=== PATIENT | male | born 1955 | race Caucasian/White ===

== ENCOUNTER → 2017-12-03 17:08 | Outpatient (CLI) | payer BC, SELFPAY | PROVIDERS: Family Provider Family Medicine; PCP Family Medicine; Visit Provider Otolaryngology Otolaryngology/Facial Plastic Surgery | DX: J32.9 Chronic sinusitis, unspecified (principal) | CPT/HCPCS: 87070; 87077; 87186; 87205 ==

== ENCOUNTER → 2018-01-10 11:58 | Outpatient (CLI) | payer BC, SELFPAY ==
[2018-01-10 12:36] LABS: Hematocrit 46.5 % (40-54); Hemoglobin 15.3 g/dl (13.0-16.5); Mean Corp Hgb Conc 32.9 g/gl (32-36); Mean Corpuscular Volume 97.3 fL (80-94); Mean Platelet Vol. 9.6 fl (6.2-12.0); Platelet Count 182 K/mm3 (150-450); RBC Distribution Width SD 46.1 fl (35.1-43.9); Red Blood Count 4.78 M/mm3 (4.6-6.2); White Blood Count 4.4 K/mm3 (4.4-11.0)
[2018-01-10 12:53] LABS: Scan Indicated on CBC? Y/N NO
[2018-01-10 12:55] LABS: Hemoglobin A1c 5.4 % (4.2-6.3)
[2018-01-10 13:37] LABS: AST(SGOT) 84 U/L (15-37); Alanine Aminotransfer ALT/SGPT 110 U/L (16-61); Alkaline Phosphatase 58 U/L (45-117); Anion Gap 8 (5-15); BUN 13 mg/dL (7-18); BUN/Creat Ratio 11.5 RATIO (10-20); Calcium,Total 8.6 mg/dL (8.5-10.1); Chloride 103 mmol/L (98-107); Cholesterol 208 mg/dL (200); Creatinine, Serum 1.13 mg/dL (0.70-1.30); EST Glomerular Filtration Rate 70 mL/min (>60); Est Glom Filt Rate - Afr Amer 85 mL/min (>60); Estradiol 60.2 pg/mL; Globulin 4.2 g/dL (2.2-4.2); Glucose 91 mg/dL (74-106); High Density Lipoprotein 58 mg/dL; PSA,Total - Annual Screen 2.02 ng/mL (0.00-4.00); Potassium 3.9 mmol/L (3.5-5.1); Protein, Total 8.2 g/dL (6.4-8.2); Sodium Level 139 mmol/L (136-145); Triglycerides 72 mg/dL; Very Low Density Lipoprotein 14 mg/dL (5-40)
[2018-01-11 11:56] LABS: Vitamin B12 1183 pg/mL (211-911); Vitamin D,25 Hydroxy 41.8 ng/mL (29.95-100.01)
[2018-01-15 16:09] LABS: Testosterone, % Free 3.27 % (1.50-4.20); Testosterone, Free 45.68 ng/dL (5.00-21.00)
[2018-01-16 11:20] LABS: DHEA Sulfate 398.2 ug/dL (48.9-344.2); Testosterone, Total 1397 ng/dL (264-916)
== END ==
PROVIDERS: Family Provider Family Medicine; PCP Family Medicine
DX: R63.5 Abnormal weight gain (principal); R53.83 Other fatigue
CPT/HCPCS: 36415; 80053; 80061; 82306; 82607; 82627; 82670; 82746; 83036; 84153; 84402; 84403; 85027; 82626; G0103

== ENCOUNTER → 2018-05-03 10:51 | Outpatient (CLI) | payer BC, SELFPAY ==
[2018-05-03 12:17] LABS: Hematocrit 30.5 % (40-54); Hemoglobin 9.2 g/dl (13.0-16.5); Mean Corp Hgb Conc 30.2 g/gl (32-36); Mean Corpuscular Hgb 26.7 pg (27.0-32.0); Mean Corpuscular Volume 88.7 fL (80-94); Mean Platelet Vol. 9.6 fl (6.2-12.0); Platelet Count 229 K/mm3 (150-450); RBC Distribution Width CV 16.8 % (11.6-14.6); RBC Distribution Width SD 52.8 fl (35.1-43.9); Red Blood Count 3.44 M/mm3 (4.6-6.2); White Blood Count 3.7 K/mm3 (4.4-11.0)
[2018-05-03 12:18] LABS: Scan Indicated on CBC? Y/N NO
[2018-05-03 12:48] LABS: Vitamin B12 385 pg/mL (211-911); Vitamin D,25 Hydroxy 56.8 ng/mL (29.95-100.01)
[2018-05-03 13:47] LABS: ALB/GLOB Ratio 0.9 RATIO (0.9-2.4); AST(SGOT) 39 U/L (15-37); Alanine Aminotransfer ALT/SGPT 45 U/L (16-61); Albumin, Serum 3.5 g/dL (3.2-5.0); Alkaline Phosphatase 69 U/L (45-117); Anion Gap 8 (5-15); BUN 14 mg/dL (7-18); BUN/Creat Ratio 15.7 RATIO (10-20); Calcium,Total 8.5 mg/dL (8.5-10.1); Chloride 104 mmol/L (98-107); Cholesterol 152 mg/dL (200); Creatinine, Serum 0.89 mg/dL (0.70-1.30); EST Glomerular Filtration Rate 92 mL/min (>60); Est Glom Filt Rate - Afr Amer 111 mL/min (>60); Estradiol 33.5 pg/mL; Globulin 3.7 g/dL (2.2-4.2); Glucose 100 mg/dL (74-106); High Density Lipoprotein 57 mg/dL; Potassium 4.1 mmol/L (3.5-5.1); Protein, Total 7.2 g/dL (6.4-8.2); Sodium Level 140 mmol/L (136-145); Triglycerides 56 mg/dL; Very Low Density Lipoprotein 11 mg/dL (5-40)
[2018-05-03 14:19] LABS: Hemoglobin A1c 4.4 % (4.2-6.3)
[2018-05-06 16:09] LABS: Testosterone, % Free 2.41 % (1.50-4.20); Testosterone, Free 20.29 ng/dL (5.00-21.00)
[2018-05-07 08:52] LABS: DHEA Sulfate 372.4 ug/dL (48.9-344.2); Testosterone, Total 842 ng/dL (264-916)
== END ==
PROVIDERS: Family Provider Family Medicine; PCP Family Medicine
DX: R53.83 Other fatigue (principal); R63.5 Abnormal weight gain
CPT/HCPCS: 36415; 80053; 80061; 82306; 82607; 82627; 82670; 82746; 83036; 84402; 84403; 85027; 82626

== ENCOUNTER → 2018-05-29 11:52 | Outpatient (CLI) | payer BC, SELFPAY ==
[2018-05-29 14:19] LABS: Absolute Lymphocyte Count 1.32 X10^3/ul (0.83-4.51); Absolute Neutrophil Count 2.4 X10^3/uL (2.0-7.7); Basophil# 0.04 X10^3/uL; Basophil% 0.9 % (0-1); Eosinophil# 0.13 X10^3/uL; Eosinophils% 3.1 % (0-5); Hematocrit 33.5 % (40-54); Hemoglobin 9.7 g/dl (13.0-16.5); Lymphocyte # 1.32 X10^3/ul (4.0); Lymphocyte % 31.1 % (19-41); Mean Corpuscular Hgb 23.5 pg (27.0-32.0); Mean Corpuscular Volume 81.3 fL (80-94); Mean Platelet Vol. 9.6 fl (6.2-12.0); Monocyte# 0.37 X10^3/uL; Monocyte% 8.7 % (0-10); Neutrophil # 2.37 X10^3/uL (2.7-7.7); POSITIVE COUNT NO; POSITIVE DIFFERENTIAL NO; POSITIVE MORPHOLOGY NO; Platelet Count 256 K/mm3 (150-450); RBC Distribution Width CV 18.1 % (11.6-14.6); RBC Distribution Width SD 53.8 fl (35.1-43.9); Red Blood Count 4.12 M/mm3 (4.6-6.2); White Blood Count 4.2 K/mm3 (4.4-11.0)
[2018-05-29 14:41] LABS: ALB/GLOB Ratio 0.9 RATIO (0.9-2.4); AST(SGOT) 41 U/L (15-37); Alanine Aminotransfer ALT/SGPT 49 U/L (16-61); Albumin, Serum 3.7 g/dL (3.2-5.0); Alkaline Phosphatase 56 U/L (45-117); Anion Gap 13 (5-15); BUN 12 mg/dL (7-18); BUN/Creat Ratio 12.2 RATIO (10-20); Calcium,Total 9.2 mg/dL (8.5-10.1); Chloride 101 mmol/L (98-107); Creatinine, Serum 0.98 mg/dL (0.70-1.30); EST Glomerular Filtration Rate 82 mL/min (>60); Est Glom Filt Rate - Afr Amer 100 mL/min (>60); Glucose 94 mg/dL (74-106); Potassium 4.5 mmol/L (3.5-5.1); Protein, Total 7.7 g/dL (6.4-8.2); Sodium Level 138 mmol/L (136-145); T3 Total - Triiodothyronine 0.87 ng/mL (0.6-1.81); T4 Free Direct 0.95 ng/dL (0.76-1.46); Thyroid Stim Hormone (TSH) 2.41 uIU/mL (0.358-3.74)
== END ==
PROVIDERS: Family Provider Family Medicine; PCP Family Medicine; Visit Provider Physician Assistant
DX: B02.9 Zoster without complications (principal); L03.012 Cellulitis of left finger
CPT/HCPCS: 36415; 80053; 84439; 84443; 84480; 85025

== ENCOUNTER → 2018-06-19 09:44 | Outpatient (CLI) | payer BC, SELFPAY ==
[2018-06-19 12:04] LABS: Absolute Lymphocyte Count 1.07 X10^3/ul (0.83-4.51); Absolute Neutrophil Count 2.9 X10^3/uL (2.0-7.7); Basophil# 0.05 X10^3/uL; Basophil% 1.1 % (0-1); Eosinophil# 0.08 X10^3/uL; Eosinophils% 1.7 % (0-5); Hematocrit 35.8 % (40-54); Hemoglobin 10.4 g/dl (13.0-16.5); Immature Platelet Fraction 1.6 % (1.0-7.9); Lymphocyte # 1.07 X10^3/ul (4.0); Lymphocyte % 22.7 % (19-41); Mean Corp Hgb Conc 29.1 g/gl (32-36); Mean Corpuscular Hgb 22.3 pg (27.0-32.0); Mean Corpuscular Volume 76.7 fL (80-94); Monocyte# 0.58 X10^3/uL; Monocyte% 12.3 % (0-10); Neutrophil # 2.91 X10^3/uL (2.7-7.7); Neutrophil % 61.8 % (47-70); Platelet Count 300 K/mm3 (150-450); RBC Distribution Width CV 18.4 % (11.6-14.6); RBC Distribution Width SD 51.9 fl (35.1-43.9); RET-HE 20.1 pg (30-35); Red Blood Count 4.67 M/mm3 (4.6-6.2); White Blood Count 4.7 K/mm3 (4.4-11.0)
[2018-06-19 12:05] LABS: POSITIVE COUNT NO; POSITIVE DIFFERENTIAL NO; POSITIVE MORPHOLOGY NO
[2018-06-19 12:20] LABS: Vitamin B12 383 pg/mL (211-911)
[2018-06-19 12:59] LABS: Ferritin 10 ng/mL (26-388); Iron 21 ug/dL (65-175); LDH 190 U/L (87-241)
[2018-06-21 10:11] LABS: Pathologist Review Reviewed
== END ==
PROVIDERS: Family Provider Family Medicine; PCP Family Medicine; Visit Provider Family Medicine
DX: D64.9 Anemia, unspecified (principal); R74.8 Abnormal levels of other serum enzymes; L03.019 Cellulitis of unspecified finger
CPT/HCPCS: 36415; 82247; 82248; 82607; 82728; 82746; 83540; 83615; 85025; 85045

== ENCOUNTER → 2018-08-23 10:24 | Outpatient (CLI) | payer BC, SELFPAY ==
[2018-08-23 12:44] LABS: Ferritin 24 ng/mL (26-388); Iron 35 ug/dL (65-175)
[2018-08-23 13:52] LABS: Absolute Lymphocyte Count 1.35 X10^3/ul (0.83-4.51); Absolute Neutrophil Count 1.8 X10^3/uL (2.0-7.7); Basophil# 0.03 X10^3/uL; Basophil% 0.8 % (0-1); Eosinophils% 2.6 % (0-5); Hematocrit 45.4 % (40-54); Hemoglobin 13.4 g/dl (13.0-16.5); Lymphocyte # 1.35 X10^3/ul (4.0); Lymphocyte % 35.3 % (19-41); Mean Corp Hgb Conc 29.5 g/gl (32-36); Mean Corpuscular Hgb 23.8 pg (27.0-32.0); Mean Corpuscular Volume 80.5 fL (80-94); Mean Platelet Vol. 9.7 fl (6.2-12.0); Monocyte# 0.51 X10^3/uL; Monocyte% 13.4 % (0-10); Neutrophil # 1.82 X10^3/uL (2.7-7.7); Neutrophil % 47.6 % (47-70); Platelet Count 230 K/mm3 (150-450); RBC Distribution Width CV 20.8 % (11.6-14.6); RBC Distribution Width SD 61.1 fl (35.1-43.9); Red Blood Count 5.64 M/mm3 (4.6-6.2); White Blood Count 3.8 K/mm3 (4.4-11.0)
[2018-08-23 13:53] LABS: Differential Indicated SCAN CRITERIA MET; POSITIVE COUNT NO; POSITIVE DIFFERENTIAL NO; POSITIVE MORPHOLOGY YES
[2018-08-23 13:54] LABS: Anisocytosis RARE
== END ==
PROVIDERS: Family Provider Family Medicine; PCP Family Medicine; Visit Provider Family Medicine
DX: D64.9 Anemia, unspecified (principal)
CPT/HCPCS: 36415; 82728; 83540; 85025

== ENCOUNTER → 2019-01-22 09:30 | Outpatient (CLI) | payer BC, SELFPAY ==
--- NOTE | 2019-01-22 09:34 | RAD_ITS ---
STUDY: X-RAY - LUMBAR SPINE REASON FOR EXAM: Male, 63 years old. strain to back while doing firewood TECHNIQUE: 4 view(s) of the lumbar spine were obtained. COMPARISON: None FINDINGS: Normal lumbar lordosis. There is multilevel endplate spondylosis of the lumbar vertebrae. There is multi-level degenerative disc disease with multi-level disc space narrowing. There is atherosclerotic calcification of the abdominal aorta. RAD/L/S Spine Min 4 Views IMPRESSION: Degenerative changes of the spine. Electronically Signed: Jose Luis Price MD at 8:35 EDT Tel , Service support ,
== END ==
PROVIDERS: Family Provider Family Medicine; PCP Family Medicine; Referring Provider Family Medicine; Visit Provider Family Medicine
DX: M54.16 Radiculopathy, lumbar region (principal)
CPT/HCPCS: 72110

== ENCOUNTER 2019-02-18 08:00 | Outpatient (RCR) | payer BC, SELFPAY ==
--- NOTE | 2019-02-07 07:23 | HP.PTEVAL_ITS ---
Patient's Visit Information KARIN MCLEOD is a 63 year old M referred to Physical Therapy by Sundar Pierce DO with a diagnosis of Low back pain. Date of Evaluation: 01/30/19 Physical Therapist: Jeff Abdi DPT - Visit Plan Frequency: 2-3x /Week Duration: 4-6 Weeks Plan: Start with neutral spine core strengthening. Have patient reassessed by PT seth Vallejo to rule out more complex discogenic compenent. Progress as indicated from him. - Subjective Findings: Pt. is here today for his initial evaluation with diagnosis of low back pain. Pt. reports ~6 weeks ago lifting fire wood. Pt. has had many episodes of low back pain previously. Pt. denies N/T in either LE, but has pain in L buttock. Pt. had trialled REIL at home and has a trialed caretaker grounds as well. Pt. reprots increased pain in AMs and is back to doing activities, but limited. Pt. has not had a recent MRI. Pt. is sleeping okay without issues. Pt. reprots increased Am pain improving through AM, but getting worse in PM. Pt. is able to do light household work without issues. Pt. is hopeful to reduce symptoms in order to get back to all recreational activities without limitations. - Pain Lumbar spine Pain Intensity (Out of 10): 3 Pain Intensity Range: 2, 6 - Objective POSTURE: Pt. as slight flexed posture. Pt. has decreased L side wt. shift, but is able to correct. PALPATION: PT. has increased tenderness wtih palpation of L lumbar paraspinals. Hypomobility with spring testing at L2-S1 with increased pain at L3/L34/L5. NEURO: Normal throughout bilateral LEs. Pt. has normal DTR of BLEs. PT. is able to rise on heels and toes without issues. ROM: LUMBAR SPINE: flexion- min loss mild increase NW, ext min/mod loss increase NW, SB min loss bilat NE, rotation min/nil loss bilat NE. Pt. has tight HS with icnreased pain on L side. Pt. has tight hip flexors and quads bilaterally as well. (tested in prone). MMT: RLE- ankle 5/5 throughout; knee- ext 5/5, flexion 5/5; hip- flexion 5-/5, abd 4+/5, ext 4+/5. LLE- ankle 5/5 throughot; knee- ext 5/5, flexion 5/5; hip- flexion 5-/5, abd 4+/5, ext 4+/5. Core strength- fair-. GAIT: Pt. has slgith flexed posture with increased lateral postural sway, slight contralateral hip drop. Pt. is lisa to increase erect posture, briefly (faitgue). STAIRS: Pt. is able to negotiate with 1 HR withotu LOB, but does have incerased pain with ascending during L stance phase. - Special Tests L/S Slump test left side: Positive L/S Slump test right side: Negative L/S Left Straight Leg Raise: Negative L/S Right Straight Leg Raise: Negative L/S Left Femoral Nerve Tension: Negative L/S Right Femoral Nerve Tension: Negative L/S Instability PA Test: Negative Lumbar Standing: Flexion - Mechanical Response: No effect Lumbar Standing: Flexion - Symptoms During Testing: No effect Lumbar Standing: Flexion - Symptoms After Testing: No effect Lumbar Standing: Extension - Mechanical Response: No effect Lumbar Standing: Extension - Symptoms During Testing: Increases Lumbar Standing: Extension - Symptoms After Testing: No worse Lumbar Standing: Right Side Glides - Mechanical Response: No effect Lumbar Standing: Right Side [place] - Symptoms During Testing: No effect Lumbar Standing: Right Side [place] - Symptoms After Testing: No effect Lumbar Standing: Left Side [place] - Mechanical Response: No effect Lumbar Standing: Left Side [place] - Symptoms During Testing: No effect Lumbar Standing: Left Side [place] - Symptoms After Testing: No effect Lumbar Lying: Flexion - Mechanical Response: No effect Lumbar Lying: Flexion - Symptoms During Testing: Decreases Lumbar Lying: Flexion - Symptoms After Testing: Better Lumbar Lying: Extension - Mechanical Response: No effect Lumbar Lying: Extension - Symptoms During Testing: Increases Lumbar Lying: Extension - Symptoms After Testing: No worse - Goals Goal 1:: Pt. to be I with HEP. Goal Time Frame: 4-6 Weeks Goal 2:: Pt. to have increased B hip and core stength increased by 1/2 grade of all effected musculature. Goal Time Frame: 4-6 Weeks Goal 3:: Pt. to sleep without increase in symptoms. Goal Time Frame: 4-6 Weeks Goal 4:: Pt. to complete all daily work activities and chores without increase in symptoms. Goal Time Frame: 4-6 Weeks Goal 5:: Pt. to have reduced radiating symptoms by 50% in LLE. Goal Time Frame: 4-6 Weeks - Rehabilitation Potential Physical Therapy Diagnosis: Pt. has signs and symptoms consistent with LBP with slight radiating symptoms to knee and posterior aspect of thigh. Pt. did not appear to have a distint directional preference, but did have some reduced symptoms with flexion. Pt. has been doing extension exercises and inverison table at home. Pt. would benefit from PT for neutral spine core stability exercises. Rehabilitation Potential: Good - Anticipated Interventions Patient/Client Instruction: Educate patient on: Condition, Plan of Care, Risk Factors, Benefits of Fitness Program For the Purpose of:: To foster healthy habits, To improve decision making, To facilitate caregiver knowledge, To improve self management, To prevent re- injury, To improve ability to perform tasks related to life management, To improve tolerance to ADL's Therapeutic Exercise to Include: Strength training, Power training, Endurance training, Body mechanics, Postural training, Flexibilty training, Gait and locomotor training, Passive ROM, Active ROM, Dynamic Lumbar Stabilization, Erum Exercises For the Purpose of:: To decrease pain, To decrease swelling/inflammation, To increase ROM, To improve nutrient delivery to tissue, To increase oxygenation perfusion, To improve muscle performance and motor function, To improve ability to perform ADL's, To increase tolerance to activity/condition/position, To improve performance and independence with ADL's, To improve gait and locomotor functions, To improve health of tissue, To increase flexibility/ROM Manual Therapy Techniques to Include: Mobilization, Passive ROM, Functional dry needling, Soft tissue mobilization For the Purpose of:: To decrease pain, To decrease swelling/inflammation, To increase ROM, To improve nutrient delivery to tissue, To increase oxygenation perfusion, To improve muscle performance and motor function, To improve health of tissue, To increase flexibility/ROM TENS: Yes IF ES: Yes Cryotherapy (ice pack, ice massage): Yes For the Purpose of:: To decrease pain, To decrease swelling/inflammation, To increase ROM, To improve nutrient delivery to tissue, To increase oxygenation perfusion, To improve muscle performance and motor function, To improve ability to perform ADL's, To improve gait and locomotor functions, To improve health of tissue, To decrease soft tissue restriction Thank you for the opportunity to evaluate your patient. For Medicare and Medicare HMO plans, please review the plan of care and approve it. It will need to be FAXED BACK to us at [phone] for Medicare purposes. For Medicare only, by signing this I certify the plan of care. Please let me know if there are questions or concerns regarding this plan of care. Physician Signatur e: Date:
--- NOTE | 2019-02-18 09:40 | HP.PTREVAL_ITS ---
Sundar Pierce, DO, It has been my pleasure to treat KARIN MCLEOD over the last 5 visits for Low back pain. Please see the progress note below for an update on the physical therapy plan of care! Subjective: Pt. reports overall I don't think much has changed. PT. reports continued decreased pain with walking, increased pain with sitting. Objective/Function: Pt. contiues to have increased pain with all flexion motions and end range extension. He does not a directional preference. Pt. dose have signs suggesting discogenic involvement. Pt. has made minimal gains with PT for strengtening and has trialed massage therapy and chiro care without reduction. Plan Plan: Pt. to follow up with physician to determine if further imaging is indicated. Goals Goal 1:: Pt. to be I with HEP. Goal Time Frame: 4-6 Weeks Goal Progress: Goal Met Goal 2:: Pt. to have increased B hip and core stength increased by 1/2 grade of all effected musculature. Goal Time Frame: 4-6 Weeks Goal Progress: Progressing Goal 3:: Pt. to sleep without increase in symptoms. Goal Time Frame: 4-6 Weeks Goal Progress: Progressing Goal 4:: Pt. to complete all daily work activities and chores without increase in symptoms. Goal Time Frame: 4-6 Weeks Goal Progress: Not Progressing Goal 5:: Pt. to have reduced radiating symptoms by 50% in LLE. Goal Time Frame: 4-6 Weeks Goal Progress: Not Progressing Anticipated Interventions Patient/Client Instruction: Educate patient on: Condition, Plan of Care, Risk Factors, Benefits of Fitness Program For the Purpose of:: To foster healthy habits, To improve decision making, To facilitate caregiver knowledge, To improve self management, To prevent re- injury, To improve ability to perform tasks related to life management, To improve tolerance to ADL's Therapeutic Exercise to Include: Strength training, Power training, Endurance training, Body mechanics, Postural training, Flexibilty training, Gait and locomotor training, Passive ROM, Active ROM, Dynamic Lumbar Stabilization, Erum Exercises For the Purpose of:: To decrease pain, To decrease swelling/inflammation, To increase ROM, To improve nutrient delivery to tissue, To increase oxygenation perfusion, To improve muscle performance and motor function, To improve ability to perform ADL's, To increase tolerance to activity/condition/position, To improve performance and independence with ADL's, To improve gait and locomotor functions, To improve health of tissue, To increase flexibility/ROM Manual Therapy Techniques to Include: Mobilization, Passive ROM, Functional dry needling, Soft tissue mobilization For the Purpose of:: To decrease pain, To decrease swelling/inflammation, To increase ROM, To improve nutrient delivery to tissue, To increase oxygenation perfusion, To improve muscle performance and motor function, To improve health of tissue, To increase flexibility/ROM TENS: Yes IF ES: Yes Cryotherapy (ice pack, ice massage): Yes For the Purpose of:: To decrease pain, To decrease swelling/inflammation, To increase ROM, To improve nutrient delivery to tissue, To increase oxygenation perfusion, To improve muscle performance and motor function, To improve ability to perform ADL's, To improve gait and locomotor functions, To improve health of tissue, To decrease soft tissue restriction Please do not hesitate to contact me at [phone] by phone or if you have questions or concerns regarding this new plan of care! Sincerely, Jeff Abdi DPT
--- NOTE | 2019-06-16 13:50 | HP.PTDCNRP_ITS ---
HP - Discharge Summary (1) - Patient Information KARIN MCLEOD was seen in my office for initial evaluation on 01/30/19. The following Plan of Care was established for this patient: Initial Frequency: 2-3x /Week Initial Duration: 4-6 Weeks - Anticipated Interventions Patient/Client Instruction: Educate patient on: Condition, Plan of Care, Risk Factors, Benefits of Fitness Program For the Purpose of:: To foster healthy habits, To improve decision making, To facilitate caregiver knowledge, To improve self management, To prevent re- injury, To improve ability to perform tasks related to life management, To improve tolerance to ADL's Therapeutic Exercise to Include: Strength training, Power training, Endurance training, Body mechanics, Postural training, Flexibilty training, Gait and lo comotor training, Passive ROM, Active ROM, Dynamic Lumbar Stabilization, Erum Exercises For the Purpose of:: To decrease pain, To decrease swelling/inflammation, To increase ROM, To improve nutrient delivery to tissue, To increase oxygenation perfusion, To improve muscle performance and motor function, To improve ability to perform ADL's, To increase tolerance to activity/condition/position, To improve performance and independence with ADL's, To improve gait and locomotor functions, To improve health of tissue, To increase flexibility/ROM Manual Therapy Techniques to Include: Mobilization, Passive ROM, Functional dry needling, Soft tissue mobilization For the Purpose of:: To decrease pain, To decrease swelling/inflammation, To increase ROM, To improve nutrient delivery to tissue, To increase oxygenation perfusion, To improve muscle performance and motor function, To improve health of tissue, To increase flexibility/ROM TENS: Yes IF ES: Yes Cryotherapy (ice pack, ice massage): Yes For the Purpose of:: To decrease pain, To decrease swelling/inflammation, To increase ROM, To improve nutrient delivery to tissue, To increase oxygenation perfusion, To improve muscle performance and motor function, To improve ability to perform ADL's, To improve gait and locomotor functions, To improve health of tissue, To decrease soft tissue restriction This patient was last seen in our office 02/18/19. Pertinent comments regarding their Physical therapy will appear below: Pt. was seen in PT for his low back pain. Pt. was referred back to physician due to limited progress. Pt. has not been seen in several months and will be DC at this point in time. At this point I will be discontinuing this patient from physical therapy. I would be happy to see this patient again in the future if found appropriate by the physician. Thank you! ROSSANA FernandesT
== END 2019-02-18 19:00 | disposition home or self-care (01) ==
LOC: PT 08:00
PROVIDERS: Family Provider Family Medicine; PCP Family Medicine; Referring Provider Family Medicine; Visit Provider Family Medicine
DX: M54.16 Radiculopathy, lumbar region (principal)
CPT/HCPCS: 97014; 97110; 97161; 97530; G0283

== ENCOUNTER → 2019-02-26 16:18 | Outpatient (CLI) | payer BC, SELFPAY ==
--- NOTE | 2019-02-26 16:45 | MRI_ITS ---
STUDY: MRI LUMBAR SPINE WITHOUT CONTRAST REASON FOR EXAM: Male, 63 years old. Back pain and left lower radiculopathy TECHNIQUE: Standardized fat and water weighted pulse sequences were obtained in the sagittal and axial planes. COMPARISON: Radiographs 01/22/2019 FINDINGS: T12-L1: Normal endplates. Normal disc height, hydration and morphology. Normal bilateral facet joints. Normal central canal and bilateral lateral recesses. Normal bilateral intervertebral neural foramina. Normal lumbar lordosis. There is no substantial scoliosis. Normal conus medullaris. L1-2: Normal endplates. Normal disc height, hydration and morphology. Mild facet spondylosis Normal central canal and bilateral lateral recesses. Normal bilateral intervertebral neural foramina. L2-3: There is mild posterior bulging annulus with increased T2 signal within the posterior disc margin. There is Mild central canal stenosis. There is no right foraminal stenosis. There is moderate left lateral foraminal stenosis. There is mild ligamentous hypertrophy with mild to moderate facet degenerative changes. L3-4: There is mild posterior bulging annulus. There is mild central canal stenosis There is increased T2 signal within the posterior disc margin. There are moderate facet degenerative changes and ligamentous hypertrophy. There is moderate bilateral foraminal stenosis L4-5: There is left paracentral disc protrusion mild central canal stenosis. No right foraminal stenosis. There is no left foraminal stenosis L5-S1: There is no disc protrusion. There are moderate facet degenerative changes. No central canal or foraminal stenosis. Mild right anterior lateral foraminal stenosis Normal visualized sacral ala. Normal visualized paraspinous soft tissue structures. MRI/Spine Lumbar (Routine) IMPRESSION: Posterior bulging annuli at L2-L3 and L3-L4 with small annular tears Multilevel spondylosis, disc osteophyte complexes, multilevel central canal and foraminal stenoses Left paracentral disc protrusion at L4-L5 with mild central canal stenosis Electronically Signed: Eren Adams, at 22:04 EDT Tel , Service support ,
== END ==
PROVIDERS: Family Provider Family Medicine; PCP Family Medicine; Referring Provider Family Medicine; Visit Provider Family Medicine
DX: M54.16 Radiculopathy, lumbar region (principal)
CPT/HCPCS: 72148

== ENCOUNTER → 2019-06-11 07:58 | Outpatient (CLI) | payer BC, SELFPAY ==
--- NOTE | 2019-06-11 08:04 | US_ITS ---
PROCEDURES: ULTRASOUND AORTA REASON FOR EXAM: Male, 63 years old. Abdominal aorta aneurysm screening. TECHNIQUE: Ultrasound evaluation of the aorta was performed with real-time and static carrington-scale imaging. COMPARISON: None. FINDINGS: There is no elongation or tortuosity of the abdominal aorta. Aorta measures: Proximal 2.0 cm. Middle 1.7 cm. Distal 1.6 cm. Aorta measure transversely: Proximal 2.4 cm. Middle 2.4 cm. Distal 1.6 cm. Right iliac artery measures: 1.0 cm. Right iliac artery measure transversely: 1.4 cm. Left iliac artery measures: 0.9 cm. Left iliac artery measure transversely: 1.9 cm. There is no demonstrated aneurysm.. There is calcified plaque within the mid and distal aorta and within the common iliac arteries. US/Aorta IMPRESSION: No abdominal aortic aneurysm identified. Atherosclerosis. Electronically Signed: Britany Elkins MD at 16:51 EDT Tel , Service support ,
--- NOTE | 2019-06-11 08:54 | RAD_ITS ---
STUDY: X-RAY CHEST REASON FOR EXAM: Male, 63 years old. Chest pain. TECHNIQUE: PA and lateral views of the chest. COMPARISON: None. FINDINGS: There is no focal consolidation. Normal size heart. Normal mediastinum and steffanie. Normal visualized pulmonary arteries. Normal visualized aortic arch and descending thoracic aorta. Normal visualized thoracic spine. Normal visualized ribs, clavicles, and shoulders. There is no demonstrated abnormality of the visualized soft tissue structures of the upper abdomen. RAD/Chest PA and Lateral IMPRESSION: No acute cardiopulmonary process. Electronically Signed: Britany Elkins MD at 23:43 EDT Tel , Service support ,
== END ==
PROVIDERS: Family Provider Family Medicine; PCP Family Medicine; Referring Provider Family Medicine; Visit Provider Family Medicine
DX: R07.9 Chest pain, unspecified (principal); M54.6 Pain in thoracic spine; I10 Essential (primary) hypertension; Z82.49 Family history of ischemic heart disease and other diseases of the circulatory system
CPT/HCPCS: 71046; 76775

== ENCOUNTER → 2019-07-12 07:57 | Outpatient (CLI) | payer BC, SELFPAY ==
[2019-07-12 08:40] LABS: Hematocrit 44.9 % (40-54); Hemoglobin 14.1 g/dL (13.0-16.5); Mean Corp Hgb Conc 31.4 g/dL (32-36); Mean Corpuscular Hgb 26.8 pg (27.0-32.0); Mean Corpuscular Volume 85.4 fL (80-94); Mean Platelet Vol. 9.3 fl (6.2-12.0); Platelet Count 254 K/mm3 (150-450); RBC Distribution Width CV 18.2 % (11.6-14.6); RBC Distribution Width SD 55.4 fl (35.1-43.9); Red Blood Count 5.26 M/mm3 (4.6-6.2); White Blood Count 6.6 K/mm3 (4.4-11.0)
[2019-07-12 09:26] LABS: Hemoglobin A1c 5.3 % (4.2-6.3)
[2019-07-12 10:55] LABS: AST(SGOT) 72 U/L (15-37); Alanine Aminotransfer ALT/SGPT 92 U/L (16-61); Albumin, Serum 3.9 g/dL (3.2-5.0); Alkaline Phosphatase 67 U/L (45-117); Anion Gap 10 (5-15); BUN 14 mg/dL (7-18); BUN/Creat Ratio 12.8 RATIO (10-20); Calcium,Total 8.7 mg/dL (8.5-10.1); Chloride 103 mmol/L (98-107); Cholesterol 177 mg/dL (200); Creatinine, Serum 1.09 mg/dL (0.70-1.30); EST Glomerular Filtration Rate 73 mL/min (>60); Est Glom Filt Rate - Afr Amer 88 mL/min (>60); Estradiol 51.3 pg/mL; Globulin 3.9 g/dL (2.2-4.2); Glucose 83 mg/dL (74-106); High Density Lipoprotein 78 mg/dL; Luteinizing Hormone < 0.2 mIU/mL; PSA,Total - Annual Screen 1.98 ng/mL (0.00-4.00); Potassium 4.2 mmol/L (3.5-5.1); Prolactin 9.4 ng/mL; Protein, Total 7.8 g/dL (6.4-8.2); Sodium Level 140 mmol/L (136-145); Triglycerides 69 mg/dL; Very Low Density Lipoprotein 14 mg/dL (5-40)
[2019-07-14 09:22] LABS: Vitamin B12 350 pg/mL (211-911); Vitamin D,25 Hydroxy 79.8 ng/mL (29.95-100.01)
[2019-07-16 12:07] LABS: DHEA Sulfate 190.5 ug/dL (48.9-344.2); Testosterone, % Free 4.16 % (1.50-4.20); Testosterone, Free 33.57 ng/dL (5.00-21.00)
[2019-07-17 14:44] LABS: Insulin Like Growth Factor 127 ng/mL (49-188); Testosterone, Total 807 ng/dL (264-916)
== END ==
PROVIDERS: Family Provider Family Medicine; PCP Family Medicine
DX: R53.83 Other fatigue (principal); R63.5 Abnormal weight gain; R68.83 Chills (without fever)
CPT/HCPCS: 36415; 80053; 80061; 82306; 82607; 82627; 82670; 82746; 83002; 83036; 84146; 84153; 84305; 84402; 84403; 85027; 82626; G0103

== ENCOUNTER → 2019-08-15 15:38 | Outpatient (CLI) | payer BC, SELFPAY ==
[2019-08-15 17:26] LABS: Ferritin 85 ng/mL (26-388); Iron 117 ug/dL (65-175)
== END ==
PROVIDERS: Family Provider Family Medicine; PCP Family Medicine; Referring Provider Family Medicine; Visit Provider Family Medicine
DX: R07.9 Chest pain, unspecified (principal); M54.6 Pain in thoracic spine; I10 Essential (primary) hypertension; Z82.49 Family history of ischemic heart disease and other diseases of the circulatory system; E61.1 Iron deficiency
CPT/HCPCS: 36415; 82728; 83540

== ENCOUNTER 2019-08-27 14:22 | Observation (INO) | payer BC, SELFPAY ==
[2019-08-27] VITALS (9 sets, daily range): BP systolic 139–161; BP diastolic 86–102; PULSE 71–99; RESP 15–18; TEMP 36.5–36.8; O2SAT 95–97; BMI 28.1; BMI 27.6
--- NOTE | 2019-08-27 15:08 | EKG12_ITS ---
Test Reason : SOB Blood Pressure : / mmHG Vent. Rate : 067 BPM Atrial Rate : 067 BPM P-R Int : 144 ms QRS Dur : 086 ms QT Int : 384 ms P-R-T Axes : 082 062 046 degrees QTc Int : 405 ms Normal sinus rhythm Normal ECG When compared with ECG of 13-JUN-2002 09:38, No significant change was found Confirmed by SOWMYA MARES, MANI ([id number]), editor farm journal KOBY DOWNING ([id number]) on 09/01/2019 10:02:40 AM Referred By: Pearl Sanchez Confirmed By:MANI DENG MD
--- NOTE | 2019-08-27 15:08 | RAD_ITS ---
STUDY: X-RAY CHEST REASON FOR EXAM: Male, 63 years old. Left facial droop. TECHNIQUE: Single AP portable view of the chest. COMPARISON: Comparison is made with prior examination dated June 11, 2019. FINDINGS: EKG electrodes are seen. The lungs are clear and expanded. There is no demonstrated pleural abnormality. Normal size heart. Normal mediastinum and steffanie. Normal visualized pulmonary arteries. There is atherosclerotic calcification of the aortic arch with tortuosity. Normal visualized thoracic spine. Normal visualized ribs, clavicles, and shoulders. There is no demonstrated abnormality of the visualized soft tissue structures of the upper abdomen. RAD/Chest 1 View (Portable) IMPRESSION: No acute abnormality is seen. Electronically Signed: Freddy Galicia, at 15:34 EST , Service support ,
--- NOTE | 2019-08-27 15:12 | NURSING ---
NO OLD EKGS
[2019-08-27] MEDS: 0.9% Normal Saline 1,000 ML 150 ML IV (15:19)
--- NOTE | 2019-08-27 15:23 | ED.DCSUM_ITS ---
- ER Visit Summary Date of Service: 08/27/19 Chief Complaint: [Weakness] History of Present Illness: The patient is a 63 M [presents to the emergency department with complaint of generalized weakness that started about 2 weeks ago and progressively worsening. Patient also complains of exertional dyspnea. Patient states that he went out today to split somewhat and just was too weak and short of breath even attempted. Patient denies any chest pain. He denies any blood in the stool although he is taking iron his stools are dark. Patient denies any fever or cough. Patient denies urinary symptoms. He does have prior history of anemia requiring iron. Patient states that he had a stress test about 3 years ago and was normal. Patient had a colonoscopy in May of this year and was unremarkable other than a small polyp. Patient states that he at times also feels like a drunk sensation. Patient does drink alcohol frequently. He denies illicit drug use. He does not smoke cigarettes.] Physical Examination: [HEENT-PERRLA, EOMI. Cranial nerves II through XII grossly intact. TMs clear. Mucous membranes moist. No adenopathy. Cardiovascular-regular rate and rhythm without murmur or ectopy Lungs-clear to auscultation, chest wall stable without crepitus or subcu em physema Abdomen-normoactive bowel sounds, soft, nontender, no rebound or rigidity, no peritoneal signs. Extremities-intact ?4, normal range of motion, normal pulses, atraumatic] Test Results: [EKG obtained shows sinus rhythm with a ventricular rate of 73 bpm with old septal infarct noted. There are no old EKGs available for comparison. CBC with differential shows a white count of 4.2, hemoglobin 15.9, hematocrit 49, plates 165. Chemistries unremarkable. LFTs showed a slightly elevated ALT of 165 and an AST of 150. D-dimer was 0.61 which when corrected for age is no rmal. Troponin was less than 0.015. Chest x-ray was unremarkable.] Emergency Department Course and Treatment: [Patient received aspirin while in the emergency department. 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 Orthostatic vital signs obtained were negative.] Treatment Plan: [Admit for further work-up and evaluation of his exertional d yspnea is I am concerned about possible acute coronary syndrome.] Disposition: [Admit] Impression: [Exertional dyspnea-rule out acute coronary syndrome] This note was generated with [employer] dictation software. It may contain incorrect words, spelling, and punctuation that were not noted in review of the chart prior to signing ED Disposition - Plan for ED Patient: Referrals: Sundar Pierce DO [Primary Care Provider] -
[2019-08-27 15:24] LABS: Absolute Lymphocyte Count 1.46 X10^3/uL (0.83-4.51); Absolute Neutrophil Count 2.2 X10^3/uL (2.0-7.7); Basophil# 0.03 X10^3/uL; Basophil% 0.7 % (0-1); Eosinophil# 0.06 X10^3/uL; Eosinophils% 1.4 % (0-5); Hematocrit 48.8 % (40-54); Hemoglobin 15.9 g/dL (13.0-16.5); Lymphocyte # 1.46 X10^3/ul (4.0); Lymphocyte % 34.9 % (19-41); Mean Corp Hgb Conc 32.6 g/dL (32-36); Mean Corpuscular Hgb 29.3 pg (27.0-32.0); Mean Platelet Vol. 8.6 fl (6.2-12.0); Monocyte# 0.39 X10^3/uL; Monocyte% 9.3 % (0-10); NRBC Flagged by Analyzer 0 % (0-5); Neutrophil # 2.22 X10^3/uL (2.7-7.7); Neutrophil % 53.2 % (47-70); Platelet Count 165 K/mm3 (150-450); RBC Distribution Width CV 19.3 % (11.6-14.6); RBC Distribution Width SD 61.8 fl (35.1-43.9); Red Blood Count 5.42 M/mm3 (4.6-6.2); White Blood Count 4.2 K/mm3 (4.4-11.0)
[2019-08-27 15:42] LABS: ALB/GLOB Ratio 0.9 RATIO (0.9-2.4); AST(SGOT) 150 U/L (15-37); Alanine Aminotransfer ALT/SGPT 165 U/L (16-61); Albumin, Serum 3.8 g/dL (3.2-5.0); Alkaline Phosphatase 71 U/L (45-117); Anion Gap 10 (5-15); BUN 8 mg/dL (7-18); BUN/Creat Ratio 8.4 RATIO (10-20); Calcium,Total 8.8 mg/dL (8.5-10.1); Chloride 103 mmol/L (98-107); Creatinine, Serum 0.95 mg/dL (0.70-1.30); EST Glomerular Filtration Rate 85 mL/min (>60); Est Glom Filt Rate - Afr Amer 102 mL/min (>60); Estimated Creatinine Clearance 79.59 ml/min; Globulin 4.1 g/dL (2.2-4.2); Glucose 81 mg/dL (74-106); Protein, Total 7.9 g/dL (6.4-8.2); Sodium Level 139 mmol/L (136-145)
[2019-08-27 15:58] LABS: D-Dimer Quantitative (DVT/PE) 0.61 FEU/ug/m (0.27-0.49)
--- NOTE | 2019-08-27 16:23 | NURSING ---
DR COCHRAN LET DR BROWNE KNOW SHE NEEDS TO SEE PATIENT
[2019-08-27] MEDS: Aspirin 81 MG TAB.CHEW 324 MG PO (16:33)
--- NOTE | 2019-08-27 16:34 | NURSING ---
127 OBS HOLLIE EXERTIONAL DYSPNEA R/O ACS
--- NOTE | 2019-08-27 17:26 | ECHOD_ITS ---
Reason For Study: Dyspnea/SOB Procedure This was a 2D Doppler, Color Flow transthoracic echocardiogram. Exam performed portable in patient room. Left Ventricle Normal size and thickness. The estimated ejection fraction is 55 %. No evidence for diastolic dysfunction. No regional wall motion abnormalities noted. Right Ventricle Normal RV size. Normal systolic function. Atria Normal left atrium. Normal right atrium. No doppler evidence for ASD. Mitral Valve There is no mitral valve stenosis. No mitral valve insufficiency. Tricuspid Valve There is no tricuspid stenosis. Unable to estimate RV systolic pressure due to insufficient tricuspid regurgitant envelope. Trivial tricuspid valve insufficiency. Aortic Valve Trisinus/trileaflet aortic valve. There is no aortic stenosis. No aortic valve insufficiency. Pulmonic Valve There is no pulmonic valvular stenosis. No pulmonic valve insufficiency. Great Vessels Normal aortic root. Pericardium/Pleural No pericardial effusion. MMode/2D Measurements & Calculations LVIDd: 3.6 cm IVSd: 1.5 cm Ao root diam: 3.6 cm LVIDs: 2.6 cm LVPWd: 1.2 cm LA dimension: 3.4 cm RVDd: 3.7 cm FS: 28.2 % LAV(MOD-bp): 39.2 ml LA A4 area: 13.4 cm2 RA A4 area: 12.8 cm2 LAV(MOD-bp) Indexed: 19.6 ml/m2 LAV(MOD-sp2): 47.4 ml LAV(MOD-sp4): 32.7 ml Time Measurements MV dec time: 0.25 sec Doppler Measurements & Calculations MV E max huang: 71.8 cm/sec Lat Peak E' Huang: 11.7 cm/sec Med Peak E' Huang: 9.8 cm/sec MV A max huang: 68.1 cm/sec E/E' lat: 6.1 E/E' med: 7.3 MV E/A: 1.1 MV V2 max: 83.0 cm/sec MV P1/2t max huang: 83.8 cm/sec Ao V2 max: 93.6 cm/sec MV max P.8 mmHg MV P1/2t: 75.3 msec Ao max P.5 mmHg MV V2 mean: 47.5 cm/sec MV dec slope: 326.1 cm/sec2 MV mean P.0 mmHg MVA(P1/2t): 2.9 cm2 MV V2 VTI: 24.1 cm LV V1 max: 84.3 cm/sec PA V2 max: 85.0 cm/sec LV V1 max P.8 mmHg Interpretation Summary The estimated ejection fraction is 55 %. No evidence for diastolic dysfunction. Ordering Physician: Pearl Sanchez Referring Physician: Pearl Sanchez Performed By: Freddy Soler RCS
--- NOTE | 2019-08-27 17:26 | EKG12_ITS ---
Test Reason : WEAKNESS Blood Pressure : / mmHG Vent. Rate : 073 BPM Atrial Rate : 073 BPM P-R Int : 152 ms QRS Dur : 082 ms QT Int : 372 ms P-R-T Axes : 080 048 034 degrees QTc Int : 409 ms Normal sinus rhythm Septal infarct , age undetermined Abnormal ECG Confirmed by AKIL MARES, JULIETTE ([id number]), photographic editor KOBY DOWNING ([id number]) on 08/29/2019 12:33:24 PM Referred By: Pearl Sanchez Confirmed By:HECTOR BARNARD MD
[2019-08-27] MEDS: Anastrozole 1 MG Tablet PO (20:31)
[2019-08-27] MEDS: LORazepam 1 MG Tablet PO (20:43)
--- NOTE | 2019-08-27 21:36 | PCM.HP.STD ---
Problem List (1) SOB (shortness of breath) Status: Acute (2) Malaise and fatigue Status: Acute History of Present Illness Date of Admission: 08/27/19 The patient is a 63 year old M who presented to the ED today 2/2 ongoing generalized weakness, SOB and fatigue that have progressively gotten worse over the last week or so. 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 He states that his sx worsen with exertion and that he has noticed that he has gotten SOB with exertion. He denies CP, fever, chills, cough. He had a stress test ordered by Dr. Shaffer about 3 yrs ago for an abn EKG that was normal. He has a remote h/o smoking (no more than 5 cigs/day ever). He has a family h/o cardiac issues both maternal and paternal. He admits to drinking heavily-5-6 gin and tonic a day for pain control and states that he has never withdrawn but never stopped drinking. He admits that he has been trying to cut back now that his back pain is becoming more manageable with injections per pain mgt. He states that he almost feels drunk at times when he gets the above sx. Troponin was WNL. Vital signs were stable. Orthostatics were neg. His EKG did showed no s/o acute ischemia. Hgb was 15.9. D-dimer when corrected for age is WNL. His liver enzymes are a bit elevated. Past Medical History Medical History: Medical History (Last Updated 08/27/19 @ 21:47 by Pearl Sanchez DO) Hyperlipidemia E78.5 Low 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 R79.89 HTN (hypertension) I10 Allergies Penicillins Allergy (Verified 08/27/19 14:22) Unknown Home Medications: Ambulatory Orders Medication Instructions Recorded Amlodipine Besylate 5 mg PO BID 08/27/19 Anastrozole [Arimidex] 1 mg PO MOWE 08/27/19 Biotin 5,000 mcg PO DAILY 08/27/19 Cholecalciferol (Vitamin D3) 125 mcg PO DAILY 08/27/19 [Vitamin D3] Hcg 0.5 ml IM TUFR 08/27/19 Lactobacillus Combo No.10 1 cap PO DAILY 08/27/19 [Probiotic] Multivitamin with Minerals 1 tab PO DAILY 08/27/19 [Multiple Vitamin] [place]-3S/Dha/Epa/Fish Oil [[place]-3 1,200 mg PO DAILY 08/27/19 Fish Oil 1,200 mg Sfgl] Testosterone Cypionate 0.6 ml IM DAILY 08/27/19 Surgical History: no surgical history Lives: Spouse/ Significant Other Smoking Status: Former smoker Tobacco Use: Cigarettes, Chew Alcohol: Heavy Drugs: None Review of Systems Constitutional: Reports: Malaise, Weakness, Fatigue. Denies: Anorexia, Chills, Fever, Night Sweats, Weight Change Eyes: Reports: Blurred vision - occasionally when he is feeling bad. Denies: Cataracts, Conjunctivae Inflammation, Double vision, Drainage, Eyelid Inflammation, Pain, Redness, Vision Change HEENT: Denies: Difficulty Hearing, Difficulty Swallowing, Dysphasia, Ear Pain, Eye Pain, Hard of Hearing, Head Aches, Hearing Changes, Nasal bleeding, Nasal Congestion, Post Nasal Drip, Sinus Congestion, Sinus Drainage, Sore Throat, Visual Changes Cardiovascular: Denies: Chest Pain, Claudication, Chest Pressure, Chest Tightness, Edema, Heaviness, Light Headedness, Orthopnea, Palpitations, Paroxysmal Noc. Dyspnea, Syncope Respiratory: Reports: Shortness of Breath, Shortness of breath upon exertion. Denies: Cough, Hemoptysis, Pleuritic Pain, Shortness of breath at rest, Sputum production, Wheezing Gastrointestinal: Denies: Abdominal Pain, Constipation, Diarrhea, Dyspepsia, Hematemesis, Hematochezia, Nausea, Melena, Vomiting Genitourinary: Denies: Dysuria, Frequency, Hematuria, Hesitancy, Incontinence, Nocturia, Retention, Urgency Musculoskeletal: Reports: Back Pain, Leg Pain. Denies: Arm Pain, Foot Pain, Hand Pain, Joint Pain, Joint stiffness, Joint swelling, Joint Tenderness, Muscle pain, Neck Pain, Shoulder Pain Skin: Denies: Dryness, Jaundice, Lesions, Pruritis, Rash, Skin Changes, Wounds Neurological: Reports: Blurred vision. Denies: Balance problems, Double vision, Change in Speech, Slurred speech, Confusion, Difficulty swallowing, Focal weakness, Headaches, Incoordination, Numbness, Tingling, Tremor, Seizures Psychiatric: Denies: Anxiety, Depression, Suicidal Ideations Endocrine: Denies: Change in Body Habitus, Heat/ Cold Intolerance, Polydipsia, Polyuria, Hx of Irradiation, Hx of Thyroiditis Hematologic/ Lymphatic: Denies: Adenopathy, Anemia, Easy Bruising, Easy Bleeding, Petechiae, Purpura, Hx of blood clot VTE Information - Inpt Only VTE Present on Admission: No VTE Mechan Device Prophylaxis: SCD's VTE Pharm Prophylaxis ordered?: Yes Patient Problems: Active and Suspected Problems SOB (shortness of breath) (Acute) Malaise and fatigue (Acute) - Physical Exam Vitals/I&O's: Vital Signs Temp Pulse Resp BP Pulse Ox 97.7 F L 86 18 161/86 H 97 08/27/19 17:10 08/27/19 19:03 08/27/19 17:10 08/27/19 17:10 08/27/19 17:10 Oxygen Delivery Method Room Air Weight: 84.8 kg Body Mass Index (BMI) 27.6 Intake and Output for Last 24 Hours 08/25/19 08/26/19 08/27/19 23:59 23:59 23:59 Intake Total 332.5 / 332.5 Balance 332.5 / 332.5 General: Alert, Oriented x3, Cooperative, No apparent distress, Well developed, Well nourished, - - face is flushed, at bedside, very pleasant, A&Ox3, non toxic appearing HEENT: Atraumatic, PERRLA, EOMI, Normocephalic, EAC Clear Oral: Moist Mucosa, No Gingival or Mucosal Lesions/ Ulcerations, - - fair dentition Neck: Supple, No JVD, Negative Carotid Bruits, Negative Hepatojugular Reflux, No Nodes, No Nuchal Rigidity, Trachea Midline, Thyroid Normal Size and Texture Lungs: Clear to auscultation, Normal air movement, No rhonchi, No wheeze, No rales Cardiovascular: Regular rate, Regular Rhythm, Normal S1, Normal S2, No murmurs, No Ectopic Activity, No rub noted, No Gallop Abdomen: Bowel Sounds Present, Soft, Non Tender, Non-Distended, No Hepato-splenomegaly, No hernias noted Extremities: No clubbing, No cyanosis, No edema, Capillary Refill Less than 3 Seconds, No Calf Tenderness, Peripheral Pulses Normal Skin: No rashes, No breakdown Musculoskeletal: No Tenderness to Palpation of Joints or Extremities, No Muscle Wasting Lymphatic: No Cervical, Supraclavicular, or Inguinal Adenopathy Neurological: Cranial nerves II-XII grossly intact, Deep Tendon Reflexes 2+/4 and Symmetrical, Neuro grossly intact, Motor Exam 5/5 strength throughout Psych/Mental Status: Normal Affect, Appropriate, Alert and oriented to time, place, person, mood and affect Laboratory Results 08/27/19 15:15: WBC 4.2 L, RBC 5.42, Hgb 15.9, Hct 48.8, MCV 90.0, MCH 29.3, MCHC 32.6, RDW Std Deviation 61.8 H, RDW Coeff of [place] 19.3 H, Plt Count 165, MPV 8.6, Immature Gran % (Auto) 0.500, Neut % (Auto) 53.2, Lymph % (Auto) 34.9, Cloud % (Auto) 9.3, Eos % (Auto) 1.4, Baso % (Auto) 0.7, Absolute Neuts (auto) 2.2, Absolute Lymphs (auto) 1.46, Nucleated RBC % 0 08/27/19 15:15: D-Dimer Quant (PE/DVT) 0.61 H* 08/27/19 15:15: Sodium 139, Potassium 4.0, Chloride 103, Carbon Dioxide 26.0, Anion Gap 10, BUN 8, Creatinine 0.95, Estim Creat Clear Calc 79.59, Est GFR (MDRD) Af Amer 102, Est GFR (MDRD) Non-Af 85, BUN/Creatinine Ratio 8.4 L, Glucose 81, Calcium 8.8, Total Bilirubin 0.60, AST 150 H, ALT 165 H, Alkaline Phosphatase 71, Troponin I < 0.015, Total Protein 7.9, Albumin 3.8, Globulin 4.1, Albumin/Globulin Ratio 0.9 08/27/19 18:15: Troponin I < 0.015 Current Medications Albuterol/Ipratropium (Duoneb) 3 ml INHALATION Q4H.RT [facility] Amlodipine Besylate (Norvasc) 5 mg PO BID [facility] Anastrozole (Arimidex) 1 mg PO MOWE [facility] Last Admin: 08/27/19 20:31 Dose: 1 mg Documented by: Aspirin (Ecotrin) 81 mg PO DAILY@0800 [facility] Atorvastatin Calcium (Lipitor) 40 mg PO QHS [facility] Carvedilol (Coreg) 3.125 mg PO BID [facility] Cholecalciferol (Vitamin D) 5,000 unit PO DAILY [facility] Enoxaparin Sodium (Lovenox) 40 mg SC DAILY@0600 [facility]) [facility] Stop: 08/30/19 08:01 Guaifenesin (Mucinex) 600 mg PO BID [facility] Lorazepam (Ativan) 1 mg PO Q4H PRN PRN Reason: Alcohol Withdrawal Last Admin: 08/27/19 20:43 Dose: 1 mg Documented by: Multivitamins ([facility]ivitamin) [facility] Nitroglycerin (Nitrostat) 0.4 mg SUBLINGUAL Q5M PRN PRN Reason: CHEST PAIN Phenobarbital (Phenobarbital) 60 mg PO TID [facility] Sodium Chloride () 10 - 40 ml IV UD PRN PRN Reason: SALINE FLUSH Thiamine HCl (Vitamin B1) 200 mg PO DAILYCM [facility] Stop: 08/30/19 08:01 Assessment/Plan All Active Problems SOB (shortness of breath) (Acute) Malaise and fatigue (Acute) Fatigue/Exertional SOB -concern that this may be an anginal equivalent -cycle troponins -check lipids -add statin for now but watch LFT -check TSH -CXR WNL and lung exam is unremarkable -repeat am lab -add coreg -nitro prn -check ECHO -consult cardiology -repeat stress test vs cath HTN/HPL -cont norvasc -add BB -check lipids Transaminitis -not c/w EtOH -repeat in am -consider hep studies and RUQ US if still elevated in am -check coags EtOH Abuse -CIWA -Phenobarb 60 mg po TID -Ativan 1 mg q 4 hrs for withdrawal--> may need to increase dose vs frequency -watch liver enzymes -thiamine/folate/MVI Low Testosterone -continue home meds H/O Tobacco Abuse -resolved DVT prophylaxis -Lovenox and SCD Code Visit Inpatient E&M: 97719 Init Hosp L3
[2019-08-27] MEDS: Phenobarbital 20 MG/5 ML UDC 60 MG PO (21:54)
[2019-08-27] MEDS: Atorvastatin Calcium 40 MG Tablet PO (21:55)
[2019-08-27] MEDS: Carvedilol 3.125 MG TABLET PO (21:56)
[2019-08-27] MEDS: amLODIPine 5 MG Tablet PO (21:56)
[2019-08-27] MEDS: guaiFENesin 600 MG Tablet PO (22:02)
[2019-08-27] MEDS: Ipratropium/Albuterol Sulfate 3 ML AMPUL.NEB INHALATION (22:56)
[2019-08-28] VITALS (9 sets, daily range): BP systolic 145–153; BP diastolic 90–96; PULSE 67–98; RESP 16–18; TEMP 36.4–36.8; O2SAT 93–95
[2019-08-28] MEDS: Phenobarbital 20 MG/5 ML UDC 60 MG PO ×3 (05:03→21:01)
--- NOTE | 2019-08-28 05:55 | EKG12_ITS ---
Test Reason : AM Blood Pressure : / mmHG Vent. Rate : 067 BPM Atrial Rate : 067 BPM P-R Int : 162 ms QRS Dur : 086 ms QT Int : 386 ms P-R-T Axes : 059 064 051 degrees QTc Int : 407 ms Normal sinus rhythm Normal ECG When compared with ECG of 27-AUG-2019 17:53, MANUAL COMPARISON REQUIRED, DATA IS UNCONFIRMED Confirmed by SOWMYA MARES, MANI ([id number]), film editor supervisor KOBY DOWNING ([id number]) on 09/01/2019 10:00:55 AM Referred By: Pearl Sanchez Confirmed By:MANI DENG MD
[2019-08-28 06:02] LABS: Hematocrit 46.5 % (40-54); Hemoglobin 15.1 g/dL (13.0-16.5); Mean Corp Hgb Conc 32.5 g/dL (32-36); Mean Corpuscular Volume 89.3 fL (80-94); Mean Platelet Vol. 9.1 fl (6.2-12.0); Platelet Count 142 K/mm3 (150-450); RBC Distribution Width CV 18.6 % (11.6-14.6); RBC Distribution Width SD 60.6 fl (35.1-43.9); Red Blood Count 5.21 M/mm3 (4.6-6.2); White Blood Count 4.3 K/mm3 (4.4-11.0)
[2019-08-28 06:17] LABS: Partial Thromboplast Time 26.4 Seconds (24.1-36.2)
[2019-08-28 06:30] LABS: ALB/GLOB Ratio 0.8 RATIO (0.9-2.4); AST(SGOT) 109 U/L (15-37); Alanine Aminotransfer ALT/SGPT 138 U/L (16-61); Albumin, Serum 3.3 g/dL (3.2-5.0); Alkaline Phosphatase 61 U/L (45-117); Anion Gap 13 (5-15); BUN 10 mg/dL (7-18); BUN/Creat Ratio 11.7 RATIO (10-20); Calcium,Total 8.1 mg/dL (8.5-10.1); Chloride 100 mmol/L (98-107); Cholesterol 173 mg/dL (200); Creatinine, Serum 0.86 mg/dL (0.70-1.30); EST Glomerular Filtration Rate 96 mL/min (>60); Est Glom Filt Rate - Afr Amer 116 mL/min (>60); Estimated Creatinine Clearance 87.92 ml/min; Globulin 3.9 g/dL (2.2-4.2); Glucose 101 mg/dL (74-106); High Density Lipoprotein 82 mg/dL; Potassium 3.7 mmol/L (3.5-5.1); Protein, Total 7.2 g/dL (6.4-8.2); Sodium Level 138 mmol/L (136-145); Thyroid Stim Hormone (TSH) 3.51 uIU/mL (0.358-3.74); Triglycerides 99 mg/dL; Very Low Density Lipoprotein 20 mg/dL (5-40)
[2019-08-28] MEDS: amLODIPine 5 MG Tablet PO ×2 (09:48→21:01)
[2019-08-28] MEDS: Aspirin E.C. 81 MG Tablet PO (09:49)
[2019-08-28] MEDS: guaiFENesin 600 MG Tablet PO ×2 (09:49→21:02)
[2019-08-28] MEDS: Thiamine Hydrochloride 100 MG Tablet 200 MG PO (11:34)
[2019-08-28] MEDS: Enoxaparin 40 MG/0.4 ML Syringe SC (11:34)
[2019-08-28] MEDS: Folic Acid 1 MG Tablet PO (11:35)
[2019-08-28] MEDS: Carvedilol 3.125 MG TABLET PO ×2 (11:35→21:02)
[2019-08-28] MEDS: Multivitamins,Therapeutic Tablet 1 TABLET PO (11:35)
--- NOTE | 2019-08-28 12:31 | CON.PCM_ITS ---
<Chris Jose - Last Filed: 08/28/19 12:31> Problem List (1) SOB (shortness of breath) Status: Acute (2) Malaise and fatigue Status: Acute Reason for Consult Date of Consultation: 08/28/19 Reason for Consultation: SOB, Fatigue History of Present Illness: The patient is a 63 year old M who presented to [facility] Emergency Department on 08/27/2019 for progressive shortness of breath and weakness. He has a past medical history of hypertension and hyperlipidemia. Patient states that over the last several weeks he has noted progressive shortn ess of breath and fatigue. However, over the last 3 to 4 days he has noted that this has worsened. He typically ambulates 2 miles in the morning. However, on day of presentation he did not feel that he had the strength or ability to do such activity. Thus, he presented to the Emergency Department His work-up showed a d-dimer at 0.61 that was age corrected and thought to be negative. His cardiac enzyme was negative. His chest x-ray was negative. His TSH and hemoglobin within expected range. His EKG showed sinus rhythm. He was admitted for further evaluation. Cardiology was consulted for further input. Past Medical History Allergies/Adverse Reactions: Allergies Penicillins Allergy (Verified 08/27/19 14:22) Unknown Home Medications: Ambulatory Orders Medication Instructions Recorded Amlodipine Besylate 5 mg PO BID 08/27/19 Anastrozole [Arimidex] 1 mg PO MOWE 08/27/19 Biotin 5,000 mcg PO DAILY 08/27/19 Cholecalciferol (Vitamin D3) 125 mcg PO DAILY 08/27/19 [Vitamin D3] Hcg 0.5 ml IM TUFR 08/27/19 Lactobacillus Combo No.10 1 cap PO DAILY 08/27/19 [Probiotic] Multivitamin with Minerals 1 tab PO DAILY 08/27/19 [Multiple Vitamin] [place]-3S/Dha/Epa/Fish Oil [[place]-3 1,200 mg PO DAILY 08/27/19 Fish Oil 1,200 mg Sfgl] Testosterone Cypionate 0.6 ml IM DAILY 08/27/19 Surgical History: no surgical history Lives: Spouse/ Significant Other Smoking Status: Former smoker Tobacco Use: Cigarettes, Chew Alcohol: Heavy Drugs: None Review of Systems - Review of Systems General: Reports: Fatigue. Denies: Fever Cardiovascular: Reports: Shortness of Breath, Shortness of Breath with Exertion, Lightheadedness, Dizziness. Denies: Chest Discomfort, Chest Discomfort at Rest, Chest Discomfort with Exertion, Chest Pressure, Chest Tightness, Chest Heaviness, Shortness of Breath at Rest, Orthopnea, PND, Peripheral Edema, Palpitations, Near Syncope, Syncope, Orthostatic Symptoms, Claudication Respiratory: Denies: Cough Subjectve: Patient seen and evaluated. He continues to have fatigue and shortness of breath with activity. He denies any chest pain prior to admission or currently. He does acknowledge previous symptoms that were related to low iron. He states that this has been evaluated recently with primary care physician. Objective: Vital Signs Temp Pulse Resp BP Pulse Ox 97.6 F L 73 18 152/96 H 93 08/28/19 09:46 08/28/19 09:46 08/28/19 09:46 08/28/19 09:46 08/28/19 09:46 Oxygen Delivery Method Room Air Weight: 186 lb 15.232 oz Body Mass Index (BMI) 27.6 Intake and Output for Last 24 Hours 08/26/19 08/27/19 08/28/19 23:59 23:59 23:59 Intake Total 582.5 / 582.5 0 / 0 Balance 582.5 / 582.5 0 / 0 General: Healthy Appearing, Awake, Alert, Oriented x 3, Cooperative, No Acute Distress, Lethargic Neck: No JVD Lungs: Clear to auscultation Cardiovascular: Regular Rhythm, Normal S1, Normal S2, No Murmurs, No Rubs, No G allops Vascular: No Carotid Bruits Abdomen: Bowel Sounds Present, Soft, Non Tender Extremities: No Cyanosis, No Clubbing, No edema, Normal Capillary Refill, Cyanosis, Clubbing Neurological: No Focal Motor or Sensory Deficit Psych/Mental Status: Appropriate, Normal Affect 08/27/19 15:15: WBC 4.2 L, RBC 5.42, Hgb 15.9, Hct 48.8, MCV 90.0, MCH 29.3, MCHC 32.6, Plt Count 165, MPV 8.6, Immature Gran % (Auto) 0.500, Neut % (Auto) 53.2, Lymph % (Auto) 34.9, [place] % (Auto) 9.3, Eos % (Auto) 1.4, Baso % (Auto) 0.7, Absolute Neuts (auto) 2.2, Nucleated RBC % 0 08/27/19 15:15: D-Dimer Quant (PE/DVT) 0.61 H* 08/27/19 15:15: Sodium 139, Potassium 4.0, Chloride 103, Carbon Dioxide 26.0, Anion Gap 10, BUN 8, Creatinine 0.95, Est GFR (MDRD) Af Amer 102, Est GFR (MDRD) Non-Af 85, BUN/Creatinine Ratio 8.4 L, Glucose 81, Calcium 8.8, Total Bilirubin 0.60, Troponin I < 0.015 08/27/19 18:15: Troponin I < 0.015 08/27/19 21:40: Troponin I < 0.015 08/28/19 05:30: WBC 4.3 L, RBC 5.21, Hgb 15.1, Hct 46.5, MCV 89.3, MCH 29.0, MCHC 32.5, Plt Count 142 L, MPV 9.1 08/28/19 05:30: Sodium 138, Potassium 3.7, Chloride 100, Carbon Dioxide 25.0, Anion Gap 13, BUN 10, Creatinine 0.86, Est GFR (MDRD) Af Amer 116, Est GFR (MDRD) Non-Af 96, BUN/Creatinine Ratio 11.7, Glucose 101, Calcium 8.1 L, Total Bilirubin 0.90, Triglycerides 99, Cholesterol 173, LDL Cholesterol 71, VLDL Cholesterol 20, HDL Cholesterol 82 08/28/19 05:30: PT 13.0, INR 1.0, APTT 26.4 Rhythm: EKG: ECHO: 08/27/2019 Interpretation Summary The estimated ejection fraction is 55 %. No evidence for diastolic dysfunction. Stress Test: 03/15/2016 CONCLUSION: 1. Normal exercise myocardial perfusion stress test at a high workload. 2. Excellent functional work capacity. 3. Preserved ejection fraction. Cardiac Cath: PCI: CT Surgery: Holter monitor: EPS: PPM: CXR: Chest CT Scan: Assessment/Plan 1. Shortness of breath The exact etiology remains unclear. He underwent an echocardiogram on 08/27/2019 that showed ejection fraction of 55% and no evidence of diastolic dysfunction. No regional wall motion abnormalities were noted. His right ventricle was normal in size and function. He underwent a stress test in March 2016 that was negative for ischemia. He will undergo a nuclear stress test in the morning to further evaluate. Based on results, further recommendation will be made, which may include heart catheterization. It is also recommended that he undergo iron studies to ensure no abnormalities that may be contributing to his symptoms as he states as occurred previously. His hemoglobin was noted to be normal at 15.1 g/dL. If no etiology can be discerned, it is recommended to consider chest CT scan. His echocardiogram did not show any concerning symptoms for significant pulmonary embolism. 2. Hypertension His blood pressure has been elevated since admission. He acknowledges that at home it is typically well controlled with systolics 130s and diastolic 80s. Depending on his heart catheterization and overall progression, we can consider additional medical therapy such as SABRINA inhibitor or ARB. 3. Hyperlipidemia He states that this has been evaluated recently with primary care physician and that his values were good. He will continue the current statin medication. Patient's case was discussed with Dr. Sidhu, who also personally evaluated patient. Please see his note for further details and recommendations. Thank you for allowing us to participate in the patients plan of care, if you have any questions please do not hesitate to call. This note was generated using a voice recognition system and there may be incorrect words, spelling or punctuation that were not noted when reviewing the office note prior to saving. <Beena Sidhu - Last Filed: 08/28/19 15:49> Reason for Consult History of Present Illness: The patient is a 63 year old M [] Objective: Vital Signs Temp Pulse Resp BP Pulse Ox 97.6 F L 98 18 152/96 H 93 08/28/19 09:46 08/28/19 15:02 08/28/19 09:46 08/28/19 09:46 08/28/19 09:46 Oxygen Delivery Method Room Air Weight: 186 lb 15.232 oz Body Mass Index (BMI) 27.6 Intake and Output for Last 24 Hours 08/26/19 08/27/19 08/28/19 23:59 23:59 23:59 Intake Total 582.5 / 582.5 240 / 240 Balance 582.5 / 582.5 240 / 240 08/27/19 15:15: D-Dimer Quant (PE/DVT) 0.61 H* 08/27/19 18:15: Troponin I < 0.015 08/27/19 21:40: Troponin I < 0.015 08/28/19 05:30: WBC 4.3 L, RBC 5.21, Hgb 15.1, Hct 46.5, MCV 89.3, MCH 29.0, MCHC 32.5, Plt Count 142 L, MPV 9.1 08/28/19 05:30: Sodium 138, Potassium 3.7, Chloride 100, Carbon Dioxide 25.0, Anion Gap 13, BUN 10, Creatinine 0.86, Est GFR (MDRD) Af Amer 116, Est GFR (MDRD) Non-Af 96, BUN/Creatinine Ratio 11.7, Glucose 101, Calcium 8.1 L, Total Bilirubin 0.90, Triglycerides 99, Cholesterol 173, LDL Cholesterol 71, VLDL Cholesterol 20, HDL Cholesterol 82 08/28/19 05:30: PT 13.0, INR 1.0, APTT 26.4 08/28/19 05:30: Iron 203 H, TIBC 306, Iron Saturation 66.3 H Rhythm: EKG: ECHO: Stress Test: Cardiac Cath: PCI: CT Surgery: Holter monitor: EPS: PPM: CXR: Chest CT Scan: Assessment/Plan Seen, evaluated and discussed with Chris Jose APN. I agree with Chris's note. Please see that note for full details. Patient has significant dyspnea on exertion. I discussed coronary angiography versus stress testing. At this time we will proceed with stress testing. Patient has history of iron deficiency in the past. I would recommend checking iron studies as well. If the stress test is negative for significant ischemia and the iron studies are okay then consider CT chest to further evaluate the significant shortness of breath. If that is negative then as an outpatient we could consider coronary angiography.
[2019-08-28 13:01] LABS: Iron 203 ug/dL (65-175); Iron Binding Capacity,Total 306 ug/dL (250-450); PERCENT IRON SATURATION 66.3 % (15.0-55.0)
--- NOTE | 2019-08-28 14:19 | PCM.PROGNOTE ---
<Cesia Bowman - Last Filed: 08/28/19 14:38> Patient Problems: Active and Suspected Problems (Last Updated 08/27/19 @ 21:47 by Pearl Sanchez DO) SOB (shortness of breath) (Acute) Malaise and fatigue (Acute) Subjective: Patient seen and examined. Reports shortness of breath improved although he has not been as ambulatory as he is used to. Denies chest discomfort. Denies recent weight gain or swelling. - Physical Exam Vitals/I&O's: Vital Signs Temp Pulse Resp BP Pulse Ox 97.6 F L 73 18 152/96 H 93 08/28/19 09:46 08/28/19 09:46 08/28/19 09:46 08/28/19 09:46 08/28/19 09:46 Oxygen Delivery Method Room Air Weight: 186 lb 15.232 oz Body Mass Index (BMI) 27.6 Intake and Output for Last 24 Hours 08/26/19 08/27/19 08/28/19 23:59 23:59 23:59 Intake Total 582.5 / 582.5 240 / 240 Balance 582.5 / 582.5 240 / 240 General: Alert, Oriented x3, Cooperative HEENT: Atraumatic, PERRLA, EOMI, Normocephalic Neck: Supple, No JVD, Negative Carotid Bruits Lungs: Clear to auscultation, Normal air movement Cardiovascular: Regular rate, Regular Rhythm, Normal S1, Normal S2, No murmurs Abdomen: Bowel Sounds Present, Soft, Non Tender, Non-Distended Extremities: No clubbing, No cyanosis, No edema, Capillary Refill Less than 3 Seconds Skin: No rashes, No breakdown Musculoskeletal: No Tenderness to Palpation of Joints or Extremities Neurological: Cranial nerves II-XII grossly intact, Neuro grossly intact Psych/Mental Status: Normal Affect, Appropriate Laboratory Results 08/27/19 15:15: WBC 4.2 L, RBC 5.42, Hgb 15.9, Hct 48.8, MCV 90.0, MCH 29.3, MCHC 32.6, RDW Std Deviation 61.8 H, RDW Coeff of Wayne 19.3 H, Plt Count 165, MPV 8.6, Immature Gran % (Auto) 0.500, Neut % (Auto) 53.2, Lymph % (Auto) 34.9, [place] % (Auto) 9.3, Eos % (Auto) 1.4, Baso % (Auto) 0.7, Absolute Neuts (auto) 2.2, Absolute Lymphs (auto) 1.46, Nucleated RBC % 0 08/27/19 15:15: D-Dimer Quant (PE/DVT) 0.61 H* 08/27/19 15:15: Sodium 139, Potassium 4.0, Chloride 103, Carbon Dioxide 26.0, Anion Gap 10, BUN 8, Creatinine 0.95, Estim Creat Clear Calc 79.59, Est GFR (MDRD) Af Amer 102, Est GFR (MDRD) Non-Af 85, BUN/Creatinine Ratio 8.4 L, Glucose 81, Calcium 8.8, Total Bilirubin 0.60, AST 150 H, ALT 165 H, Alkaline Phosphatase 71, Troponin I < 0.015, Total Protein 7.9, Albumin 3.8, Globulin 4.1, Albumin/Globulin Ratio 0.9 08/27/19 18:15: Troponin I < 0.015 08/27/19 21:40: Troponin I < 0.015 08/28/19 05:30: WBC 4.3 L, RBC 5.21, Hgb 15.1, Hct 46.5, MCV 89.3, MCH 29.0, MCHC 32.5, RDW Std Deviation 60.6 H, RDW Coeff of [place] 18.6 H, Plt Count 142 L, MPV 9.1 08/28/19 05:30: Sodium 138, Potassium 3.7, Chloride 100, Carbon Dioxide 25.0, Anion Gap 13, BUN 10, Creatinine 0.86, Estim Creat Clear Calc 87.92, Est GFR (MDRD) Af Amer 116, Est GFR (MDRD) Non-Af 96, BUN/Creatinine Ratio 11.7, Glucose 101, Calcium 8.1 L, Total Bilirubin 0.90, AST 109 H, ALT 138 H, Alkaline Phosphatase 61, Total Protein 7.2, Albumin 3.3, Globulin 3.9, Albumin/Globulin Ratio 0.8 L, Triglycerides 99, Cholesterol 173, LDL Cholesterol 71, VLDL Cholesterol 20, HDL Cholesterol 82, TSH 3.51 08/28/19 05:30: PT 13.0, INR 1.0, APTT 26.4 08/28/19 05:30: Iron 203 H, TIBC 306, Iron Saturation 66.3 H Current Medications Acetaminophen (Tylenol) 650 mg PO Q6H PRN PRN PRN Reason: Non-cardiac pain (mod-severe) Albuterol/Ipratropium (Duoneb) 3 ml INHALATION Q4H.RT [facility] Last Admin: 08/28/19 11:38 Dose: Not Given Documented by: Amlodipine Besylate (Norvasc) 5 mg PO BID [facility] Last Admin: 08/28/19 09:48 Dose: 5 mg Documented by: Anastrozole (Arimidex) 1 mg PO MOWE [facility] Last Admin: 08/27/19 20:31 Dose: 1 mg Documented by: Aspirin (Ecotrin) 81 mg PO DAILY@0800 [facility] Last Admin: 08/28/19 09:49 Dose: 81 mg Documented by: Atorvastatin Calcium (Lipitor) 40 mg PO QHS [facility] Last Admin: 08/27/19 21:55 Dose: 40 mg Documented by: Carvedilol (Coreg) 3.125 mg PO BID [facility] Last Admin: 08/28/19 11:35 Dose: 3.125 mg Documented by: Cholecalciferol (Vitamin D) 5,000 unit PO DAILY [facility] Last Admin: 08/28/19 11:35 Dose: 5,000 unit Documented by: Enoxaparin Sodium (Lovenox) 40 mg SC DAILY@0600 [facility] Last Admin: 08/28/19 11:34 Dose: 40 mg Documented by: [facility]: 08/30/19 08:01 Last Admin: 08/28/19 11:35 Dose: 1 mg Documented by: Guaifenesin (Mucinex) 600 mg PO BID [facility] Last Admin: 08/28/19 09:49 Dose: 600 mg Documented by: Hydralazine HCl (Apresoline Iv) 10 mg IV Q4H PRN PRN PRN Reason: SBP > 160 Lorazepam (Ativan) 1 mg PO Q4H PRN PRN Reason: Alcohol Withdrawal Last Admin: 08/27/19 20:43 Dose: 1 mg Documented by: Multivitamins ([facility]ivitamin) [facility] Last Admin: 08/28/19 11:35 Dose: 1 tablet Documented by: Nitroglycerin (Nitrostat) 0.4 mg SUBLINGUAL Q5M PRN PRN Reason: CHEST PAIN Phenobarbital (Phenobarbital) 60 mg PO TID [facility] Last Admin: 08/28/19 13:23 Dose: 60 mg Documented by: Sodium Chloride () 10 - 40 ml IV UD PRN PRN Reason: SALINE FLUSH Thiamine HCl (Vitamin B1) 200 mg PO DAILYCM [facility] Stop: 08/30/19 08:01 Last Admin: 08/28/19 11:34 Dose: 200 mg Documented by: Medical Necessity - Tobacco Use Smoking Status: Former smoker Tobacco Use: Cigarettes, Chew Assessment/Plan All Active Problems (Last Updated 08/27/19 @ 21:47 by Pearl Sanchez DO) SOB (shortness of breath) (Acute) Malaise and fatigue (Acute) 1. Shortness of breath, fatigue-unclear etiology. Cardiology following. Troponins negative. EKG without ST-T changes. Patient underwent echo which demonstrated an EF of 55%. Plan for stress test in a.m. D-dimer 0.61. If further cardiology evaluation unremarkable, may consider CTA of chest. Oxygen stable on room air. Continue aspirin, statin, beta-roberto pending further evaluation. 2. Transaminitis-possibly secondary to chronic alcohol use, AST/ALT trending down. Continue to monitor. 3. Hypertension-continue home amlodipine regimen. Carvedilol 3.125 mg twice daily added. As needed hydralazine for systolic blood pressure greater than 160. 4. Hyperlipidemia-placed on statin on admission. Not on home statin regimen. 5. Alcohol abuse- CIWA/Ativan protocol. On phenobarbital 60 mg p.o. 3 times daily. Continue with thiamine, folate, multivitamin supplementation. DVT prophylaxis-Lovenox subcu This patient was seen by VALENTE Rutherford under the supervision of Dr. Hughes. <Carlos Hughes - Last Filed: 08/28/19 17:31> Subjective: Seen and examined. Patient is admitted with shortness of breath and generalized weakness and fatigue. Denies chest discomfort or chest pain. No fever or chills. No tachypnea or hypoxia. Patient denies history of chronic lung disease including emphysema, lung cancer or weight loss or weight gain. Patient denies GI blood loss including hematemesis, hematochezia, melena, hematuria or hemoptysis. - Physical Exam Vitals/I&O's: Vital Signs Temp Pulse Resp BP Pulse Ox 98.1 F 77 18 146/90 H 95 08/28/19 15:45 08/28/19 15:45 08/28/19 15:45 08/28/19 15:45 08/28/19 15:45 Oxygen Delivery Method Room Air Weight: 186 lb 15.232 oz Body Mass Index (BMI) 27.6 Intake and Output for Last 24 Hours 08/26/19 08/27/19 08/28/19 23:59 23:59 23:59 Intake Total 582.5 / 582.5 240 / 240 Balance 582.5 / 582.5 240 / 240 General: Alert, Oriented x3, Cooperative HEENT: Atraumatic, PERRLA, EOMI, Normocephalic Neck: Supple, No JVD, Negative Carotid Bruits Lungs: Clear to auscultation, Normal air movement, No rhonchi, No wheeze, No rales, Diminished - Air entry is diminished in bilateral lung bases. Cardiovascular: Regular rate, Regular Rhythm, Normal S1, Normal S2, No murmurs Abdomen: Bowel Sounds Present, Soft, Non Tender, Non-Distended Extremities: No edema, Capillary Refill Less than 3 Seconds Skin: No rashes, No breakdown Musculoskeletal: No Tenderness to Palpation of Joints or Extremities, Arthritic Changes Neurological: Cranial nerves II-XII grossly intact, Deep Tendon Reflexes 2+/4 and Symmetrical, Motor Exam 5/5 strength throughout Psych/Mental Status: Normal Affect, Appropriate Laboratory Results 08/27/19 18:15: Troponin I < 0.015 08/27/19 21:40: Troponin I < 0.015 08/28/19 05:30: WBC 4.3 L, RBC 5.21, Hgb 15.1, Hct 46.5, MCV 89.3, MCH 29.0, MCHC 32.5, RDW Std Deviation 60.6 H, RDW Coeff of Wayne 18.6 H, Plt Count 142 L, MPV 9.1 08/28/19 05:30: Sodium 138, Potassium 3.7, Chloride 100, Carbon Dioxide 25.0, Anion Gap 13, BUN 10, Creatinine 0.86, Estim Creat Clear Calc 87.92, Est GFR (MDRD) Af Amer 116, Est GFR (MDRD) Non-Af 96, BUN/Creatinine Ratio 11.7, Glucose 101, Calcium 8.1 L, Total Bilirubin 0.90, AST 109 H, ALT 138 H, Alkaline Phosphatase 61, Total Protein 7.2, Albumin 3.3, Globulin 3.9, Albumin/Globulin Ratio 0.8 L, Triglycerides 99, Cholesterol 173, LDL Cholesterol 71, VLDL Cholesterol 20, HDL Cholesterol 82, TSH 3.51 08/28/19 05:30: PT 13.0, INR 1.0, APTT 26.4 08/28/19 05:30: Iron 203 H, TIBC 306, Iron Saturation 66.3 H Current Medications Acetaminophen (Tylenol) 650 mg PO Q6H PRN PRN PRN Reason: Non-cardiac pain (mod-severe) Albuterol/Ipratropium (Duoneb) 3 ml INHALATION Q4H.RT [facility] Last Admin: 08/28/19 15:28 Dose: Not Given Documented by: Amlodipine Besylate (Norvasc) 5 mg PO BID [facility] Last Admin: 08/28/19 09:48 Dose: 5 mg Documented by: Anastrozole (Arimidex) 1 mg PO MOWE [facility] Last Admin: 08/27/19 20:31 Dose: 1 mg Documented by: Aspirin (Ecotrin) 81 mg PO DAILY@0800 [facility] Last Admin: 08/28/19 09:49 Dose: 81 mg Documented by: Atorvastatin Calcium (Lipitor) 40 mg PO QHS [facility] Last Admin: 08/27/19 21:55 Dose: 40 mg Documented by: Carvedilol (Coreg) 3.125 mg PO BID [facility] Last Admin: 08/28/19 11:35 Dose: 3.125 mg Documented by: Cholecalciferol (Vitamin D) 5,000 unit PO DAILY [facility] Last Admin: 08/28/19 11:35 Dose: 5,000 unit Documented by: Enoxaparin Sodium (Lovenox) 40 mg SC DAILY@0600 [facility] Last Admin: 08/28/19 11:34 Dose: 40 mg Documented by: Folic Acid ([facility] Acid) [facility] Stop: 08/30/19 08:01 Last Admin: 08/28/19 11:35 Dose: 1 mg Documented by: Guaifenesin (Mucinex) 600 mg PO BID [facility] Last Admin: 08/28/19 09:49 Dose: 600 mg Documented by: Hydralazine HCl (Apresoline Iv) 10 mg IV Q4H PRN PRN PRN Reason: SBP > 160 Lorazepam (Ativan) 1 mg PO Q4H PRN PRN Reason: Alcohol Withdrawal Last Admin: 08/27/19 20:43 Dose: 1 mg Documented by: Multivitamins (Multivitamin) [facility] Last Admin: 08/28/19 11:35 Dose: 1 tablet Documented by: Nitroglycerin (Nitrostat) 0.4 mg SUBLINGUAL Q5M PRN PRN Reason: CHEST PAIN Phenobarbital (Phenobarbital) 60 mg PO TID [facility] Last Admin: 08/28/19 13:23 Dose: 60 mg Documented by: Sodium Chloride () 10 - 40 ml IV UD PRN PRN Reason: SALINE FLUSH Thiamine HCl (Vitamin B1) [facility] Stop: 08/30/19 08:01 Last Admin: 08/28/19 11:34 Dose: 200 mg Documented by: Assessment/Plan This patient was seen in conjunction with Cesia HEATH. I have independently interviewed and examined the patient and reviewed pertinent history, examination findings, laboratory and plan of management. I have reviewed the note and agree with the documented findings with the few additional points. In brief, patient is 63-year-old gentleman admitted with shortness of breath and fatigue of unclear etiology. Patient denies chronic lung disease or heart disease. Serial troponins are negative. EKG does not show significant ST-T changes sensitive of ischemia. 2D echo shows EF 55%. Plan for stress test tomorrow morning. H&H 15.1/46.5. WBC 4.3. LFT shows elevation in AST and ALT, alkaline phosphatase normal. Total bili normal. Iron studies show serum iron 203 high, TIBC normal and iron saturation of 66.3. Ferritin ordered. Fasting profile within normal limit, LDL 71, HDL 82. TSH normal. There has been slow increase in AST, last normal in February 02 and then gradually increasing from [id number] 41-109 today. ALT was normal until May 2019, then slowly increase from July 2019; 92-138 today High transferrin saturation level. Right upper quadrant sonogram ordered. I have discussed my assessment with Cesia HEATH and orders have been reviewed. Laboratory Results 08/27/19 18:15: Troponin I < 0.015 08/27/19 21:40: Troponin I < 0.015 08/28/19 05:30: WBC 4.3 L, RBC 5.21, Hgb 15.1, Hct 46.5, MCV 89.3, MCH 29.0, MCHC 32.5, RDW Std Deviation 60.6 H, RDW Coeff of [place] 18.6 H, Plt Count 142 L, MPV 9.1 08/28/19 05:30: Sodium 138, Potassium 3.7, Chloride 100, Carbon Dioxide 25.0, Anion Gap 13, BUN 10, Creatinine 0.86, Estim Creat Clear Calc 87.92, Est GFR (MDRD) Af Amer 116, Est GFR (MDRD) Non-Af 96, BUN/Creatinine Ratio 11.7, Glucose 101, Calcium 8.1 L, Total Bilirubin 0.90, AST 109 H, ALT 138 H, Alkaline Phosphatase 61, Total Protein 7.2, Albumin 3.3, Globulin 3.9, Albumin/Globulin Ratio 0.8 L, Triglycerides 99, Cholesterol 173, LDL Cholesterol 71, VLDL Cholesterol 20, HDL Cholesterol 82, TSH 3.51 08/28/19 05:30: PT 13.0, INR 1.0, APTT 26.4 08/28/19 05:30: Iron 203 H, TIBC 306, Iron Saturation 66.3 H Code Visit Inpatient E&M: 41752 Subs Hosp L3
--- NOTE | 2019-08-28 15:48 | CHAPLAIN ---
Type of Pastoral Visit _x__ Initial Visit ___ Follow-up Visit ___ On-call Visit ___ General Patient Visit ___ Spiritual Assessment ___ Family Conference ___ Bereavement ___ Rapid Response ___ Code Blue ___ Other (describe below) Pastoral Care Referral From _x__ Patient ___ Family ___ Nurse ___ Physician ___ Beater Boss ___ Laboratory Monitor ___ Other (describe below) Sacrament/Intervention _x__ Active listening ___ Anointing ___ Sikhism ___ Bereavement ___ Communion ___ Brenda exploration ___ ___ Life review _x__ Prayer ___ Reconciliation ___ Sacrament of Sick _x__ Supportive presence ___ Wedding ___ Other (describe below) Pastoral Comments
[2019-08-28 18:08] LABS: Ferritin 231 ng/mL (26-388)
[2019-08-28] MEDS: Atorvastatin Calcium 40 MG Tablet PO (21:01)
[2019-08-29] VITALS (8 sets, daily range): BP systolic 123–130; BP diastolic 82–96; PULSE 61–89; RESP 16–18; TEMP 36.3–36.8; O2SAT 94–97
[2019-08-29] MEDS: Aspirin E.C. 81 MG Tablet PO (05:22)
[2019-08-29] MEDS: Phenobarbital 20 MG/5 ML UDC 60 MG PO ×2 (05:22→14:42)
--- NOTE | 2019-08-29 05:55 | EKG12_ITS ---
Test Reason : AM EKG Blood Pressure : / mmHG Vent. Rate : 065 BPM Atrial Rate : 065 BPM P-R Int : 146 ms QRS Dur : 090 ms QT Int : 398 ms P-R-T Axes : 081 078 049 degrees QTc Int : 413 ms Normal sinus rhythm Normal ECG When compared with ECG of 28-AUG-2019 05:06, MANUAL COMPARISON REQUIRED, DATA IS UNCONFIRMED Confirmed by SOWMYA MARES, MANI ([id number]), rewrite editor KOBY DOWNING ([id number]) on 09/01/2019 9:55:31 AM Referred By: Pearl Sanchez Confirmed By:MANI DENG MD
[2019-08-29 06:03] LABS: ALB/GLOB Ratio 0.9 RATIO (0.9-2.4); AST(SGOT) 69 U/L (15-37); Alanine Aminotransfer ALT/SGPT 113 U/L (16-61); Albumin, Serum 3.4 g/dL (3.2-5.0); Alkaline Phosphatase 70 U/L (45-117); Anion Gap 8 (5-15); BUN 12 mg/dL (7-18); BUN/Creat Ratio 14.9 RATIO (10-20); Calcium,Total 8.7 mg/dL (8.5-10.1); Chloride 102 mmol/L (98-107); Creatinine, Serum 0.81 mg/dL (0.70-1.30); EST Glomerular Filtration Rate 102 mL/min (>60); Est Glom Filt Rate - Afr Amer 124 mL/min (>60); Estimated Creatinine Clearance 93.35 ml/min; Globulin 3.9 g/dL (2.2-4.2); Glucose 95 mg/dL (74-106); Potassium 3.8 mmol/L (3.5-5.1); Protein, Total 7.3 g/dL (6.4-8.2); Sodium Level 136 mmol/L (136-145)
--- NOTE | 2019-08-29 09:37 | NURSING ---
Pt to US via [facility]
[2019-08-29] MEDS: amLODIPine 5 MG Tablet PO (12:38)
[2019-08-29] MEDS: Thiamine Hydrochloride 100 MG Tablet 200 MG PO (12:38)
[2019-08-29] MEDS: Multivitamins,Therapeutic Tablet 1 TABLET PO (12:38)
[2019-08-29] MEDS: Folic Acid 1 MG Tablet PO (12:38)
[2019-08-29] MEDS: Carvedilol 3.125 MG TABLET PO (12:39)
--- NOTE | 2019-08-29 13:16 | STRESSREP_ITS ---
Stress Test Report Date: 08/29/2019 Procedure: Exercise tolerance test/imaging study Indications: Shortness of breath Consent: Per the patient Procedure: The patient exercised on a Jermaine protocol for 7 minutes and 1 second achieving a peak heart rate of 131 bpm (83 % predicted maximal heart rate) with a peak blood pressure 152/80 mmHg and a peak MET capacity of 8.5 METs. The baseline ECG demonstrated normal sinus rhythm, nonspecific ST-T changes. The peak exercise ECG demonstrated no significant ischemic changes. EKG during recovery revealed no significant ischemic changes [There were no cardiac dysrhythmias pretest, during exercise, or recovery]. The functional capacity was considered normal for age. However patient was able to walk for 2 minutes more about 3 years ago. There was [no complaint of chest discomfort during exercise or recovery]. Patient had some chest burning sensation. The examination was discontinued secondary to dyspnea, leg discomfort. Impression: 1. Technically adequate (percent predicted maximal heart rate greater than 85%) exercise tolerance test 2. Stress test is negative for exercise-induced EKG changes of ischemia 3. The test test is negative for exercise-induced chest pain 4. Functional capacity is normal for age 5. Nuclear images pending Myocardial perfusion imaging study: Technique: The patient was injected with [12] mCi of technetium 99m Cardiolite and subsequently rest SPECT Cardiolite nuclear imaging was obtained in the horizontal long, vertical long, and short axis views. The patient exercised on a Jermaine protocol. Please see above for details. The patient was injected with 36 mCi of technetium 99m Cardiolite and subsequently stress SPECT Cardiolite nuclear imaging was obtained in the horizontal long, vertical long, and short axis views. A gated Cardiolite study at peak stress was obtained. Interpretation: Rest and stress SPECT Cardiolite nuclear imaging status post realignment, normalization, and attenuation correction, demonstrates normal radioisotope uptake after attenuation correction. Prior to attenuation correction there is mild decrease in radioisotope uptake in the inferior wall. These findings are suggestive of diaphragmatic attenuation artifact. There is no evidence of significant ischemia or infarction. The gated Cardiolite study demonstrates no significant regional wall motion abnormalities. The reported LVEF is 58 %. Impression: 1. There is no evidence of significant ischemia or infarction. 2. The gated Cardiolite study reports an LVEF of 58 %. This note was generated with [employer] software. It may contain incorrect words, spelling, and punctuation that were not noted in checking the note before signing.
--- NOTE | 2019-08-29 13:32 | CT_ITS ---
STUDY: CTA CHEST REASON FOR EXAM: Male, 63 years old. One week history of shortness of breath. Elevated d-dimer. RADIATION DOSAGE (If Supplied By Facility): CTDIvol = ( 10.33 ) mGy, DLP = ( 484.65 ) mGycm TECHNIQUE: The examination was performed with the intravenous administration of IV 100mL [id number]-370 75. Post-processing of the angiographic images was performed, with multiplanar reformation and 3D reconstruction. Individualized dose optimization techniques were used for this CT. COMPARISON: None. FINDINGS: Normal enhancement of the main pulmonary artery and right and left pulmonary arteries. Normal enhancement of the bilateral peripheral pulmonary arteries. There is no demonstrated pulmonary embolism. Normal thoracic aorta and visualized great vessels. There is no demonstrated aortic dissection. There are calcifications of the coronary arteries. Normal mediastinum. Normal hilar regions. Normal visualized trachea and bronchi. The lungs are well expanded. Normal pulmonary parenchyma. Normal pleura. Normal chest wall structures. Normal osseous structures. Small hiatal hernia. CT/CTA Chest W/WO Contrast IMPRESSION: No acute abnormality is seen. Electronically Signed: Freddy Galicia, at 15:15 EST , Service support ,
--- NOTE | 2019-08-29 15:50 | DCINST_ITS ---
- Discharge Diagnoses Current Active Problems: Current Active and Chronic Problems (Last Updated 08/27/19 @ 21:47 by Pearl Sanchez DO) SOB (shortness of breath) (Acute) Malaise and fatigue (Acute) You will use the following diet at home:: No restrictions Discharge Activity: Return to Normal Activity Call your doctor if you observe: Shortness of breath, Dizziness, Fainting spells, Chest pain Additional Instructions: Your CT of chest showed no abnormalities. Abdominal ultrasound showed fatty liver, otherwise no abnormality. Recommend follow-up with primary care provider for routine follow-up regarding fatty liver. Allergies/Adverse Reactions: Allergies Penicillins Allergy (Verified 08/27/19 14:22) Unknown Medications to take at Discharge Amlodipine Besylate 5 mg PO BID 08/27/19 Anastrozole [Arimidex] 1 mg PO MOWE 08/27/19 Biotin 5,000 mcg PO DAILY 08/27/19 Cholecalciferol (Vitamin D3) [Vitamin D3] 125 mcg PO DAILY 08/27/19 Hcg 0.5 ml IM TUFR 08/27/19 Lactobacillus Combo No.10 [Probiotic] 1 cap PO DAILY 08/27/19 Multivitamin with Minerals [Multiple Vitamin] 1 tab PO DAILY 08/27/19 [place]-3S/Dha/Epa/Fish Oil [[place]-3 Fish Oil 1,200 mg Sfgl] 1,200 mg PO DAILY 08/27/19 Testosterone Cypionate 0.6 ml IM DAILY 08/27/19 Primary Care Physician: Sundar Pierce DO [Primary Care Provider] - Please follow up with your Primary Care Physician in: 1 Week Test Results: Test results from this visit will be discussed in further detail at your follow- up appointment, if applicable. Proposed Discharge Date: 08/29/19
--- NOTE | 2019-08-29 15:52 | DS.PCM_ITS ---
Discharge Date and Diagnosis Date of Admission: 08/27/19 Date of Discharge: 08/29/19 - Primary Discharge Diagnosis Active and Suspected Problems (Last Updated 08/27/19 @ 21:47 by Pearl Sanchez DO) 1. Dyspnea, fatigue-cardiac etiology ruled out. Most likely viral syndrome. 2. Transaminitis, fatty liver infiltration 3. Hypertension 4. Alcohol abuse Hospital Course and Treatment Imaging Results: Diagnostic Data Chest X-Ray 08/27/19 15:08 IMPRESSION: No acute abnormality is seen. Electronically Signed: Freddy Lopezjannette, at 15:34 EST , Service support , Chest CTA 08/29/19 13:32 IMPRESSION: No acute abnormality is seen. Electronically Signed: Freddy Frida, at 15:15 EST , Service support , Abdomen Ultrasound 08/29/19 17:31 IMPRESSION: Fatty infiltration of the liver. Electronically Signed: Freddy Lopezjannette, at 15:41 EST , Service support , Operations: None Procedures: 2-D Echocardiogram, Stress test Summary of Care Provided: The patient is a 63 year old M admitted 08/27/2019 due to generalized weakness, shortness of breath and fatigue. 1. Shortness of breath, fatigue-most likely secondary to viral syndrome. Cardiology consulted during admission. Troponins negative. EKG without ST-T changes. Patient underwent echo which demonstrated an EF of 55%. Stress test demonstrated no evidence of ischemia. D-dimer 0.61. Oxygen stable on room air. Presenting symptoms have since improved. CT of chest shows no acute abnormality. Patient is frequently around his young grandchildren and general illness has been going around his family. Suspect presenting symptoms due to viral etiology. Follow-up with primary care physician in 1 week. 2. Transaminitis-AST/ALT trending down. Abdominal ultrasound shows fatty infiltration of the liver. 3. Hypertension-stable, continue home amlodipine regimen. 4. Alcohol abuse- recommend reducing/eliminating etoh intake. General: Alert, Oriented x3, Cooperative HEENT: Atraumatic, PERRLA, EOMI, Normocephalic Neck: Supple, No JVD, Negative Carotid Bruits Lungs: Clear to auscultation, Normal air movement Cardiovascular: Regular rate, Regular Rhythm, Normal S1, Normal S2, No murmurs Abdomen: Bowel Sounds Present, Soft, Non Tender, Non-Distended Extremities: No clubbing, No cyanosis, No edema, Capillary Refill Less than 3 Seconds Skin: No rashes, No breakdown Musculoskeletal: No Tenderness to Palpation of Joints or Extremities Neurological: Cranial nerves II-XII grossly intact, Neuro grossly intact Psych/Mental Status: Normal Affect, Appropriate Patient seen and examined prior to discharge. Physical assessment as noted above. Patient is stable for discharge with follow up recommendations as noted above. This patient was seen by VALENTE Rutherford under the supervision of Dr. Aranda. - Physical Exam Vitals/I&O's: Vital Signs Temp Pulse Resp BP Pulse Ox 97.3 F L 87 16 129/96 H 95 08/29/19 12:49 08/29/19 15:02 08/29/19 12:49 08/29/19 12:49 08/29/19 12:49 Oxygen Delivery Method Room Air Weight: 186 lb 15.232 oz Body Mass Index (BMI) 27.6 Intake and Output for Last 24 Hours 08/27/19 08/28/19 08/29/19 23:59 23:59 23:59 Intake Total 582.5 / 582.5 700 / 700 0 / 0 Balance 582.5 / 582.5 700 / 700 0 / 0 Laboratory Results 08/28/19 05:30: Ferritin 231 08/29/19 05:08: Sodium 136, Potassium 3.8, Chloride 102, Carbon Dioxide 26.0, Anion Gap 8, BUN 12, Creatinine 0.81, Estim Creat Clear Calc 93.35, Est GFR (MDRD) Af Amer 124, Est GFR (MDRD) Non-Af 102, BUN/Creatinine Ratio 14.9, Glucose 95, Calcium 8.7, Total Bilirubin 0.70, AST 69 H, ALT 113 H, Alkaline Phosphatase 70, Total Protein 7.3, Albumin 3.4, Globulin 3.9, Albumin/Globulin Ratio 0.9 Current Medications Acetaminophen (Tylenol) 650 mg PO Q6H PRN PRN PRN Reason: Non-cardiac pain (mod-severe) Albuterol/Ipratropium (Duoneb) 3 ml INHALATION Q4H.RT [facility] Last Admin: 08/29/19 11:15 Dose: Not Given Documented by: Amlodipine Besylate (Norvasc) 5 mg PO BID [facility] Last Admin: 08/29/19 12:38 Dose: 5 mg Documented by: Anastrozole (Arimidex) 1 mg PO MOWE [facility] Last Admin: 08/27/19 20:31 Dose: 1 mg Documented by: Aspirin (Ecotrin) 81 mg PO DAILY@0800 [facility] Last Admin: 08/29/19 05:22 Dose: 81 mg Documented by: Atorvastatin Calcium (Lipitor) 40 mg PO QHS [facility] Last Admin: 08/28/19 21:01 Dose: 40 mg Documented by: Carvedilol (Coreg) 3.125 mg PO BID [facility] Last Admin: 08/29/19 12:39 Dose: 3.125 mg Documented by: Cholecalciferol (Vitamin D) 5,000 unit PO DAILY [facility] Last Admin: 08/29/19 12:38 Dose: 5,000 unit Documented by: Enoxaparin Sodium (Lovenox) 40 mg SC DAILY@0600 [facility] Last Admin: 08/29/19 06:25 Dose: Not Given Documented by: [facility] Stop: 08/30/19 08:01 Last Admin: 08/29/19 12:38 Dose: 1 mg Documented by: Guaifenesin (Mucinex) 600 mg PO BID [facility] Last Admin: 08/29/19 12:39 Dose: Not Given Documented by: Hydralazine HCl (Apresoline Iv) 10 mg IV Q4H PRN PRN PRN Reason: SBP > 160 Lorazepam (Ativan) 1 mg PO Q4H PRN PRN Reason: Alcohol Withdrawal Last Admin: 08/27/19 20:43 Dose: 1 mg Documented by: [facility]ivit[facility]itamin) [facility] Last Admin: 08/29/19 12:38 Dose: 1 tablet Documented by: Nitroglycerin (Nitrostat) 0.4 mg SUBLINGUAL Q5M PRN PRN Reason: CHEST PAIN Phenobarbital (Phenobarbital) 60 mg PO TID [facility] Last Admin: 08/29/19 14:42 Dose: 60 mg Documented by: Sodium Chloride () 10 - 40 ml IV UD PRN PRN Reason: SALINE FLUSH Thiamine HCl (Vitamin B1) 200 mg PO DAILYCM [facility] Stop: 08/30/19 08:01 Last Admin: 08/29/19 12:38 Dose: 200 mg Documented by: Discharge Diet: Low fat/ Low Cholesterol Discharge Activity: Return to Normal Activity Call your doctor if you observe: Shortness of breath, Dizziness, Fainting spells, Chest pain Home Medications: Medications to take at Discharge Amlodipine Besylate 5 mg PO BID 08/27/19 Anastrozole [Arimidex] 1 mg PO MOWE 08/27/19 Biotin 5,000 mcg PO DAILY 08/27/19 Cholecalciferol (Vitamin D3) [Vitamin D3] 125 mcg PO DAILY 08/27/19 Hcg 0.5 ml IM TUFR 08/27/19 Lactobacillus Combo No.10 [Probiotic] 1 cap PO DAILY 08/27/19 Multivitamin with Minerals [Multiple Vitamin] 1 tab PO DAILY 08/27/19 [place]-3S/Dha/Epa/Fish Oil [[place]-3 Fish Oil 1,200 mg Sfgl] 1,200 mg PO DAILY 08/27/19 Testosterone Cypionate 0.6 ml IM DAILY 08/27/19 Primary Care Physician: Sundar Pierce DO [Primary Care Provider] - Please follow up with your Primary Care Physician in: 1 Week Disposition: Home Minutes spent on discharge:: 35 Patient Condition:: Stable Medical Necessity - Tobacco Use Smoking Status: Former smoker Tobacco Use: Cigarettes, Chew Meaningful Use Info Meaningful Use Diagnoses (Choose all that apply): None applicable
--- NOTE | 2019-08-29 17:31 | US_ITS ---
STUDY: ABDOMINAL ULTRASOUND - RIGHT UPPER QUADRANT REASON FOR VISIT: Male, 63 years old elevated liver function tests. TECHNIQUE: Ultrasound evaluation of the right upper quadrant was performed with real-time and static carrington-scale imaging. TECHNICAL QUALITY: Adequate. COMPARISON: None. FINDINGS: Liver: The liver measures 12.8 cm. There is increased echogenicity consistent with fatty infiltration. The bile ducts are within normal limits. There is hepatic color flow. The direction of portal flow is hepatopetal. There is no demonstrated mass lesion. Gallbladder: Normal distended gallbladder. The gallbladder wall measures 1.9 mm. There is a negative sonographic Calhoun's sign. There is no pericholecystic fluid. There are no gallstones. Common Bile Duct (C.B.D.): The common bile duct measures 1.5 mm. Pancreas: Normal size of the head, body and tail of the pancreas. There is normal echogenicity of the pancreas. There is no demonstrated pancreatic mass or cyst. Right Kidney: Normal size of the right kidney. The right kidney measures 12.5 cm x 5.9 cm x 5.3 cm. Normal renal cortex. The right cortex measures 1.6 cm. There is no demonstrated renal mass or cyst. There is no right hydronephrosis. US/Abdomen Limited IMPRESSION: Fatty infiltration of the liver. Electronically Signed: Freddy Galicia, at 15:41 EST , Service support ,
== END 2019-08-29 15:50 | disposition home or self-care (01) ==
LOC: ED 15:52 → PCU 17:13
PROVIDERS: Internal Medicine; Nurse Practitioner Family; Admitting Provider Internal Medicine; Emergency Provider Emergency Medicine; Family Provider Family Medicine; PCP Family Medicine; Referring Provider Internal Medicine; Visit Provider Internal Medicine
DX: R06.09 Other forms of dyspnea (principal); R74.0 Nonspecific elevation of levels of transaminase and lactic acid dehydrogenase [LDH]; I10 Essential (primary) hypertension; K76.0 Fatty (change of) liver, not elsewhere classified; R53.83 Other fatigue; E78.5 Hyperlipidemia, unspecified; Z79.899 Other long term (current) drug therapy; Z87.891 Personal history of nicotine dependence
CPT/HCPCS: 36415; 71045; 71275; 76705; 78452; 80053; 80061; 82728; 83540; 83550; 84443; 84484; 85025; 85027; 85379; 85610; 85730; 93005; 93017; 93306; 94640; 96360; 96361; 96372; 99218; 99251; 99285; 99406; A9500; J7030; Q9967; A4216; G0378; G0463

== ENCOUNTER 2019-11-07 07:21 | Inpatient (IN) | payer BC, SELFPAY ==
[2019-08-27 17:24] VITALS: BMI 27.6
[2019-11-07] VITALS (16 sets, daily range): BP systolic 86–133; BP diastolic 54–86; PULSE 93–142; RESP 16–21; TEMP 36.6–37.1; O2SAT 97–100; BMI 27.3; BMI 27.4; BMI 28.6
--- NOTE | 2019-11-07 | EGD_PTH ---
PATIENT: KARIN MCLEOD LOC: [facility] U#:[id number] AGE/SX: 63/M ROOM: [facility] RE11/07/[address]: Dr. Dian Carrillo MD : [id number] BED: 1 DIS: 11/13/2019 SPEC #: [id number] RECD: 11/07/19 13:28 STATUS: AMBROSIO ALVARENGA #: [id number] RUFUS: 11/07/19 00:[address]: Lloyd Crandall DEPT: SURGICAL PATHOLOGY RECD BY: Aitlio Willingham ENTERED: 11/07/19 13:40 SP TYPE: EGD BIOPSY OT DR: DO Dr. Carlos Patel MD Tissues: Gastric mucous membrane Procedures: Surgery Specimen Level IV HEADER OPERATION: EGD ([facility] [place]) PRE-OP DIAGNOSIS: Upper GI bleed TISSUE SUBMITTED: Antrum biopsy for histo and H. pylori MICROSCOPIC DIAGNOSIS Gastric antrum, biopsy: Mild chronic gastritis. See comment. AM:amy 11/10/19 COMMENT The results of immunohistochemistry for Helicobacter pylori will be reported separately ([id number]). MICROSCOPIC DESCRIPTION Slides are reviewed. GROSS DESCRIPTION Received in fixative is one container labeled with the patient's name and designated antrum biopsy. The specimen consists of one irregular fragment of light fournier soft tissue that measures 0.3 x 0.3 x 0.1 cm. The specimen is totally submitted in one cassette. / SJ:amy 11/07/19 TC:3 CPT: 64856
[2019-11-07] MEDS: 0.9% Normal Saline 1,000 ML 1000 ML IV (07:45)
--- NOTE | 2019-11-07 07:48 | ED.VISSUMM ---
- ER Visit Summary Date of Service: 11/07/19 Chief Complaint: Nausea and vomiting History of Present Illness: The patient is a 63 M history of hypertension. Patient states eyes started not feeling well on Sunday and then developed nausea and vomiting. Also believes he may have dark stools but he did start taking iron because he felt tired. He is never had a GI bleed. He denies being on any blood thinners. He denies any hematemesis. He denies any fever. He denies any abdominal pain. Physical Examination: Older male initial blood pressure 86/54. Temperature 97.9. Heart rate 142. Pulse ox 90% on room air no signs hypoxia. H EENT exam dry meals membranes. Pupils round reactive light. No facial droop. Neck nontender. No JVD. No lymphadenopathy. Lungs clear to auscultation bilaterally. Heart tachycardic on my exam his heart rates about 123 on the monitor. No murmur. Chest were nontender. Abdomen is soft. Nontender. Nondistended. Normal bowel sounds. No peritoneal signs. Both the right upper and right lower quadrants are unremarkable. No obvious hernia or masses. No signs of obstruction. Patient is moving all 4 extremities. No edema. Nontender. Neurologically is awake and alert with no focal motor deficits. Rectal exam nontender. No mass. No external hemorrhoids. Black stool consistent with an upper GI bleed. No bright red blood. Test Results:. Hemoglobin 10.7 in mid August was 15.1 consistent with 4 to 4-1/2 units of blood loss. Electrolytes gap of 8. BUN 30 creatinine 0.9. Liver enzymes slightly elevated ALT and AST. Due to the anemia and the upper GI bleed he was typed and crossed. Currently he does not need to be transfused. He is responded to IV fluids. Emergency Department Course and Treatment: Historically and clinically appears the patient has nausea and vomiting most likely from a viral syndrome. He also describes possibly dark stool concerning for possible GI bleed. Be treated with IV fluids, Zofran for nausea and screening labs. Also given Protonix. Treatment Plan: Repeat exam doing well at 0900 a.m. Patient responded well to a liter normal saline. Currently his blood pressure is over 100 systolically. He is resting comfortably. I discussed all test results and diagnoses with the patient. He knows he is going to be admitted. Hospitalist on page as a general surgeon. Disposition: Admission. Impression: Acute nausea and vomiting Acute upper GI bleed with anemia Acute hypotension secondary to dehydration and anemia This note was generated with [employer] (formerly [employer]) dictation software. It may contain incorrect words, spelling, and punctuation that were not noted in review of the chart prior to signing ED Disposition - Plan for ED Patient: Referrals: Sundar Pierce DO [Primary Care Provider] -
[2019-11-07 07:58] LABS: Absolute Neutrophil Count 5.7 X10^3/uL (2.0-7.7); Basophil# 0.07 X10^3/uL; Basophil% 0.8 % (0-1); Eosinophil# 0.06 X10^3/uL; Eosinophils% 0.7 % (0-5); Hematocrit 31.8 % (40-54); Hemoglobin 10.7 g/dL (13.0-16.5); Lymphocyte % 20.8 % (19-41); Mean Corp Hgb Conc 33.6 g/dL (32-36); Mean Corpuscular Hgb 31.3 pg (27.0-32.0); Mean Platelet Vol. 9.8 fl (6.2-12.0); Monocyte# 0.94 X10^3/uL; Monocyte% 10.9 % (0-10); NRBC Flagged by Analyzer 0.2 % (0-5); Neutrophil # 5.68 X10^3/uL (2.7-7.7); Neutrophil % 65.6 % (47-70); Platelet Count 170 K/mm3 (150-450); RBC Distribution Width CV 12.9 % (11.6-14.6); RBC Distribution Width SD 43.8 fl (35.1-43.9); Red Blood Count 3.42 M/mm3 (4.6-6.2); White Blood Count 8.7 K/mm3 (4.4-11.0)
[2019-11-07 08:10] LABS: AST(SGOT) 96 U/L (15-37); Alanine Aminotransfer ALT/SGPT 118 U/L (16-61); Albumin, Serum 3.2 g/dL (3.2-5.0); Alkaline Phosphatase 53 U/L (45-117); Anion Gap 8 (5-15); BUN 30 mg/dL (7-18); BUN/Creat Ratio 31.3 RATIO (10-20); Bilirubin, Direct 0.23 mg/dL (0.00-0.30); Calcium,Total 9.8 mg/dL (8.5-10.1); Chloride 102 mmol/L (98-107); Creatinine, Serum 0.96 mg/dL (0.70-1.30); EST Glomerular Filtration Rate 84 mL/min (>60); Est Glom Filt Rate - Afr Amer 102 mL/min (>60); Globulin 3.6 g/dL (2.2-4.2); Glucose 108 mg/dL (74-106); Potassium 3.8 mmol/L (3.5-5.1); Protein, Total 6.8 g/dL (6.4-8.2); Sodium Level 137 mmol/L (136-145)
--- NOTE | 2019-11-07 09:26 | HP.PCM_ITS ---
Problem List (1) Hypertension Status: Chronic (2) Chronic alcohol dependence, continuous Status: Chronic (3) Upper GI bleed Status: Acute (4) Chronic back pain Status: Chronic History of Present Illness Date of Admission: 11/07/19 Chief Complaint: Black stool for 4 days The patient is a 63 year old M with history of chronic alcohol use and dependence came to ED with black stool for 4 days. He started on past Sunday with nausea, vomiting and diarrhea about 4 times daily. Patient felt extremely fatigued. Patient also complained of mild epigastric pain. Denies hematemesis. No fever or chills. Prior to that he was admitted in August 2019 for viral syndrome with extreme fatigue. In the ED, initial blood pressure 86/54, temperature 97.9 heart rate 142 pulse ox 90% on room air. Patient was resuscitated in ED with IV fluid normal saline and his blood pressure responded. Hemoglobin is 10.7 which was 15.1 in August 2019, INR 1.1. BUN 30, creatinine 0.96. ALT and AST are chronically elevated, ALT 118, AST 96. [] Patient was directly taken to endoscopy suite by my surgeon . Past Medical History Past Medical History (Chronic Problems): Chronic Problems (Last Updated 08/27/19 @ 21:47 by Pearl Sanchez DO) Hypertension (Chronic) Chronic alcohol dependence, continuous (Chronic) Chronic back pain (Chronic) Medical History: Medical History (Last Updated 08/27/19 @ 21:47 by Pearl Sanchez DO) Hyperlipidemia E78.5 Low 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 R79.89 HTN (hypertension) I10 Allergies Penicillins Allergy (Verified 11/07/19 07:22) Unknown Home Medications: Ambulatory Orders Medication Instructions Recorded Amlodipine Besylate 5 mg PO BID 08/27/19 Anastrozole [Arimidex] 1 mg PO MOWE 08/27/19 Biotin 5,000 mcg PO DAILY 08/27/19 Cholecalciferol (Vitamin D3) 125 mcg PO DAILY 08/27/19 [Vitamin D3] Hcg 0.5 ml IM TUFR 08/27/19 Lactobacillus Combo No.10 1 cap PO DAILY 08/27/19 [Probiotic] Multivitamin with Minerals 1 tab PO DAILY 08/27/19 [Multiple Vitamin] [place]-3S/Dha/Epa/Fish Oil [[place]-3 1,200 mg PO DAILY 08/27/19 Fish Oil 1,200 mg Sfgl] Testosterone Cypionate 0.6 ml IM DAILY 08/27/19 Surgical History: no surgical history Smoking Status: Former smoker Alcohol: Heavy - 6-8 drinks of gin every day Drugs: None - *Family History Maternal History Items: Heart Disease - Live in 96, No pertinent history Paternal History Items: - - in 60s from aortic aneurysm Review of Systems Constitutional: Reports: Anorexia, Malaise, Weakness, Fatigue. Denies: Chills, Fever, Night Sweats HEENT: Denies: Head Aches, Sinus Congestion, Sinus Drainage Cardiovascular: Denies: Chest Pain, Palpitations Respiratory: Denies: Cough, Shortness of breath at rest, Sputum production Gastrointestinal: Reports: Diarrhea, Nausea, Melena, Vomiting. Denies: Abdominal Pain, Hematemesis Genitourinary: Denies: Dysuria, Frequency, Hematuria, Retention, Urgency Musculoskeletal: Reports: Back Pain, Joint Pain. Denies: Joint Tenderness Skin: Denies: Rash, Wounds Neurological: Denies: Numbness, Tingling, Focal weakness Psychiatric: Denies: Anxiety, Depression, Homicidal Ideations, Suicidal Ideations Hematologic/ Lymphatic: Denies: Easy Bruising, Easy Bleeding VTE Information - Inpt Only VTE Present on Admission: No VTE Mechan Device Prophylaxis: SCD's VTE Pharm Prophylaxis ordered?: No Reason prophylaxis not ordered:: Medical Contraindication - Active GI bleed Patient Problems: Active and Suspected Problems (Last Updated 08/27/19 @ 21:47 by Pearl Sanchez DO) Upper GI bleed (Acute) - Physical Exam Vitals/I&O's: Vital Signs Temp Pulse Resp BP Pulse Ox 97.9 F 103 H 16 133/85 H 97 11/07/19 07:22 11/07/19 08:28 11/07/19 08:28 11/07/19 08:28 11/07/19 08:28 Oxygen Delivery Method Room Air Weight: 180 lb Body Mass Index (BMI) 27.3 Intake and Output for Last 24 Hours 11/05/19 11/06/19 11/07/19 23:59 23:59 23:59 Intake Total 1000 / 1000 Balance 1000 / 1000 General: Alert, Oriented x3, Cooperative, - - Patient looks pale HEENT: Atraumatic, PERRLA, EOMI, Normocephalic Oral: No Gingival or Mucosal Lesions/ Ulcerations, Dry Mucosa Neck: Supple, No JVD, Negative Carotid Bruits Lungs: Clear to auscultation, Normal air movement, No rhonchi, No wheeze, No rales Cardiovascular: Regular rate, Regular Rhythm, Normal S1, Normal S2, No murmurs Abdomen: Bowel Sounds Present, Soft, Non Tender, Non-Distended Extremities: No edema, Capillary Refill Less than 3 Seconds Skin: No rashes, No breakdown Musculoskeletal: No Tenderness to Palpation of Joints or Extremities, Arthritic Changes Neurological: Cranial nerves II-XII grossly intact, Deep Tendon Reflexes 2+/4 and Symmetrical, Neuro grossly intact Psych/Mental Status: Normal Affect, Appropriate Laboratory Results 11/07/19 07:40: WBC 8.7, RBC 3.42 L, Hgb 10.7 L, Hct 31.8 L, MCV 93.0, MCH 31.3, MCHC 33.6, RDW Std Deviation 43.8, RDW Coeff of [place] 12.9, Plt Count 170, MPV 9.8, Immature Gran % (Auto) 1.200 H, Neut % (Auto) 65.6, Lymph % (Auto) 20.8, Taliaferro % (Auto) 10.9 H, Eos % (Auto) 0.7, Baso % (Auto) 0.8, Absolute Neuts (auto) 5.7, Absolute Lymphs (auto) 1.80, Nucleated RBC % 0.2 11/07/19 07:40: Sodium 137, Potassium 3.8, Chloride 102, Carbon Dioxide 27.0, Anion Gap 8, BUN 30 H, Creatinine 0.96, Estim Creat Clear Calc 76.20, Est GFR (MDRD) Af Amer 102, Est GFR (MDRD) Non-Af 84, BUN/Creatinine Ratio 31.3 H, Glucose 108 H, Calcium 9.8, Total Bilirubin 0.60, Direct Bilirubin 0.23, AST 96 H, ALT 118 H, Alkaline Phosphatase 53, Total Protein 6.8, Albumin 3.2, Globulin 3.6 11/07/19 07:40: PT Cancelled, INR Cancelled 11/07/19 09:00: Blood Type Pending, Antibody Screen Pending, Crossmatch See Detail Assessment/Plan All Active Problems (Last Updated 08/27/19 @ 21:47 by Pearl Sanchez DO) Upper GI bleed (Acute) The patient is a 63 year old M with history of chronic alcohol use and dependence came to ED with black stool for 4 days. In the ED, initial blood pressure 86/54, temperature 97.9 heart rate 142 pulse ox 90% on room air, which responded with IV fluid 1. Acute anemia secondary to acute upper GI bleed from duodenal ulcer with adherent clot: Patient is being admitted in PCU from endoscopic suite PACU. H&H every 6 hourly and transfuse if hemoglobin drops less than 7 g%. On IV PPI every 12 hourly, Carafate, IV fluid resuscitation and started on clear liquid diet. EGD was done and shows advanced clot in duodenum. 2. Mild hypotension secondary to GI bleed, recovered. History of hypertension: Continue IV fluid support. Monitor blood pressure. Hold antihypertensive medication amlodipine. 3. Chronic alcohol use and dependence with chronic alcoholic hepatitis: Patient drinks about 8-10 Gins, hard liquor daily for long time. High potential for going into alcohol withdrawal syndrome. Monitor CIWA score and on Ativan IV and p.o. protocol. Monitor LFT and BMP, magnesium. 4. DVT prophylaxis: Bilateral SCDs. Pharmacological prophylaxis contraindicated. Total time of the visit including total time spent in counseling or coordination of care, (more than 50% of the total time, spent in obtaining medical information from nurses and other ancillary care providers), discussion with educational consultant and ER physician, review of labs and imaging is 40 minutes Laboratory Results 11/07/19 07:40: WBC 8.7, RBC 3.42 L, Hgb 10.7 L, Hct 31.8 L, MCV 93.0, MCH 31.3, MCHC 33.6, RDW Std Deviation 43.8, RDW Coeff of [place] 12.9, Plt Count 170, MPV 9.8, Immature Gran % (Auto) 1.200 H, Neut % (Auto) 65.6, Lymph % (Auto) 20.8, Taliaferro % (Auto) 10.9 H, Eos % (Auto) 0.7, Baso % (Auto) 0.8, Absolute Neuts (auto) 5.7, Absolute Lymphs (auto) 1.80, Nucleated RBC % 0.2 11/07/19 07:40: Sodium 137, Potassium 3.8, Chloride 102, Carbon Dioxide 27.0, Anion Gap 8, BUN 30 H, Creatinine 0.96, Estim Creat Clear Calc 76.20, Est GFR (MDRD) Af Amer 102, Est GFR (MDRD) Non-Af 84, BUN/Creatinine Ratio 31.3 H, Glucose 108 H, Calcium 9.8, Total Bilirubin 0.60, Direct Bilirubin 0.23, AST 96 H, ALT 118 H, Alkaline Phosphatase 53, Total Protein 6.8, Albumin 3.2, Globulin 3.6 11/07/19 07:40: PT Cancelled, INR Cancelled 11/07/19 07:40: Magnesium Pending 11/07/19 09:00: Blood Type O POSITIVE, Antibody Screen NEGATIVE, Crossmatch See Detail 11/07/19 09:30: PT 14.1, INR 1.1 Code Visit Inpatient E&M: 01573 Init Hosp L3
[2019-11-07 09:56] LABS: International Normalized Ratio 1.1; Prothrombin Time (Protime)PT. 14.1 SECONDS (11.7-14.9)
--- NOTE | 2019-11-07 10:28 | PCM.CONS.GEN ---
Problem List (1) Upper GI bleed Status: Acute Reason for Consult Date of Consultation: 11/07/19 History of Present Illness: The patient is a 63 year old M who presented with fatigue and black stools. The patient reports that he has been having nausea vomiting diarrhea and black stools since Sunday. He does complain of some epigastric pain. He says he had black stools in the past but he attributed to his iron supplementation. He has been fatigued as well. He said he is up-to-date on his colonoscopies. He has had intermittent oral steroids in the past and he does take NSAIDs as well for pain. Past Medical History Medical History: Medical History (Last Updated 08/27/19 @ 21:47 by Pearl Sanchez DO) Hyperlipidemia E78.5 Low 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 R79.89 HTN (hypertension) I10 Allergies Penicillins Allergy (Verified 11/07/19 07:22) Unknown Home Medications: Ambulatory Orders Medication Instructions Recorded Amlodipine Besylate 5 mg PO BID 08/27/19 Anastrozole [Arimidex] 1 mg PO MOWE 08/27/19 Biotin 5,000 mcg PO DAILY 08/27/19 Cholecalciferol (Vitamin D3) 125 mcg PO DAILY 08/27/19 [Vitamin D3] Hcg 0.5 ml IM TUFR 08/27/19 Lactobacillus Combo No.10 1 cap PO DAILY 08/27/19 [Probiotic] Multivitamin with Minerals 1 tab PO DAILY 08/27/19 [Multiple Vitamin] Mason-3S/Dha/Epa/Fish Oil [Mason-3 1,200 mg PO DAILY 08/27/19 Fish Oil 1,200 mg Sfgl] Testosterone Cypionate 0.6 ml IM DAILY 08/27/19 Surgical History: no surgical history Smoking Status: Former smoker - *Family History Maternal History Items: No pertinent history Review of Systems Constitutional: Denies: Anorexia, Fever Respiratory: Denies: Cough Gastrointestinal: Reports: Abdominal Pain, Diarrhea, Nausea, Melena, Vomiting Skin: Denies: Dryness, Jaundice Neurological: Denies: Balance problems Hematologic/ Lymphatic: Reports: Anemia Patient Problems: Active and Suspected Problems (Last Updated 08/27/19 @ 21:47 by Pearl Sanchez DO) Upper GI bleed (Acute) - Physical Exam Vitals/I&O's: Vital Signs Temp Pulse Resp BP Pulse Ox 97.9 F 103 H 16 133/85 H 97 11/07/19 07:22 11/07/19 08:28 11/07/19 08:28 11/07/19 08:28 11/07/19 08:28 Oxygen Delivery Method Room Air Weight: 180 lb Body Mass Index (BMI) 27.3 Intake and Output for Last 24 Hours 11/05/19 11/06/19 11/07/19 23:59 23:59 23:59 Intake Total 1000 / 1000 Balance 1000 / 1000 General: Alert, Oriented x3 Neck: No JVD Lungs: Normal air movement Cardiovascular: Regular Rhythm, Tachycardic Abdomen: Soft, Non-Distended, Tender - Mildly tender in the epigastric region Extremities: No clubbing Musculoskeletal: No Muscle Wasting Neurological: Cranial nerves II-XII grossly intact Psych/Mental Status: Normal Affect Laboratory Results 11/07/19 07:40: WBC 8.7, RBC 3.42 L, Hgb 10.7 L, Hct 31.8 L, MCV 93.0, MCH 31.3, MCHC 33.6, RDW Std Deviation 43.8, RDW Coeff of Wayne 12.9, Plt Count 170, MPV 9.8, Immature Gran % (Auto) 1.200 H, Neut % (Auto) 65.6, Lymph % (Auto) 20.8, [place] % (Auto) 10.9 H, Eos % (Auto) 0.7, Baso % (Auto) 0.8, Absolute Neuts (auto) 5.7, Absolute Lymphs (auto) 1.80, Nucleated RBC % 0.2 11/07/19 07:40: Sodium 137, Potassium 3.8, Chloride 102, Carbon Dioxide 27.0, Anion Gap 8, BUN 30 H, Creatinine 0.96, Estim Creat Clear Calc 76.20, Est GFR (MDRD) Af Amer 102, Est GFR (MDRD) Non-Af 84, BUN/Creatinine Ratio 31.3 H, Glucose 108 H, Calcium 9.8, Total Bilirubin 0.60, Direct Bilirubin 0.23, AST 96 H, ALT 118 H, Alkaline Phosphatase 53, Total Protein 6.8, Albumin 3.2, Globulin 3.6 11/07/19 07:40: PT Cancelled, INR Cancelled 11/07/19 09:00: Blood Type O POSITIVE, Antibody Screen NEGATIVE, Crossmatch See Detail 11/07/19 09:30: PT 14.1, INR 1.1 Assessment/Plan All Active Problems (Last Updated 08/27/19 @ 21:47 by Pearl Sanchez DO) Upper GI bleed (Acute) SOB (shortness of breath) (Acute) Malaise and fatigue (Acute) 63-year-old male with upper GI bleed 1. Patient is having epigastric pain as well as melena. His last hemoglobin was 15 and currently his hemoglobin is 10. He was hypotensive and tachycardic but after fluid bolus he did respond. Plan for EGD this afternoon. 2. I explained endoscopy in detail to the patient. I explained the risks including but not limited to stroke or heart attack with anesthesia, perforation of the GI tract, bleeding, infection. I explained that any of these could necessitate further emergency surgery. The patient understands and all questions were answered sufficiently. The patient wishes to proceed with procedure. Lloyd Crandall MD Pager: [facility] [address] [place] [address] [address] [place] [address] Office:
--- NOTE | 2019-11-07 10:40 | NURSING ---
SURGERY THE PCU SURINDER UPPER GI BLEED, ANEMIA
[2019-11-07] MEDS: Lactated Ringers 1,000 ML 100 ML IV (11:13)
--- NOTE | 2019-11-07 12:02 | OP.CCLET_ITS ---
11/07/2019 Sundar Pierce [address] [facility] [place] [address] Re : Upper GI endoscopy procedure for Khalif Cooperiver Dear Dr. Pierce This procedure was performed on Thursday, November 07, 2019. My impressions and recommendations are as follows: Impressions : - Normal esophagus. - Normal stomach. - One non-bleeding duodenal ulcer with adherent clot. - Biopsies were taken with a cold forceps for Helicobacter pylori testing. Recommendations : - Clear liquid diet. - Continue present medications. - Await pathology results. My findings are described in the full procedure note, which is enclosed. If I can be of further assistance, please feel free to contact me at Doctor phone number(s): , Work: . Sincerely, Lloyd Crandall MD 11/07/2019 12:02:13 PM This report has been signed electronically.
--- NOTE | 2019-11-07 12:02 | OP.EGD_ITS ---
Patient Name: Khalif Quezada Procedure Date: 11/07/2019 11:41 AM Date of : 1955 Age: 63 Procedure: Upper GI endoscopy Indications: Melena Providers: Lloyd Crandall MD Medicines: Monitored Anesthesia Care Patient Profile: This is a 63 year old male. Refer to note in patient chart for documentation of history and physical. Complications: No immediate complications. Estimated blood loss: Minimal. Procedure: Pre-Anesthesia Assessment: - Prior to the procedure, a History and Physical was performed, and patient medications and allergies were reviewed. The patient's tolerance of previous anesthesia was also reviewed. The risks and benefits of the procedure and the sedation options and risks were discussed with the patient. All questions were answered, and informed consent was obtained. Prior Anticoagulants: The patient has taken no previous anticoagulant or antiplatelet agents. After reviewing the risks and benefits, the patient was deemed in satisfactory condition to undergo the procedure. After obtaining informed consent, the endoscope was passed under direct vision. Throughout the procedure, the patient's blood pressure, pulse, and oxygen saturations were monitored continuously. The gastroscope was introduced through the mouth, and advanced to the second part of duodenum. The upper GI endoscopy was accomplished without difficulty. The patient tolerated the procedure well. Scope In: 11:53:34 AM Scope Out: 11:55:58 AM Total Procedure Duration Time 0 hours 2 minutes 24 seconds Findings: The esophagus was normal. The stomach was normal. One non-bleeding cratered duodenal ulcer with adherent clot was found in the first portion of the duodenum. Biopsies were taken with a cold forceps in the gastric antrum for Helicobacter pylori testing. Impression: - Normal esophagus. - Normal stomach. - One non-bleeding duodenal ulcer with adherent clot. - Biopsies were taken with a cold forceps for Helicobacter pylori testing. Recommendation: - Clear liquid diet. - Continue present medications. - Await pathology results. Procedure Code(s): --- Professional --- 47492, Esophagogastroduodenoscopy, flexible, transoral; with biopsy, single or multiple Diagnosis Code(s): --- Professional --- K26.4, Chronic or unspecified duodenal ulcer with hemorrhage K92.1, Melena (includes Hematochezia) CPT copyright 2017 [employer]. All rights reserved. The codes documented in this report are preliminary and upon loading checker review may be revised to meet current compliance requirements. Lloyd Crandall MD 11/07/2019 12:02:13 PM This report has been signed electronically. Number of Addenda: 0 Note Initiated On: 11/07/2019 11:41 AM
[2019-11-07 13:02] LABS: Magnesium 1.8 mg/dL (1.6-2.6)
[2019-11-07 13:30] LABS: GGTP 253 U/L (15-85)
--- NOTE | 2019-11-07 14:05 | IMM_PTH ---
PATIENT: KARIN MCLEOD LOC: [facility] U#:[id number] AGE/SX: 63/M ROOM: [facility] RE11/07/[address]: Dr. Dian Carrillo MD : 1955 BED: 1 DIS: 11/13/2019 SPEC #: [id number] RECD: 11/07/19 14:30 STATUS: AMBROSIO REQ #: [id number] RUFUS: 11/07/19 14:[address]: Lloyd Crandall DEPT: IMMUNOHISTOCHEMISTRY RECD BY: Silvina Crawley ENTERED: 11/07/19 14:31 SP TYPE: IMMUNO OTHR DR: DO Dr. Carlos Patel MD Tissues: Stomach, NOS Procedures: H Pylori (initial) PHYSICIAN [facility] INSTIT[facility] [address] [address] SPECIMEN INFORMATION: Tissue Source: Antrum biopsy Clinical Info: Upper GI bleed Specimen Number: [id number] CPT code: 47915 METHODOLOGY: Deparaffinized sections of prefer/formalin-fixed tissue or PAP/DQ stained slides are incubated with monoclonal/polyclonal antibodies/oligonucleotide probes. Localization is made via biotin free immunoperoxidase method. Appropriate controls are performed and reacted as expected. Results on target cell population are indicated in the following table: RESULTS: ANTIBODY / CLONE RESULT H Pylori (polyclonal) negative These tests were developed and their performance characteristics determined by [facility]. They may not have been cleared or approved by the U.S. Food and Drug Administration. The FDA has determined that such clearance or approval is not necessary. The above immunohistochemical/dualISH markers are ordered and reviewed by the Pathologist. INTERPRETATION: Antrum biopsy: Negative for Helicobacter pylori organisms. AM:amy 11/10/19
[2019-11-07 14:10] LABS: Hematocrit 27.1 % (40-54)
[2019-11-07] MEDS: 0.9% Normal Saline 1,000 ML 150 ML IV ×2 (14:21→21:18)
[2019-11-07] MEDS: Thiamine Hydrochloride 100 MG Tablet PO ×2 (14:21→16:56)
[2019-11-07 14:47] LABS: Alcohol, Blood (Medical)-Serum < 3.0 mg/dL
[2019-11-07 15:11] LABS: Mucous, Urine 0 SEEN /hpf (<or=2+); Red Blood Cells-Urine 0 SEEN /hpf (0-5); Squamous Epithelial Cells - UA 0 SEEN /hpf (0-5)
[2019-11-07 15:16] LABS: Color, Urine Yellow (Yellow); Glucose, Dipstick Normal (Normal); Ketone-Dipstick 50 mg/dl (Negative); Leukocyte Esterase-Dipstick 25 /ul (Negative); Nitrite-Dipstick Negative (Negative); Occult Blood-Urine Negative /ul (Negative); Protein-Dipstick 15 mg/dl (Negative); Specific Gravity, Urine 1.015 (1.002-1.030); Urine Bilirubin Dipstick Negative (Negative); Urine Clarity Sl. Cloudy (Clear); Urine Urobilinogen 1 mg/dl (Normal)
[2019-11-07 15:37] LABS: Bacteria RARE /hpf (None Seen); White Blood Cells 0-5 SEEN /hpf (0-5)
[2019-11-07] MEDS: Sucralfate 1 GM Tablet PO ×2 (16:56→21:18)
[2019-11-07] MEDS: Ensure Clear 120 ML Liquid PO (17:06)
[2019-11-07 17:35] LABS: Bedside Glucose 86 mg/dL (70-110)
[2019-11-07 19:40] LABS: Hematocrit 24.7 % (40-54); Hemoglobin 8.3 g/dL (13.0-16.5)
[2019-11-07 21:31] LABS: Bedside Glucose 101 mg/dL (70-110)
[2019-11-08] VITALS (16 sets, daily range): BP systolic 105–119; BP diastolic 69–78; PULSE 68–94; RESP 16–20; TEMP 36.6–37.1; O2SAT 90–98
[2019-11-08 01:39] LABS: Hematocrit 24.7 % (40-54); Hemoglobin 8.1 g/dL (13.0-16.5)
[2019-11-08] MEDS: Sucralfate 1 GM Tablet PO ×4 (06:32→21:45)
[2019-11-08 06:40] LABS: Bedside Glucose 103 mg/dL (70-110)
[2019-11-08 07:03] LABS: Absolute Lymphocyte Count 1.03 X10^3/uL (0.83-4.51); Absolute Neutrophil Count 2.8 X10^3/uL (2.0-7.7); Basophil# 0.05 X10^3/uL; Basophil% 1.1 % (0-1); Eosinophils% 2.3 % (0-5); Hematocrit 24.3 % (40-54); Hemoglobin 8.1 g/dL (13.0-16.5); Lymphocyte # 1.03 X10^3/ul (4.0); Lymphocyte % 23.6 % (19-41); Mean Corp Hgb Conc 33.3 g/dL (32-36); Mean Corpuscular Hgb 32.1 pg (27.0-32.0); Mean Corpuscular Volume 96.4 fL (80-94); Mean Platelet Vol. 9.8 fl (6.2-12.0); Monocyte# 0.38 X10^3/uL; Monocyte% 8.7 % (0-10); NRBC Flagged by Analyzer 0 % (0-5); Neutrophil # 2.75 X10^3/uL (2.7-7.7); Neutrophil % 63.2 % (47-70); Platelet Count 112 K/mm3 (150-450); RBC Distribution Width CV 13.2 % (11.6-14.6); Red Blood Count 2.52 M/mm3 (4.6-6.2); White Blood Count 4.4 K/mm3 (4.4-11.0)
[2019-11-08 07:35] LABS: AST(SGOT) 132 U/L (15-37); Alanine Aminotransfer ALT/SGPT 122 U/L (16-61); Albumin, Serum 2.5 g/dL (3.2-5.0); Alkaline Phosphatase 41 U/L (45-117); Anion Gap 6 (5-15); BUN 11 mg/dL (7-18); BUN/Creat Ratio 13.9 RATIO (10-20); Bilirubin, Direct 0.17 mg/dL (0.00-0.30); Calcium,Total 7.8 mg/dL (8.5-10.1); Chloride 104 mmol/L (98-107); Creatinine, Serum 0.79 mg/dL (0.70-1.30); EST Glomerular Filtration Rate 105 mL/min (>60); Est Glom Filt Rate - Afr Amer 127 mL/min (>60); Estimated Creatinine Clearance 92.59 ml/min; Globulin 2.9 g/dL (2.2-4.2); Glucose 102 mg/dL (74-106); Potassium 3.6 mmol/L (3.5-5.1); Protein, Total 5.4 g/dL (6.4-8.2); Sodium Level 136 mmol/L (136-145); Thyroid Stim Hormone (TSH) 5.36 uIU/mL (0.358-3.74)
--- NOTE | 2019-11-08 07:52 | PN.SURG_ITS ---
Patient Problems: Active and Suspected Problems (Last Updated 08/27/19 @ 21:47 by Pearl Sanchez DO) Upper GI bleed (Acute) Subjective: Patient reports still feeling too fatigued to get out of bed. He reports no bleeding per rectum overnight. He has not had bowel movement overnight. - Physical Exam Vitals/I&O's: Vital Signs Temp Pulse Resp BP Pulse Ox 98.5 F 92 16 119/77 98 11/08/19 04:59 11/08/19 04:59 11/08/19 04:59 11/08/19 04:59 11/08/19 04:59 Oxygen Delivery Method Room Air Weight: 190 lb 11.198 oz Body Mass Index (BMI) 28.6 Intake and Output for Last 24 Hours 11/06/19 11/07/19 11/08/19 23:59 23:59 23:59 Intake Total 3643.33 / 3643.33 1700 / 1700 Output Total 550 / 550 1150 / 1150 Balance 3093.33 / 3093.33 550 / 550 General: Alert, Oriented x3 Lungs: Normal air movement Cardiovascular: Regular rate, Regular Rhythm Abdomen: Soft, Non Tender, Non-Distended Laboratory Results 11/07/19 07:40: WBC 8.7, RBC 3.42 L, Hgb 10.7 L, Hct 31.8 L, MCV 93.0, MCH 31.3, MCHC 33.6, RDW Std Deviation 43.8, RDW Coeff of Wayne 12.9, Plt Count 170, MPV 9.8, Immature Gran % (Auto) 1.200 H, Neut % (Auto) 65.6, Lymph % (Auto) 20.8, [place] % (Auto) 10.9 H, Eos % (Auto) 0.7, Baso % (Auto) 0.8, Absolute Neuts (auto) 5.7, Absolute Lymphs (auto) 1.80, Nucleated RBC % 0.2 11/07/19 07:40: Sodium 137, Potassium 3.8, Chloride 102, Carbon Dioxide 27.0, Anion Gap 8, BUN 30 H, Creatinine 0.96, Estim Creat Clear Calc 76.20, Est GFR (MDRD) Af Amer 102, Est GFR (MDRD) Non-Af 84, BUN/Creatinine Ratio 31.3 H, Glucose 108 H, Calcium 9.8, Total Bilirubin 0.60, Direct Bilirubin 0.23, AST 96 H, ALT 118 H, Alkaline Phosphatase 53, Total Protein 6.8, Albumin 3.2, Globulin 3.6 11/07/19 07:40: PT Cancelled, INR Cancelled 11/07/19 07:40: Magnesium 1.8 11/07/19 07:40: GGT 253 H 11/07/19 09:00: Blood Type O POSITIVE, Antibody Screen NEGATIVE, Crossmatch See Detail 11/07/19 09:30: PT 14.1, INR 1.1 11/07/19 13:50: Ethyl Alcohol < 3.0 11/07/19 13:50: Hgb 9.0 L, Hct 27.1 L 11/07/19 15:05: Urine Color Yellow, Urine Clarity Sl. Cloudy, Urine pH 8.0, Ur Specific [place] 1.015, Urine Protein 15 H, Urine Glucose (UA) Normal, Urine Ketones 50 H, Urine Occult Blood Negative, Urine Nitrite Negative, Urine Bilirubin Negative, Urine Urobilinogen 1 H, Ur Leukocyte Esterase 25 H, Urine RBC 0 SEEN, Urine WBC 0-5 SEEN, Ur Squamous Epith Cells 0 SEEN, Urine Bacteria RARE, Urine Mucus 0 SEEN 11/07/19 17:07: POC Glucose 86 11/07/19 19:30: Hgb 8.3 L, Hct 24.7 L 11/07/19 21:25: POC Glucose 101 11/08/19 01:27: Hgb 8.1 L, Hct 24.7 L 11/08/19 06:23: WBC 4.4, RBC 2.52 L, Hgb 8.1 L, Hct 24.3 L, MCV 96.4 H, MCH 32.1 H, MCHC 33.3, RDW Std Deviation 46.0 H, RDW Coeff of Wayne 13.2, Plt Count 112 L, MPV 9.8, Immature Gran % (Auto) 1.100 H, Neut % (Auto) 63.2, Lymph % (Auto) 23.6, Gregory % (Auto) 8.7, Eos % (Auto) 2.3, Baso % (Auto) 1.1 H, Absolute Neuts (auto) 2.8, Absolute Lymphs (auto) 1.03, Nucleated RBC % 0 11/08/19 06:23: Sodium 136, Potassium 3.6, Chloride 104, Carbon Dioxide 26.0, Anion Gap 6, BUN 11, Creatinine 0.79, Estim Creat Clear Calc 92.59, Est GFR (MDRD) Af Amer 127, Est GFR (MDRD) Non-Af 105, BUN/Creatinine Ratio 13.9, Glucose 102, Calcium 7.8 L, Total Bilirubin 0.50, Direct Bilirubin 0.17, AST 132 H, ALT 122 H, Alkaline Phosphatase 41 L, Total Protein 5.4 L, Albumin 2.5 L, Globulin 2.9, TSH 5.36 H 11/08/19 06:30: POC Glucose 103 Current Medications Acetaminophen (Tylenol) 650 mg PO Q6H PRN PRN PRN Reason: Pain Score 1-3/Temp > 100.7 F Cholecalciferol (Vitamin D) 5,000 unit PO DAILY TRACI Diazepam (Valium) 5 mg PO Q6H PRN PRN Reason: Agitation Folic Acid (Folic Acid) 1 mg PO DAILY@0800 REPLACED BY [facility] Stop: 11/10/19 08:01 Glucagon () 1 mg IM .X1 PRN PRN Reason: Hypoglycemia Pantoprazole Sodium 40 mg/ (Sodium Chloride) 110 mls @ 330 mls/hr IV Q12 REPLACED BY [facility] Last Infusion: 11/07/19 18:01 Dose: Infused Documented by: Dextrose (Dextrose 10%-Water) 250 mls @ 999 mls/hr IV .Q16M PRN; Protocol PRN Reason: HYPOGLYCEMIA Sodium Chloride () 250 mls @ 15 mls/hr IV .[id number] PRN PRN Reason: Saline Flush Sodium Chloride () 250 mls @ 15 mls/hr IV .[id number] PRN PRN Reason: Additional IVPB Infusion Lactobacillus Acidophilus (Acidophilus) 1 tablet PO DAILY TRACI Lorazepam (Ativan) 2 mg PO Q2H PRN PRN; Protocol PRN Reason: CIWA score > 8 but <15 Lorazepam (Ativan) 2 mg PO UD PRN; Protocol PRN Reason: CIWA score >/=15. Lorazepam (Ativan) 2 mg IV Q2H PRN PRN; Protocol PRN Reason: CIWA score > 8 but <15 Lorazepam (Ativan) 2 mg IV UD PRN; Protocol PRN Reason: CIWA score >/=15. Morphine Sulfate () 2 mg IV Q3H PRN PRN PRN Reason: Pain Score 6-10/10 Multivitamins/Minerals (Multivitamin With Minerals) [facility] Nitroglycerin (Nitrostat) 0.4 mg SUBLINGUAL Q5M PRN PRN Reason: CARDIAC/CHEST PAIN Nutritional Formula (Lactose Free) (Ensure Clear) 120 ml PO TIDCM REPLACED BY [facility] Last Admin: 11/07/19 17:06 Dose: 120 mls Documented by: Ondansetron HCl (Zofran) 4 mg IV Q8H PRN PRN PRN Reason: NAUSEA/VOMITING Oxycodone HCl (Oxyir) 5 mg PO Q4H PRN PRN PRN Reason: Pain Score 4-5/10 Prochlorperazine Edisylate (Compazine Iv) 5 mg IV Q4H PRN PRN PRN Reason: Breakthrough Nausea/Vomiting Senna/Docusate Sodium (Senokot-S, Rachel-Colace) 2 tablet PO BID PRN PRN PRN Reason: Constipation Sodium Chloride () 10 - 40 ml IV UD PRN PRN Reason: SALINE FLUSH Sucralfate (Carafate) 1 gm PO 1HR_ACHS REPLACED BY [facility] Last Admin: 11/08/19 06:32 Dose: 1 gm Documented by: Thiamine HCl (Vitamin B1) [facility] Stop: 11/09/19 17:01 Last Admin: 11/07/19 16:56 Dose: 100 mg Documented by: Medical Necessity - Tobacco Use Smoking Status: Former smoker Assessment/Plan All Active Problems (Last Updated 08/27/19 @ 21:47 by Pearl Sanchez DO) Upper GI bleed (Acute) 63-year-old male with bleeding duodenal ulcer 1. Patient reports that he is not having any epigastric pain this morning. He has not had any bloody bowel movements overnight. His hemoglobin has stabilized at 8.1. I believe this is a dilutional change from yesterday's count of 10. He reports a lot of fatigue. He says that he was told overnight he was beginning a blood transfusion but I do not see any ordered. I would at least recheck a hemoglobin at noon to see if this is stable before starting a regular diet. If his next hemoglobin drops or if he is transfused and his hemoglobin does not respond appropriately he may need repeat EGD. Continue Carafate and PPI. Lloyd Crandall MD Pager: [facility] [address] [place] [address], [address] [place] [address] Office:
[2019-11-08] MEDS: Folic Acid 1 MG Tablet PO (07:53)
[2019-11-08] MEDS: Multivitamins,Ther W-Minerals Tablet 1 TABLET PO (07:53)
[2019-11-08] MEDS: Ensure Clear 120 ML Liquid PO ×3 (07:53→17:41)
[2019-11-08] MEDS: Thiamine Hydrochloride 100 MG Tablet PO ×2 (07:53→17:41)
[2019-11-08 10:58] LABS: AST(SGOT) 189 U/L (15-37); Alanine Aminotransfer ALT/SGPT 158 U/L (16-61); Albumin, Serum 2.6 g/dL (3.2-5.0); Alkaline Phosphatase 42 U/L (45-117); Bilirubin, Direct 0.17 mg/dL (0.00-0.30); Globulin 2.9 g/dL (2.2-4.2); Protein, Total 5.5 g/dL (6.4-8.2)
--- NOTE | 2019-11-08 11:07 | NURSING ---
This nurse is aware of Vital Signs taken [place] desk maker at [phone] this am.
--- NOTE | 2019-11-08 11:11 | NURSING ---
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 Dr. Hughes aware of this and wanted 1 unit PRBC Transfused and H&H after the 1 unit was transfused not at [address] Crandall's orders. This nurse asked Dr. Hughes if he was going to inform Dr. Crandall, Dr. Hughes said no He will know.
[2019-11-08] MEDS: LORazepam 2 MG/ML Syringe IV (14:22)
[2019-11-08] MEDS: 0.9% Saline Lock 10 ML Syringe IV ×2 (14:22→21:44)
[2019-11-08 15:01] LABS: Bedside Glucose 100 mg/dL (70-110)
--- NOTE | 2019-11-08 17:01 | PCM.PN.HOSP ---
Patient Problems: Active and Suspected Problems (Last Updated 08/27/19 @ 21:47 by Pearl Sanchez DO) Upper GI bleed (Acute) Reason for Visit: Patient had black pastelike stools probably decidual bleed. Hemoglobin stays more than 8 g last 3 H&H. Patient feels weak, dizzy and shaky on walking to bathroom. Objective: I think part of the symptomatology is from alcohol withdrawal. As mentioned in H&P, patient drinks about 8-10 drinks of hard liquor every day. CIWA score 24 as per nursing staff. Vitals/I&O's: Vital Signs Temp Pulse Resp BP Pulse Ox 98.5 F 68 20 H 105/74 96 11/08/19 15:48 11/08/19 15:48 11/08/19 15:48 11/08/19 15:48 11/08/19 15:48 Oxygen Delivery Method Room Air Weight: 190 lb 11.198 oz Body Mass Index (BMI) 28.6 Intake and Output for Last 24 Hours 11/06/19 11/07/19 11/08/19 23:59 23:59 23:59 Intake Total 3643.33 / 3643.33 2320 / 2320 Output Total 550 / 550 1500 / 1500 Balance 3093.33 / 3093.33 820 / 820 General: Alert, Oriented x3, Cooperative HEENT: Atraumatic, PERRLA, EOMI, Normocephalic Neck: Supple, No JVD, Negative Carotid Bruits Lungs: Clear to auscultation, No rhonchi, No wheeze, No rales, Diminished Cardiovascular: Regular rate, Regular Rhythm, Normal S1, Normal S2, No murmurs Abdomen: Bowel Sounds Present, Soft, Non Tender Extremities: No edema, Capillary Refill Less than 3 Seconds Skin: No rashes, No breakdown Musculoskeletal: No Tenderness to Palpation of Joints or Extremities, Arthritic Changes Neurological: Cranial nerves II-XII grossly intact, Deep Tendon Reflexes 2+/4 and Symmetrical, Neuro grossly intact Psych/Mental Status: Normal Affect, Appropriate Microbiology Past 72 Hours 11/07/19 15:05 Urine, Clean Catch Urine Culture - Preliminary Culture exhibits no growth. Laboratory Results 11/07/19 09:00: Blood Type O POSITIVE, Antibody Screen NEGATIVE, Crossmatch See Detail 11/07/19 17:07: POC Glucose 86 11/07/19 19:30: Hgb 8.3 L, Hct 24.7 L 11/07/19 21:25: POC Glucose 101 11/08/19 01:27: Hgb 8.1 L, Hct 24.7 L 11/08/19 06:23: WBC 4.4, RBC 2.52 L, Hgb 8.1 L, Hct 24.3 L, MCV 96.4 H, MCH 32.1 H, MCHC 33.3, RDW Std Deviation 46.0 H, RDW Coeff of Wayne 13.2, Plt Count 112 L, MPV 9.8, Immature Gran % (Auto) 1.100 H, Neut % (Auto) 63.2, Lymph % (Auto) 23.6, [place] % (Auto) 8.7, Eos % (Auto) 2.3, Baso % (Auto) 1.1 H, Absolute Neuts (auto) 2.8, Absolute Lymphs (auto) 1.03, Nucleated RBC % 0 11/08/19 06:23: Sodium 136, Potassium 3.6, Chloride 104, Carbon Dioxide 26.0, Anion Gap 6, BUN 11, Creatinine 0.79, Estim Creat Clear Calc 92.59, Est GFR (MDRD) Af Amer 127, Est GFR (MDRD) Non-Af 105, BUN/Creatinine Ratio 13.9, Glucose 102, Calcium 7.8 L, Total Bilirubin 0.50, Direct Bilirubin 0.17, AST 132 H, ALT 122 H, Alkaline Phosphatase 41 L, Total Protein 5.4 L, Albumin 2.5 L, Globulin 2.9, TSH 5.36 H 11/08/19 06:30: POC Glucose 103 11/08/19 10:21: Total Bilirubin 0.30, Direct Bilirubin 0.17, AST 189 H, ALT 158 H, Alkaline Phosphatase 42 L, Total Protein 5.5 L, Albumin 2.6 L, Globulin 2.9 11/08/19 14:46: POC Glucose 100 Current Medications Acetaminophen (Tylenol) 650 mg PO Q6H PRN PRN PRN Reason: Pain Score 1-3/Temp > 100.7 F Al Hydroxide/Mg Hydroxide (Mylanta Ii) 30 ml PO Q6H PRN PRN PRN Reason: dyspesia Bisacodyl (Dulcolax) 10 mg RECTAL DAILY PRN PRN Reason: Constipation Cholecalciferol (Vitamin D) 5,000 unit PO DAILY [facility] Last Admin: 11/08/19 09:52 Dose: 5,000 unit Documented by: Diazepam (Valium) 5 mg PO Q6H PRN PRN Reason: Agitation Folic Acid (Folic Acid) 1 mg PO DAILY@0800 [facility] Stop: 11/10/19 08:01 Last Admin: 11/08/19 07:53 Dose: 1 mg Documented by: Glucagon () 1 mg IM .X1 PRN PRN Reason: Hypoglycemia Pantoprazole Sodium 40 mg/ (Sodium Chloride) 110 mls @ 330 mls/hr IV Q12 [facility] Last Infusion: 11/08/19 10:22 Dose: Infused Documented by: Dextrose (Dextrose 10%-Water) 250 mls @ 999 mls/hr IV .Q16M PRN; Protocol PRN Reason: HYPOGLYCEMIA Sodium Chloride () 250 mls @ 15 mls/hr IV .[id number] PRN PRN Reason: Saline Flush Sodium Chloride () 250 mls @ 15 mls/hr IV .[id number] PRN PRN Reason: Additional IVPB Infusion Lactobacillus Acidophilus (Acidophilus) 1 tablet PO DAILY [facility] Last Admin: 11/08/19 09:52 Dose: 1 tablet Documented by: Loperamide HCl (Imodium) 2 - 4 mg PO UD PRN PRN Reason: LOOSE STOOLS Lorazepam (Ativan) 2 mg PO Q2H PRN PRN; Protocol PRN Reason: CIWA score > 8 but <15 Lorazepam (Ativan) 2 mg PO UD PRN; Protocol PRN Reason: CIWA score >/=15. Lorazepam (Ativan) 2 mg IV Q2H PRN PRN; Protocol PRN Reason: CIWA score > 8 but <15 Last Admin: 11/08/19 14:22 Dose: 2 mg Documented by: Lorazepam (Ativan) 2 mg IV UD PRN; Protocol PRN Reason: CIWA score >/=15. Morphine Sulfate () 2 mg IV Q3H PRN PRN PRN Reason: Pain Score 6-10/10 Multivitamins/Minerals (Multivitamin With Minerals) 1 tablet PO DAILYCM [facility] Last Admin: 11/08/19 07:53 Dose: 1 tablet Documented by: Nitroglycerin (Nitrostat) 0.4 mg SUBLINGUAL Q5M PRN PRN Reason: CARDIAC/CHEST PAIN Nutritional Formula (Lactose Free) (Ensure Clear) 120 ml PO TIDCM [facility] Last Admin: 11/08/19 11:53 Dose: 120 mls Documented by: Ondansetron HCl (Zofran) 4 mg IV Q8H PRN PRN PRN Reason: NAUSEA/VOMITING Ondansetron HCl (Zofran Odt) 4 mg PO Q6H PRN PRN PRN Reason: NAUSEA Oxycodone HCl (Oxyir) 5 mg PO Q4H PRN PRN PRN Reason: Pain Score 4-5/10 Prochlorperazine Edisylate (Compazine Iv) 5 mg IV Q4H PRN PRN PRN Reason: Breakthrough Nausea/Vomiting Senna (Senokot) 1 tablet PO QHS PRN PRN Reason: Constipation Senna/Docusate Sodium (Senokot-S, Rachel-Colace) 2 tablet PO BID PRN PRN PRN Reason: Constipation Sodium Chloride () 10 - 40 ml IV UD PRN PRN Reason: SALINE FLUSH Last Admin: 11/08/19 14:22 Dose: 10 ml Documented by: Sucralfate (Carafate) 1 gm PO 1HR_ACHS [facility] Last Admin: 11/08/19 16:16 Dose: 1 gm Documented by: Thiamine HCl (Vitamin B1) 100 mg PO BIDCM [facility] Stop: 11/09/19 17:01 Last Admin: 11/08/19 07:53 Dose: 100 mg Documented by: Trazodone HCl (Desyrel) 50 mg PO QHS [facility] STROKE Vital Signs/Narrative: Vital Signs Temp Pulse Resp BP Pulse Ox 11/08/19 15:48 98.5 F 68 20 H 105/74 96 11/08/19 15:30 89 11/08/19 14:48 98.5 F 86 16 107/73 97 Medical Necessity - Tobacco Use Smoking Status: Former smoker Assessment/Plan All Active Problems (Last Updated 08/27/19 @ 21:47 by Pearl Sanchez DO) Upper GI bleed (Acute) The patient is a 63 year old M with history of chronic alcohol use and dependence came to ED with black stool for 4 days. In the ED, initial blood pressure 86/54, temperature 97.9 heart rate 142 pulse ox 90% on room air, which responded with IV fluid 1. Acute anemia secondary to acute upper GI bleed from duodenal ulcer with adherent clot: Patient is being admitted in PCU from endoscopic suite PACU. H&H every 6 hourly and transfuse if hemoglobin drops less than 7 g%. On IV PPI every 12 hourly, Carafate, IV fluid resuscitation and started on clear liquid diet. EGD was done and shows advanced clot in duodenum. 2/: 1 unit of PRBC transfusion and 200 mg IV Venofer ordered. Posttransfusion H&H. Previous 3 H&H is stable suggesting hemostasis is achieved. Discussed with surgeon. Continue PPI and sucralfate. 2. Mild hypotension secondary to GI bleed, recovered. History of hypertension: Continue IV fluid support. Monitor blood pressure. Hold antihypertensive medication amlodipine. 2/: Blood pressure is stable but on lower side. 3. Acute alcohol withdrawal syndrome with chronic alcohol use and dependence and chronic alcoholic hepatitis: Patient drinks about 8-10 Gins, hard liquor daily for long time. High potential for going into alcohol withdrawal syndrome. Monitor CIWA score and on Ativan IV and p.o. protocol. Monitor LFT and BMP, magnesium. 2: Patient is alcohol withdrawal syndrome with CIWA score 24. On Ativan protocol as patient has alcoholic hepatitis with elevated transaminases and hypoalbuminemia. Valium 5 mg p.o. every 6 hourly as needed for shakiness. 4. DVT prophylaxis: Bilateral SCDs. Pharmacological prophylaxis contraindicated. Total time of the visit including total time spent in counseling or coordination of care, (more than 50% of the total time, spent in obtaining medical information from nurses and other ancillary care providers), discussion with b2b sales consultant and ER physician, patient and his near the bedside, review of labs and imaging is 35 minutes Active Medications Acetaminophen (Tylenol) 650 mg PO Q6H PRN PRN PRN Reason: Pain Score 1-3/Temp > 100.7 F Al Hydroxide/Mg Hydroxide (Mylanta Ii) 30 ml PO Q6H PRN PRN PRN Reason: dyspesia Bisacodyl (Dulcolax) 10 mg RECTAL DAILY PRN PRN Reason: Constipation Cholecalciferol (Vitamin D) 5,000 unit PO DAILY [facility] Last Admin: 11/08/19 09:52 Dose: 5,000 unit Documented by: Diazepam (Valium) 5 mg PO Q6H PRN PRN Reason: Agitation Folic Acid (Folic Acid) 1 mg PO DAILY@0800 [facility] Stop: 11/10/19 08:01 Last Admin: 11/08/19 07:53 Dose: 1 mg Documented by: Glucagon () 1 mg IM .X1 PRN PRN Reason: Hypoglycemia Pantoprazole Sodium 40 mg/ (Sodium Chloride) 110 mls @ 330 mls/hr IV Q12 [facility] Last Infusion: 11/08/19 10:22 Dose: Infused Documented by: Dextrose (Dextrose 10%-Water) 250 mls @ 999 mls/hr IV .Q16M PRN; Protocol PRN Reason: HYPOGLYCEMIA Sodium Chloride () 250 mls @ 15 mls/hr IV .[id number] PRN PRN Reason: Saline Flush Sodium Chloride () 250 mls @ 15 mls/hr IV .[id number] PRN PRN Reason: Additional IVPB Infusion Lactobacillus Acidophilus (Acidophilus) 1 tablet PO DAILY [facility] Last Admin: 11/08/19 09:52 Dose: 1 tablet Documented by: Loperamide HCl (Imodium) 2 - 4 mg PO UD PRN PRN Reason: LOOSE STOOLS Lorazepam (Ativan) 2 mg PO Q2H PRN PRN; Protocol PRN Reason: CIWA score > 8 but <15 Lorazepam (Ativan) 2 mg PO UD PRN; Protocol PRN Reason: CIWA score >/=15. Lorazepam (Ativan) 2 mg IV Q2H PRN PRN; Protocol PRN Reason: CIWA score > 8 but <15 Last Admin: 11/08/19 14:22 Dose: 2 mg Documented by: Lorazepam (Ativan) 2 mg IV UD PRN; Protocol PRN Reason: CIWA score >/=15. Morphine Sulfate () 2 mg IV Q3H PRN PRN PRN Reason: Pain Score 6-10/10 [facility]ivitamins/Minerals [facility]) [facility] Last Admin: 11/08/19 07:53 Dose: 1 tablet Documented by: Nitroglycerin (Nitrostat) 0.4 mg SUBLINGUAL Q5M PRN PRN Reason: CARDIAC/CHEST PAIN Nutritional Formula (Lactose Free) (Ensure Clear) 120 ml PO TIDCM [facility] Last Admin: 11/08/19 11:53 Dose: 120 mls Documented by: Ondansetron HCl (Zofran) 4 mg IV Q8H PRN PRN PRN Reason: NAUSEA/VOMITING Ondansetron HCl (Zofran Odt) 4 mg PO Q6H PRN PRN PRN Reason: NAUSEA Oxycodone HCl (Oxyir) 5 mg PO Q4H PRN PRN PRN Reason: Pain Score 4-5/10 Prochlorperazine Edisylate (Compazine Iv) 5 mg IV Q4H PRN PRN PRN Reason: Breakthrough Nausea/Vomiting Senna (Senokot) 1 tablet PO QHS PRN PRN Reason: Constipation Senna/Docusate Sodium (Senokot-S, Rachel-Colace) 2 tablet PO BID PRN PRN PRN Reason: Constipation Sodium Chloride () 10 - 40 ml IV UD PRN PRN Reason: SALINE FLUSH Last Admin: 11/08/19 14:22 Dose: 10 ml Documented by: Sucralfate (Carafate) 1 gm PO 1HR_ACHS [facility] Last Admin: 11/08/19 16:16 Dose: 1 gm Documented by: Thiamine [facility] ([facility]amin B1) [facility] Stop: 11/09/19 17:01 Last Admin: 11/08/19 07:53 Dose: 100 mg Documented by: Trazodone HCl (Desyrel) 50 mg PO QHS [facility] Microbiology Past 72 Hours 11/07/19 15:05 Urine, Clean Catch Urine Culture - Preliminary Culture exhibits no growth. Laboratory Results 11/07/19 09:00: Blood Type O POSITIVE, Antibody Screen NEGATIVE, Crossmatch See Detail 11/07/19 17:07: POC Glucose 86 11/07/19 19:30: Hgb 8.3 L, Hct 24.7 L 11/07/19 21:25: POC Glucose 101 11/08/19 01:27: Hgb 8.1 L, Hct 24.7 L 11/08/19 06:23: WBC 4.4, RBC 2.52 L, Hgb 8.1 L, Hct 24.3 L, MCV 96.4 H, MCH 32.1 H, MCHC 33.3, RDW Std Deviation 46.0 H, RDW Coeff of [place] 13.2, Plt Count 112 L, MPV 9.8, Immature Gran % (Auto) 1.100 H, Neut % (Auto) 63.2, Lymph % (Auto) 23.6, [place] % (Auto) 8.7, Eos % (Auto) 2.3, Baso % (Auto) 1.1 H, Absolute Neuts (auto) 2.8, Absolute Lymphs (auto) 1.03, Nucleated RBC % 0 11/08/19 06:23: Sodium 136, Potassium 3.6, Chloride 104, Carbon Dioxide 26.0, Anion Gap 6, BUN 11, Creatinine 0.79, Estim Creat Clear Calc 92.59, Est GFR (MDRD) Af Amer 127, Est GFR (MDRD) Non-Af 105, BUN/Creatinine Ratio 13.9, Glucose 102, Calcium 7.8 L, Total Bilirubin 0.50, Direct Bilirubin 0.17, AST 132 H, ALT 122 H, Alkaline Phosphatase 41 L, Total Protein 5.4 L, Albumin 2.5 L, Globulin 2.9, TSH 5.36 H 11/08/19 06:30: POC Glucose 103 11/08/19 10:21: Total Bilirubin 0.30, Direct Bilirubin 0.17, AST 189 H, ALT 158 H, Alkaline Phosphatase 42 L, Total Protein 5.5 L, Albumin 2.6 L, Globulin 2.9 11/08/19 14:46: POC Glucose 100 Code Visit Inpatient E&M: 27766 Subs Hosp L3
[2019-11-08 17:16] LABS: Bedside Glucose 93 mg/dL (70-110)
[2019-11-08 19:36] LABS: Hematocrit 28.4 % (40-54); Hemoglobin 9.3 g/dL (13.0-16.5)
[2019-11-08] MEDS: traZODone 50 MG Tablet PO (21:49)
[2019-11-08 22:00] LABS: Bedside Glucose 113 mg/dL (70-110)
[2019-11-09] VITALS (19 sets, daily range): BP systolic 106–146; BP diastolic 69–90; PULSE 66–110; RESP 16–24; TEMP 36.4–36.8; O2SAT 92–98
[2019-11-09] MEDS: LORazepam 2 MG/ML Syringe IV ×3 (02:20→16:52)
[2019-11-09] MEDS: 0.9% Saline Lock 10 ML Syringe IV ×3 (02:20→16:52)
[2019-11-09] MEDS: Sucralfate 1 GM Tablet PO ×2 (06:39→12:24)
[2019-11-09 06:51] LABS: Bedside Glucose 92 mg/dL (70-110)
[2019-11-09 07:25] LABS: Hematocrit 28.2 % (40-54); Hemoglobin 9.4 g/dL (13.0-16.5)
[2019-11-09 07:42] LABS: AST(SGOT) 175 U/L (15-37); Alanine Aminotransfer ALT/SGPT 176 U/L (16-61); Albumin, Serum 2.7 g/dL (3.2-5.0); Alkaline Phosphatase 45 U/L (45-117); Bilirubin, Direct 0.12 mg/dL (0.00-0.30); Globulin 3.1 g/dL (2.2-4.2); Protein, Total 5.8 g/dL (6.4-8.2)
[2019-11-09] MEDS: LORazepam 1 MG Tablet 2 MG PO (07:54)
[2019-11-09] MEDS: Multivitamins,Ther W-Minerals Tablet 1 TABLET PO (07:56)
[2019-11-09] MEDS: Thiamine Hydrochloride 100 MG Tablet PO (07:56)
[2019-11-09] MEDS: Folic Acid 1 MG Tablet PO (07:57)
--- NOTE | 2019-11-09 08:10 | PN.SURG_ITS ---
Patient Problems: Active and Suspected Problems (Last Updated 08/27/19 @ 21:47 by Pearl Sanchez DO) Upper GI bleed (Acute) Subjective: Patient has no complaints today - Physical Exam Vitals/I&O's: Vital Signs Temp Pulse Resp BP Pulse Ox 98.2 F 88 18 118/69 94 11/09/19 06:35 11/09/19 06:35 11/09/19 06:35 11/09/19 06:35 11/09/19 07:32 Oxygen Delivery Method Room Air Weight: 190 lb 4.143 oz Body Mass Index (BMI) 28.6 Intake and Output for Last 24 Hours 11/07/19 11/08/19 11/09/19 23:59 23:59 23:59 Intake Total 3643.33 / 3643.33 3150 / 3150 250 / 250 Output Total 550 / 550 3320 / 3320 1150 / 1150 Balance 3093.33 / 3093.33 -170 / -170 -900 / -900 General: Alert, Oriented x3, Cooperative Cardiovascular: Regular rate, Regular Rhythm Abdomen: Soft, Non Tender, Non-Distended Microbiology Past 72 Hours 11/07/19 15:05 Urine, Clean Catch Urine Culture - Preliminary Culture exhibits no growth. Laboratory Results 11/07/19 09:00: Blood Type O POSITIVE, Antibody Screen NEGATIVE, Crossmatch See Detail 11/08/19 10:21: Total Bilirubin 0.30, Direct Bilirubin 0.17, AST 189 H, ALT 158 H, Alkaline Phosphatase 42 L, Total Protein 5.5 L, Albumin 2.6 L, Globulin 2.9 11/08/19 14:46: POC Glucose 100 11/08/19 17:08: POC Glucose 93 11/08/19 19:14: Hgb 9.3 L, Hct 28.4 L 11/08/19 21:51: POC Glucose 113 H 11/09/19 06:35: POC Glucose 92 11/09/19 06:39: Total Bilirubin 0.40, Direct Bilirubin 0.12, AST 175 H, ALT 176 H, Alkaline Phosphatase 45, Total Protein 5.8 L, Albumin 2.7 L, Globulin 3.1 11/09/19 06:39: Hgb 9.4 L, Hct 28.2 L Current Medications Acetaminophen (Tylenol) 650 mg PO Q6H PRN PRN PRN Reason: Pain Score 1-3/Temp > 100.7 F Al Hydroxide/Mg Hydroxide (Mylanta Ii) 30 ml PO Q6H PRN PRN PRN Reason: dyspesia Bisacodyl (Dulcolax) 10 mg RECTAL DAILY PRN PRN Reason: Constipation Cholecalciferol (Vitamin D) 5,000 unit PO DAILY [facility] Last Admin: 11/09/19 07:56 Dose: 5,000 unit Documented by: Diazepam (Valium) 5 mg PO Q6H PRN PRN Reason: Agitation Folic Acid (Folic Acid) 1 mg PO DAILY@0800 [facility] Stop: 11/10/19 08:01 Last Admin: 11/09/19 07:57 Dose: 1 mg Documented by: Glucagon () 1 mg IM .X1 PRN PRN Reason: Hypoglycemia Dextrose (Dextrose 10%-Water) 250 mls @ 999 mls/hr IV .Q16M PRN; Protocol PRN Reason: HYPOGLYCEMIA Sodium Chloride () 250 mls @ 15 mls/hr IV .[id number] PRN PRN Reason: Saline Flush Sodium Chloride () 250 mls @ 15 mls/hr IV .[id number] PRN PRN Reason: Additional IVPB Infusion Lactobacillus Acidophilus (Acidophilus) 1 tablet PO DAILY [facility] Last Admin: 11/09/19 07:57 Dose: 1 tablet Documented by: Loperamide HCl (Imodium) 2 - 4 mg PO UD PRN PRN Reason: LOOSE STOOLS Lorazepam (Ativan) 2 mg PO Q2H PRN PRN; Protocol PRN Reason: CIWA score > 8 but <15 Last Admin: 11/09/19 07:54 Dose: 2 mg Documented by: Lorazepam (Ativan) 2 mg PO UD PRN; Protocol PRN Reason: CIWA score >/=15. Lorazepam (Ativan) 2 mg IV Q2H PRN PRN; Protocol PRN Reason: CIWA score > 8 but <15 Last Admin: 11/09/19 02:20 Dose: 2 mg Documented by: Lorazepam (Ativan) 2 mg IV UD PRN; Protocol PRN Reason: CIWA score >/=15. Morphine Sulfate () 2 mg IV Q3H PRN PRN PRN Reason: Pain Score 6-10/10 Multivitamins/Minerals ([facility]ivitamin With Minerals) [facility] Last Admin: 11/09/19 07:56 Dose: 1 tablet Documented by: Nitroglycerin (Nitrostat) 0.4 mg SUBLINGUAL Q5M PRN PRN Reason: CARDIAC/CHEST PAIN Nutritional Formula (Lactose Free) (Ensure Clear) 120 ml PO TIDCM [facility] Last Admin: 11/08/19 17:41 Dose: 120 mls Documented by: Ondansetron HCl (Zofran) 4 mg IV Q8H PRN PRN PRN Reason: NAUSEA/VOMITING Ondansetron HCl (Zofran Odt) 4 mg PO Q6H PRN PRN PRN Reason: NAUSEA Oxycodone HCl (Oxyir) 5 mg PO Q4H PRN PRN PRN Reason: Pain Score 4-5/10 Pantoprazole Sodium (Protonix) 40 mg PO BID [facility] Prochlorperazine Edisylate (Compazine Iv) 5 mg IV Q4H PRN PRN PRN Reason: Breakthrough Nausea/Vomiting Senna (Senokot) 1 tablet PO QHS PRN PRN Reason: Constipation Senna/Docusate Sodium (Senokot-S, Rachel-Colace) 2 tablet PO BID PRN PRN PRN Reason: Constipation Sodium Chloride () 10 - 40 ml IV UD PRN PRN Reason: SALINE FLUSH Last Admin: 11/09/19 02:20 Dose: 10 ml Documented by: Sucralfate (Carafate) 1 gm PO 1HR_ACHS [facility] Last Admin: 11/09/19 06:39 Dose: 1 gm Documented by: Thiamine HCl (Vitamin B1) [facility] Stop: 11/09/19 17:01 Last Admin: 11/09/19 07:56 Dose: 100 mg Documented by: Trazodone HCl (Desyrel) 50 mg PO QHS [facility] Last Admin: 11/08/19 21:49 Dose: 50 mg Documented by: Medical Necessity - Tobacco Use Smoking Status: Former smoker Assessment/Plan All Active Problems (Last Updated 08/27/19 @ 21:47 by Pearl Sanchez DO) Upper GI bleed (Acute) 63-year-old male with bleeding duodenal ulcer 1. Patient received 1 unit of blood yesterday and his hemoglobin responded appropriately. He has not had any bloody bowel movements. He is not complain of any pain today. I recommended regular diet. If he tolerates this he may be discharged home. He should go home on oral PPI and Carafate and follow-up with me in 2 weeks. Lloyd Crandall MD Pager: [facility] [address] [place] [address], [address] [place] [address] Office:
--- NOTE | 2019-11-09 09:26 | PCM.PN.HOSP ---
Patient Problems: Active and Suspected Problems (Last Updated 08/27/19 @ 21:47 by Pearl Sanchez DO) Upper GI bleed (Acute) Reason for Visit: Upper GI bleed. Patient is having alcohol withdrawal syndrome Objective: Patient started having alcohol withdrawal syndrome since yesterday. Patient still having shakiness, anxiety and restlessness. Diffuse body tremors and unsteady gait. Vitals/I&O's: Vital Signs Temp Pulse Resp BP Pulse Ox 98.2 F 88 18 118/69 94 11/09/19 06:35 11/09/19 06:35 11/09/19 06:35 11/09/19 06:35 11/09/19 07:32 Oxygen Delivery Method Room Air Weight: 190 lb 4.143 oz Body Mass Index (BMI) 28.6 Intake and Output for Last 24 Hours 11/07/19 11/08/19 11/09/19 23:59 23:59 23:59 Intake Total 3643.33 / 3643.33 3150 / 3150 250 / 250 Output Total 550 / 550 3320 / 3320 1150 / 1150 Balance 3093.33 / 3093.33 -170 / -170 -900 / -900 General: Oriented x3, Cooperative, Lethargic HEENT: Atraumatic, PERRLA, EOMI, Normocephalic Oral: No Gingival or Mucosal Lesions/ Ulcerations, Dry Mucosa Neck: Supple, No JVD, Negative Carotid Bruits Lungs: No rhonchi, No wheeze, No rales, Diminished - Air entry diminished bilateral lung bases Cardiovascular: Regular rate, Regular Rhythm, Normal S1, Normal S2, No murmurs Abdomen: Bowel Sounds Present, Soft, Non Tender, Non-Distended Extremities: No edema, Capillary Refill Less than 3 Seconds Skin: No rashes, No breakdown Musculoskeletal: No Tenderness to Palpation of Joints or Extremities, Arthritic Changes Neurological: Slurred Speech, Unsteady Gait, Clonus - Diffuse tremor, overt alcohol withdrawal syndrome Psych/Mental Status: Normal Affect, Appropriate Microbiology Past 72 Hours 11/07/19 15:05 Urine, Clean Catch Urine Culture - Preliminary Culture exhibits no growth. Laboratory Results 11/07/19 09:00: Blood Type O POSITIVE, Antibody Screen NEGATIVE, Crossmatch See Detail 11/08/19 10:21: Total Bilirubin 0.30, Direct Bilirubin 0.17, AST 189 H, ALT 158 H, Alkaline Phosphatase 42 L, Total Protein 5.5 L, Albumin 2.6 L, Globulin 2.9 11/08/19 14:46: POC Glucose 100 11/08/19 17:08: POC Glucose 93 11/08/19 19:14: Hgb 9.3 L, Hct 28.4 L 11/08/19 21:51: POC Glucose 113 H 11/09/19 06:35: POC Glucose 92 11/09/19 06:39: Total Bilirubin 0.40, Direct Bilirubin 0.12, AST 175 H, ALT 176 H, Alkaline Phosphatase 45, Total Protein 5.8 L, Albumin 2.7 L, Globulin 3.1 11/09/19 06:39: Hgb 9.4 L, Hct 28.2 L Current Medications Acetaminophen (Tylenol) 650 mg PO Q6H PRN PRN PRN Reason: Pain Score 1-3/Temp > 100.7 F Al Hydroxide/Mg Hydroxide (Mylanta Ii) 30 ml PO Q6H PRN PRN PRN Reason: dyspesia Bisacodyl (Dulcolax) 10 mg RECTAL DAILY PRN PRN Reason: Constipation Chlordiazepoxide (Librium) 0 mg PO UD TRACI; Taper Stop: 11/12/19 11:29 Cholecalciferol (Vitamin D) 5,000 unit PO DAILY [facility] Last Admin: 11/09/19 07:56 Dose: 5,000 unit Documented by: Dicyclomine HCl (Bentyl) 20 mg PO Q6H PRN PRN PRN Reason: abdominal discomfort Folic Acid (Folic Acid) 1 mg PO DAILY@0800 [facility] Stop: 11/10/19 08:01 Last Admin: 11/09/19 07:57 Dose: 1 mg Documented by: Glucagon () 1 mg IM .X1 PRN PRN Reason: Hypoglycemia Hydroxyzine Pamoate (Vistaril Pamoate Capsule) 50 mg PO Q6H PRN PRN PRN Reason: Mild Anxiety (score 1/3) Dextrose (Dextrose 10%-Water) 250 mls @ 999 mls/hr IV .Q16M PRN; Protocol PRN Reason: HYPOGLYCEMIA Sodium Chloride () 250 mls @ 15 mls/hr IV .[id number] PRN PRN Reason: Saline Flush Sodium Chloride () 250 mls @ 15 mls/hr IV .[id number] PRN PRN Reason: Additional IVPB Infusion Lactobacillus Acidophilus (Acidophilus) 1 tablet PO DAILY [facility] Last Admin: 11/09/19 07:57 Dose: 1 tablet Documented by: Loperamide HCl (Imodium) 2 - 4 mg PO UD PRN PRN Reason: LOOSE STOOLS Lorazepam (Ativan) 2 mg IV Q2H PRN PRN; Protocol PRN Reason: CIWA score > 8 but <15 Last Admin: 11/09/19 02:20 Dose: 2 mg Documented by: Lorazepam (Ativan) 2 mg IV UD PRN; Protocol PRN Reason: CIWA score >/=15. Methocarbamol (Methocarbamol) 750 mg PO Q6H PRN PRN PRN Reason: Muscle Aches Morphine Sulfate () 2 mg IV Q3H PRN PRN PRN Reason: Pain Score 6-10/10 Multivitamins/Minerals (Multivitamin With Minerals) [facility] Last Admin: 11/09/19 07:56 Dose: 1 tablet Documented by: Nitroglycerin (Nitrostat) 0.4 mg SUBLINGUAL Q5M PRN PRN Reason: CARDIAC/CHEST PAIN Nutritional Formula (Lactose Free) (Ensure Clear) 120 ml PO TIDCM [facility] Last Admin: 11/08/19 17:41 Dose: 120 mls Documented by: Ondansetron HCl (Zofran) 4 mg IV Q8H PRN PRN PRN Reason: NAUSEA/VOMITING Ondansetron HCl (Zofran Odt) 4 mg PO Q6H PRN PRN PRN Reason: NAUSEA Oxycodone HCl (Oxyir) 5 mg PO Q4H PRN PRN PRN Reason: Pain Score 4-5/10 Pantoprazole Sodium (Protonix) 40 mg PO BID [facility] Prochlorperazine Edisylate (Compazine Iv) 5 mg IV Q4H PRN PRN PRN Reason: Breakthrough Nausea/Vomiting Senna (Senokot) 1 tablet PO QHS PRN PRN Reason: Constipation Senna/Docusate Sodium (Senokot-S, Rachel-Colace) 2 tablet PO BID PRN PRN PRN Reason: Constipation Sodium Chloride () 10 - 40 ml IV UD PRN PRN Reason: SALINE FLUSH Last Admin: 11/09/19 02:20 Dose: 10 ml Documented by: Sucralfate (Carafate) 1 gm PO 1HR_ACHS [facility] Last Admin: 11/09/19 06:39 Dose: 1 gm Documented by: Thiamine HCl (Vitamin B1) 100 mg PO BIDCM [facility] Stop: 11/09/19 17:01 Last Admin: 11/09/19 07:56 Dose: 100 mg Documented by: Trazodone HCl (Desyrel) 50 mg PO QHS [facility] Last Admin: 11/08/19 21:49 Dose: 50 mg Documented by: STROKE Vital Signs/Narrative: Vital Signs Temp Pulse Resp BP Pulse Ox 11/09/19 07:32 94 11/09/19 06:35 98.2 F 88 18 118/69 94 Medical Necessity - Tobacco Use Smoking Status: Former smoker Assessment/Plan All Active Problems (Last Updated 08/27/19 @ 21:47 by Pearl Sanchez DO) Upper GI bleed (Acute) The patient is a 63 year old M with history of chronic alcohol use and dependence came to ED with black stool for 4 days. In the ED, initial blood pressure 86/54, temperature 97.9 heart rate 142 pulse ox 90% on room air, which responded with IV fluid 1. Acute anemia secondary to acute upper GI bleed from duodenal ulcer with adherent clot: Patient is being admitted in PCU from endoscopic suite PACU. H&H every 6 hourly and transfuse if hemoglobin drops less than 7 g%. On IV PPI every 12 hourly, Carafate, IV fluid resuscitation and started on clear liquid diet. EGD was done and shows advanced clot in duodenum. 2/1: 1 unit of PRBC transfusion and 200 mg IV Venofer ordered. Posttransfusion H&H. Previous 3 H&H is stable suggesting hemostasis is achieved. Discussed with surgeon. Continue PPI and sucralfate. 2/2: H&H is stable 9.3 after 1 unit of PRBC transfusion and 2 IV iron infusion. Protonix is changed to p.o. 2. Mild hypotension secondary to GI bleed, recovered. History of hypertension: Continue IV fluid support. Monitor blood pressure. Hold antihypertensive medication amlodipine. 2/1: Blood pressure is stable but on lower side. 2/2: Blood pressure improved 3. Acute alcohol withdrawal syndrome with chronic alcohol use and dependence and chronic alcoholic hepatitis: Patient drinks about 8-10 Gins, hard liquor daily for long time. High potential for going into alcohol withdrawal syndrome. Monitor CIWA score and on Ativan IV and p.o. protocol. Monitor LFT and BMP, magnesium. 2: Patient is alcohol withdrawal syndrome with CIWA score 24. On Ativan protocol as patient has alcoholic hepatitis with elevated transaminases and hypoalbuminemia. Valium 5 mg p.o. every 6 hourly as needed for shakiness. 11/09: Overt alcohol withdrawal syndrome: Started on Librium protocol 50 mg every 8 hourly on a scheduled and taper protocol. Decrease the dose and frequency if transaminases goes up. Discontinue Valium. Ativan as needed as per CIWA score or seizure. Fall and seizure precaution. 4. DVT prophylaxis: Bilateral SCDs. Pharmacological prophylaxis contraindicated. Total time of the visit including total time spent in counseling or coordination of care, (more than 50% of the total time, spent in obtaining medical information from nurses and other ancillary care providers), discussion with rural health consultant and ER physician, patient and his near the bedside, review of labs and imaging is 35 minutes Microbiology Past 72 Hours 11/07/19 15:05 Urine, Clean Catch Urine Culture - Preliminary Culture exhibits no growth. Laboratory Results 11/07/19 09:00: Blood Type O POSITIVE, Antibody Screen NEGATIVE, Crossmatch See Detail 11/08/19 10:21: Total Bilirubin 0.30, Direct Bilirubin 0.17, AST 189 H, ALT 158 H, Alkaline Phosphatase 42 L, Total Protein 5.5 L, Albumin 2.6 L, Globulin 2.9 11/08/19 14:46: POC Glucose 100 11/08/19 17:08: POC Glucose 93 11/08/19 19:14: Hgb 9.3 L, Hct 28.4 L 11/08/19 21:51: POC Glucose 113 H 11/09/19 06:35: POC Glucose 92 11/09/19 06:39: Total Bilirubin 0.40, Direct Bilirubin 0.12, AST 175 H, ALT 176 H, Alkaline Phosphatase 45, Total Protein 5.8 L, Albumin 2.7 L, Globulin 3.1 11/09/19 06:39: Hgb 9.4 L, Hct 28.2 L Code Visit Inpatient E&M: [address] [facility] Hosp L3
[2019-11-09] MEDS: chlordiazePOXIDE 25 MG Capsule 50 MG PO (10:10)
[2019-11-09] MEDS: Pantoprazole Sodium 40 MG Tablet PO (10:11)
[2019-11-09 10:13] LABS: Anion Gap 6 (5-15); BUN 6 mg/dL (7-18); BUN/Creat Ratio 7.2 RATIO (10-20); Calcium,Total 8.4 mg/dL (8.5-10.1); Chloride 107 mmol/L (98-107); Creatinine, Serum 0.84 mg/dL (0.70-1.30); EST Glomerular Filtration Rate 98 mL/min (>60); Est Glom Filt Rate - Afr Amer 119 mL/min (>60); Estimated Creatinine Clearance 87.08 ml/min; Glucose 87 mg/dL (74-106); Magnesium 1.9 mg/dL (1.6-2.6); Phosphorus 2.9 mg/dL (2.5-4.9); Potassium 3.6 mmol/L (3.5-5.1); Sodium Level 139 mmol/L (136-145)
[2019-11-09] MEDS: Phenobarbital Sodium 130 MG/ML Vial 100 MG IV (14:38)
--- NOTE | 2019-11-09 16:22 | NURSING ---
Addendum entered by Uriel Tyler 11/09/19 18:49: Pt's Vidhi took home his wallet. Pt's cell phone, glasses & cell phone insulation cupola charger are in his overnight bag. Original Note: Pt became increasingly agitated/having hallucinations throughout the day and medications given to help w/DT symptoms were not effective. Dr Hughes made transfer to ICU. here when decision was made to transfer to ICU. Assured her it was ok to go home as pt seemed to be more agitated and arguing with her. Patient walked to the ICU from PCU. Once settled in ICU I called his , Vidhi, and updated that pt was now in ICU. Visiting hours and phone number given.
--- NOTE | 2019-11-09 16:41 | NURSING ---
Precedex to 1.4 per MD orders for combative behavior. Brittni cho called. Pt placed in restraints and Dr. Hughes notified.
[2019-11-10] VITALS (13 sets, daily range): BP systolic 98–147; BP diastolic 73–94; PULSE 64–103; RESP 13–24; TEMP 36.4–37; O2SAT 20–99
[2019-11-10 03:54] LABS: Absolute Lymphocyte Count 1.06 X10^3/uL (0.83-4.51); Absolute Neutrophil Count 2.1 X10^3/uL (2.0-7.7); Basophil# 0.03 X10^3/uL; Basophil% 0.8 % (0-1); Eosinophil# 0.08 X10^3/uL; Hematocrit 30.7 % (40-54); Lymphocyte # 1.06 X10^3/ul (4.0); Mean Corp Hgb Conc 32.6 g/dL (32-36); Mean Corpuscular Hgb 31.8 pg (27.0-32.0); Mean Corpuscular Volume 97.8 fL (80-94); Mean Platelet Vol. 9.3 fl (6.2-12.0); Monocyte# 0.59 X10^3/uL; NRBC Flagged by Analyzer 0 % (0-5); Neutrophil # 2.13 X10^3/uL (2.7-7.7); Neutrophil % 54.2 % (47-70); Platelet Count 139 K/mm3 (150-450); RBC Distribution Width CV 14.7 % (11.6-14.6); RBC Distribution Width SD 50.4 fl (35.1-43.9); Red Blood Count 3.14 M/mm3 (4.6-6.2); White Blood Count 3.9 K/mm3 (4.4-11.0)
[2019-11-10 04:08] LABS: ALB/GLOB Ratio 0.8 RATIO (0.9-2.4); AST(SGOT) 129 U/L (15-37); Alanine Aminotransfer ALT/SGPT 165 U/L (16-61); Albumin, Serum 2.8 g/dL (3.2-5.0); Alkaline Phosphatase 56 U/L (45-117); Anion Gap 4 (5-15); BUN 8 mg/dL (7-18); BUN/Creat Ratio 8.5 RATIO (10-20); Calcium,Total 8.5 mg/dL (8.5-10.1); Chloride 107 mmol/L (98-107); Creatinine, Serum 0.94 mg/dL (0.70-1.30); EST Glomerular Filtration Rate 86 mL/min (>60); Est Glom Filt Rate - Afr Amer 104 mL/min (>60); Estimated Creatinine Clearance 77.82 ml/min; Globulin 3.3 g/dL (2.2-4.2); Glucose 96 mg/dL (74-106); Potassium 3.8 mmol/L (3.5-5.1); Protein, Total 6.1 g/dL (6.4-8.2); Sodium Level 140 mmol/L (136-145)
[2019-11-10] MEDS: Sucralfate 1 GM Tablet PO ×4 (05:36→21:24)
--- NOTE | 2019-11-10 08:16 | PCM.PN.SRG ---
Patient Problems: Active and Suspected Problems (Last Updated 08/27/19 @ 21:47 by Pearl Sanchez DO) Upper GI bleed (Acute) Subjective: No complaints this morning. Patient was moved to the ICU for alcohol withdrawal. He reports no abdominal pain or nausea or vomiting. - Physical Exam Vitals/I&O's: Vital Signs Temp Pulse Resp BP Pulse Ox 97.5 F L 71 19 H 135/86 H 97 11/10/19 08:00 11/10/19 08:00 11/10/19 08:00 11/10/19 08:00 11/10/19 08:00 Oxygen Delivery Method Room Air Weight: 184 lb 1.376 oz Body Mass Index (BMI) 28.6 Intake and Output for Last 24 Hours 11/08/19 11/09/19 11/10/19 23:59 23:59 23:59 Intake Total 3150 / 3150 1486.82 / 1486.82 600 / 600 Output Total 3320 / 3320 1950 / 1950 1200 / 1200 Balance -170 / -170 -463.18 / -463.18 -600 / -600 General: Alert, Oriented x3 Lungs: Normal air movement Cardiovascular: Regular rate, Regular Rhythm Abdomen: Soft, Non Tender, Non-Distended Microbiology Past 72 Hours 11/07/19 15:05 Urine, Clean Catch Urine Culture - Preliminary Culture exhibits no growth. Laboratory Results 11/09/19 06:39: Sodium 139, Potassium 3.6, Chloride 107, Carbon Dioxide 26.0, Anion Gap 6, BUN 6 L, Creatinine 0.84, Estim Creat Clear Calc 87.08, Est GFR (MDRD) Af Amer 119, Est GFR (MDRD) Non-Af 98, BUN/Creatinine Ratio 7.2 L, Glucose 87, Calcium 8.4 L, Phosphorus 2.9, Magnesium 1.9 11/10/19 03:40: WBC 3.9 L, RBC 3.14 L, Hgb 10.0 L, Hct 30.7 L, MCV 97.8 H, MCH 31.8, MCHC 32.6, RDW Std Deviation 50.4 H, RDW Coeff of Wayne 14.7 H, Plt Count 139 L, MPV 9.3, Immature Gran % (Auto) 1.000 H, Neut % (Auto) 54.2, Lymph % (Auto) 27.0, Mathews % (Auto) 15.0 H, Eos % (Auto) 2.0, Baso % (Auto) 0.8, Absolute Neuts (auto) 2.1, Absolute Lymphs (auto) 1.06, Nucleated RBC % 0 11/10/19 03:40: Sodium 140, Potassium 3.8, Chloride 107, Carbon Dioxide 29.0, Anion Gap 4 L, BUN 8, Creatinine 0.94, Estim Creat Clear Calc 77.82, Est GFR (MDRD) Af Amer 104, Est GFR (MDRD) Non-Af 86, BUN/Creatinine Ratio 8.5 L, Glucose 96, Calcium 8.5, Total Bilirubin 0.30, AST 129 H, ALT 165 H, Alkaline Phosphatase 56, Total Protein 6.1 L, Albumin 2.8 L, Globulin 3.3, Albumin/Globulin Ratio 0.8 L Current Medications Acetaminophen (Tylenol) 650 mg PO Q6H PRN PRN PRN Reason: Pain Score 1-3/Temp > 100.7 F Al Hydroxide/Mg Hydroxide (Mylanta Ii) 30 ml PO Q6H PRN PRN PRN Reason: dyspesia Bisacodyl (Dulcolax) 10 mg RECTAL DAILY PRN PRN Reason: Constipation Cholecalciferol (Vitamin D) 5,000 unit PO DAILY [facility] Last Admin: 11/09/19 07:56 Dose: 5,000 unit Documented by: Dicyclomine HCl (Bentyl) 20 mg PO Q6H PRN PRN PRN Reason: abdominal discomfort Glucagon () 1 mg IM .X1 PRN PRN Reason: Hypoglycemia Hydroxyzine Pamoate (Vistaril Pamoate Capsule) 50 mg PO Q6H PRN PRN PRN Reason: Mild Anxiety (score 1/3) Dextrose (Dextrose 10%-Water) 250 mls @ 999 mls/hr IV .Q16M PRN; Protocol PRN Reason: HYPOGLYCEMIA Sodium Chloride () 250 mls @ 15 mls/hr IV .[id number] PRN PRN Reason: Saline Flush Sodium Chloride () 250 mls @ 15 mls/hr IV .[id number] PRN PRN Reason: Additional IVPB Infusion Lactobacillus Acidophilus (Acidophilus) 1 tablet PO DAILY [facility] Last Admin: 11/09/19 07:57 Dose: 1 tablet Documented by: Loperamide HCl (Imodium) 2 - 4 mg PO UD PRN PRN Reason: LOOSE STOOLS Lorazepam (Ativan) 2 mg IV Q2H PRN PRN; Protocol PRN Reason: CIWA score > 8 but <15 Last Admin: 11/09/19 16:52 Dose: 2 mg Documented by: Lorazepam (Ativan) 2 mg IV UD PRN; Protocol PRN Reason: CIWA score >/=15. Methocarbamol (Methocarbamol) 750 mg PO Q6H PRN PRN PRN Reason: Muscle Aches Morphine Sulfate () 2 mg IV Q3H PRN PRN PRN Reason: Pain Score 6-10/10 Multivitamins/Minerals (Multivitamin With Minerals) [facility] Last Admin: 11/09/19 07:56 Dose: 1 tablet Documented by: Nitroglycerin (Nitrostat) 0.4 mg SUBLINGUAL Q5M PRN PRN Reason: CARDIAC/CHEST PAIN Nutritional Formula (Lactose Free) (Ensure Enlive) 120 ml PO 4X/DAY [facility] Last Admin: 11/09/19 21:59 Dose: Not Given Documented by: Ondansetron HCl (Zofran) 4 mg IV Q8H PRN PRN PRN Reason: NAUSEA/VOMITING Oxycodone HCl (Oxyir) 5 mg PO Q4H PRN PRN PRN Reason: Pain Score 4-5/10 Pantoprazole Sodium (Protonix) 40 mg PO BID [facility] Last Admin: 11/09/19 22:00 Dose: Not Given Documented by: Phenobarbital (Phenobarbital) 64.8 mg PO Q6H [facility]; Taper Stop: 11/13/19 16:59 Last Admin: 11/10/19 05:36 Dose: 64.8 mg Documented by: Prochlorperazine Edisylate (Compazine Iv) 5 mg IV Q4H PRN PRN PRN Reason: Breakthrough Nausea/Vomiting Senna (Senokot) 1 tablet PO QHS PRN PRN Reason: Constipation Senna/Docusate Sodium (Senokot-S, Rachel-Colace) 2 tablet PO BID PRN PRN PRN Reason: Constipation Sodium Chloride () 10 - 40 ml IV UD PRN PRN Reason: SALINE FLUSH Last Admin: 11/09/19 16:52 Dose: 10 ml Documented by: Sucralfate (Carafate) 1 gm PO 1HR_ACHS TRACI Last Admin: 11/10/19 05:36 Dose: 1 gm Documented by: Medical Necessity - Tobacco Use Smoking Status: Former smoker Assessment/Plan All Active Problems (Last Updated 08/27/19 @ 21:47 by Pearl Sanchez DO) Upper GI bleed (Acute) 63-year-old male with bleeding duodenal ulcer 1. Patient was moved to the ICU for acute alcohol withdrawal. From a ulcer standpoint he is doing well. He may continue regular diet and a PPI and Carafate. Follow-up with me in 1 to 2 weeks. Lloyd Crandall MD Pager: [facility] [address] [place] [address], [address] [place] [phone] Office:
--- NOTE | 2019-11-10 08:57 | PN_ITS ---
Patient Problems: Active and Suspected Problems (Last Updated 08/27/19 @ 21:47 by Pearl Sanchez DO) Upper GI bleed (Acute) Subjective: Chief complaint: Follow-up after admission for upper GI bleed, acute blood loss anemia, duodenal ulcer and he developed alcohol withdrawal symptoms. Patient seen and examined. No acute events overnight. He has been off Precedex drip since yesterday around 8 PM. Today, he is feeling better. Still having shakiness and tremors but improved. Denies any other complaints. He is eating his breakfast. His vital signs are stable. - Physical Exam Vitals/I&O's: Vital Signs Temp Pulse Resp BP Pulse Ox 97.5 F L 68 19 H 135/86 H 97 11/10/19 08:00 11/10/19 08:00 11/10/19 08:00 11/10/19 08:00 11/10/19 08:00 Oxygen Delivery Method Room Air Weight: 184 lb 1.376 oz Body Mass Index (BMI) 28.6 Intake and Output for Last 24 Hours 11/08/19 11/09/19 11/10/19 23:59 23:59 23:59 Intake Total 3150 / 3150 1486.82 / 1486.82 600 / 600 Output Total 3320 / 3320 1950 / 1950 1200 / 1200 Balance -170 / -170 -463.18 / -463.18 -600 / -600 General: Alert, Oriented x3, Cooperative, No apparent distress, - - Hand tremors. HEENT: Atraumatic, PERRLA, EOMI, Normocephalic Oral: Moist Mucosa, No Gingival or Mucosal Lesions/ Ulcerations Neck: Supple, No JVD, Negative Carotid Bruits, Trachea Midline, Thyroid Normal Size and Texture Lungs: Clear to auscultation, Normal air movement, No rhonchi, No wheeze, No rales Cardiovascular: Regular rate, Regular Rhythm, Normal S1, Normal S2, PMI Normal Abdomen: Bowel Sounds Present, Soft, Non Tender, Non-Distended, No Hepato- splenomegaly Extremities: No clubbing, No cyanosis, No edema Skin: No rashes, No breakdown Lymphatic: No Cervical, Supraclavicular, or Inguinal Adenopathy Neurological: Cranial nerves II-XII grossly intact, Motor Exam 5/5 strength throughout Psych/Mental Status: Normal Affect, Appropriate Microbiology Past 72 Hours 11/07/19 15:05 Urine, Clean Catch Urine Culture - Preliminary Culture exhibits no growth. Laboratory Results 11/09/19 06:39: Sodium 139, Potassium 3.6, Chloride 107, Carbon Dioxide 26.0, A nion Gap 6, BUN 6 L, Creatinine 0.84, Estim Creat Clear Calc 87.08, Est GFR (MDRD) Af Amer 119, Est GFR (MDRD) Non-Af 98, BUN/Creatinine Ratio 7.2 L, Glucose 87, Calcium 8.4 L, Phosphorus 2.9, Magnesium 1.9 11/10/19 03:40: WBC 3.9 L, RBC 3.14 L, Hgb 10.0 L, Hct 30.7 L, MCV 97.8 H, MCH 31.8, MCHC 32.6, RDW Std Deviation 50.4 H, RDW Coeff of Wayne 14.7 H, Plt Count 139 L, MPV 9.3, Immature Gran % (Auto) 1.000 H, Neut % (Auto) 54.2, Lymph % (Auto) 27.0, [place] % (Auto) 15.0 H, Eos % (Auto) 2.0, Baso % (Auto) 0.8, Absolute Neuts (auto) 2.1, Absolute Lymphs (auto) 1.06, Nucleated RBC % 0 11/10/19 03:40: Sodium 140, Potassium 3.8, Chloride 107, Carbon Dioxide 29.0, Anion Gap 4 L, BUN 8, Creatinine 0.94, Estim Creat Clear Calc 77.82, Est GFR (MDRD) Af Amer 104, Est GFR (MDRD) Non-Af 86, BUN/Creatinine Ratio 8.5 L, Glucose 96, Calcium 8.5, Total Bilirubin 0.30, AST 129 H, ALT 165 H, Alkaline Phosphatase 56, Total Protein 6.1 L, Albumin 2.8 L, Globulin 3.3, Albumin/Globulin Ratio 0.8 L Current Medications Acetaminophen (Tylenol) 650 mg PO Q6H PRN PRN PRN Reason: Pain Score 1-3/Temp > 100.7 F Al Hydroxide/Mg Hydroxide (Mylanta Ii) 30 ml PO Q6H PRN PRN PRN Reason: dyspesia Bisacodyl (Dulcolax) 10 mg RECTAL DAILY PRN PRN Reason: Constipation Cholecalciferol (Vitamin D) 5,000 unit PO DAILY [facility] Last Admin: 11/09/19 07:56 Dose: 5,000 unit Documented by: Dicyclomine HCl (Bentyl) 20 mg PO Q6H PRN PRN PRN Reason: abdominal discomfort Glucagon () 1 mg IM .X1 PRN PRN Reason: Hypoglycemia Hydroxyzine Pamoate (Vistaril Pamoate Capsule) 50 mg PO Q6H PRN PRN PRN Reason: Mild Anxiety (score 1/3) Dextrose (Dextrose 10%-Water) 250 mls @ 999 mls/hr IV .Q16M PRN; Protocol PRN Reason: HYPOGLYCEMIA Sodium Chloride () 250 mls @ 15 mls/hr IV .[id number] PRN PRN Reason: Saline Flush Sodium Chloride () 250 mls @ 15 mls/hr IV .[id number] PRN PRN Reason: Additional IVPB Infusion Lactobacillus Acidophilus (Acidophilus) 1 tablet PO DAILY [facility] Last Admin: 11/09/19 07:57 Dose: 1 tablet Documented by: Loperamide HCl (Imodium) 2 - 4 mg PO UD PRN PRN Reason: LOOSE STOOLS Lorazepam (Ativan) 2 mg IV Q2H PRN PRN; Protocol PRN Reason: CIWA score > 8 but <15 Last Admin: 11/09/19 16:52 Dose: 2 mg Documented by: Lorazepam (Ativan) 2 mg IV UD PRN; Protocol PRN Reason: CIWA score >/=15. Methocarbamol (Methocarbamol) 750 mg PO Q6H PRN PRN PRN Reason: Muscle Aches Morphine Sulfate () 2 mg IV Q3H PRN PRN PRN Reason: Pain Score 6-10/10 Multivitamins/Minerals (Multivitamin With Minerals) [facility] Last Admin: 11/09/19 07:56 Dose: 1 tablet Documented by: Nitroglycerin (Nitrostat) 0.4 mg SUBLINGUAL Q5M PRN PRN Reason: CARDIAC/CHEST PAIN Nutritional Formula (Lactose Free) (Ensure Enlive) 120 ml PO 4X/DAY [facility] Last Admin: 11/09/19 21:59 Dose: Not Given Documented by: Ondansetron HCl (Zofran) 4 mg IV Q8H PRN PRN PRN Reason: NAUSEA/VOMITING Oxycodone HCl (Oxyir) 5 mg PO Q4H PRN PRN PRN Reason: Pain Score 4-5/10 Pantoprazole Sodium (Protonix) 40 mg PO BID [facility] Last Admin: 11/09/19 22:00 Dose: Not Given Documented by: Phenobarbital (Phenobarbital) 64.8 mg PO Q6H TRACI; Taper Stop: 11/13/19 16:59 Last Admin: 11/10/19 05:36 Dose: 64.8 mg Documented by: Prochlorperazine Edisylate (Compazine Iv) 5 mg IV Q4H PRN PRN PRN Reason: Breakthrough Nausea/Vomiting Senna (Senokot) 1 tablet PO QHS PRN PRN Reason: Constipation Senna/Docusate Sodium (Senokot-S, Rachel-Colace) 2 tablet PO BID PRN PRN PRN Reason: Constipation Sodium Chloride () 10 - 40 ml IV UD PRN PRN Reason: SALINE FLUSH Last Admin: 11/09/19 16:52 Dose: 10 ml Documented by: Sucralfate (Carafate) 1 gm PO 1HR_ACHS TRACI Last Admin: 11/10/19 05:36 Dose: 1 gm Documented by: Medical Necessity - Tobacco Use Smoking Status: Former smoker Assessment/Plan All Active Problems (Last Updated 08/27/19 @ 21:47 by Pearl Sanchez DO) Upper GI bleed (Acute) This is a 63 years old male patient presented to the emergency room because of nausea and vomiting, found to have upper GI bleed with acute blood loss anemia attributed to duodenal ulcer and he developed acute alcohol withdrawal. #1 upper GI bleed/duodenal ulcer: Endoscopy reviewed, revealed 1 nonbleeding duodenal ulcer with adherent clot. Patient is on p.o. Protonix and Carafate. He had no more symptoms, no abdominal pain nausea or vomiting. His vital signs are stable, blood pressure stabilized. He is tolerating diet. Plan to continue same treatment, transfer to PCU. #2 acute blood loss anemia: Secondary to duodenal ulcer. Patient received a u nit of packed RBCs as well as IV Venofer. Hemoglobin and hematocrit improved, today's hemoglobin is 10 g/dL. No evidence of active bleeding. Plan as above. #3 acute alcohol withdrawal: Patient is a heavy drinker, last drink was morning. Yesterday, he became agitated, combative and he was transferred to ICU, started on Precedex drip. He has been Precedex drip since yesterday 8 PM. Today, he is alert and oriented x3. He is shaky, having tremors but he reported improvement. His vital signs are stable. He is on Ativan as needed, tapering course of phenobarbital. Patient apparently is interested in detoxification and quit drinking. I explained to the patient that if he is planning to start drinking again, stabilization program won't be helpful. He expressed that he wants to at least cut down his drinking and become a social drinker. Plan: Start thiamine, folic acid, transfer to PCU. #4 hypertension: Blood pressure improved. Norvasc on hold. Plan to continue monitoring, restart Norvasc if blood pressure started to go up. #5 DVT prophylaxis: SCDs. This note was generated with [employer] dictation software. It may contain incorrect words, spelling, and punctuation that were not noted in checking the note before signing. Code Visit Inpatient E&M: 33117 Subs Hosp L2
[2019-11-10] MEDS: Multivitamins,Ther W-Minerals Tablet 1 TABLET PO (08:58)
[2019-11-10] MEDS: Folic Acid 1 MG Tablet PO ×2 (08:59→16:33)
[2019-11-10] MEDS: Pantoprazole Sodium 40 MG Tablet PO ×2 (09:00→21:24)
[2019-11-10] MEDS: Thiamine Hydrochloride 100 MG Tablet PO (09:20)
--- NOTE | 2019-11-10 09:33 | CASEMGMT ---
RN CM Assessment Note Presentation: UGI, ETOH W/D Intro role of CM and purpose of RN CM assessment to patient in room. Pt is awake, alert and able to participate in assessment. Demographics, PCP and Pharmacy verified. Pt states he is independent, states he is embarrassed over w/d symptoms. RN CM let pt know SW would also be speaking with him and he is agreeable. Pt states he lives with , no care needs identified for ADL's, Drives and plans to return home on dc. PCP: Dr. Sundar Pierce Specialists: Dr. Sorenson, Pain management Preferred Pharmacy: [facility] Pharmacy Insurance: [employer] Prescription Benefit: yes LNOK: Vidhi Quezada Living Arrangements: Lives in two story. States he is independent with ADL. No difficulty with stairs. States he occasionally uses a cane when he is having back pain. Transportation: drives DME: cane, has access to a walker if needed HHC: none SW: Current ETOH abuse Patient DC goals: home DC PLAN: Home [employer] CM
--- NOTE | 2019-11-10 13:03 | CASEMGMT ---
TANGELA met with patient, introduced self and role at [facility]. TANGELA talked with him about his alcohol consumption. He went through his story. He retired a couple of years ago. He did really well keeping busy. He said when he keeps busy he doesn't drink as much. He said he hurt his back and it kind of went down hill from there. He would like to keep drinking, but cut way back. TANGELA told him TANGELA printed list of places that are in network with his insurance. He thanked TANGELA for the information. Pauly GA MSW
[2019-11-11] VITALS (10 sets, daily range): BP systolic 124–141; BP diastolic 81–82; PULSE 71–92; RESP 14–18; TEMP 36.4–37; O2SAT 98–100
[2019-11-11 06:15] LABS: Hematocrit 29.8 % (40-54); Hemoglobin 9.9 g/dL (13.0-16.5)
[2019-11-11] MEDS: Sucralfate 1 GM Tablet PO ×4 (06:26→21:19)
--- NOTE | 2019-11-11 08:31 | PN_ITS ---
Patient Problems: Active and Suspected Problems (Last Updated 08/27/19 @ 21:47 by Pearl Sanchez DO) Upper GI bleed (Acute) Subjective: Chief complaint: Follow-up after admission for upper GI bleed, acute blood loss anemia, duodenal ulcer and acute alcohol withdrawal. Patient seen and examined. No acute events overnight. Today, is feeling better although he still having significant tremors of both hands with shakiness but he mentioned that it is improving. Denied abdominal pain, nausea or vomiting. His vital signs are stable. - Physical Exam Vitals/I&O's: Vital Signs Temp Pulse Resp BP Pulse Ox 98.2 F 78 15 127/82 H 98 11/11/19 02:05 11/11/19 07:28 11/11/19 02:05 11/11/19 02:05 11/11/19 02:05 Oxygen Delivery Method Room Air Weight: 184 lb 1.376 oz Body Mass Index (BMI) 28.6 Intake and Output for Last 24 Hours 11/09/19 11/10/19 11/11/19 23:59 23:59 23:59 Intake Total 1486.82 / 1486.82 700 / 1450 1350 / 1350 Output Total 1950 / 1950 1200 / 1200 Balance -463.18 / -463.18 -500 / 250 1350 / 1350 General: Alert, Oriented x3, Cooperative, No apparent distress, - - Hand tremors, shakiness. HEENT: Atraumatic, PERRLA, EOMI, Normocephalic Oral: Moist Mucosa, No Gingival or Mucosal Lesions/ Ulcerations Neck: Supple, No JVD, Negative Carotid Bruits, Trachea Midline, Thyroid Normal Size and Texture Lungs: Clear to auscultation, Normal air movement, No rhonchi, No wheeze, No rales Cardiovascular: Regular rate, Regular Rhythm, Normal S1, Normal S2, PMI Normal Abdomen: Bowel Sounds Present, Soft, Non Tender, Non-Distended, No Hepato- splenomegaly Extremities: No clubbing, No cyanosis, No edema Skin: No rashes, No breakdown Lymphatic: No Cervical, Supraclavicular, or Inguinal Adenopathy Neurological: Cranial nerves II-XII grossly intact, Neuro grossly intact Psych/Mental Status: Normal Affect, Appropriate, Alert and oriented to time, place, person, mood and affect Microbiology Past 72 Hours 11/07/19 15:05 Urine, Clean Catch Urine Culture - Final Mixed Gram Positive Organisms Laboratory Results 11/07/19 09:00: Crossmatch See Detail 11/11/19 06:00: Hgb 9.9 L, Hct 29.8 L Current Medications Acetaminophen (Tylenol) 650 mg PO Q6H PRN PRN PRN Reason: Pain Score 1-3/Temp > 100.7 F Al Hydroxide/Mg Hydroxide (Mylanta Ii) 30 ml PO Q6H PRN PRN PRN Reason: dyspesia Bisacodyl (Dulcolax) 10 mg RECTAL DAILY PRN PRN Reason: Constipation Cholecalciferol (Vitamin D) 5,000 unit PO DAILY [facility] Last Admin: 11/10/19 09:00 Dose: 5,000 unit Documented by: Dicyclomine HCl (Bentyl) 20 mg PO Q6H PRN PRN PRN Reason: abdominal discomfort Folic Acid (F[facility] Acid) [facility] Last Admin: 11/10/19 16:33 Dose: 1 mg Documented by: Glucagon () 1 mg IM .X1 PRN PRN Reason: Hypoglycemia Hydroxyzine Pamoate (Vistaril Pamoate Capsule) 50 mg PO Q6H PRN PRN PRN Reason: Mild Anxiety (score 1/3) Sodium Chloride () 250 mls @ 15 mls/hr IV .[id number] PRN PRN Reason: Saline Flush Lactobacillus Acidophilus (Acidophilus) 1 tablet PO DAILY [facility] Last Admin: 11/10/19 09:00 Dose: 1 tablet Documented by: Loperamide HCl (Imodium) 2 - 4 mg PO UD PRN PRN Reason: LOOSE STOOLS Lorazepam (Ativan) 2 mg IV Q2H PRN PRN; Protocol PRN Reason: CIWA score > 8 but <15 Last Admin: 11/09/19 16:52 Dose: 2 mg Documented by: Lorazepam (Ativan) 2 mg IV UD PRN; Protocol PRN Reason: CIWA score >/=15. Methocarbamol (Methocarbamol) 750 mg PO Q6H PRN PRN PRN Reason: Muscle Aches Multivitamins/Minerals (Multivitamin With Minerals) [facility] Last Admin: 11/10/19 08:58 Dose: 1 tablet Documented by: Nitroglycerin (Nitrostat) 0.4 mg SUBLINGUAL Q5M PRN PRN Reason: CARDIAC/CHEST PAIN Nutritional Formula (Lactose Free) (Ensure Enlive) 120 ml PO 4X/DAY [facility] Last Admin: 11/10/19 21:24 Dose: 120 ml Documented by: Ondansetron HCl (Zofran) 4 mg IV Q8H PRN PRN PRN Reason: NAUSEA/VOMITING Oxycodone HCl (Oxyir) 5 mg PO Q4H PRN PRN PRN Reason: Pain Score 4-5/10 Pantoprazole Sodium (Protonix) 40 mg PO BID [facility] Last Admin: 11/10/19 21:24 Dose: 40 mg Documented by: Phenobarbital (Phenobarbital) 64.8 mg PO Q8H [facility]; Taper Stop: 11/13/19 16:59 Last Admin: 11/11/19 02:01 Dose: 64.8 mg Documented by: Prochlorperazine Edisylate (Compazine Iv) 5 mg IV Q4H PRN PRN PRN Reason: Breakthrough Nausea/Vomiting Senna/Docusate Sodium (Senokot-S, Rachel-Colace) 2 tablet PO BID PRN PRN PRN Reason: Constipation Sodium Chloride () 10 - 40 ml IV UD PRN PRN Reason: SALINE FLUSH Last Admin: 11/09/19 16:52 Dose: 10 ml Documented by: Sucralfate (Carafate) 1 gm PO 1HR_ACHS [facility] Last Admin: 11/11/19 06:26 Dose: 1 gm Documented by: Thiamine HCl (Vitamin B1) [facility] Last Admin: 11/10/19 09:20 Dose: 100 mg Documented by: Medical Necessity - Tobacco Use Smoking Status: Former smoker Assessment/Plan All Active Problems (Last Updated 08/27/19 @ 21:47 by Pearl Sanchez DO) Upper GI bleed (Acute) This is a 63 years old male patient presented to the emergency room because of nausea and vomiting, found to have upper GI bleed with acute blood loss anemia attributed to duodenal ulcer and he developed acute alcohol withdrawal. #1 upper GI bleed/duodenal ulcer: Endoscopy reviewed, revealed nonbleeding duodenal ulcer with adherent clot. Remained on p.o. Protonix and Carafate. He is asymptomatic, tolerating diet. Plan to continue same treatment. #2 acute blood loss anemia: Secondary to duodenal ulcer. Patient received a unit of packed RBCs as well as IV Venofer. Hemoglobin and hematocrit improved, today's hemoglobin is 9.9 g/dL, remained stable. No evidence of active bleeding. Plan as above. #3 acute alcohol withdrawal: He is on tapering phenobarbital, PRN Ativan, thiamine, folic acid, vitamins. Patient was on Precedex drip in the ICU, was transferred to PCU yesterday. He reported improvement of his symptoms, still having shakiness and hand tremors. His vital signs are stable. Plan to continue same treatment. #4 hypertension: Blood pressure stabilized. Plan to resume Norvasc. #5 DVT prophylaxis: SCDs. This note was generated with [employer] dictation software. It may contain incorrect words, spelling, and punctuation that were not noted in checking the note before signing. Code Visit Inpatient E&M: 95655 Subs Hosp L2
[2019-11-11] MEDS: Multivitamins,Ther W-Minerals Tablet 1 TABLET PO (08:46)
[2019-11-11] MEDS: Thiamine Hydrochloride 100 MG Tablet PO (08:47)
[2019-11-11] MEDS: Folic Acid 1 MG Tablet PO ×2 (08:47→17:33)
[2019-11-11] MEDS: Pantoprazole Sodium 40 MG Tablet PO ×2 (08:48→21:19)
[2019-11-11] MEDS: amLODIPine 5 MG Tablet PO ×2 (08:53→21:19)
[2019-11-12] VITALS (8 sets, daily range): BP systolic 102–148; BP diastolic 63–98; PULSE 59–90; RESP 14–18; TEMP 36.5–36.8; O2SAT 97–100
[2019-11-12] MEDS: Sucralfate 1 GM Tablet PO ×4 (06:01→22:08)
[2019-11-12] MEDS: Folic Acid 1 MG Tablet PO ×2 (07:53→16:27)
[2019-11-12] MEDS: Thiamine Hydrochloride 100 MG Tablet PO (07:53)
[2019-11-12] MEDS: Multivitamins,Ther W-Minerals Tablet 1 TABLET PO (07:53)
[2019-11-12] MEDS: Pantoprazole Sodium 40 MG Tablet PO ×2 (07:54→22:09)
[2019-11-12] MEDS: amLODIPine 5 MG Tablet PO ×2 (07:55→22:09)
--- NOTE | 2019-11-12 08:25 | PN_ITS ---
Patient Problems: Active and Suspected Problems (Last Updated 08/27/19 @ 21:47 by Pearl Sanchez DO) Upper GI bleed (Acute) Subjective: Chief complaint: Follow-up after admission for upper GI bleed, acute blood loss anemia, duodenal ulcer and acute alcohol withdrawal. Patient seen and examined. No acute events overnight. He denied any complaints, doing well. Shakiness and tremors are improving. Denied abdominal pain, nausea or vomiting. His vital signs are stable. - Physical Exam Vitals/I&O's: Vital Signs Temp Pulse Resp BP Pulse Ox 98.3 F 76 18 148/98 H 97 11/12/19 07:49 11/12/19 07:49 11/12/19 07:49 11/12/19 07:49 11/12/19 07:49 Oxygen Delivery Method Room Air Weight: 183 lb 3.266 oz Body Mass Index (BMI) 28.6 Intake and Output for Last 24 Hours 11/10/19 11/11/19 11/12/19 23:59 23:59 23:59 Intake Total 700 / 1450 2930 / 2930 300 / 300 Output Total 1200 / 1200 Balance -500 / 250 2930 / 2930 300 / 300 General: Alert, Oriented x3, Cooperative, No apparent distress HEENT: Atraumatic, PERRLA, EOMI, Normocephalic Oral: Moist Mucosa, No Gingival or Mucosal Lesions/ Ulcerations Neck: Supple, No JVD, Negative Carotid Bruits, Trachea Midline, Thyroid Normal Size and Texture Lungs: Clear to auscultation, Normal air movement, No rhonchi, No wheeze, No rales Cardiovascular: Regular rate, Regular Rhythm, Normal S1, Normal S2, PMI Normal Abdomen: Bowel Sounds Present, Soft, Non Tender, Non-Distended, No Hepato- splenomegaly Extremities: No clubbing, No cyanosis, No edema Skin: No rashes, No breakdown Lymphatic: No Cervical, Supraclavicular, or Inguinal Adenopathy Neurological: Cranial nerves II-XII grossly intact, Motor Exam 5/5 strength throughout, - - Hand tremors. Psych/Mental Status: Normal Affect, Appropriate, Alert and oriented to time, place, person, mood and affect Microbiology Past 72 Hours 11/07/19 15:05 Urine, Clean Catch Urine Culture - Final Mixed Gram Positive Organisms Current Medications Acetaminophen (Tylenol) 650 mg PO Q6H PRN PRN PRN Reason: Pain Score 1-3/Temp > 100.7 F Al Hydroxide/Mg Hydroxide (Mylanta Ii) 30 ml PO Q6H PRN PRN PRN Reason: dyspesia Amlodipine Besylate (Norvasc) 5 mg PO BID [facility] Last Admin: 11/12/19 07:55 Dose: 5 mg Documented by: Bisacodyl (Dulcolax) 10 mg RECTAL DAILY PRN PRN Reason: Constipation Cholecalciferol (Vitamin D) 5,000 unit PO DAILY [facility] Last Admin: 11/12/19 07:55 Dose: 5,000 unit Documented by: Dicyclomine HCl (Bentyl) 20 mg PO Q6H PRN PRN PRN Reason: abdominal discomfort Folic Acid (Folic Acid) [facility] Last Admin: 11/12/19 07:53 Dose: 1 mg Documented by: Glucagon () 1 mg IM .X1 PRN PRN Reason: Hypoglycemia Hydroxyzine Pamoate (Vistaril Pamoate Capsule) 50 mg PO Q6H PRN PRN PRN Reason: Mild Anxiety (score 1/3) Sodium Chloride () 250 mls @ 15 mls/hr IV .[id number] PRN PRN Reason: Saline Flush Lactobacillus Acidophilus (Acidophilus) 1 tablet PO DAILY [facility] Last Admin: 11/12/19 07:54 Dose: 1 tablet Documented by: Loperamide HCl (Imodium) 2 - 4 mg PO UD PRN PRN Reason: LOOSE STOOLS Lorazepam (Ativan) 2 mg IV Q2H PRN PRN; Protocol PRN Reason: CIWA score > 8 but <15 Last Admin: 11/09/19 16:52 Dose: 2 mg Documented by: Lorazepam (Ativan) 2 mg IV UD PRN; Protocol PRN Reason: CIWA score >/=15. Methocarbamol (Methocarbamol) 750 mg PO Q6H PRN PRN PRN Reason: Muscle Aches Multivitamins/Minerals (Multivitamin With Minerals) [facility] Last Admin: 11/12/19 07:53 Dose: 1 tablet Documented by: Nitroglycerin (Nitrostat) 0.4 mg SUBLINGUAL Q5M PRN PRN Reason: CARDIAC/CHEST PAIN Nutritional Formula (Lactose Free) (Ensure Enlive) 120 ml PO 4X/DAY [facility] Last Admin: 11/12/19 07:59 Dose: 120 ml Documented by: Ondansetron HCl (Zofran) 4 mg IV Q8H PRN PRN PRN Reason: NAUSEA/VOMITING Oxycodone HCl (Oxyir) 5 mg PO Q4H PRN PRN PRN Reason: Pain Score 4-5/10 Pantoprazole Sodium (Protonix) 40 mg PO BID [facility] Last Admin: 11/12/19 07:54 Dose: 40 mg Documented by: Phenobarbital (Phenobarbital) 64.8 mg PO Q12H [facility]; Taper Stop: 11/13/19 16:59 Last Admin: 11/12/19 05:56 Dose: 64.8 mg Documented by: Prochlorperazine Edisylate (Compazine Iv) 5 mg IV Q4H PRN PRN PRN Reason: Breakthrough Nausea/Vomiting Senna/Docusate Sodium (Senokot-S, Rachel-Colace) 2 tablet PO BID PRN PRN PRN Reason: Constipation Sodium Chloride () 10 - 40 ml IV UD PRN PRN Reason: SALINE FLUSH Last Admin: 11/09/19 16:52 Dose: 10 ml Documented by: Sucralfate (Carafate) 1 gm PO 1HR_ACHS [facility] Last Admin: 11/12/19 06:01 Dose: 1 gm Documented by: Thiamine HCl (Vitamin B1) [facility] Last Admin: 11/12/19 07:53 Dose: 100 mg Documented by: Medical Necessity - Tobacco Use Smoking Status: Former smoker Assessment/Plan All Active Problems (Last Updated 08/27/19 @ 21:47 by Pearl Sanchez DO) Upper GI bleed (Acute) This is a 63 years old male patient presented to the emergency room because of nausea and vomiting, found to have upper GI bleed with acute blood loss anemia attributed to duodenal ulcer and he developed acute alcohol withdrawal. #1 upper GI bleed/duodenal ulcer: Status post upper EGD, revealed nonbleeding duodenal ulcer with adherent clot. Remained on p.o. Protonix and Carafate. He is asymptomatic, tolerating diet. Plan to continue same treatment, anticipate discharge home tomorrow. #2 acute blood loss anemia: Secondary to duodenal ulcer. Patient received a unit of packed RBCs as well as IV Venofer. Hemoglobin and hematocrit improved, yesterday's hemoglobin is 9.9 g/dL, remained stable. No evidence of active bleeding. Plan as above. #3 acute alcohol withdrawal: He is on tapering phenobarbital, PRN Ativan, thiamine, folic acid, vitamins. Patient was on Precedex drip in the ICU, was transferred to PCU yesterday. His symptoms continue to improve, less shaky and less hand tremors. His vital signs are stable. Plan to continue same treatment, DC home tomorrow after last dose of phenobarbital. #4 hypertension: Continue Norvasc. #5 DVT prophylaxis: SCDs. This note was generated with [employer] dictation software. It may contain incorrect words, spelling, and punctuation that were not noted in checking the note before signing. Code Visit Inpatient E&M: 77708 Subs Hosp L2
--- NOTE | 2019-11-12 11:28 | CASEMGMT ---
SW let pt know that LW/POA forms are not on file. Pt states will call and have her bring in the forms for the hospital to copy and place on the chart. MELITA Vázquez
[2019-11-13 02:39] VITALS: BP 107/67; PULSE 68; RESP 14; TEMP 36.6; O2SAT 99
[2019-11-13] MEDS: Sucralfate 1 GM Tablet PO (06:32)
[2019-11-13] MEDS: Multivitamins,Ther W-Minerals Tablet 1 TABLET PO (07:56)
[2019-11-13] MEDS: Folic Acid 1 MG Tablet PO (07:56)
[2019-11-13] MEDS: Pantoprazole Sodium 40 MG Tablet PO (07:57)
[2019-11-13] MEDS: Thiamine Hydrochloride 100 MG Tablet PO (07:57)
[2019-11-13] MEDS: amLODIPine 5 MG Tablet PO (07:58)
--- NOTE | 2019-11-13 08:02 | DCINST_ITS ---
- Discharge Diagnoses Current Active Problems: Current Active and Chronic Problems (Last Updated 08/27/19 @ 21:47 by Pearl Sanchez DO) Upper GI bleed (Acute) Hypertension (Chronic) Chronic alcohol dependence, continuous (Chronic) Chronic back pain (Chronic) You will use the following diet at home:: Cardiac Your food should be the consistency of: Regular Discharge Activity: Return to Normal Activity Weight Bearing Status: Weight bearing as tolerated Call your doctor if you observe: Fever of 101 or Higher, Shortness of breath, Dizziness, Fainting spells, Chest pain, Increased palpitations (irregular heartbeat), Uncontrolled pain Instructions: Recovering from Addiction: Continuing with Counseling Allergies/Adverse Reactions: Allergies Penicillins Allergy (Verified 11/07/19 07:22) Unknown Medications to take at Discharge Amlodipine Besylate 5 mg PO BID 08/27/19 Anastrozole [Arimidex] 1 mg PO MOWE 08/27/19 Biotin 5,000 mcg PO DAILY 08/27/19 Cholecalciferol (Vitamin D3) [Vitamin D3] 125 mcg PO DAILY 08/27/19 Hcg 0.5 ml IM TUFR 08/27/19 Lactobacillus Combo No.10 [Probiotic] 1 cap PO DAILY 08/27/19 Multivitamin with Minerals [Multiple Vitamin] 1 tab PO DAILY 08/27/19 [place]-3S/Dha/Epa/Fish Oil [[place]-3 Fish Oil 1,200 mg Sfgl] 1,200 mg PO DAILY 08/27/19 Testosterone Cypionate 0.6 ml IM DAILY 08/27/19 Pantoprazole Sodium [Protonix] 40 mg PO BID #90 tab 11/13/19 Sucralfate [Carafate] 1 gm PO 1HR_ACHS #30 tab 11/13/19 The following prescriptions were given: Sucralfate [Carafate] 1 gm PO 1HR_ACHS #30 tab Transmission Status: Pending to [id number] Pantoprazole Sodium [Protonix] 40 mg PO BID #90 tab Transmission Status: P[facility] to [id number] Primary Care Physician: Sundar Pierce DO [Primary Care Provider] - Please follow up with your Primary Care Physician in: 2-4 weeks. Test Results: Test results from this visit will be discussed in further detail at your follow- up appointment, if applicable. Please Follow Up With: Lloyd Crandall MD When: 1-2 weeks.
[2019-11-13 08:39] VITALS: BP 115/78; PULSE 69; RESP 18; TEMP 36.2; O2SAT 99
[2019-11-13 09:00] VITALS: PULSE 69
--- NOTE | 2019-11-13 09:57 | PHA.DC.MC ---
Pharmacy Service has performed discharge medication reconciliation and counseling for this patient. The patient's discharge medication list was reviewed for discrepancies and discrepancies were resolved. Home Medications Amlodipine Besylate 5 mg PO BID 08/27/19 Anastrozole [Arimidex] 1 mg PO MOWE 08/27/19 Biotin 5,000 mcg PO DAILY 08/27/19 Cholecalciferol (Vitamin D3) [Vitamin D3] 125 mcg PO DAILY 08/27/19 Hcg 0.5 ml IM TUFR 08/27/19 Lactobacillus Combo No.10 [Probiotic] 1 cap PO DAILY 08/27/19 Multivitamin with Minerals [Multiple Vitamin] 1 tab PO DAILY 08/27/19 [place]-3S/Dha/Epa/Fish Oil [[place]-3 Fish Oil 1,200 mg Sfgl] 1,200 mg PO DAILY 08/27/19 Testosterone Cypionate 0.6 ml IM DAILY 08/27/19 Pantoprazole Sodium [Protonix] 40 mg PO BID #90 tab 11/13/19 Sucralfate [Carafate] 1 gm PO 1HR_ACHS #30 tab 11/13/19 The patient was counseled on the following discharge medications and changes in medications for homegoing were reviewed. 1. PROTONIX 2. CARAFATE The Reason for Use, instructions for use, and potential side effects were reviewed for all new medications. The patient's questions regarding all of their medications were answered. The patient was able to verbally demonstrate an understanding of their discharge medications.
[2019-11-13 10:28] VITALS: BP 115/78; PULSE 69; RESP 18; TEMP 36.2; O2SAT 99
--- NOTE | 2019-11-13 11:18 | DS.PCM_ITS ---
Discharge Date and Diagnosis Date of Admission: 11/07/19 Date of Discharge: 11/13/19 - Primary Discharge Diagnosis #1 upper GI bleed. #2 duodenal ulcer. #3 acute blood loss anemia. #4 acute alcohol withdrawal. - Secondary Discharge Diagnosis Chronic Problems (Last Updated 08/27/19 @ 21:47 by Pearl Sanchez DO) Hypertension (Chronic) Chronic alcohol dependence, continuous (Chronic) Chronic back pain (Chronic) Hospital Course and Treatment Dr. fang, general surgery. Operations: None Procedures: Blood transfusion, EGD Summary of Care Provided: Patient seen and examined on the day of discharge and appeared to be stable for discharge home. He denied any complaints. His vital signs are stable. This is a 63 years old male patient presented to the emergency room because of nausea and vomiting, found to have upper GI bleed with acute blood loss anemia attributed to duodenal ulcer and he developed acute alcohol withdrawal. #1 upper GI bleed/duodenal ulcer: Status post upper EGD, revealed nonbleeding duodenal ulcer with adherent clot. Patient was treated with Protonix and Carafate. Gastric biopsy for H. pylori came back negative. Gastric biopsy revealed chronic gastritis. Patient tolerated diet very well. Patient discharged home on Protonix 40 mg p.o. daily for 2 weeks and then requested to take 40 mg p.o. daily, discharged on Carafate 4 times a day, plan to follow-up with general surgery in 1 to 2 weeks. #2 acute blood loss anemia: Secondary to duodenal ulcer. Patient received a unit of packed RBCs as well as IV Venofer. Hemoglobin and hematocrit improved, most recent hemoglobin is 9.9 g/dL, remained stable. #3 acute alcohol withdrawal: Treated with tapering phenobarbital, PRN Ativan, thiamine, folic acid, vitamins. Patient was on Precedex drip in the ICU then was transferred to PCU . His symptoms significantly improved with tapering phenobarbital. Shakiness and hand tremors almost resolved. Patient's vital signs remained stable. #4 hypertension: Continued on Norvasc. Patient discharged home in a stable medical condition, discharged on Protonix twice daily for 2 weeks and then once daily, discharged on Carafate 4 times a day, continued on his other previous home medications without any changes, plan to follow-up with general surgery in 1 to 2 weeks, follow-up with PCP in 2 to 4 weeks. This note was generated with [employer] dictation software. It may contain incorrect words, spelling, and punctuation that were not noted in checking the note before signing. - Physical Exam Vitals/I&O's: Vital Signs Temp Pulse Resp BP Pulse Ox 97.2 F L 69 18 115/78 99 11/13/19 10:28 11/13/19 10:28 11/13/19 10:28 11/13/19 10:28 11/13/19 10:28 Oxygen Delivery Method Room Air Weight: 187 lb 2.759 oz Body Mass Index (BMI) 28.6 Intake and Output for Last 24 Hours 11/11/19 11/12/19 11/13/19 23:59 23:59 23:59 Intake Total 2930 / 2930 2019 300 / 300 Balance 2930 / 2930 2019 300 / 300 General: Alert, Oriented x3, Cooperative, No apparent distress HEENT: Atraumatic, PERRLA, EOMI, Normocephalic Oral: Moist Mucosa, No Gingival or Mucosal Lesions/ Ulcerations Neck: Supple, No JVD, Negative Carotid Bruits, Trachea Midline, Thyroid Normal Size and Texture Lungs: Clear to auscultation, Normal air movement, No rhonchi, No wheeze, No rales Cardiovascular: Regular rate, Regular Rhythm, Normal S1, Normal S2, PMI Normal Abdomen: Bowel Sounds Present, Soft, Non Tender, Non-Distended, No Hepato- splenomegaly Extremities: No clubbing, No cyanosis, No edema Skin: No rashes, No breakdown Lymphatic: No Cervical, Supraclavicular, or Inguinal Adenopathy Neurological: Cranial nerves II-XII grossly intact, Neuro grossly intact Psych/Mental Status: Normal Affect, Appropriate Microbiology Past 72 Hours 11/07/19 15:05 Urine, Clean Catch Urine Culture - Final Mixed Gram Positive Organisms Discharge Activity: Return to Normal Activity Weight Bearing Status: Weight bearing as tolerated Call your doctor if you observe: Fever of 101 or Higher, Shortness of breath, Dizziness, Fainting spells, Chest pain, Increased palpitations (irregular heartbeat), Uncontrolled pain Home Medications: Medications to take at Discharge Amlodipine Besylate 5 mg PO BID 08/27/19 Anastrozole [Arimidex] 1 mg PO MOWE 08/27/19 Biotin 5,000 mcg PO DAILY 08/27/19 Cholecalciferol (Vitamin D3) [Vitamin D3] 125 mcg PO DAILY 08/27/19 Hcg 0.5 ml IM TUFR 08/27/19 Lactobacillus Combo No.10 [Probiotic] 1 cap PO DAILY 08/27/19 Multivitamin with Minerals [Multiple Vitamin] 1 tab PO DAILY 08/27/19 [place]-3S/Dha/Epa/Fish Oil [[place]-3 Fish Oil 1,200 mg Sfgl] 1,200 mg PO DAILY 08/27/19 Testosterone Cypionate 0.6 ml IM DAILY 08/27/19 Pantoprazole Sodium [Protonix] 40 mg PO BID #90 tab 11/13/19 Sucralfate [Carafate] 1 gm PO 1HR_ACHS #30 tab 11/13/19 Following Prescrptions Were Given to Patient: Sucralfate [Carafate] 1 gm PO 1HR_ACHS #30 tab Transmission Status: [id number] Pantoprazole Sodium [Protonix] 40 mg PO BID #90 tab Transmission Status: Received by [facility]/pharmacy #[id number] Primary Care Physician: Sundar Pierce DO [Primary Care Provider] - Please follow up with your Primary Care Physician in: 2-4 weeks. Please Follow Up With: Lloyd Crandall MD When: 1-2 weeks. Please Follow Up With: Sundar Pierce DO Patient Instructions: Recovering from Addiction: Continuing with Counseling Disposition: Home Minutes spent on discharge:: 33 Patient Condition:: Stable Medical Necessity - Tobacco Use Smoking Status: Former smoker Meaningful Use Info Meaningful Use Diagnoses (Choose all that apply): None applicable Code Visit Inpatient E&M: 16206 Disch Hosp
--- NOTE | 2019-11-14 12:24 | CASEMGMT ---
KYLEIGH ROMERO Discharge Follow-Up Phone Call. Lace: 9 Strata: 3 Discharge Date: 11/13/19 Adm Dx: Upper GIB, ETOH w/d Call to pt to inquire about how he has been doing since being discharged from the hospital. Pt states, Fine. He states he was able to get the Carafate from the pharmacy but that he was not able to get the Protonix. He stated the pharmacy is working with the insurance company about it. Pt reports that the pharmacy gave him an OTC substitute to take in the meantime until it is processed through insurance. Pt denies having any questions about the discharge medications, instructions, or f/u appts. KYLEIGH ROMERO thanked pt for choosing [facility]. Lazaro VICTOR RN, CM
--- NOTE | 2019-11-17 11:55 | CASEMGMT ---
This KYLEIGH ROMERO received a message from Shreyas, [facility] pharmacist, who states that pt needs a prior auth for pantoprazole that was prescribed previously by Dr. Carrillo. Dr. Carrillo is no longer on shift at this time. Call back to Shreyas at [facility] and he is advised to call Dr. Crandall's office as he is the surgeon following pt's care at this time. Pt was seen by Karley in the hospital and has f/u scheduled for 11/20/[address] [facility]. [facility]
== END 2019-11-13 10:23 | disposition home or self-care (01) | DRG 378 ==
LOC: ED 12:16 → PCU 12:18 → ICU 11-09 15:42 → PCU 11-11 09:49
PROVIDERS: Internal Medicine; Admitting Provider Internal Medicine; Emergency Provider Emergency Medicine; PCP Family Medicine; Referring Provider Surgery; Visit Provider Hospitalist
PROC: 0DJ08ZZ Inspection of Upper Intestinal Tract, Via Natural or Artificial Opening Endoscopic (ICD-10-PCS; CPT 43235; principal; 2019-11-07 14:00)
DX: K26.4 Chronic or unspecified duodenal ulcer with hemorrhage (principal); D62 Acute posthemorrhagic anemia; F10.239 Alcohol dependence with withdrawal, unspecified; K29.51 Unspecified chronic gastritis with bleeding; K70.10 Alcoholic hepatitis without ascites; E86.0 Dehydration; I95.9 Hypotension, unspecified; E88.09 Other disorders of plasma-protein metabolism, not elsewhere classified; I10 Essential (primary) hypertension; E78.5 Hyperlipidemia, unspecified; J45.909 Unspecified asthma, uncomplicated; M54.9 Dorsalgia, unspecified; G89.29 Other chronic pain; Z79.899 Other long term (current) drug therapy; Z88.0 Allergy status to penicillin; Z87.891 Personal history of nicotine dependence
CPT/HCPCS: 36415; 80048; 80053; 80076; 80320; 81001; 82962; 82977; 83735; 84100; 84443; 85014; 85018; 85025; 85610; 86850; 86900; 86901; 86920; 86922; 87086; 87088; 88305; 88342; 97110; 97116; 97162; 97165; 97530; 97535; 97802; 97803; 99285; J1756; J7030; J7040; J7120; P9016; A4216; G0480; J2405; J3490

== ENCOUNTER → 2019-11-26 09:55 | Outpatient (CLI) | payer BC, SELFPAY ==
[2019-11-13 08:12] VITALS: BMI 28.6
[2019-11-26 12:32] LABS: Absolute Lymphocyte Count 1.11 X10^3/uL (0.83-4.51); Absolute Neutrophil Count 2.8 X10^3/uL (2.0-7.7); Basophil# 0.07 X10^3/uL; Basophil% 1.5 % (0-1); Eosinophil# 0.07 X10^3/uL; Eosinophils% 1.5 % (0-5); Hematocrit 40.8 % (40-54); Hemoglobin 12.5 g/dL (13.0-16.5); Lymphocyte # 1.11 X10^3/ul (4.0); Lymphocyte % 24.3 % (19-41); Mean Corp Hgb Conc 30.6 g/dL (32-36); Mean Corpuscular Hgb 28.3 pg (27.0-32.0); Mean Corpuscular Volume 92.5 fL (80-94); Mean Platelet Vol. 9.9 fl (6.2-12.0); Monocyte# 0.51 X10^3/uL; Monocyte% 11.2 % (0-10); NRBC Flagged by Analyzer 0 % (0-5); Neutrophil # 2.79 X10^3/uL (2.7-7.7); Neutrophil % 61.1 % (47-70); Platelet Count 313 K/mm3 (150-450); RBC Distribution Width CV 14.4 % (11.6-14.6); RBC Distribution Width SD 49.2 fl (35.1-43.9); Red Blood Count 4.41 M/mm3 (4.6-6.2); White Blood Count 4.6 K/mm3 (4.4-11.0)
[2019-11-26 13:05] LABS: Ferritin 75 ng/mL (26-388); Iron 26 ug/dL (65-175)
== END ==
PROVIDERS: PCP Family Medicine; Visit Provider Family Medicine
DX: D62 Acute posthemorrhagic anemia (principal)
CPT/HCPCS: 36415; 82728; 83540; 85025

== ENCOUNTER → 2020-01-12 07:09 | Outpatient (CLI) | payer BC, SELFPAY ==
[2019-11-13 08:12] VITALS: BMI 28.6
[2020-01-12 08:16] LABS: Hematocrit 41.1 % (40-54); Hemoglobin 12.5 g/dL (13.0-16.5); Mean Corp Hgb Conc 30.4 g/dL (32-36); Mean Corpuscular Hgb 25.5 pg (27.0-32.0); Mean Corpuscular Volume 83.7 fL (80-94); Mean Platelet Vol. 10.1 fl (6.2-12.0); Platelet Count 212 K/mm3 (150-450); RBC Distribution Width CV 17.1 % (11.6-14.6); Red Blood Count 4.91 M/mm3 (4.6-6.2); White Blood Count 3.1 K/mm3 (4.4-11.0)
[2020-01-12 08:36] LABS: Vitamin B12 470 pg/mL (211-911); Vitamin D,25 Hydroxy 59.3 ng/mL
[2020-01-12 08:46] LABS: ALB/GLOB Ratio 0.9 RATIO (0.9-2.4); AST(SGOT) 45 U/L (15-37); Alanine Aminotransfer ALT/SGPT 49 U/L (16-61); Albumin, Serum 3.6 g/dL (3.2-5.0); Alkaline Phosphatase 80 U/L (45-117); Anion Gap 7 (5-15); BUN 10 mg/dL (7-18); BUN/Creat Ratio 10.8 RATIO (10-20); Calcium,Total 8.5 mg/dL (8.5-10.1); Chloride 103 mmol/L (98-107); Cholesterol 202 mg/dL (200); Creatinine, Serum 0.93 mg/dL (0.70-1.30); EST Glomerular Filtration Rate 87 mL/min (>60); Est Glom Filt Rate - Afr Amer 105 mL/min (>60); Estradiol 65.5 pg/mL; Globulin 3.9 g/dL (2.2-4.2); Glucose 93 mg/dL (74-106); High Density Lipoprotein 71 mg/dL; Luteinizing Hormone < 0.2 mIU/mL; Potassium 3.9 mmol/L (3.5-5.1); Prolactin 13.1 ng/mL; Protein, Total 7.5 g/dL (6.4-8.2); Sodium Level 139 mmol/L (136-145); Triglycerides 77 mg/dL; Very Low Density Lipoprotein 15 mg/dL (5-40)
[2020-01-12 09:37] LABS: Hemoglobin A1c 4.9 % (4.2-6.3)
[2020-01-15 09:07] LABS: DHEA Sulfate 238.7 ug/dL (48.9-344.2); Testosterone, % Free 3.06 % (1.50-4.20)
[2020-01-15 12:53] LABS: Insulin Like Growth Factor 118 ng/mL (49-188); Testosterone, Total 647 ng/dL (264-916)
== END ==
PROVIDERS: PCP Family Medicine
DX: R53.83 Other fatigue (principal); R63.5 Abnormal weight gain; R68.83 Chills (without fever)
CPT/HCPCS: 36415; 80053; 80061; 82306; 82607; 82627; 82670; 82746; 83002; 83036; 84146; 84305; 84402; 84403; 85027; 82626

== ENCOUNTER → 2020-05-11 16:31 | Outpatient (CLI) | payer BC, SELFPAY ==
[2019-11-13 08:12] VITALS: BMI 28.6
--- NOTE | 2020-05-11 16:45 | MRI_ITS ---
STUDY: MRI LUMBAR SPINE WITHOUT CONTRAST REASON FOR EXAM: Male, 64 years old. Low back pain, LEFT buttock pain TECHNIQUE: Standardized fat and water weighted pulse sequences were obtained in the sagittal and axial planes. COMPARISON: None FINDINGS: T12-L1: Normal endplates. Normal disc height, hydration and morphology. Normal bilateral facet joints. Normal central canal and bilateral lateral recesses. Normal bilateral intervertebral neural foramina. Normal lumbar lordosis. There is no substantial scoliosis. Normal conus medullaris that terminates at the L1 level. L1-2: Bulging annulus and bilateral facet hypertrophy without compressive sequelae. L2-3: Bulging annulus and bilateral facet hypertrophy with mild central canal and bilateral foraminal stenoses. L3-4: Bulging annulus and bilateral facet hypertrophy with mild bilateral foraminal stenoses. L4-5: Bulging annulus and broad central and left paracentral disc protrusion with bilateral facet hypertrophy. Mild left lateral recess stenosis. L5-S1: Normal endplates. Normal disc height, hydration and morphology. Bilateral facet hypertrophy. Normal central canal and bilateral lateral recesses. Normal bilateral intervertebral neural foramina. Normal visualized sacral ala. 11 mm sacral TARLOV cyst. Edema is present in the left posterior paraspinal muscles extending from the L3-4 level to the lower sacral levels, best seen on image 3 of series 4. Differential could include muscular strain or myositis. MRI/Spine Lumbar (Routine) IMPRESSION: Multilevel degenerative disease as described. No evidence of nerve root impingement. Edema is present in the left posterior paraspinal muscles extending from the L3-4 level to the lower sacral levels. Differential could include muscular strain and myositis. Electronically Signed: Homer Negron MD at 17:32 EDT Tel , Service support ,
== END ==
PROVIDERS: PCP Family Medicine; Referring Provider Orthopaedic Surgery Orthopaedic Surgery of the Spine; Visit Provider Orthopaedic Surgery Orthopaedic Surgery of the Spine
DX: M54.9 Dorsalgia, unspecified (principal)
CPT/HCPCS: 72148

== ENCOUNTER → 2020-07-13 15:42 | Outpatient (CLI) | payer BC, SELFPAY ==
[2019-11-13 08:12] VITALS: BMI 28.6
[2020-07-13 16:54] LABS: Absolute Lymphocyte Count 1.98 X10^3/uL (0.83-4.51); Absolute Neutrophil Count 4.9 X10^3/uL (2.0-7.7); Basophil% 1.3 % (0-1); Eosinophils% 1.3 % (0-5); Hematocrit 43.8 % (40-54); Hemoglobin 13.7 g/dL (13.0-16.5); Lymphocyte # 1.98 X10^3/ul (4.0); Mean Corp Hgb Conc 31.3 g/dL (32-36); Mean Corpuscular Hgb 26.8 pg (27.0-32.0); Mean Corpuscular Volume 85.5 fL (80-94); Mean Platelet Vol. 9.4 fl (6.2-12.0); Monocyte# 0.78 X10^3/uL; Monocyte% 9.8 % (0-10); NRBC Flagged by Analyzer 0 % (0-5); Neutrophil # 4.93 X10^3/uL (2.7-7.7); Neutrophil % 62.2 % (47-70); Platelet Count 223 K/mm3 (150-450); RBC Distribution Width CV 16.7 % (11.6-14.6); RBC Distribution Width SD 52.4 fl (35.1-43.9); Red Blood Count 5.12 M/mm3 (4.6-6.2); White Blood Count 7.9 K/mm3 (4.4-11.0)
[2020-07-13 17:08] LABS: Ferritin 66 ng/mL (26-388); Iron 45 ug/dL (65-175)
== END ==
PROVIDERS: PCP Family Medicine; Visit Provider Family Medicine
DX: L02.416 Cutaneous abscess of left lower limb (principal); D64.9 Anemia, unspecified
CPT/HCPCS: 36415; 82728; 83540; 85025; 87070; 87205

== ENCOUNTER 2020-11-11 13:00 | Outpatient (RCR) | payer BC, MEDICARE, OTHER, SELFPAY ==
[2019-11-13 08:12] VITALS: BMI 28.6
--- NOTE | 2020-06-23 18:53 | HP.PTEVAL_ITS ---
Patient's Visit Information KARIN MCLEOD is a 64 year old M referred to Physical Therapy by Sourav Arnold with a diagnosis of Lumbar Laminectomy. Date of Evaluation: 06/22/20 Physical Therapist: Jeff Abdi DPT - Visit Plan Frequency: 3x /Week Duration: 6 Weeks Plan: Start with neutral spine core stability exercises. May use modalities to reduce pain if needed. Start in supine, progress to quadriped/standing exercises. - Subjective Pt. is here today for his initial evaluation with diagnosis of lumabr laminectomy. Pt. reports having surgery ~3 weeks ago. He reports waking up form surgery and already feeling better. Pt. denies N/T today. Pt. is very pleased with progress from surgery. Pt. has been walking, slowly increasing distances as instructed ny physician. He is sticking to no bending, twisting and no lifting greater than 10Lbs. Pt. is also not sitting longer than 30 min at one time. He is sleeping well without pain. He overall is doing well. Pt. does not have a brace and was not instructed to wear one. Pt. is hopeful to cont. 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 - Pain lumbar spine Pain Intensity (Out of 10): 0 Pain Intensity Range: 0, 2 L leg Pain Intensity (Out of 10): 0 Pain Intensity Range: 0, 3 - Objective POSTURE: Pt. has slight flexion in stance, but improves with increased walking. Pt. reports my back loosens up as I walk. Normal Wt. shifting, normal/symmetrical iliac crest heights. PALPATION: Pt. has nroaml healing incison, no signs of infection. Pt. has minimal redness around incision. NEURO: Pt. has normal sensation in BLEs to light and sharp touch. Pt. has normal DTR of BLEs. Pt. is able to rise on heels and toes without limitations. ROM: Did not test lumbar ROM. B hips- normal hip ROM bilaterally no increase in symptoms. Pt. has tight B hipflexors and HS. L slight worse than R. MMT: RLE: ankle- PF/DF 5/5 throughout; knee- 5/5 throughout; hip- flexion 4+/5, abd 4+/5. LLE- ankle PF 5-/5, DF 4+/5; knee- ext 4+/5, flexion 4+/5; hip- 4+/5, abd 4+/5. Core strength- did not test. GAIT: Pt. ambulates without AD. Pt. has good stride lenght. Pt. does have slight flexion initially, improves with increased gait. Pt. does have minimal arm swing, but again improved with increased walking. STAIRS: 2 HR with reciprocal pattern. - Goals Goal 1:: LTG: PT. to be I with HEP. Goal Time Frame: 4-6 Weeks Goal 2:: LTG: Pt. to have increased walking tolerance upto 2 miles without issues. Goal Time Frame: 4-6 Weeks Goal 3:: LTG: Pt. to have increased core strength to 4+/5 indicating increased core stability. Goal Time Frame: 4-6 Weeks Goal 4:: LTG: Pt. to resume all ADLs without limitations or increase in symptoms. Goal Time Frame: 4-6 Weeks Goal 5:: LTG: Pt. to negotiate steps with 1 HR with reciprocal pattern without increase in symptoms. Goal Time Frame: 4-6 Weeks - Rehabilitation Potential Physical Therapy Diagnosis: Pt. has signs and symptoms consistent with lumbar laminectomy with subsequent weakness and ADL difficulty. Pt. would benefit from PT to work on core stability exercises to increase stability and reduce stress applied to lumbar spine with all recreational and ADLs. Rehabilitation Potential: Excellent - Anticipated Interventions Patient/Client Instruction: Educate patient on: Condition, Plan of Care, Risk Factors, Benefits of Fitness Program For the Purpose of:: To foster healthy habits, To improve decision making, To facilitate caregiver knowledge, To improve self management, To prevent re- injury, To improve ability to perform tasks related to life management, To improve tolerance to ADL's Therapeutic Exercise to Include: Strength training, Power training, Endurance training, Postural training, Flexibilty training, Gait and locomotor training, Passive ROM, Active ROM, Dynamic Lumbar Stabilization For the Purpose of:: To decrease pain, To decrease swelling/inflammation, To increase ROM, To improve nutrient delivery to tissue, To increase oxygenation perfusion, To improve muscle performance and motor function, To improve ability to perform ADL's, To increase tolerance to activity/condition/position IF ES: Yes Cryotherapy (ice pack, ice massage): Yes Ultrasound (thermal/non thermal): Yes For the Purpose of:: To decrease pain, To decrease swelling/inflammation, To increase ROM, To improve nutrient delivery to tissue Thank you for the opportunity to evaluate your patient. For Medicare and Medicare HMO plans, please review the plan of care and approve it. It will need to be FAXED BACK to us at [phone] for Medicare purposes. For Medicare only, by signing this I certify the plan of care. Please let me know if there are questions or concerns regarding this plan of care. Physician Signature: Date:
--- NOTE | 2020-08-20 15:55 | HP.PTREVAL_ITS ---
Sourav Arnold, It has been my pleasure to treat KARIN MCLEOD over the last 16 visits for Lumbar Laminectomy. Please see the progress note below for an update on the physical therapy plan of care! Subjective: Pt. reports no new issues. Pt. is doing well. No pain currently. Objective/Function: ROM: lumbar spine: flexion min loss, ext min/mod loss, SB min loss, rotation: min loss. Pt. reports no pain with testing. Pt. has no N/T and normal reflexes of BLEs. Pt. has 4+/5 BLE strength and fair- core stability. Pt. is walking several miles a day in total, not a mile at 1 time yet. Pt. is going well. He is still concerned about his endurance and strength. I will continue to see him working on strengthening and endurance allow him to get back to all recreational activities. Plan Plan: Ask about % better and fill out outcome measure next session. Goals Goal 1:: LTG: PT. to be I with HEP. Goal Time Frame: 4-6 Weeks Goal Progress: Progressing Goal 2:: LTG: Pt. to have increased walking tolerance upto 2 miles without issues. Goal Time Frame: 4-6 Weeks Goal Progress: Progressing Goal 3:: LTG: Pt. to have increased core strength to 4+/5 indicating increased core stability. Goal Time Frame: 4-6 Weeks Goal Progress: Progressing Goal 4:: LTG: Pt. to resume all ADLs without limitations or increase in symptoms. Goal Time Frame: 4-6 Weeks Goal Progress: Goal Met Goal 5:: LTG: Pt. to negotiate steps with 1 HR with reciprocal pattern without increase in symptoms. Goal Time Frame: 4-6 Weeks Goal Progress: Goal Met Anticipated Interventions Patient/Client Instruction: Educate patient on: Condition, Plan of Care, Risk Factors, Benefits of Fitness Program For the Purpose of:: To foster healthy habits, To improve decision making, To facilitate caregiver knowledge, To improve self management, To prevent re- injury, To improve ability to perform tasks related to life management, To improve tolerance to ADL's Therapeutic Exercise to Include: Strength training, Power training, Endurance training, Postural training, Flexibilty training, Gait and locomotor training, Passive ROM, Active ROM, Dynamic Lumbar Stabilization For the Purpose of:: To decrease pain, To decrease swelling/inflammation, To increase ROM, To improve nutrient delivery to tissue, To increase oxygenation perfusion, To improve muscle performance and motor function, To improve ability to perform ADL's, To increase tolerance to activity/condition/position IF ES: Yes Cryotherapy (ice pack, ice massage): Yes Ultrasound (thermal/non thermal): Yes For the Purpose of:: To decrease pain, To decrease swelling/inflammation, To increase ROM, To improve nutrient delivery to tissue Please do not hesitate to contact me at [phone] by phone or if you have questions or concerns regarding this new plan of care! Sincerely, ROSSANA FernandesT
--- NOTE | 2020-10-27 10:46 | HP.PTREVAL ---
Sourav Arnold, It has been my pleasure to treat KARIN MCLEOD over the last 30 visits for Lumbar Laminectomy. Please see the progress note below for an update on the physical therapy plan of care! Subjective: Pt. reports I am a little sore today, but not to bad. I was standing a lot.' Objective/Function: Pt is progressing with all strenghtening. He has increased his resistances in many gym exercises. His ROM of lumbar spine is doing well as well, slight limited motion with fleixon, as expected. MMT: COre strenght fair+, lumbar extension fair- but does fatigue more rapidly than I would like. 5-/5 BLE strength throughout, except 4+/5 hip abd. Overall he is walking 3 miles per day. He is walking with his dog in [place] without issues. 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 I am pleased with his progress, but would like him to increase lateral hip strength, multifidus strength and work further on body mechanics with work shop movements. Plan Plan: Pt. contiunes to progress. Cont. to increas resistances with all gym exerises add in multifidus strengthening to increase stability. Goals Goal 1:: LTG: PT. to be I with HEP. Goal Time Frame: 4-6 Weeks Goal Progress: Goal Met Goal 2:: LTG: Pt. to have increased walking tolerance upto 2 miles without issues. (met 10/14/20), NEW GOAL: Pt. to walk 4 miles with dog around property without limitations Goal Time Frame: 4-6 Weeks Goal Progress: Progressing Goal 3:: LTG: Pt. to have increased core strength to 4+/5 indicating increased core stability. (goal met 10/14/20) NEW GOAL: Pt. to have increased core strength to good, multifidus strength to 5/5 and lateral hip strength to 5/5. Goal Time Frame: 4-6 Weeks Goal Progress: Progressing Goal 4:: LTG: Pt. to resume all ADLs without limitations or increase in symptoms. Goal Time Frame: 4-6 Weeks Goal Progress: Goal Met Goal 5:: LTG: Pt. to negotiate steps with 1 HR with reciprocal pattern without increase in symptoms. Goal Time Frame: 4-6 Weeks Goal Progress: Goal Met Goal 6:: LTG: Pt. 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 Goal Time Frame: 2-4 Weeks Goal Progress: Progressing Anticipated Interventions Patient/Client Instruction: Educate patient on: Condition, Plan of Care, Risk Factors, Benefits of Fitness Program For the Purpose of:: To foster healthy habits, To improve decision making, To facilitate caregiver knowledge, To improve self management, To prevent re-injury, To improve ability to perform tasks related to life management, To improve tolerance to ADL's Therapeutic Exercise to Include: Strength training, Power training, Endurance training, Postural training, Flexibilty training, Gait and locomotor training, Passive ROM, Active ROM, Dynamic Lumbar Stabilization For the Purpose of:: To decrease pain, To decrease swelling/inflammation, To increase ROM, To improve nutrient delivery to tissue, To increase oxygenation perfusion, To improve muscle performance and motor function, To improve ability to perform ADL's, To increase tolerance to activity/condition/position IF ES: Yes Cryotherapy (ice pack, ice massage): Yes Ultrasound (thermal/non thermal): Yes For the Purpose of:: To decrease pain, To decrease swelling/inflammation, To increase ROM, To improve nutrient delivery to tissue Please do not hesitate to contact me at [phone] by phone or if you have questions or concerns regarding this new plan of care! Sincerely, Jeff Abdi DPT
--- NOTE | 2020-11-11 15:47 | HP.PTDCSUM_ITS ---
It has been my pleasure to treat KARIN MCLEOD referred by Sourav Arnold, with the diagnosis of Lumbar Laminectomy for a total of 38 visit(s). Discharge Date: 11/11/20 Please see the following information for a summary of their discharge status. Subjective: Pt. reprots being 100% better overall. Pt. reprots no pain currently. Pt. is independent with HEP for both home and gym. lumbar spine Pain Intensity (Out of 10): 0 L leg Pain Intensity (Out of 10): 0 % Improvement: 100 Objective/Function: Patient given handout with above exercises on it to increase patient carry over and consistency. Overall he is doing great. No issues and has gained most of his strength/mobility back. He had 5/5 strength throughout BLEs and have fair+ core strength. He is back to all functional mobility and recreational activities. He plans to continue with exercises and progressing to swimming. Goal 1:: LTG: PT. to be I with HEP. Goal Progress: Goal Met Goal 2:: LTG: Pt. to have increased walking tolerance upto 2 miles without issues. (met 10/14/20), NEW GOAL: Pt. to walk 4 miles with dog around property without limitations Goal Progress: Goal Met Goal 3:: LTG: Pt. to have increased core strength to 4+/5 indicating increased core stability. (goal met 10/14/20) NEW GOAL: Pt. to have increased core strength to good, multifidus strength to 5/5 and lateral hip strength to 5/5. Goal Progress: Goal Met Goal 4:: LTG: Pt. to resume all ADLs without limitations or increase in symptom s. Goal Progress: Goal Met Goal 5:: LTG: Pt. to negotiate steps with 1 HR with reciprocal pattern without increase in symptoms. Goal Progress: Goal Met Goal 6:: LTG: Pt. 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 Goal Progress: Goal Met Plan: Pt. to be DC at this point in time. Discharge Comments: Pt. did very well with strengthening and core stability progressing to gym exercises. He tolerated everything very well. He has progressed very well. He will be DC from PT at this point in time and start his independent program. If there are questions or concerns regarding this patient's physical therapy, please feel free to call me at [phone]. Thank you for the referral of this patient. Sincerely, ROSSANA FernandesT
== END 2020-11-11 19:00 | disposition home or self-care (01) ==
LOC: PT 13:00
PROVIDERS: PCP Family Medicine; Referring Provider Orthopaedic Surgery Orthopaedic Surgery of the Spine
DX: Z47.89 Encounter for other orthopedic aftercare (principal)
CPT/HCPCS: 97110; 97161

== ENCOUNTER → 2021-03-09 11:09 | Outpatient (CLI) | payer MEDICARE, SELFPAY ==
[2019-11-13 08:12] VITALS: BMI 28.6
[2021-03-09 12:03] LABS: Absolute Lymphocyte Count 0.99 X10^3/uL (0.83-4.51); Absolute Neutrophil Count 2.4 X10^3/uL (2.0-7.7); Basophil# 0.05 X10^3/uL; Basophil% 1.3 % (0-1); Eosinophil# 0.01 X10^3/uL; Eosinophils% 0.3 % (0-5); Hemoglobin 14.7 g/dL (13.0-16.5); Lymphocyte # 0.99 X10^3/ul (0.83-4.51); Lymphocyte % 25.3 % (19-41); Mean Corp Hgb Conc 33.4 g/dL (32-36); Mean Corpuscular Hgb 30.4 pg (27.0-32.0); Mean Corpuscular Volume 91.1 fL (80-94); Mean Platelet Vol. 9.5 fl (6.2-12.0); Monocyte# 0.42 X10^3/uL; Monocyte% 10.7 % (0-10); NRBC Flagged by Analyzer 0 % (0-5); Neutrophil # 2.42 X10^3/uL (2.7-7.7); Neutrophil % 61.9 % (47-70); Platelet Count 103 K/mm3 (150-450); RBC Distribution Width CV 13.9 % (11.6-14.6); RBC Distribution Width SD 47.1 fl (35.1-43.9); Red Blood Count 4.83 M/mm3 (4.6-6.2); White Blood Count 3.9 K/mm3 (4.4-11.0)
[2021-03-09 12:30] LABS: Hemoglobin A1c 5.8 % (3.8-5.6)
[2021-03-09 12:48] LABS: ALB/GLOB Ratio 0.8 RATIO (0.9-2.4); AST(SGOT) 103 U/L (15-37); Alanine Aminotransfer ALT/SGPT 65 U/L (16-61); Albumin, Serum 3.6 g/dL (3.2-5.0); Alkaline Phosphatase 85 U/L (45-117); Anion Gap 10 (5-15); BUN 9 mg/dL (7-18); Calcium,Total 8.8 mg/dL (8.5-10.1); Chloride 103 mmol/L (98-107); EST Glomerular Filtration Rate 90 mL/min (>60); Est Glom Filt Rate - Afr Amer 109 mL/min (>60); Globulin 4.5 g/dL (2.2-4.2); Glucose 100 mg/dL (74-106); Potassium 3.9 mmol/L (3.5-5.1); Protein, Total 8.1 g/dL (6.4-8.2); Sodium Level 139 mmol/L (136-145)
== END ==
PROVIDERS: PCP Family Medicine; Referring Provider Family Medicine; Visit Provider Family Medicine
DX: R42 Dizziness and giddiness (principal); I10 Essential (primary) hypertension; R73.01 Impaired fasting glucose
CPT/HCPCS: 36415; 80053; 83036; 85025

== ENCOUNTER → 2021-03-24 15:04 | Outpatient (CLI) | payer MEDICARE, SELFPAY ==
[2019-11-13 08:12] VITALS: BMI 28.6
--- NOTE | 2021-03-24 15:25 | MRI_ITS ---
STUDY: MRI BRAIN WITH AND WITHOUT CONTRAST REASON FOR EXAM: Male, 65 years old. PERSISTENT INTERMITTENT DIZZINESS, BLURRED VISION TECHNIQUE: Standardized multiplanar fat and water weighted pulse sequences were obtained. IV 17 cc dotarem was administered for the contrast portion of the examination. COMPARISON: None. FINDINGS: Mild atrophy and minor periventricular white matter ischemic changes.. Normal white matter tracts of the supratentorial brain. Normal bilateral basal ganglia. Normal thalami. There is no extra-axial fluid accumulation. Normal flow voids within the major intracranial circulation suggesting patency by spin echo criteria. Normal venous enhancement. There is no enhancing intra-axial or extra-axial abnormality. Normal sella turcica, pituitary gland, infundibular stalk, optic chiasm and hypothalamus. Normal tectal plate and pineal gland. Normal midbrain, alexander and medulla. Normal cerebellum. Normal basal cisterns. Normal bilateral temporal bones. Normal bilateral internal auditory canals. No demonstrated orbital abnormality, within the constraints of a routine brain study. Normal visualized paranasal sinuses. Normal calvarium and skull base. Normal visualized soft tissue structures. Normal visualized upper cervical spine. MRI/Brain W/WO Contrast IMPRESSION: Mild atrophy and minor periventricular white matter ischemic changes. No evidence for acute infarct. No enhancing lesions. Specifically no evidence for acoustic or vestibular schwannoma.. Electronically Signed: Naun Alvarez MD at 16:45 EDT , Service support ,
== END ==
PROVIDERS: PCP Family Medicine; Referring Provider Family Medicine; Visit Provider Family Medicine
DX: R42 Dizziness and giddiness (principal); H53.8 Other visual disturbances; R26.89 Other abnormalities of gait and mobility
CPT/HCPCS: 70553

== ENCOUNTER 2021-05-23 14:00 | Outpatient (RCR) | payer MEDICARE, SELFPAY ==
[2021-03-28 13:34] VITALS: BMI 28.6
--- NOTE | 2021-03-28 15:53 | HP.PTEVAL_ITS ---
Patient's Visit Information KARIN MCLEOD is a 65 year old M referred to Physical Therapy by Dr. Sundar Pierce DO with a diagnosis of dizzyness. Date of Evaluation: 03/28/21 Physical Therapist: Jaron Clements, DPT, OCS, CSCS - Visit Plan Frequency: 1x/Week Duration: 4-6 Weeks Plan: weekly to progress adaptation and balance ex as needed. Given VOR horiz seated today and was 8/10 after 30 seconds for 10 seconds. Progress next session vertical, stadning, x2 adn consider balance ex. Pt has some mild tremors and dyscoordination in distal extremitties that he blames on drinking too much. Neurologist visit apporpiate but two months away, multile confusin gcomorbidities including back surgery. - Subjective I got vertigo. Had it three months and onset is insidious. it is worse int he mornings. No drivdizzyness make eyes ing for 4 weeks as he does not trust himself. MRI : nothing concerning. Dizzyness feels like eyes are crossed for the last month, was intermittent prior to the last month. Balance is off. Feels like head is spinning. Not much makes it worse. Falls a numbr of times, 5x in 6 weeks. Last time was bending over and fell over, not any more dizzyness, just increased. Sleep is OK, not dizzy when you lie down. Worse bending over. No problem lying down. Cannot golf or drive, Spends day running dogs. Basic ADLs getting done at home. Steps at home with railing and needs it. Going to app[employer]at[employer]ball games and drives him. No wrose at the game. Not employed. Uses cane for stability especially out in public - Objective Walks into PT with cane, slow and with wide NEVA but mod I. can walk without cane today easily o firm flat surface. trasnfers without UE, I. Steps reciprocal with one rail. - B hallpike anabela, - rol test. cervical AROM WNL and painfree. reflexes 1/3 bi and tri. Sensation EU WNL to gross light touch. Full UE AROM. tremors present L UE a ttimes today noticeable during HD testing. coordniation to reciprocal toe tapping was poor, heel tapping was fair, Heel to mckeon test was poor. Ocuomotor: No nystagmus with gaze or head shake. - ocular tilt. - skew eye deviation. convergence was OK. Pursuit seemed fine and saccades slow but asymptomatic. VOR 30 seconds gave 8/10 dizzyness from 5 baseling for 10 seconds. + L head thrust. L - Balance Scores Functional Gait Assessment Score: 24 % Disability: 20.0000 - Goals Goal 1:: aboish dizzyness at rest in chair and standing Goal Time Frame: 4-6 Weeks Goal 2:: Pt feel 75% better over all in cross eyed feeling. Goal Time Frame: 4-6 Weeks Goal 3:: Pt back to comfortable on mower and moving/bending. Goal Time Frame: 4-6 Weeks Goal 4:: FGA Goal Time Frame: 4-6 Weeks - Rehabilitation Potential Physical Therapy Diagnosis: dizzyness, causing mobility deficits. Rehabilitation Potential: Questionable - Anticipated Interventions Patient/Client Instruction: Educate patient on: Condition For the Purpose of:: To increase tolerance to activity/condition/position Therapeutic Exercise to Include: Balance training Comment: adaptation, habituation For the Purpose of:: To improve muscle performance and motor function, To increase tolerance to activity/condition/position, To improve gait and locomotor functions Thank you for the opportunity to evaluate your patient. For Medicare and Medicare HMO plans, please review the plan of care and approve it. It will need to be FAXED BACK to us at [phone] for Medicare purposes. For Medicare only, by signing this I certify the plan of care. Please let me know if there are questions or concerns regarding this plan of care. Physician Signature: Date:
--- NOTE | 2021-05-02 14:27 | HP.PTREVAL ---
Dr. Sundar Pierce, DO, It has been my pleasure to treat KARIN MCLEOD over the last 5 visits for dizzyness. Please see the progress note below for an update on the physical therapy plan of care! Subjective: Feels like he is starting to turn the corner. A little spinny today but had a busy weekend and did not do exercises. Had [place] in April family libertarian. No f/u with doctor scheduled. Has not split wood yet. Not mowing yet. Working on exercises daily and they make him dizzy about the same as two weeks ago.Overall going the right way and better than two weeks ago with intenisty and frequency. Wants to continue therapy until neuro. Objective/Function: Much more dizzyness to 7/10 with seated VOR x2 and walking VOR. Bending still mildly problematic and seated VOR no problem horiz or vertical. Overall balance is improving and pt feels better slowly subjectively. Appropriate to keep progressing HEP until neuro f/u with fair prognosiis toward same goals. Plan Plan: weekly x 3-4 weeks for progression of adaptationhabituation as helpful. Balance/Gait/Functional tests - Balance/Special Test Scores Functional Gait Assessment Score: 25 % Disability: 16.6700 Dizziness Score: 4 Goals Goal 1:: aboish dizzyness at rest in chair and standing Goal Time Frame: 4-6 Weeks Goal Progress: 50% Goal 2:: Pt feel 75% better over all in cross eyed feeling. Goal Time Frame: 4-6 Weeks Goal Progress: 50% Goal 3:: Pt back to comfortable on mower and moving/bending. Goal Time Frame: 4-6 Weeks Goal Progress: not mowed yet. Goal 4:: FGA Goal Time Frame: 4-6 Weeks Goal Progress: Progressing Anticipated Interventions Patient/Client Instruction: Educate patient on: Condition For the Purpose of:: To increase tolerance to activity/condition/position Therapeutic Exercise to Include: Balance training Comment: adaptation, habituation For the Purpose of:: To improve muscle performance and motor function, To increase tolerance to activity/condition/position, To improve gait and locomotor functions Please do not hesitate to contact me at [phone] by phone or if you have questions or concerns regarding this new plan of care! Sincerely, Jaron Clements, DPT, OCS, CSCS
--- NOTE | 2021-05-23 14:33 | HP.PTDCSUM_ITS ---
It has been my pleasure to treat KARIN MCLEOD referred by Dr. Sundar Pierce DO, with the diagnosis of dizzyness for a total of 7 visit(s). Discharge Date: 05/23/21 Please see the following information for a summary of their discharge status. Subjective: I fell. Spinning and legs don't work properly. Crawled 200 yards last week as legs don't work. Fell 2x on Sunday. Still doing exercises at home. They make him spinny and are not helping any. Using cane. Have walker and have not used it yet. Had blood work adn MRI adn nothing of note. Both knees hurt from fall. Doesn't remember a lot of things either. % Improvement: 0 Objective/Function: Poor balance and needs cane and should use walker based on number of falls last week. Has cogweheel rigidity in knee ext and DF. Stiff LE muscles. Poor motor control. This is in UE also. balance and dizzyness not improving. [id number] walker until sees neuro and for safety adn [facility] if no quick answers as his activity level is going down. Goal 1:: aboish dizzyness at rest in chair and standing Goal Progress: Not Progressing Goal 2:: Pt feel 75% better over all in cross eyed feeling. Goal Progress: Not Progressing Goal 3:: Pt back to comfortable on mower and moving/bending. Goal Progress: Not Progressing Goal 4:: FGA Goal Progress: Not Progressing Plan: Pt back to doctor for next step, will see neuro this week . Not improving with vestibular therapy. Has rigidity, tremors, memory problems, and many neuro type problems and is not himself. Recommend walker usage and neuro visit. No further PT at this time but may benefit from general strength adn balance if no other answers. Discharge Comments: to neuro, not improving. If there are questions or concerns regarding this patient's physical therapy, please feel free to call me at [phone]. Thank you for the referral of this patient. Sincerely, Jaron Clements, DPT, OCS, CSCS Balance/Gait/Functional tests - Balance/Special Test Scores Functional Gait Assessment Score: 19 % Disability: 36.6700 Dizziness Score: 50
== END 2021-05-23 19:00 | disposition home or self-care (01) ==
LOC: PT 14:00
PROVIDERS: PCP Family Medicine; Referring Provider Family Medicine; Visit Provider Family Medicine
DX: R42 Dizziness and giddiness (principal)
CPT/HCPCS: 97162; 97164; 97530

== ENCOUNTER 2021-05-30 12:23 | Inpatient (IN) | payer MEDICARE, SELFPAY ==
[2021-05-30] VITALS (7 sets, daily range): BP systolic 118–141; BP diastolic 73–87; PULSE 69–97; RESP 16–18; TEMP 36.6–37.2; O2SAT 95–99; BMI 26.6; BMI 29.7
[2021-05-30 13:12] LABS: Absolute Lymphocyte Count 0.84 X10^3/uL (0.83-4.51); Absolute Neutrophil Count 1.9 X10^3/uL (2.0-7.7); Basophil# 0.04 X10^3/uL; Basophil% 1.2 % (0-1); Eosinophil# 0.07 X10^3/uL; Eosinophils% 2.1 % (0-5); Hematocrit 41.9 % (40-54); Hemoglobin 13.7 g/dL (13.0-16.5); Lymphocyte # 0.84 X10^3/ul (0.83-4.51); Lymphocyte % 25.1 % (19-41); Mean Corp Hgb Conc 32.7 g/dL (32-36); Mean Corpuscular Hgb 31.5 pg (27.0-32.0); Mean Corpuscular Volume 96.3 fL (80-94); Mean Platelet Vol. 10.2 fl (6.2-12.0); Monocyte# 0.48 X10^3/uL; Monocyte% 14.3 % (0-10); NRBC Flagged by Analyzer 0 % (0-5); Neutrophil % 56.7 % (47-70); POSITIVE COUNT YES; Platelet Count 74 K/mm3 (150-450); RBC Distribution Width CV 13.6 % (11.6-14.6); RBC Distribution Width SD 48.3 fl (35.1-43.9); Red Blood Count 4.35 M/mm3 (4.6-6.2); White Blood Count 3.4 K/mm3 (4.4-11.0)
[2021-05-30 13:21] LABS: Differential Indicated SCAN CRITERIA MET
[2021-05-30 13:21] LABS: Amphetamine Urine VISTA NEGATIVE (<1000 ng/mL); Barbiturate Urine VISTA NEGATIVE (< 200 ng/mL); Benzodiazepine Urine VISTA NEGATIVE (< 200 ng/mL); Cocaine Urine VISTA NEGATIVE (< 300 ng/mL); Ecstacy Urine VISTA NEGATIVE (< 500 ng/mL); Methadone Urine VISTA NEGATIVE (< 300 ng/mL); PCP Urine VISTA NEGATIVE (< 25 ng/mL); THC Urine VISTA POSITIVE (< 50 ng/mL); Vista UDS pH Range 7
[2021-05-30 13:24] LABS: ALB/GLOB Ratio 0.8 RATIO (0.9-2.4); AST(SGOT) 186 U/L (15-37); Alanine Aminotransfer ALT/SGPT 94 U/L (16-61); Albumin, Serum 3.5 g/dL (3.2-5.0); Alkaline Phosphatase 104 U/L (45-117); Anion Gap 8 (5-15); BUN 7 mg/dL (7-18); BUN/Creat Ratio 7.6 RATIO (10-20); Calcium,Total 8.1 mg/dL (8.5-10.1); Chloride 107 mmol/L (98-107); Creatinine, Serum 0.92 mg/dL (0.70-1.30); EST Glomerular Filtration Rate 88 mL/min (>60); Est Glom Filt Rate - Afr Amer 106 mL/min (>60); Estimated Creatinine Clearance 80.05 ml/min; Globulin 4.5 g/dL (2.2-4.2); Glucose 108 mg/dL (74-106); Potassium 3.4 mmol/L (3.5-5.1); Sodium Level 143 mmol/L (136-145)
[2021-05-30 13:56] LABS: Platelet Estimate MOD DEC (ADEQ)
[2021-05-30 13:57] LABS: Red Cell Morphology NORM C+C NORMAL (NORM C&C)
--- NOTE | 2021-05-30 14:26 | EDS_ITS ---
HPI History of Present Illness Chief Complaint: ETOH Intox Informant: patient and spouse/S.O. Narrative Narrative: Patient is a 65-year-old male with a past medical history of hypertension, alcoholism who presents to the emergency department for detox. He states he typically drinks around 10 glasses of gin per day. He has been doing this over the past year and a half. He was in the detox program just prior to that. He states that he was a month sober but was having issues with his back so he started drinking again. Patient was worked up for dizziness by a neurologist. They thought that all of his dizziness and shakiness was due to his drinking. This is what is triggering the patient come back in today to detox. He was recently started on thiamine and has been improving from that aspect. He does use a cannabis pen but otherwise denies any drug use. Patient's last drink was just prior to coming in. [facility] Medical History (Updated 05/30/21 @ 16:37 by Lucy Singh) Benign prostatic hyperplasia Chronic alcohol dependence, continuous GI bleed HTN (hypertension) Hyperlipidemia Low 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 Recent shoulder injury Rotator cuff syndrome of right shoulder Home Medications anastrozole 1 mg PO MOWE 08/27/19 [History Last Taken 08/25/19] cholecalciferol (vitamin D3) 125 mcg PO DAILY 08/27/19 [History Last Taken 08/26/19] multivitamin with minerals 1 tab PO DAILY 08/27/19 [History Last Taken 08/26/19] testosterone cypionate 0.6 ml IM DAILY 08/27/19 [History Last Taken 08/24/19] amlodipine 5 mg tablet 5 mg PO DAILY tab 05/25/21 [History Last Taken Unknown] Kisspeptin 10 1 tab PO .3xWK 05/26/21 [History Last Taken Unknown] alfuzosin 10 mg tablet,extended release 24 hr 10 mg PO DAILY tab 05/26/21 [History Last Taken Unknown] aspirin 81 mg tablet,delayed release 81 mg PO DAILY 05/26/21 [History Last Taken Unknown] cyanocobalamin (vitamin B-12) 1,000 mcg capsule 1,000 mcg PO DAILY 05/26/21 [H istory Last Taken Unknown] omeprazole 20 mg capsule,delayed release 20 mg PO DAILY cap 05/26/21 [History Last Taken Unknown] pseudoephedrine HCl 30 mg tablet 60 mg PO BID PRN tab 05/26/21 [History Last Taken Unknown] thiamine mononitrate (vit B1) 100 mg tablet 100 mg PO DAILY #30 tab 05/26/21 [Rx Last Taken Unknown] Allergy/AdvReac Type Severity Reaction Status Date / Time cefdinir Allergy Unknown Severe Verified 05/30/21 12:27 Fatigue doxycycline Allergy Unknown Severe Verified 05/30/21 12:27 Fatigue penicillin G Allergy Unknown Unknown Verified 05/30/21 12:27 sulfamethoxazole Allergy Unknown anemia Verified 05/30/21 12:27 [From Bactrim] trimethoprim [From Bactrim] Allergy Unknown anemia Verified 05/30/21 12:27 Penicillins Allergy Unknown Verified 05/30/21 12:27 Family History Father Aortic aneurysm Mother Heart disease Surgical History (Updated 05/30/21 @ 16:01 by Chris GARCIA) H/O right knee surgery History of back surgery History of esophagogastroduodenoscopy (EGD) Social History Smoking Status: Former smoker Smokeless tobacco user: other how long ago did patient quit smokin alcohol intake: current alcohol intake frequency: 3 or more drinks per day Alcohol type: beer substance use type: marijuana ROS ROS ED Constitutional Constitutional ED: Denies chills or fever(s) Eyes Eyes: Denies change in vision ENT ENT ED: Denies epistaxis or rhinorrhea Cardiovascular Cardiovascular: Denies chest pain Respiratory/Chest Respiratory/Chest: Denies cough, dyspnea or dyspnea on exertion Gastrointestinal Gastrointestinal: Denies abdominal pain, diarrhea, nausea or vomiting Musculoskeletal Musculoskeletal: Denies back pain or neck pain Integumentary Denies rash Neurologic Neurologic: Denies dizziness, headache(s) or weakness EXAM Physical Exam Const Vital Signs: 05/30/21 12:24 05/30/21 14:15 05/30/21 14:16 Temperature 97.9 F Temperature Source Temporal Pulse Rate 97 81 69 Respiratory Rate 16 18 Blood Pressure 118/74 125/73 H Blood Pressure Mean 88 90 Blood Pressure Source Monitor Pulse Ox 99 95 Oxygen Delivery Method Room Air Room Air Positive well nourished and well developed General Appearance ED: well developed and NAD HEENT Reports normocephalic, head/scalp atraumatic and moist mucous membranes Eyes PERRL and EOMs intact bilaterally Neck supple Resp normal respiratory effort and clear to auscultation bilaterally Auscultation: Negative for rales, rhonchi or wheezes Cardio regular rate, regular rhythm and no murmurs GI normal to inspection, nondistended, normoactive bowel sounds and non-tender Palpation: soft Extremity normal to inspection General Extremety ED: Negative for edema General Extremity: Negative for edema Neuro no sensory deficits noted Sensorium / Orientation: alert Motor Exam: strength 5/5 throughout Psych mental status grossly normal Skin no rashes or lesions noted MDM MDM MDM Narrative Medical decision making narrative: Patient presents to the emergency department to detox from alcohol. He drinks 10 glasses of gin per day. His last drink was just prior to arrival. Blood work was obtained which did show his ethanol level to be 391. Patient otherwise appears well on physical exam. Vital signs within normal limits. He does not have any complaints at this time. Will bring into the hospital for detox program. Patient understands and is agreeable with this plan. All questions were answered. Lab Data Labs: Laboratory Results - last 24 hr 05/30/21 05/30/21 05/30/21 12:50 12:50 12:50 WBC 3.4 L RBC 4.35 L Hgb 13.7 Hct 41.9 MCV 96.3 H MCH 31.5 MCHC 32.7 RDW Std Deviation 48.3 H RDW Coeff of [place] 13.6 Plt Count 74 L MPV 10.2 Immature Gran % (Auto) 0.600 Neut % (Auto) 56.7 Lymph % (Auto) 25.1 [place] % (Auto) 14.3 H Eos % (Auto) 2.1 Baso % (Auto) 1.2 H Absolute Neuts (auto) 1.9 L Absolute Lymphs (auto) 0.84 Nucleated RBC % 0 Platelet Estimate MOD DEC RBC Morphology NORM C+C Sodium 143 Potassium 3.4 L Chloride 107 Carbon Dioxide 28.0 Anion Gap 8 BUN 7 Creatinine 0.92 Estim Creat Clear Calc 80.05 Est GFR (MDRD) Af Amer 106 Est GFR (MDRD) Non-Af 88 BUN/Creatinine Ratio 7.6 L Glucose 108 H Calcium 8.1 L Total Bilirubin 0.50 AST 186 H ALT 94 H Alkaline Phosphatase 104 Total Protein 8.0 Albumin 3.5 Globulin 4.5 H Albumin/Globulin Ratio 0.8 L Urine Opiates Screen Urine Methadone Screen Ur Barbiturates Screen Ur Phencyclidine Scrn Ur Amphetamines Screen U Methamphetamin-MDMA U Benzodiazepines Scrn Urine Cocaine Screen U Cannabinoids Screen Ur Drug Screen Comment Ethyl Alcohol 391.0 H* 05/30/21 13:00 WBC RBC Hgb Hct MCV MCH MCHC RDW Std Deviation RDW Coeff of [place] Plt Count MPV Immature Gran % (Auto) Neut % (Auto) Lymph % (Auto) [place] % (Auto) Eos % (Auto) Baso % (Auto) Absolute Neuts (auto) Absolute Lymphs (auto) Nucleated RBC % Platelet Estimate RBC Morphology Sodium Potassium Chloride Carbon Dioxide Anion Gap BUN Creatinine Estim Creat Clear Calc Est GFR (MDRD) Af Amer Est GFR (MDRD) Non-Af BUN/Creatinine Ratio Glucose Calcium Total Bilirubin AST ALT Alkaline Phosphatase Total Protein Albumin Globulin Albumin/Globulin Ratio Urine Opiates Screen NEGATIVE Urine Methadone Screen NEGATIVE Ur Barbiturates Screen NEGATIVE Ur Phencyclidine Scrn NEGATIVE Ur Amphetamines Screen NEGATIVE U Methamphetamin-MDMA NEGATIVE U Benzodiazepines Scrn NEGATIVE Urine Cocaine Screen NEGATIVE U Cannabinoids Screen POSITIVE H Ur Drug Screen Comment Ethyl Alcohol Discharge Plan Dx/Rx/DC Orders Clinical Impression: Alcohol abuse Disposition Disposition: Acute Care [facility] [place] Discharge Date/Time: 05/30/21 15:48
--- NOTE | 2021-05-30 15:19 | CM.ED ---
TANGELA Note: Referral Source: Case Find Referral Reason: [facility] SW reviewed chart and noted that patient is here for detox. SW met with patient and his . Patient said that he is here at the hospital for detox. Patient was asked about his drug of choice and he said gin. Patient's said that patient drinks 1/5th a day. Patient reports his last drink was at 12:00 noon right before I came here.. I figured I might as well go out with a bang. reports that patient had detox at [facility] in November of 2019. Patient reports that he is not linked with AOD treatment agency. SW reviewed the rules of the program including items locked and no visitors or cell phone. Patient verbalized understanding and is in agreement with plan of admittance to [facility] program. TANGELA called Chevy Borjas at [facility] beds at the [facility]. TANGELA's call went to voice mail. SW left message advising of patient's presentation in the ED, last alcohol usage and that he wants to be admitted to [facility]. TANGELA left call back number for Chevy if additional issues or questions arise. Plan: [facility] program Carina OLVERA
--- NOTE | 2021-05-30 15:48 | PCM.HP.STD ---
Documented by User: Chris GARCIA 05/30/21 16:13 HPI - General General Date of Admission: 05/30/21 Date of Service: 05/30/21 Chief Complaint: Impending withdrawal for alcohol abuse HPI Narrative KARIN MCLEOD is a 65-year-old male who presents to the ED at [facility] on 05/30/2021 with a chief complaint of impending withdrawal for alcohol abuse. Patient reports that for the past year he has been drinking 1/5 of gin daily. Patient reports that his last alcohol consumption was early this morning at 11 AM where he finished a bottle of gin, but is unaware of how much he actually drank. Patient identifies back pain as his trigger for drinking. Patient reports tremors as his only symptom. Denies hallucinations, vision changes or losses of consciousness. Of note, patient has been evaluated by Dr. Valenzuela, of neurology, for gait issues. Dr. Valenzuela feels that his gait disturbances are related to his drinking and that if ceases drinking, that the symptoms will improve. Vital signs are stable and patient is afebrile. CBC is unremarkable. CMP demonstrates an elevated AST at 186 and ALT at 94. Alk phos is within normal meds. Urine tox screen positive for cannabinoids. Ethyl alcohol level is elevated at 391. [facility] Medical History (Updated 05/30/21 @ 16:06 by Chris GARCIA) Benign prostatic hyperplasia Chronic alcohol dependence, continuous GI bleed HTN (hypertension) Hyperlipidemia Low 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 Home Medications anastrozole 1 mg PO MOWE 08/27/19 [History Last Taken 08/25/19] cholecalciferol (vitamin D3) 125 mcg PO DAILY 08/27/19 [History Last Taken 08/26/19] multivitamin with minerals 1 tab PO DAILY 08/27/19 [History Last Taken 08/26/19] testosterone cypionate 0.6 ml IM DAILY 08/27/19 [History Last Taken 08/24/19] amlodipine 5 mg tablet 5 mg PO DAILY tab 05/25/21 [History Last Taken Unknown] Kisspeptin 10 1 tab PO .3xWK 05/26/21 [History Last Taken Unknown] alfuzosin 10 mg tablet,extended release 24 hr 10 mg PO DAILY tab 05/26/21 [History Last Taken Unknown] aspirin 81 mg tablet,delayed release 81 mg PO DAILY 05/26/21 [History Last Taken Unknown] cyanocobalamin (vitamin B-12) 1,000 mcg capsule 1,000 mcg PO DAILY 05/26/21 [History Last Taken Unknown] omeprazole 20 mg capsule,delayed release 20 mg PO DAILY cap 05/26/21 [History Last Taken Unknown] pseudoephedrine HCl 30 mg tablet 60 mg PO BID PRN tab 05/26/21 [History Last Taken Unknown] thiamine mononitrate (vit B1) 100 mg tablet 100 mg PO DAILY #30 tab 05/26/21 [Rx Last Taken Unknown] Allergy/AdvReac Type Severity Reaction Status Date / Time cefdinir Allergy Unknown Severe Verified 05/30/21 12:27 Fatigue doxycycline Allergy Unknown Severe Verified 05/30/21 12:27 Fatigue penicillin G Allergy Unknown Unknown Verified 05/30/21 12:27 sulfamethoxazole Allergy Unknown anemia Verified 05/30/21 12:27 [From Bactrim] trimethoprim [From Bactrim] Allergy Unknown anemia Verified 05/30/21 12:27 Penicillins Allergy Unknown Verified 05/30/21 12:27 Family History Father Aortic aneurysm Mother Heart disease Surgical History (Updated 05/30/21 @ 16:01 by Chris GARCIA) H/O right knee surgery History of back surgery History of esophagogastroduodenoscopy (EGD) Social History Smoking Status: Former smoker Smokeless tobacco user: other how long ago did patient quit smokin alcohol intake: current alcohol intake frequency: 3 or more drinks per day Alcohol type: beer substance use type: marijuana ROS Constitutional Constitutional: Denies anorexia, change in weight, chills, fatigue, fever(s), malaise, night sweats, weakness or other Eyes Eyes: Denies blurry vision, change in eye color, change in vision, discharge from eye(s), double vision, erythema, eye pain, loss of vision or other ENT HEENT: Denies abnormal hearing, dysphagia, ear pain, epistaxis, headache(s), hearing loss, nasal congestion, nasal discharge, post nasal drip, sinus pressure, sore throat or other Cardiovascular Cardiovascular: Denies chest pain, claudication, dyspnea on exertion, edema, lightheadedness, orthopnea, palpitations, paroxysmal nocturnal dyspnea, rapid heart rate, syncope or other Respiratory/Chest Respiratory/Chest: Denies cough, dyspnea, excessive phlegm production, hemoptysis, productive cough, shortness of breath at rest, shortness of breath with exertion, wheezing or other Gastrointestinal Gastrointestinal: Denies abdominal pain, coffee ground emesis, constipation, diarrhea, dyspepsia, hematemesis, hematochezia, loose stools, melena, nausea, vomiting or other Genitourinary Genitourinary: Denies burning urination, difficulty urinating, dysuria, hematuria, nocturia, urinary frequency, urinary hesitancy, urinary incontinence, urinary urgency or other Musculoskeletal Musculoskeletal: Denies arthralgias, back pain, joint pain, joint stiffness, joint swelling, myalgias, neck pain or other Neurologic Neurologic: Reports abnormal gait, disequilibrium and tremor(s); Denies abnormal speech, confusion, dizziness, focal weakness, headache(s), numbness, paresthesias, seizure-like activity, seizures, syncope, tingling or other Psychiatric Psychiatric: Denies anxiety, depression, homicidal ideation, suicidal ideation or other Endocrine Endocrinology: Denies change in body appearance, cold intolerance, excessive sweating, heat intolerance, polydipsia, polyuria or other Hematologic/Lymphatic Hematologic/Lymphatic: Denies anemia, easy bleeding, easy bruising, lymphadenopathy or other Allergic/Immunologic Allergic/Immunologic: Denies rhinitis, hives, eczemia, asthma or other Vital Signs Vital Signs Vital Signs: 05/30/21 12:24 05/30/21 14:15 05/30/21 14:16 Temperature 97.9 F Temperature Source Temporal Pulse Rate 97 81 69 Respiratory Rate 16 18 Blood Pressure 118/74 125/73 H Blood Pressure Mean 88 90 Blood Pressure Source Monitor Pulse Ox 99 95 Oxygen Delivery Method Room Air Room Air 05/30/21 15:47 Temperature 97.9 F Temperature Source Temporal Pulse Rate 69 Respiratory Rate 18 Blood Pressure 125/73 H Blood Pressure Mean 90 Blood Pressure Source Pulse Ox 95 Oxygen Delivery Method Room Air Weight Weight: 180 lb Body Mass Index (BMI) 26.6 Physical Exam Const alert and oriented x3 General Appearance: cooperative HEENT normocephalic, head/scalp atraumatic and hearing grossly normal bilaterally Eyes EOMs intact bilaterally and conjunctivae normal Neck no lymphadenopathy, supple and no JVD Resp normal respiratory effort, no retractions, no use of accessory muscles and clear to auscultation bilaterally Cardio regular rate, regular rhythm, no murmurs and no JVD GI normal to inspection, nondistended, normoactive bowel sounds, soft to palpation and non-tender Extremity normal to inspection, full ROM and no clubbing, cyanosis or edema Skin no rashes or lesions noted, no wounds, skin turgor normal and no jaundice Neuro CN's II-XII intact bilaterally Psych affect normal Results Lab / Micro Data Result Diagrams: 05/30/21 12:50 05/30/21 12:50 Labs: Laboratory Results - last 24 hr 05/30/21 12:50: Ethyl Alcohol 391.0 H* 05/30/21 12:50: WBC 3.4 L, RBC 4.35 L, Hgb 13.7, Hct 41.9, MCV 96.3 H, MCH 31.5, MCHC 32.7, RDW Std Deviation 48.3 H, RDW Coeff of [place] 13.6, Plt Count 74 L, MPV 10.2, Immature Gran % (Auto) 0.600, Neut % (Auto) 56.7, Lymph % (Auto) 25.1, [place] % (Auto) 14.3 H, Eos % (Auto) 2.1, Baso % (Auto) 1.2 H, Absolute Neuts (auto) 1.9 L, Absolute Lymphs (auto) 0.84, Nucleated RBC % 0, Platelet Estimate MOD DEC, RBC Morphology NORM C+C 05/30/21 12:50: Sodium 143, Potassium 3.4 L, Chloride 107, Carbon Dioxide 28.0, Anion Gap 8, BUN 7, Creatinine 0.92, Estim Creat Clear Calc 80.05, Est GFR (MDRD) Af Amer 106, Est GFR (MDRD) Non-Af 88, BUN/Creatinine Ratio 7.6 L, Glucose 108 H, Calcium 8.1 L, Total Bilirubin 0.50, AST 186 H, ALT 94 H, Alkaline Phosphatase 104, Total Protein 8.0, Albumin 3.5, Globulin 4.5 H, Albumin/Globulin Ratio 0.8 L 05/30/21 13:00: Urine Opiates Screen NEGATIVE, Urine Methadone Screen NEGATIVE, Ur Barbiturates Screen NEGATIVE, Ur Phencyclidine Scrn NEGATIVE, Ur Amphetamines Screen NEGATIVE, U Methamphetamin-MDMA NEGATIVE, U Benzodiazepines Scrn NEGATIVE, Urine Cocaine Screen NEGATIVE, U Cannabinoids Screen POSITIVE H, Ur Drug Screen Comment Micro: Microbiology 05/30/21 12:55 Mucosa - Nose SARS-CoV-2 Antigen (Rapid) - Final Assessment & Plan Assessment/Plan (1) Alcohol abuse: (2) Abnormality of gait and mobility: (3) Chronic alcohol dependence, continuous: (4) Alcohol withdrawal: PLAN: Patient is a 65-year-old male who presents to the ED at [facility] on 05/30/2021 with a chief complaint of impending withdrawal secondary to alcohol abuse. Patient will be placed on MS 3 for medical stabilization. 1) alcohol abuse with impending withdrawal Presents with a 1 year history of drinking 1/5 of gin daily. Patient reports that last drink was this morning at 11 AM, patient is unsure how much he drank. Patient endorses only tremors, denies hallucinations, vision changes or loss of consciousness. Ethyl alcohol level in the ED was 391. CMP demonstrated elevated liver enzymes with an AST of 26 and an ALT of 94, alk phos is within normal limits. Plan; placed on MS 3 for medical stabilization, RAMP program, initiate phenobarbital taper, initiate thiamine and folic acid, Bentyl as needed, gabapentin as needed, Imodium as needed, Zofran as needed, trazodone as needed. 2) HTN Stable, continue amlodipine. 3) low testosterone Hold anastrozole and testosterone cypionate. 4) BPH Hold alfuzosin, initiate tamsulosin. CODE STATUS: Full code DVT prophylaxis -low risk, not indicated Patient seen by Chris Qureshi PA-C, under the supervision of Dr. Aranda. Documented by User: Dr. Sundar Aranda, 05/30/21 16:18 HPI - General General Date of Admission: 05/30/21 [facility] Medical History (Updated 05/30/21 @ 16:06 by Chris GARCIA) Benign prostatic hyperplasia Chronic alcohol dependence, continuous GI bleed HTN (hypertension) Hyperlipidemia Low 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 Home Medications anastrozole 1 mg PO MOWE 08/27/19 [History Last Taken 08/25/19] cholecalciferol (vitamin D3) 125 mcg PO DAILY 08/27/19 [History Last Taken 08/26/19] multivitamin with minerals 1 tab PO DAILY 08/27/19 [History Last Taken 08/26/19] testosterone cypionate 0.6 ml IM DAILY 08/27/19 [History Last Taken 08/24/19] amlodipine 5 mg tablet 5 mg PO DAILY tab 05/25/21 [History Last Taken Unknown] Kisspeptin 10 1 tab PO .3xWK 05/26/21 [History Last Taken Unknown] alfuzosin 10 mg tablet,extended release 24 hr 10 mg PO DAILY tab 05/26/21 [History Last Taken Unknown] aspirin 81 mg tablet,delayed release 81 mg PO DAILY 05/26/21 [History Last Taken Unknown] cyanocobalamin (vitamin B-12) 1,000 mcg capsule 1,000 mcg PO DAILY 05/26/21 [History Last Taken Unknown] omeprazole 20 mg capsule,delayed release 20 mg PO DAILY cap 05/26/21 [History Last Taken Unknown] pseudoephedrine HCl 30 mg tablet 60 mg PO BID PRN tab 05/26/21 [History Last Taken Unknown] thiamine mononitrate (vit B1) 100 mg tablet 100 mg PO DAILY #30 tab 05/26/21 [Rx Last Taken Unknown] Allergy/AdvReac Type Severity Reaction Status Date / Time cefdinir Allergy Unknown Severe Verified 05/30/21 12:27 Fatigue doxycycline Allergy Unknown Severe Verified 05/30/21 12:27 Fatigue penicillin G Allergy Unknown Unknown Verified 05/30/21 12:27 sulfamethoxazole Allergy Unknown anemia Verified 05/30/21 12:27 [From Bactrim] trimethoprim [From Bactrim] Allergy Unknown anemia Verified 05/30/21 12:27 Penicillins Allergy Unknown Verified 05/30/21 12:27 Family History Father Aortic aneurysm Mother Heart disease Surgical History (Updated 05/30/21 @ 16:01 by Chris GARCIA) H/O right knee surgery History of back surgery History of esophagogastroduodenoscopy (EGD) Social History Smoking Status: Former smoker Smokeless tobacco user: other how long ago did patient quit smokin alcohol intake: current alcohol intake frequency: 3 or more drinks per day Alcohol type: beer substance use type: marijuana Results Lab / Micro Data Result Diagrams: 05/30/21 12:50 05/30/21 12:50 Charges/Coding Addendum Addendum: Patient was seen and examined independently of Chris Qureshi, he came to the ER requesting services for detox from alcohol. Patient drinks approximately 1/5 of gin on a daily basis. He has been through detox before but he has not followed up as an outpatient for continued detox services, I talked with the patient and his who was in the emergency room today, his stressed that he should follow-up as an outpatient for continued detox services, patient gave me the impression that he thought that being detox in the hospital was all it took to keep him off alcohol. I told him it was not going to work if he would not follow-up as an outpatient for further detox treatment. Patient complains of some tremor presently, he denies any diaphoresis or muscle pain. On examination he appeared in good health and spirits. Vital signs as documented. Skin warm and dry and without overt rashes. Neck without JVD, neck was supple, trachea midline, thyroid was normal. Lungs clear bilaterally, normal air movement was noted. Heart exam notable for regular rhythm, normal sounds and absence of murmurs, rubs or gallops. Abdomen unremarkable and without evidence of organomegaly, masses, or abdominal aortic enlargement. Bowel sounds are present, abdomen is not distended. Extremities nonedematous, no cyanosis was noted, no clubbing was noted. Neuro: Cranial nerves II through XII are grossly intact, no focal motor deficits were noted, sensation to light touch and pinprick intact, motor exam 5/5 throughout. Psych: Patient is alert and oriented x3, he does appear mildly anxious, he does not seem depressed,, he does not appear agitated. Patient will be admitted to [facility], orders were entered using the alcohol detox order set, patient will need to follow-up with outpatient detox services-he understands this. I have reviewed Chris Titus's history and physical including his medical assessment and plan of care and with the above additions endorse it. Visit Charges Inpatient E&M: 88324 Init Hosp L3
[2021-05-30] MEDS: Gabapentin 300 MG Capsule PO (16:21)
[2021-05-30] MEDS: Phenobarbital 32.4 MG Tablet 64.8 MG PO ×3 (16:21→23:53)
[2021-05-30] MEDS: Tamsulosin HCl 0.4 MG Capsule 0.8 MG PO (17:48)
[2021-05-30] MEDS: LORazepam 1 MG Tablet 2 MG PO ×2 (17:51→22:57)
[2021-05-30] MEDS: 0.9% Saline Lock 10 ML Syringe IV (22:17)
[2021-05-30] MEDS: Heparin Injection (Vial) 5,000 UNIT/ML VIAL 5000 UNIT SC (22:17)
[2021-05-31] VITALS (7 sets, daily range): BP systolic 153–164; BP diastolic 89–122; PULSE 95–117; RESP 18; TEMP 37.2–37.7; O2SAT 95–98
[2021-05-31] MEDS: LORazepam 1 MG Tablet 2 MG PO (02:44)
[2021-05-31] MEDS: Phenobarbital 32.4 MG Tablet 64.8 MG PO ×5 (03:41→21:12)
[2021-05-31] MEDS: LORazepam 2 MG/ML Syringe IV ×7 (04:53→18:38)
[2021-05-31] MEDS: 0.9% Saline Lock 10 ML Syringe IV ×6 (04:53→18:39)
--- NOTE | 2021-05-31 07:33 | PN.HOSP_ITS ---
Subjective Subjective Patient is a 65-year-old male admitted with acute alcohol intoxication at significant risk for withdrawal. Admitted to a monitored bed patient went into full-blown DTs. Currently on phenobarb taper with Ativan as needed Objective Data Objective Data Vital Signs: Vital Signs Temp Pulse Resp BP Pulse Ox 99.1 F 95 18 159/89 H 96 05/31/21 03:43 05/31/21 03:43 05/31/21 03:43 05/31/21 03:43 05/31/21 03:43 Oxygen Delivery Method Room Air Weight: 88.536 kg Body Mass Index (BMI) 29.7 Intake & Output: Intake and Output for Last 24 Hours 05/29/21 05/30/21 05/31/21 23:59 23:59 23:59 Intake Total 240 / 240 Balance 240 / 240 Lab / Micro Data Result Diagrams: 05/30/21 12:50 05/30/21 12:50 Labs: Laboratory Results - last 24 hr 05/30/21 12:50: Ethyl Alcohol 391.0 H* 05/30/21 12:50: WBC 3.4 L, RBC 4.35 L, Hgb 13.7, Hct 41.9, MCV 96.3 H, MCH 31.5, MCHC 32.7, RDW Std Deviation 48.3 H, RDW Coeff of [place] 13.6, Plt Count 74 L, MPV 10.2, Immature Gran % (Auto) 0.600, Neut % (Auto) 56.7, Lymph % (Auto) 25.1, [place] % (Auto) 14.3 H, Eos % (Auto) 2.1, Baso % (Auto) 1.2 H, Absolute Neuts (auto) 1.9 L, Absolute Lymphs (auto) 0.84, Nucleated RBC % 0, Platelet Estimate MOD DEC, RBC Morphology NORM C+C 05/30/21 12:50: Sodium 143, Potassium 3.4 L, Chloride 107, Carbon Dioxide 28.0, Anion Gap 8, BUN 7, Creatinine 0.92, Estim Creat Clear Calc 80.05, Est GFR (MDRD) Af Amer 106, Est GFR (MDRD) Non-Af 88, BUN/Creatinine Ratio 7.6 L, Glucose 108 H, Calcium 8.1 L, Total Bilirubin 0.50, AST 186 H, ALT 94 H, Alkaline Phosphatase 104, Total Protein 8.0, Albumin 3.5, Globulin 4.5 H, Albumin/Globulin Ratio 0.8 L 05/30/21 13:00: Urine Opiates Screen NEGATIVE, Urine Methadone Screen NEGATIVE, Ur Barbiturates Screen NEGATIVE, Ur Phencyclidine Scrn NEGATIVE, Ur Amphetamines Screen NEGATIVE, U Methamphetamin-MDMA NEGATIVE, U Benzodiazepines Scrn NEGATIVE, Urine Cocaine Screen NEGATIVE, U Cannabinoids Screen POSITIVE H, Ur Drug Screen Comment Micro: Microbiology 05/30/21 12:55 Mucosa - Nose SARS-CoV-2 Antigen (Rapid) - Final Physical Exam Narrative GENERAL: Lethargic but arousable HEENT: Atraumatic; EYES; Anicteric, Normal Conjunctiva NECK; supple, normal thyroid, RESPIRATORY: Diminished to auscultation CARDIOVASCULAR: Regular S1 S2, GI: soft, normoactive bowel sounds, : No Renal angle tenderness; EXTREMITIES: No edema, no clubbing, MUSCULOSKELETAL: no muscle waisting NEURO: Awake; no lateralizing signs. SKIN: No Rash PSYCH; lethargic Assessment & Plan Assessment/Plan (1) Alcohol withdrawal: (2) Alcohol abuse: PLAN: Patient is a 65-year-old male admitted with acute alcohol intoxicat ion at significant risk for withdrawal 1. Acute alcohol dependence with significant risk for withdrawal ?Admitted to regular nursing floor currently undergoing medical stabilization with phenobarb taper -Patient went into full-blown DTs resulting in adjuvant Ativan been added to therapy 2. Essential hypertension ?Patient blood pressure not well controlled adjusted doses of his home meds 3. BPH ?Patient is on alfuzosin this was apparently held on admission started on tamsulosin 4. Low testosterone state ?Patient is on anastrozole and testosterone cypionate at home 5. DVT prophylaxis ?Deemed to be low risk did encourage early ambulation 6. Hypokalemia -corrected per protocol Charges/Coding Visit Charges Inpatient E&M: 72009 Subs Hosp L3
[2021-05-31] MEDS: Folic Acid 1 MG Tablet PO (07:59)
[2021-05-31] MEDS: Cyanocobalamin 500 MCG Tablet 1000 MCG PO (09:40)
[2021-05-31] MEDS: Aspirin E.C. 81 MG Tablet PO (09:40)
[2021-05-31] MEDS: Pantoprazole Sodium 20 MG Tablet PO (09:40)
[2021-05-31] MEDS: amLODIPine 5 MG Tablet PO (09:40)
[2021-05-31] MEDS: Heparin Injection (Vial) 5,000 UNIT/ML VIAL 5000 UNIT SC ×2 (09:41→21:12)
[2021-05-31] MEDS: Thiamine Hydrochloride 100 MG Tablet PO (09:41)
[2021-05-31] MEDS: Cholecalciferol (VIT D3) 25 MCG TABLET (1,000 UNITS) 125 MCG PO (09:41)
--- NOTE | 2021-05-31 12:03 | ADDICTION ---
This specifications writer attempted to meet with PT. PT did not rouse to 3x verbal queuing. [facility] staff will attempt to meet with PT at next visit on 06/01.
[2021-05-31] MEDS: Tamsulosin HCl 0.4 MG Capsule 0.8 MG PO (16:01)
[2021-05-31] MEDS: Acetaminophen 325 MG Tablet 650 MG PO (16:01)
[2021-06-01] VITALS (21 sets, daily range): BP systolic 92–156; BP diastolic 70–117; PULSE 75–107; RESP 15–22; TEMP 36.3–37.3; O2SAT 93–99
[2021-06-01] MEDS: Phenobarbital 32.4 MG Tablet 64.8 MG PO ×4 (00:06→12:15)
--- NOTE | 2021-06-01 07:07 | PCM.PN.HOSP ---
Subjective Subjective Patient seen remains significantly restless. His Ativan 1 which has been ordered as adjuvant treatment to his phenobarb was apparently held. Plan is to resume today. Objective Data Objective Data Vital Signs: Vital Signs Temp Pulse Resp BP Pulse Ox 98.8 F 99 18 149/110 H 96 06/01/21 04:30 06/01/21 04:30 06/01/21 04:30 06/01/21 04:30 06/01/21 04:30 Oxygen Delivery Method Room Air Weight: 88.536 kg Body Mass Index (BMI) 29.7 Intake & Output: Intake and Output for Last 24 Hours 05/30/21 05/31/21 06/01/21 23:59 23:59 23:59 Intake Total 240 / 240 670 / 670 100 / 100 Output Total 600 / 600 Balance 240 / 240 70 / 70 100 / 100 Lab / Micro Data Result Diagrams: 05/30/21 12:50 05/30/21 12:50 Micro: Microbiology 05/30/21 12:55 Mucosa - Nose SARS-CoV-2 Antigen (Rapid) - Final Physical Exam Narrative GENERAL: Patient is restless HEENT: Atraumatic; EYES; Anicteric, Normal Conjunctiva NECK; supple, normal thyroid, RESPIRATORY: Diminished to auscultation CARDIOVASCULAR: Regular S1 S2, GI: soft, normoactive bowel sounds, : No Renal angle tenderness; EXTREMITIES: No edema, no clubbing, MUSCULOSKELETAL: no muscle waisting NEURO: Moving all extremities SKIN: No Rash PSYCH; restless Assessment & Plan Assessment/Plan (1) Alcohol withdrawal: (2) Alcohol abuse: PLAN: Patient is a 65-year-old male admitted with acute alcohol intoxication at significant risk for withdrawal 1. Acute alcohol dependence with significant risk for withdrawal ?Admitted to regular nursing floor currently undergoing medical stabilization with phenobarb taper -Patient went into full-blown DTs resulting in adjuvant Ativan been added to therapy ?06/01/2021; Patient seen remains significantly restless. His Ativan 1 which has been ordered as adjuvant treatment to his phenobarb was apparently held. Plan is to resume this a.m. 2. Essential hypertension ?Patient blood pressure not well controlled adjusted doses of his home meds 3. BPH ?Patient is on alfuzosin this was apparently held on admission started on tamsulosin 4. Low testosterone state ?Patient is on anastrozole and testosterone cypionate at home 5. DVT prophylaxis ?Deemed to be low risk did encourage early ambulation 6. Hypokalemia -corrected per protocol Charges/Coding Visit Charges Inpatient E&M: 02359 Subs Hosp L2
[2021-06-01] MEDS: LORazepam 1 MG Tablet 2 MG PO (08:47)
[2021-06-01] MEDS: Folic Acid 1 MG Tablet PO (08:48)
[2021-06-01] MEDS: amLODIPine 5 MG Tablet PO (08:48)
[2021-06-01] MEDS: Aspirin E.C. 81 MG Tablet PO (08:48)
[2021-06-01] MEDS: Gabapentin 300 MG Capsule PO (08:48)
[2021-06-01] MEDS: Pantoprazole Sodium 20 MG Tablet PO (08:48)
[2021-06-01] MEDS: Thiamine Hydrochloride 100 MG Tablet PO (08:49)
[2021-06-01] MEDS: Cholecalciferol (VIT D3) 25 MCG TABLET (1,000 UNITS) 125 MCG PO (08:49)
[2021-06-01] MEDS: Cyanocobalamin 500 MCG Tablet 1000 MCG PO (08:49)
[2021-06-01] MEDS: Heparin Injection (Vial) 5,000 UNIT/ML VIAL 5000 UNIT SC ×2 (10:10→22:19)
--- NOTE | 2021-06-01 10:33 | CASEMGMT ---
Social Work Note Per multimedia educational specialist questions, pt has completed HCPOA and LW and provided copies to [facility]. SW reviewed chart, HCPOA and LW are on file. SW printed off copies and placed on pt's chart. Pamella Brennan [employer], [employer]
--- NOTE | 2021-06-01 10:49 | ADDICTION ---
This documentation writer attempted to meet with PT. PT did not rouse to 3x verbal queuing. [facility] staff will attempt to meet with PT at next visit on 06/01.
--- NOTE | 2021-06-01 10:51 | ADDICTION ---
This technical writer and editor attempted to meet with PT. PT did not rouse to 3x verbal queuing. [facility] staff will attempt to meet with PT at next visit on 06/02.
--- NOTE | 2021-06-01 11:53 | NURSING ---
REPORT CALLED TO KYLEIGH RAMIREZ IN ICU. PT TRANSFERRING TO ICU BED 1
[2021-06-01] MEDS: 0.9% Saline Lock 10 ML Syringe IV ×2 (12:12→15:11)
--- NOTE | 2021-06-01 12:14 | NURSING ---
PTS , SHIKHA UPDATED & NOTIFIED OF TRANSFER TO ICU
--- NOTE | 2021-06-01 12:17 | NURSING ---
LATE ENTRY - 1200 - PT TRANSFERRED TO ICU1 VIA BED
[2021-06-01] MEDS: Potassium Chloride 10mEq/100mL 10 MEQ/100 ML IV.SOLN. 100 MEQ IV BOLUS ×4 (13:45→17:23)
--- NOTE | 2021-06-01 13:52 | EX.PCM.CONCC ---
Assessment & Plan Assessment/Plan (1) Alcohol withdrawal: PLAN: RECOMMENDATIONS: 1. Continue patient on Precedex for alcohol withdrawal relief. 2. Discontinue phenobarbital taper. 3. Continue as needed Ativan. 4. Continue thiamine and folate repletion. 5. Ongoing electrolyte repletion as needed. IMPRESSIONS: 1. Acute alcohol withdrawal The patient was transferred to the ICU today due to acute alcohol withdrawal symptoms which was refractory to a phenobarbital taper. Therefore, the patient was placed on a Precedex infusion, which will be continued for symptom relief. Plan to continue to monitor CIWA scores accordingly. Continue thiamine and folate. 2. Hypokalemia Electrolyte repletion as ordered. Recheck levels in the morning. 3. Hypertension/BPH/GERD Complicates care, management, recovery and prognosis. Continue home medications as indicated. This note was generated with [employer] dictation software. It may contain incorrect words, spelling, and punctuation that were not noted in checking the note before signing. HPI Consult Data Date of Consult: 06/02/21 HPI Narrative Reason for Consultation: Acute alcohol withdrawal HPI Narrative: The patient is a 65-year-old male, with a history as outlined below, who presented to the emergency department on May 30 for alcohol detoxification. History pertinent to the patient's hospitalization was obtained primarily via chart review, as the patient is to somnolent to provide any additional details. The patient does have a history of drinking 1/5 of gin daily. His last drink occurred on the morning of his day of presentation. On presentation to the emergency department, the patient was noted to be afebrile and hemodynamically stable. He was maintaining appropriate oxygen saturations on room air. Initial laboratory evaluation revealed evidence of thrombocytopenia with a platelet count of 74,000. Chemistry profile was notable for a potassium of 3.4. Toxicology screen was positive for cannabinoids. Alcohol level was noted to be 391. The patient was initially admitted to the medical surgical floor for management of impending alcohol withdrawal. Although the patient was initially being managed with a phenobarbital taper and as needed Ativan, he remained significantly agitated with increased CIWA scores, which prompted his transfer to the medical intensive care unit to be started on a Precedex infusion. His last CIWA score was documented to be 19. [facility] Medical History (Updated 05/30/21 @ 16:37 by Lucy Singh) Benign prostatic hyperplasia Chronic alcohol dependence, continuous GI bleed HTN (hypertension) Hyperlipidemia Low 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 Recent shoulder injury Rotator cuff syndrome of right shoulder Home Medications anastrozole 1 mg PO MOWE 08/27/19 [History Last Taken 08/25/19] cholecalciferol (vitamin D3) 125 mcg PO DAILY 08/27/19 [History Last Taken 08/26/19] multivitamin with minerals 1 tab PO DAILY 08/27/19 [History Last Taken 08/26/19] testosterone cypionate 0.6 ml IM DAILY 08/27/19 [History Last Taken 08/24/19] amlodipine 5 mg tablet 5 mg PO DAILY tab 05/25/21 [History Last Taken Unknown] Kisspeptin 10 1 tab PO .3xWK 05/26/21 [History Last Taken Unknown] alfuzosin 10 mg tablet,extended release 24 hr 10 mg PO DAILY tab 05/26/21 [History Last Taken 05/29/21 22:00] cyanocobalamin (vitamin B-12) 1,000 mcg capsule 1,000 mcg PO DAILY 05/26/21 [History Last Taken Unknown] omeprazole 20 mg capsule,delayed release 20 mg PO DAILY cap 05/26/21 [History Last Taken Unknown] pseudoephedrine HCl 30 mg tablet 60 mg PO BID PRN tab 05/26/21 [History Last Taken Unknown] thiamine mononitrate (vit B1) 100 mg tablet 100 mg PO DAILY #30 tab 05/26/21 [Rx Last Taken Unknown] Allergy/AdvReac Type Severity Reaction Status Date / Time cefdinir Allergy Unknown Severe Verified 05/30/21 12:27 Fatigue doxycycline Allergy Unknown Severe Verified 05/30/21 12:27 Fatigue penicillin G Allergy Unknown Unknown Verified 05/30/21 12:27 sulfamethoxazole Allergy Unknown anemia Verified 05/30/21 12:27 [From Bactrim] trimethoprim [From Bactrim] Allergy Unknown anemia Verified 05/30/21 12:27 Penicillins Allergy Unknown Verified 05/30/21 12:27 Family History Father Aortic aneurysm Mother Heart disease Surgical History (Updated 05/30/21 @ 16:01 by Chris GARCIA) H/O right knee surgery History of back surgery History of esophagogastroduodenoscopy (EGD) Social History Smoking Status: Former smoker Smokeless tobacco user: other how long ago did patient quit smokin alcohol intake: current alcohol intake frequency: 3 or more drinks per day Alcohol type: beer substance use type: marijuana ROS Review of Systems ROS Unobtainable: due to mental status Physical Exam Const no apparent distress General Appearance: lethargic HEENT normocephalic and head/scalp atraumatic Eyes PERRL and EOMs intact bilaterally Neck supple General: trachea midline Resp normal respiratory effort Auscultation: Negative for rales, rhonchi or wheezes Cardio regular rate and regular rhythm GI normal to inspection, nondistended, normoactive bowel sounds Extremity no clubbing, cyanosis or edema Skin no rashes or lesions noted Neuro no focal motor deficits Psych Mood & Affect: flat affect Lab / Micro Data Result Diagrams: 06/02/21 04:20 06/02/21 04:20 Charges/Coding Visit Charges Inpatient E&M: 57994 Init Hosp L3
[2021-06-02] VITALS (16 sets, daily range): BP systolic 102–160; BP diastolic 70–95; PULSE 70–108; RESP 14–20; TEMP 36.2–36.9; O2SAT 93–98
[2021-06-02 04:46] LABS: Hematocrit 47.9 % (40-54); Hemoglobin 15.5 g/dL (13.0-16.5); Mean Corp Hgb Conc 32.4 g/dL (32-36); Mean Corpuscular Hgb 31.8 pg (27.0-32.0); Mean Corpuscular Volume 98.2 fL (80-94); Mean Platelet Vol. 10.2 fl (6.2-12.0); Platelet Count 124 K/mm3 (150-450); RBC Distribution Width SD 46.7 fl (35.1-43.9); Red Blood Count 4.88 M/mm3 (4.6-6.2); White Blood Count 6.1 K/mm3 (4.4-11.0)
[2021-06-02 04:54] LABS: Anion Gap 19 (5-15); BUN 31 mg/dL (7-18); BUN/Creat Ratio 21.4 RATIO (10-20); Calcium,Total 8.6 mg/dL (8.5-10.1); Chloride 97 mmol/L (98-107); Creatinine, Serum 1.45 mg/dL (0.70-1.30); EST Glomerular Filtration Rate 52 mL/min (>60); Est Glom Filt Rate - Afr Amer 63 mL/min (>60); Estimated Creatinine Clearance 49.14 ml/min; Glucose 71 mg/dL (74-106); Potassium 4.3 mmol/L (3.5-5.1); Sodium Level 134 mmol/L (136-145)
--- NOTE | 2021-06-02 05:51 | PN.CC_ITS ---
Assessment & Plan Assessment/Plan (1) Alcohol withdrawal: PLAN: RECOMMENDATIONS: 1. Restart phenobarbital taper, given that the patient has been weaned off of Precedex and remains symptomatically controlled. 2. If the patient remains symptomatically controlled off of Precedex for several hours, he can be transferred out of the intensive care unit. 3. Continue as needed Ativan. 4. Continue thiamine and folate repletion. 5. Start supplemental IV fluid hydration as ordered. IMPRESSIONS: 1. Acute alcohol withdrawal Although the patient was initially transferred to the ICU to be placed on a Precedex infusion for symptom relief of alcohol withdrawal, he was able to be weaned off of the aforementioned infusion this morning and appears to be symptomatically controlled. Therefore, I would recommend that his phenobarbital taper be restarted. He will be continued on as needed Ativan as well. Continue thiamine and folate. If the patient remains symptomatically controlled off of Precedex for several hours this morning, he can be transferred out of the medical intensive care unit. 2. Acute kidney injury Most likely prerenal in etiology. The patient will be started on gentle IV fluid hydration this morning. Continue to monitor urine output. No current indication for renal replacement therapy. 3. Hypertension/BPH/GERD Complicates care, management, recovery and prognosis. Continue home medications as indicated. This note was generated with [employer] dictation software. It may contain incorrect words, spelling, and punctuation that were not noted in checking the note before signing. Subjective Subjective The patient was seen and examined at the bedside this morning. Events from the last 24 hours have been reviewed. The patient is currently afebrile, hemodynamically stable and maintaining appropriate oxygen saturations on room air. Chemistry profile this morning was notable for a sodium of 134, chloride of 97, bicarbonate of 18 and creatinine of 1.45. CIWA score was last noted to be five. The patient denies any complaints this morning. The patient's Precedex was able to be weaned off this morning as well. Objective Data Objective Data The patient's most recent lab work, culture data and imaging studies have all been personally reviewed. Vital Signs: Vital Signs Temp Pulse Resp BP Pulse Ox 97.2 F L 74 16 102/76 93 06/02/21 00:00 06/02/21 05:00 06/02/21 05:00 06/02/21 05:00 06/02/21 05:00 Oxygen Delivery Method Room Air Weight: 84.1 kg Body Mass Index (BMI) 29.7 Intake & Output: Intake and Output for Last 24 Hours 05/31/21 06/01/21 06/02/21 23:59 23:59 23:59 Intake Total 670 / 670 719.72 / 735.22 79.33 / 79.33 Output Total 600 / 600 500 / 500 Balance 70 / 70 219.72 / 235.22 79.33 / 79.33 Lab / Micro Data Attestation: I reviewed the patient's lab results. Result Diagrams: 06/02/21 04:20 06/02/21 04:20 Labs: Laboratory Results - last 24 hr 06/02/21 04:20: WBC 6.1, RBC 4.88, Hgb 15.5, Hct 47.9, MCV 98.2 H, MCH 31.8, MCHC 32.4, RDW Std Deviation 46.7 H, RDW Coeff of [place] 13.0, Plt Count 124 L, MPV 10.2 06/02/21 04:20: Sodium 134 L, Potassium 4.3, Chloride 97 L, Carbon Dioxide 18.0 L, Anion Gap 19 H, BUN 31 H, Creatinine 1.45 H, Estim Creat Clear Calc 49.14, Est GFR (MDRD) Af Amer 63, Est GFR (MDRD) Non-Af 52 L, BUN/Creatinine Ratio 21.4 H, Glucose 71 L, Calcium 8.6 Micro: Microbiology 05/30/21 12:55 Mucosa - Nose SARS-CoV-2 Antigen (Rapid) - Final Physical Exam Const alert and no apparent distress General Appearance: cooperative HEENT normocephalic and head/scalp atraumatic Eyes PERRL and EOMs intact bilaterally Neck supple General: trachea midline Resp normal respiratory effort Auscultation: Negative for rales, rhonchi or wheezes Cardio regular rate and regular rhythm GI normal to inspection, nondistended, normoactive bowel sounds Extremity no clubbing, cyanosis or edema Skin no rashes or lesions noted Neuro no focal motor deficits Neuro Narrative: A bit tremulous this morning. Psych Mood & Affect: flat affect Charges/Coding Visit Charges Inpatient E&M: 40164 Subs Hosp L3
[2021-06-02] MEDS: Dextrose 5%-Lactated Ringers 1,000 ML 125 ML IV ×2 (08:46→16:33)
[2021-06-02] MEDS: Pantoprazole Sodium 20 MG Tablet PO (09:20)
[2021-06-02] MEDS: Heparin Injection (Vial) 5,000 UNIT/ML VIAL 5000 UNIT SC ×2 (09:20→21:29)
[2021-06-02] MEDS: Folic Acid 1 MG Tablet PO (09:20)
[2021-06-02] MEDS: Cyanocobalamin 500 MCG Tablet 1000 MCG PO (09:20)
[2021-06-02] MEDS: Cholecalciferol (VIT D3) 25 MCG TABLET (1,000 UNITS) 125 MCG PO (09:20)
[2021-06-02] MEDS: Aspirin E.C. 81 MG Tablet PO (09:20)
[2021-06-02] MEDS: amLODIPine 5 MG Tablet PO (09:20)
[2021-06-02] MEDS: Thiamine Hydrochloride 100 MG Tablet PO (09:20)
[2021-06-02] MEDS: Phenobarbital 32.4 MG Tablet PO ×3 (09:49→17:46)
--- NOTE | 2021-06-02 09:51 | PCS.PANDOC ---
PANDEMIC DOCUMENTATION INITIATED: Date: 05/23/2021 Time: 190
--- NOTE | 2021-06-02 09:55 | PN.HOSP_ITS ---
Subjective Subjective Patient is still shaking. Awake. Denies hallucination, delusion or suicidal ideation. On phenobarbital and lorazepam. Dexmedetomidine drip is tapered off. Objective Data Objective Data Vital Signs: Vital Signs Temp Pulse Resp BP Pulse Ox 97.1 F L 90 16 130/83 H 97 06/02/21 08:00 06/02/21 09:00 06/02/21 09:00 06/02/21 09:00 06/02/21 09:00 Oxygen Delivery Method Room Air Weight: 185 lb 6.54 oz Body Mass Index (BMI) 29.7 Intake & Output: Intake and Output for Last 24 Hours 05/31/21 06/01/21 06/02/21 23:59 23:59 23:59 Intake Total 670 / 670 719.72 / 735.22 342.06 / 342.06 Output Total 600 / 600 500 / 500 200 / 200 Balance 70 / 70 219.72 / 235.22 142.06 / 142.06 Lab / Micro Data Result Diagrams: 06/02/21 04:20 06/02/21 04:20 Labs: Laboratory Results - last 24 hr 06/02/21 04:20: WBC 6.1, RBC 4.88, Hgb 15.5, Hct 47.9, MCV 98.2 H, MCH 31.8, MCHC 32.4, RDW Std Deviation 46.7 H, RDW Coeff of [place] 13.0, Plt Count 124 L, MPV 10.2 06/02/21 04:20: Sodium 134 L, Potassium 4.3, Chloride 97 L, Carbon Dioxide 18.0 L, Anion Gap 19 H, BUN 31 H, Creatinine 1.45 H, Estim Creat Clear Calc 49.14, Es t GFR (MDRD) Af Amer 63, Est GFR (MDRD) Non-Af 52 L, BUN/Creatinine Ratio 21.4 H , Glucose 71 L, Calcium 8.6 Micro: Microbiology 05/30/21 12:55 Mucosa - Nose SARS-CoV-2 Antigen (Rapid) - Final Physical Exam Narrative General: Awake. Disoriented to time. Tremors and shakings. HEENT: Atraumatic, PERRLA, EOMI, Normocephalic Oral: No Gingival or Mucosal Lesions/ Ulcerations Neck: Supple, No JVD, Negative Carotid Bruits Lungs: Air entry diminished in bilateral lung bases. No crepitation/rhonchi Cardiovascular: Regular rate, Regular Rhythm, Normal S1, Normal S2, No murmurs Abdomen: Bowel Sounds Present, Soft, Non Tender, Non-Distended : No renal angle tenderness. No suprapubic tenderness. Extremities: No edema, Capillary Refill Less than 3 Seconds Skin: No rashes, No breakdown Musculoskeletal: No Tenderness to Palpation of Joints or Extremities Neurological: Cranial nerves II-XII grossly intact, slow to respond. Psych/Mental Status: Anxious, restless. Assessment & Plan Assessment/Plan (1) Alcohol withdrawal: QUALIFIERS: Complication of substance-induced condition: with delirium Qualified Code(s): F10.231 - Alcohol dependence with withdrawal delirium (2) Alcohol abuse: PLAN: Patient is a 65-year-old male admitted with acute alcohol intoxication at significant risk for withdrawal 1. Acute alcohol dependence with significant risk for withdrawal ?Initially admitted to regular nursing floor currently undergoing medical stabilization with phenobarb taper -Patient went into full-blown DTs and given Ativan IV intermittent could not control the symptoms therefore started on Precedex drip in ICU. Symptoms is controlled and Precedex drip is off. Patient is transferred to regular MedSurg floor. On phenobarbital. Calender Operator Helper consult reviewed. 2. Essential hypertension ?Patient blood pressure not well controlled adjusted doses of his home meds 3. BPH ?Patient is on alfuzosin this was apparently held on admission started on tamsulosin 4. Low testosterone state ?Patient is on anastrozole and testosterone cypionate at home 5. DVT prophylaxis: On heparin 5000 subcutaneous twice daily 6. Hypokalemia: Serum potassium is corrected. Charges/Coding Visit Charges Inpatient E&M: 59365 Subs Hosp L3
--- NOTE | 2021-06-02 13:02 | ADDICTION ---
This senior underwriter met with PT to conduct ASAM, MSE, AUDIT assessments and to plan for d/c. PT A+Ox4 and participated actively. All assessments completed, faxed to [facility] and placed in PT's chart. PT plans to f/u with a residential addiction recovery center. This worker has been unable to locate placement and is currently actively looking. This wirker will update when more information is acquired.
[2021-06-02] MEDS: 0.9% Saline Lock 10 ML Syringe IV (16:34)
[2021-06-02] MEDS: Tamsulosin HCl 0.4 MG Capsule 0.8 MG PO (17:46)
[2021-06-02] MEDS: Glycerin/Hypromellose/PEG400 15 ml Bottle 2 DRP EACH EYE (21:24)
[2021-06-02] MEDS: LORazepam 1 MG Tablet 2 MG PO (21:24)
[2021-06-02] MEDS: traZODone 100 MG Tablet PO (21:24)
[2021-06-03] VITALS (9 sets, daily range): BP systolic 142–187; BP diastolic 95–118; PULSE 86–110; RESP 18–20; TEMP 36.4–36.9; O2SAT 94–98
[2021-06-03] MEDS: Dextrose 5%-Lactated Ringers 1,000 ML 125 ML IV ×2 (00:17→06:17)
[2021-06-03] MEDS: Gabapentin 300 MG Capsule PO ×2 (00:17→22:53)
[2021-06-03] MEDS: Phenobarbital 32.4 MG Tablet PO ×5 (00:17→22:53)
[2021-06-03] MEDS: LORazepam 1 MG Tablet 2 MG PO ×3 (06:17→16:16)
[2021-06-03] MEDS: Glycerin/Hypromellose/PEG400 15 ml Bottle 2 DRP EACH EYE (06:19)
--- NOTE | 2021-06-03 06:47 | PN.CC_ITS ---
Assessment & Plan Assessment/Plan (1) Alcohol withdrawal: QUALIFIERS: Complication of substance-induced condition: with delirium Qualified Code(s): F10.231 - Alcohol dependence with withdrawal delirium PLAN: RECOMMENDATIONS: 1. Continue phenobarbital taper and as needed Ativan. 2. Okay to discontinue supplemental IV fluids. 3. Continue thiamine and folate repletion. 4. Encourage incentive spirometer use and mobilize patient as tolerated. 5. Will sign off from a pulmonary/critical care perspective. Please call with any additional questions. IMPRESSIONS: 1. Acute alcohol withdrawal Although the patient was initially transferred to the ICU to be placed on a Precedex infusion for symptom relief of alcohol withdrawal, he was able to be we aned off of the aforementioned infusion and appears to be symptomatically controlled. Therefore, I would recommend that his phenobarbital taper be continued. He will be continued on as needed Ativan as well. Continue thiamine and folate. 2. Acute kidney injury Resolved. Most likely prerenal in etiology. Creatinine has normalized with volume expansion. 3. Hypertension/BPH/GERD Complicates care, management, recovery and prognosis. Continue home medications as indicated. This note was generated with [employer] dictation software. It may contain incorrect words, spelling, and punctuation that were not noted in checking the note before signing. Subjective Subjective The patient was seen and examined at the bedside this morning. Events from the last 24 hours have been reviewed. The patient is currently afebrile, hemodynamically stable and maintaining appropriate oxygen saturations on room air. The patient was documented to have a CIWA score this morning of 10. He was able to be weaned off of his Precedex infusion yesterday and restarted on a phenobarbital taper for symptom control of alcohol withdrawal. He is currently documented to be overall net +4 L for the hospital admission. Creatinine has normalized in light of fluid administration. Objective Data Objective Data The patient's most recent lab work, culture data and imaging studies have all been personally reviewed. Vital Signs: Vital Signs Temp Pulse Resp BP Pulse Ox 98.2 F 86 18 168/97 H 96 06/03/21 06:13 06/03/21 06:13 06/03/21 06:13 06/03/21 06:13 06/03/21 06:13 Oxygen Delivery Method Room Air Weight: 84.1 kg Body Mass Index (BMI) 29.7 Intake & Output: Intake and Output for Last 24 Hours 06/01/21 06/02/21 06/03/21 23:59 23:59 23:59 Intake Total 719.72 / 735.22 2337.06 / 2337.06 1965.67 / 1965. Output Total 500 / 500 400 / 400 300 / 300 Balance 219.72 / 235.22 1937.06 / 1937.06 1666.67 / 1666.67 Lab / Micro Data Attestation: I reviewed the patient's lab results. Result Diagrams: 06/02/21 04:20 06/03/21 08:15 Micro: Microbiology 05/30/21 12:55 Mucosa - Nose SARS-CoV-2 Antigen (Rapid) - Final Physical Exam Const alert and no apparent distress General Appearance: cooperative HEENT normocephalic and head/scalp atraumatic Eyes PERRL and EOMs intact bilaterally Neck supple General: trachea midline Resp normal respiratory effort Auscultation: Negative for rales, rhonchi or wheezes Cardio regular rate and regular rhythm GI normal to inspection, nondistended, normoactive bowel sounds Extremity no clubbing, cyanosis or edema Skin no rashes or lesions noted Neuro no focal motor deficits Neuro Narrative: A bit tremulous. Psych Mood & Affect: anxious Charges/Coding Visit Charges Inpatient E&M: 74877 Subs Hosp L2
[2021-06-03 08:52] LABS: Anion Gap 7 (5-15); BUN 20 mg/dL (7-18); BUN/Creat Ratio 20.2 RATIO (10-20); Calcium,Total 8.7 mg/dL (8.5-10.1); Chloride 101 mmol/L (98-107); Creatinine, Serum 0.99 mg/dL (0.70-1.30); EST Glomerular Filtration Rate 81 mL/min (>60); Est Glom Filt Rate - Afr Amer 97 mL/min (>60); Estimated Creatinine Clearance 71.97 ml/min; Glucose 116 mg/dL (74-106); Potassium 3.5 mmol/L (3.5-5.1); Sodium Level 135 mmol/L (136-145)
[2021-06-03] MEDS: Aspirin E.C. 81 MG Tablet PO (09:54)
[2021-06-03] MEDS: Thiamine Hydrochloride 100 MG Tablet PO (09:54)
[2021-06-03] MEDS: Cholecalciferol (VIT D3) 25 MCG TABLET (1,000 UNITS) 125 MCG PO (09:55)
[2021-06-03] MEDS: Folic Acid 1 MG Tablet PO (09:55)
[2021-06-03] MEDS: Pantoprazole Sodium 20 MG Tablet PO (09:55)
[2021-06-03] MEDS: Heparin Injection (Vial) 5,000 UNIT/ML VIAL 5000 UNIT SC ×2 (09:55→22:53)
[2021-06-03] MEDS: amLODIPine 5 MG Tablet PO (09:55)
[2021-06-03] MEDS: Cyanocobalamin 500 MCG Tablet 1000 MCG PO (09:56)
--- NOTE | 2021-06-03 14:32 | PN.HOSP_ITS ---
Subjective Subjective Patient is still shaking. Answers question but delayed reaction. Patient states he has chronic cough. Nurse notified he fell down. As per nursing staff, he did not hit his head but fell on his buttock witnessed by the nursing informatics specialist. Objective Data Objective Data Vital Signs: Vital Signs Temp Pulse Resp BP Pulse Ox 98.0 F 99 18 149/99 H 94 06/03/21 12:54 06/03/21 12:54 06/03/21 12:54 06/03/21 12:54 06/03/21 12:54 Oxygen Delivery Method Room Air Weight: 185 lb 6.54 oz Body Mass Index (BMI) 29.7 Intake & Output: Intake and Output for Last 24 Hours 06/01/21 06/02/21 06/03/21 23:59 23:59 23:59 Intake Total 719.72 / 735.22 2337.06 / 2337.06 2566.67 / 2566.67 Output Total 500 / 500 400 / 400 300 / 300 Balance 219.72 / 235.22 1937.06 / 1937.06 2266.67 / 2266.67 Lab / Micro Data Result Diagrams: 06/02/21 04:20 06/03/21 08:15 Labs: Laboratory Results - last 24 hr 06/03/21 08:15: Sodium 135 L, Potassium 3.5, Chloride 101, Carbon Dioxide 27.0, Anion Gap 7, BUN 20 H, Creatinine 0.99, Estim Creat Clear Calc 71.97, Est GFR (MDRD) Af Amer 97, Est GFR (MDRD) Non-Af 81, BUN/Creatinine Ratio 20.2 H, Glucose 116 H, Calcium 8.7 Micro: Microbiology 05/30/21 12:55 Mucosa - Nose SARS-CoV-2 Antigen (Rapid) - Final Physical Exam Narrative General: Awake. Disoriented to time. Tremors and shakings. Mild cough. HEENT: Atraumatic, PERRLA, EOMI, Normocephalic Oral: No Gingival or Mucosal Lesions/ Ulcerations Neck: Supple, No JVD, Negative Carotid Bruits Lungs: Air entry diminished in bilateral lung bases. No crepitation/rhonchi Cardiovascular: Regular rate, Regular Rhythm, Normal S1, Normal S2, No murmurs Abdomen: Bowel Sounds Present, Soft, Non Tender, Non-Distended : No renal angle tenderness. No suprapubic tenderness. Extremities: No edema, Capillary Refill Less than 3 Seconds Skin: No rashes, No breakdown Musculoskeletal: No Tenderness to Palpation of Joints or Extremities Neurological: Cranial nerves II-XII grossly intact, slow to respond. Psych/Mental Status: Anxious, restless. Assessment & Plan Assessment/Plan (1) Alcohol withdrawal: QUALIFIERS: Complication of substance-induced condition: with delirium Qualified Code(s): F10.231 - Alcohol dependence with withdrawal delirium (2) Alcohol abuse: PLAN: Patient is a 65-year-old male admitted with acute alcohol intoxication at significant risk for withdrawal 1. Acute alcohol dependence with significant risk for withdrawal ?Initially admitted to regular nursing floor currently undergoing medical stabilization with phenobarb taper -Patient went into full-blown DTs and given Ativan IV intermittent could not control the symptoms therefore started on Precedex drip in ICU. Symptoms is controlled and Precedex drip is off. Patient is transferred to regular MedSurg floor. On phenobarbital. Cosmetic Sales Consultant consult reviewed. 06/03: Mild cough witnessed during eating. Patient states his chronic cough. Seen by speech therapist and requested supervised feeding with a small bites with water. Patient also fell down witnessed by nursing informatics specialist. Did not hit her head. Mild lethargic. 2. Essential hypertension ?Patient blood pressure not well controlled adjusted doses of his home meds 3. BPH ?Patient is on alfuzosin this was apparently held on admission started on tamsulosin 4. Low testosterone state ?Patient is on anastrozole and testosterone cypionate at home 5. DVT prophylaxis: On heparin 5000 subcutaneous twice daily 6. Hypokalemia: Serum potassium is corrected. Charges/Coding Visit Charges Inpatient E&M: 50324 Subs Hosp L2
[2021-06-03] MEDS: Tamsulosin HCl 0.4 MG Capsule 0.8 MG PO (18:36)
[2021-06-03] MEDS: 0.9% Saline Lock 10 ML Syringe IV (20:12)
[2021-06-03] MEDS: LORazepam 2 MG/ML Syringe IV (20:12)
[2021-06-03] MEDS: traZODone 100 MG Tablet PO (22:53)
[2021-06-04] VITALS (8 sets, daily range): BP systolic 132–187; BP diastolic 82–118; PULSE 86–109; RESP 16–18; TEMP 36.6–37.9; O2SAT 93–98
[2021-06-04] MEDS: Glycerin/Hypromellose/PEG400 15 ml Bottle 2 DRP EACH EYE ×4 (00:18→15:21)
[2021-06-04] MEDS: hydrALAZINE 20 MG/ML Vial 10 MG IV ×2 (00:18→05:51)
[2021-06-04] MEDS: 0.9% Saline Lock 10 ML Syringe IV (05:51)
[2021-06-04] MEDS: Acetaminophen 325 MG Tablet 650 MG PO (05:51)
[2021-06-04] MEDS: Phenobarbital 32.4 MG Tablet PO ×3 (05:51→18:20)
[2021-06-04] MEDS: LORazepam 1 MG Tablet 2 MG PO (10:05)
[2021-06-04] MEDS: Heparin Injection (Vial) 5,000 UNIT/ML VIAL 5000 UNIT SC ×2 (10:06→22:34)
[2021-06-04] MEDS: Aspirin E.C. 81 MG Tablet PO (10:06)
[2021-06-04] MEDS: Folic Acid 1 MG Tablet PO (10:06)
[2021-06-04] MEDS: Pantoprazole Sodium 20 MG Tablet PO (10:06)
[2021-06-04] MEDS: Thiamine Hydrochloride 100 MG Tablet PO (10:06)
[2021-06-04] MEDS: Cyanocobalamin 500 MCG Tablet 1000 MCG PO (10:06)
[2021-06-04] MEDS: amLODIPine 5 MG Tablet PO (10:06)
[2021-06-04] MEDS: Cholecalciferol (VIT D3) 25 MCG TABLET (1,000 UNITS) 125 MCG PO (10:06)
--- NOTE | 2021-06-04 12:58 | PN.HOSP_ITS ---
Subjective Subjective Seen and examined Overall patient looks better. Patient is still has intermittent confusion and disorientation but gradually getting better. Objective Data Objective Data Vital Signs: Vital Signs Temp Pulse Resp BP Pulse Ox 98.4 F 109 H 16 132/82 H 98 06/04/21 10:15 06/04/21 10:15 06/04/21 10:15 06/04/21 10:15 06/04/21 10:15 Oxygen Delivery Method Room Air Weight: 194 lb 14.218 oz Body Mass Index (BMI) 29.7 Intake & Output: Intake and Output for Last 24 Hours 06/02/21 06/03/21 06/04/21 23:59 23:59 23:59 Intake Total 2337.06 / 2337.06 3916.67 / 3916.67 730 / 730 Output Total 400 / 400 500 / 500 300 / 300 Balance 1937.06 / 1937.06 3416.67 / 3416.67 430 / 430 Lab / Micro Data Result Diagrams: 06/02/21 04:20 06/03/21 08:15 Micro: Microbiology 05/30/21 12:55 Mucosa - Nose SARS-CoV-2 Antigen (Rapid) - Final Physical Exam Narrative Seen and examined General: Awake. Disoriented to time. Mild tremors HEENT: Atraumatic, PERRLA, EOMI, Normocephalic Oral: No Gingival or Mucosal Lesions/ Ulcerations Neck: Supple, No JVD, Negative Carotid Bruits Lungs: Air entry diminished in bilateral lung bases. No crepitation/rhonchi Cardiovascular: Regular rate, Regular Rhythm, Normal S1, Normal S2, No murmurs Abdomen: Bowel Sounds Present, Soft, Non Tender, Non-Distended : No renal angle tenderness. No suprapubic tenderness. Extremities: No edema, Capillary Refill Less than 3 Seconds Skin: Mild chronic, scabbed bruise over knee Musculoskeletal: No Tenderness to Palpation of Joints or Extremities Neurological: Cranial nerves II-XII grossly intact, slow to respond. Psych/Mental Status: Anxious, restless. Assessment & Plan Assessment/Plan (1) Alcohol withdrawal: QUALIFIERS: Complication of substance-induced condition: with delirium Qualified Code(s): F10.231 - Alcohol dependence with withdrawal delirium (2) Alcohol abuse: PLAN: Patient is a 65-year-old male admitted with acute alcohol intoxication at significant risk for withdrawal 1. Acute alcohol dependence with significant risk for withdrawal ?Initially admitted to regular nursing floor currently undergoing medical stabilization with phenobarb taper -Patient went into full-blown DTs and given Ativan IV intermittent could not control the symptoms therefore started on Precedex drip in ICU. Symptoms is controlled and Precedex drip is off. Patient is transferred to regular MedSurg floor. On phenobarbital. Platinumsmith consult reviewed. 06/03: Mild cough witnessed during eating. Patient states his chronic cough. Seen by speech therapist and requested supervised feeding with a small bites with water. Patient also fell down witnessed by nursing staffing coordinator. Did not hit her head. Mild lethargic. 06/04: Being evaluated by speech therapist and recommended supervised feeding as mentioned above. Discussed with the pharmacy to continue phenobarb until Sunday as patient might need inpatient drug rehab. 2. Essential hypertension ?Patient blood pressure not well controlled adjusted doses of his home meds 3. BPH ?Patient is on alfuzosin this was apparently held on admission started on tamsulosin 4. Low testosterone state ?Patient is on anastrozole and testosterone cypionate at home 5. DVT prophylaxis: On heparin 5000 subcutaneous twice daily 6. Hypokalemia: Serum potassium is corrected. Labs ordered Charges/Coding Visit Charges Inpatient E&M: 17557 Subs Hosp L2
[2021-06-04] MEDS: Potassium Chloride Oral Tablet 20 MEQ 40 MEQ PO (15:21)
[2021-06-04] MEDS: Magnesium Chloride 64 MG Delay Rel.Tablet 128 MG PO ×2 (15:21→22:34)
[2021-06-04] MEDS: Tamsulosin HCl 0.4 MG Capsule 0.8 MG PO (18:20)
[2021-06-05] MEDS: Phenobarbital 32.4 MG Tablet PO ×4 (00:38→17:30)
[2021-06-05 04:30] VITALS: BP 176/103; PULSE 76; RESP 16; TEMP 37.1; O2SAT 98
[2021-06-05 04:37] VITALS: BP 176/103; PULSE 76
[2021-06-05] MEDS: hydrALAZINE 20 MG/ML Vial 10 MG IV (04:37)
[2021-06-05] MEDS: 0.9% Saline Lock 10 ML Syringe IV (04:38)
[2021-06-05 05:43] LABS: Magnesium 1.6 mg/dL (1.6-2.6); Phosphorus 3.7 mg/dL (2.5-4.9)
[2021-06-05 06:44] VITALS: BP 149/93
[2021-06-05 08:41] VITALS: BP 131/96; PULSE 110; RESP 18; TEMP 37; O2SAT 98
[2021-06-05] MEDS: Acetaminophen 325 MG Tablet 650 MG PO (08:45)
[2021-06-05] MEDS: Potassium Chloride Oral Tablet 20 MEQ 40 MEQ PO (08:46)
[2021-06-05] MEDS: Folic Acid 1 MG Tablet PO (08:46)
[2021-06-05] MEDS: Aspirin E.C. 81 MG Tablet PO (10:57)
[2021-06-05] MEDS: Cyanocobalamin 500 MCG Tablet 1000 MCG PO (10:57)
[2021-06-05] MEDS: amLODIPine 5 MG Tablet PO (10:57)
[2021-06-05] MEDS: Pantoprazole Sodium 20 MG Tablet PO (10:57)
[2021-06-05] MEDS: Thiamine Hydrochloride 100 MG Tablet PO (10:57)
[2021-06-05] MEDS: Heparin Injection (Vial) 5,000 UNIT/ML VIAL 5000 UNIT SC ×2 (10:57→21:20)
[2021-06-05] MEDS: Cholecalciferol (VIT D3) 25 MCG TABLET (1,000 UNITS) 125 MCG PO (10:57)
[2021-06-05] MEDS: Magnesium Chloride 64 MG Delay Rel.Tablet 128 MG PO ×2 (10:57→21:18)
--- NOTE | 2021-06-05 12:45 | PN.HOSP_ITS ---
Subjective Subjective Patient is less likely and more oriented. Patient still needs 2 people assist delayed SNF. Objective Data Objective Data Vital Signs: Vital Signs Temp Pulse Resp BP Pulse Ox 98.6 F 110 H 18 131/96 H 98 06/05/21 08:41 06/05/21 08:41 06/05/21 08:41 06/05/21 08:41 06/05/21 08:41 Oxygen Delivery Method Room Air Weight: 187 lb Body Mass Index (BMI) 29.7 Intake & Output: Intake and Output for Last 24 Hours 06/03/21 06/04/21 06/05/21 23:59 23:59 23:59 Intake Total 3916.67 / 3916.67 1030 / 1030 500 / 500 Output Total 500 / 500 300 / 300 100 / 100 Balance 3416.67 / 3416.67 730 / 730 400 / 400 Lab / Micro Data Result Diagrams: 06/02/21 04:20 06/03/21 08:15 Labs: Laboratory Results - last 24 hr 06/05/21 05:09: Phosphorus 3.7, Magnesium 1.6 Micro: Microbiology 05/30/21 12:55 Mucosa - Nose SARS-CoV-2 Antigen (Rapid) - Final Physical Exam Narrative Seen and examined General: Awake. Oriented to time and place and person. Mild tremors HEENT: Atraumatic, PERRLA, EOMI, Normocephalic Oral: No Gingival or Mucosal Lesions/ Ulcerations Neck: Supple, No JVD, Negative Carotid Bruits Lungs: Air entry diminished in bilateral lung bases. No crepitation/rhonchi Cardiovascular: Regular rate, Regular Rhythm, Normal S1, Normal S2, No murmurs Abdomen: Bowel Sounds Present, Soft, Non Tender, Non-Distended : No renal angle tenderness. No suprapubic tenderness. Extremities: No edema, Capillary Refill Less than 3 Seconds Skin: Mild chronic, scabbed bruise over knee Musculoskeletal: Weakness of both lower extremity muscles at major joints. No Tenderness to Palpation of Joints or Extremities Neurological: Cranial nerves II-XII grossly intact, slow to respond. Ataxic gait. Psych/Mental Status: Anxious, restlessness is controlled. Assessment & Plan Assessment/Plan (1) Alcohol withdrawal: QUALIFIERS: Complication of substance-induced condition: with delirium Qualified Code(s): F10.231 - Alcohol dependence with withdrawal delirium (2) Alcohol abuse: PLAN: Patient is a 65-year-old male admitted with acute alcohol intoxication at significant risk for withdrawal 1. Acute alcohol dependence with significant risk for withdrawal ?Initially admitted to regular nursing floor currently undergoing medical stabilization with phenobarb taper -Patient went into full-blown DTs and given Ativan IV intermittent could not control the symptoms therefore started on Precedex drip in ICU. Symptoms is controlled and Precedex drip is off. Patient is transferred to regular MedSurg floor. On phenobarbital. Supervisor Scouring Pads consult reviewed. 06/03: Mild cough witnessed during eating. Patient states his chronic cough. Seen by speech therapist and requested supervised feeding with a small bites with water. Patient also fell down witnessed by director of emergency nursing. Did not hit her head. Mild lethargic. 06/04: Being evaluated by speech therapist and recommended supervised feeding as mentioned above. Discussed with the pharmacy to continue phenobarb until Sunday as patient might need inpatient drug rehab. 06/05: He needs 2 people assist. Needs medical case worker help for SNF discharge or alcohol inpatient rehab 2. Essential hypertension ?Patient blood pressure not well controlled adjusted doses of his home meds 3. BPH ?Patient is on alfuzosin this was apparently held on admission started on tamsu losin 4. Low testosterone state ?Patient is on anastrozole and testosterone cypionate at home 5. DVT prophylaxis: On heparin 5000 subcutaneous twice daily 6. Hypokalemia: Serum potassium is corrected. Labs ordered Charges/Coding Visit Charges Inpatient E&M: 74615 Subs Hosp L2
[2021-06-05] MEDS: Glycerin/Hypromellose/PEG400 15 ml Bottle 2 DRP EACH EYE ×3 (13:07→21:18)
[2021-06-05 15:45] VITALS: BP 164/98; PULSE 83; RESP 18; TEMP 36.9; O2SAT 98
[2021-06-05] MEDS: Tamsulosin HCl 0.4 MG Capsule 0.8 MG PO (17:30)
[2021-06-05 21:28] VITALS: BP 152/124; PULSE 82; RESP 16; TEMP 37.1; O2SAT 99
[2021-06-06] MEDS: Phenobarbital 32.4 MG Tablet PO ×4 (00:24→17:34)
[2021-06-06 04:28] VITALS: BP 140/100; PULSE 81; RESP 16; TEMP 37.2; O2SAT 97
[2021-06-06] MEDS: Acetaminophen 325 MG Tablet 650 MG PO ×2 (05:51→19:22)
[2021-06-06] MEDS: Glycerin/Hypromellose/PEG400 15 ml Bottle 2 DRP EACH EYE ×2 (05:52→19:22)
[2021-06-06 07:34] LABS: Anion Gap 6 (5-15); BUN 8 mg/dL (7-18); BUN/Creat Ratio 9.6 RATIO (10-20); Calcium,Total 8.8 mg/dL (8.5-10.1); Chloride 102 mmol/L (98-107); Creatinine, Serum 0.83 mg/dL (0.70-1.30); EST Glomerular Filtration Rate 99 mL/min (>60); Est Glom Filt Rate - Afr Amer 119 mL/min (>60); Estimated Creatinine Clearance 85.84 ml/min; Glucose 100 mg/dL (74-106); Magnesium 1.7 mg/dL (1.6-2.6); Phosphorus 3.2 mg/dL (2.5-4.9); Potassium 3.5 mmol/L (3.5-5.1); Sodium Level 135 mmol/L (136-145)
--- NOTE | 2021-06-06 08:22 | PN.HOSP_ITS ---
Subjective Subjective Patient was seen and examined. Denied any new complaint. He said 1-2 person assist. Denied any pain or dizziness. Objective Data Objective Data Vital Signs: Vital Signs Temp Pulse Resp BP Pulse Ox 99.0 F 81 16 140/100 H 97 06/06/21 04:28 06/06/21 04:28 06/06/21 04:28 06/06/21 04:28 06/06/21 04:28 Oxygen Delivery Method Room Air Weight: 84.1 kg Body Mass Index (BMI) 29.7 Intake & Output: Intake and Output for Last 24 Hours 06/04/21 06/05/21 06/06/21 23:59 23:59 23:59 Intake Total 1030 / 1030 900 / 900 Output Total 300 / 300 100 / 100 400 / 400 Balance 730 / 730 800 / 800 -400 / -400 Lab / Micro Data Result Diagrams: 06/02/21 04:20 06/06/21 05:50 Labs: Laboratory Results - last 24 hr 06/06/21 05:50: Sodium 135 L, Potassium 3.5, Chloride 102, Carbon Dioxide 27.0, Anion Gap 6, BUN 8, Creatinine 0.83, Estim Creat Clear Calc 85.84, Est GFR (MDRD) Af Amer 119, Est GFR (MDRD) Non-Af 99, BUN/Creatinine Ratio 9.6 L, Glucose 100, Calcium 8.8, Phosphorus 3.2, Magnesium 1.7 Micro: Microbiology 05/30/21 12:55 Mucosa - Nose SARS-CoV-2 Antigen (Rapid) - Final Physical Exam Narrative Physical exam: General: Alert, Oriented x3, Cooperative, No apparent distress, Well developed HEENT: Atraumatic Oral: Moist Mucosa Neck: Supple Lungs: Clear to auscultation Cardiovascular: HS I+II, regular, no murmurs Abdomen: Bowel Sounds Present, Soft, Non Tender Extremities: No edema, weakness in lower extremities Assessment & Plan Assessment/Plan (1) Alcohol withdrawal: QUALIFIERS: Complication of substance-induced condition: with delirium Qualified Code(s): F10.231 - Alcohol dependence with withdrawal delirium (2) Hypertension: QUALIFIERS: Hypertension type: primary hypertension Qualified Code(s): I10 - Essential (primary) hypertension (3) Benign prostatic hyperplasia: QUALIFIERS: Lower urinary tract symptom presence: symptoms absent Qualified Code(s): N40.0 - Benign prostatic hyperplasia without lower urinary tract symptoms (4) Chronic alcohol dependence, continuous: (5) Hypokalemia: (6) Hypomagnesemia: PLAN: 1. Acute severe alcohol withdrawal in a patient with chronic alcohol dependence, complicated by DTs requiring ICU stay and Precedex, improving, Patient is on the withdrawal protocol, continue to monitor on the CIWA protocol 2. Debility, acute on chronic, patient is a two-person assist Patient saw Dr. Valenzuela, neurologist on 05/26/21 and he extubated sensory loss in the right foot, slow ataxic wide-based gait. This was believed to be secondary to alcohol use. PT/OT consulted, discharge planning to intermediate facility for ongoing. Needs to follow-up with neurology in the outpatient -we will check vitamin B12, folate, TSH, thiamine levels 3. Dysphagia, noticed on 06/03, speech therapy consulted, and supervised feeding with small bites with water 4. Hypokalemia/hypomagnesemia, replaced, recheck in a.m. 5. Hypertension, remains fairly uncontrolled, will increase amlodipine to 10 mg p.o. daily 6. Rest of chronic medical conditions including BPH, low testosterone state, remained stable On home meds reviewed Charges/Coding Visit Charges Inpatient E&M: 73654 Subs Hosp L2
[2021-06-06] MEDS: Cholecalciferol (VIT D3) 25 MCG TABLET (1,000 UNITS) 125 MCG PO (09:58)
[2021-06-06] MEDS: Aspirin E.C. 81 MG Tablet PO (09:58)
[2021-06-06] MEDS: Pantoprazole Sodium 20 MG Tablet PO (09:59)
[2021-06-06] MEDS: Potassium Chloride Oral Tablet 20 MEQ 40 MEQ PO (10:00)
[2021-06-06] MEDS: Folic Acid 1 MG Tablet PO (10:00)
[2021-06-06] MEDS: Cyanocobalamin 500 MCG Tablet 1000 MCG PO (10:01)
[2021-06-06] MEDS: Thiamine Hydrochloride 100 MG Tablet PO (10:02)
[2021-06-06] MEDS: Heparin Injection (Vial) 5,000 UNIT/ML VIAL 5000 UNIT SC ×2 (10:03→20:11)
[2021-06-06 10:06] LABS: Thyroid Stim Hormone (TSH) 3.14 uIU/mL (0.358-3.74)
--- NOTE | 2021-06-06 10:13 | CASEMGMT ---
Social Work Note TANGELA placed a call to Dana with TCU (per handoff communication, pt and pt's was wanting to go to TCU). Dana states no beds in TCU. SW in to speak with pt. SW introduced self and role at [facility]. Pt is alert and orientated x3. SW spoke with pt about how pt is still assist of two with therapy, recommendation is for pt to admit to SNF for short term rehabilitation then discharge home, inpatient treatment, etc. Pt confirms this is the plan. SW updated pt that TCU has no beds available at this time. Patient was provided a list of SNF providers including quality and resource use data and consistent with the patient?s preferred geographic region, medical needs, and insurance network. Pt states he prefers to stay in [place], preference is [facility]. SW explained referral process and that pt will need pre-cert. SW asked pt if this worker could call his to update and pt gave permission to do so. TANGELA placed a call to Yareli at [facility] and provided referral. SW faxed referral. TANGELA placed a call to pt's Vidhi and updated her that TCU has no beds, pt agreeable to referral being sent to [place]. SW explained SNF process. Vidhi states understanding. Plan: SNF pending acceptance and pre-cert Pamella Brennan AUDIO PRODUCTION ENGINEER, WOOD TURNER
[2021-06-06 10:28] VITALS: BP 166/103; PULSE 92; RESP 20; TEMP 37.2; O2SAT 97
[2021-06-06] MEDS: amLODIPine 10 MG Tablet PO (10:39)
[2021-06-06 10:46] LABS: Vitamin B12 1883 pg/mL (211-911)
--- NOTE | 2021-06-06 12:18 | NURSING ---
This nurse clarified medication Kdur and Mg with Dr. Jamison. There was an order for scheduled Kdur 40mcq and 40mcq kdur x1. Dr. Jones only wants the one time dose give so a total of 40mcq of KDUR to be given this morning.
[2021-06-06 12:30] VITALS: BP 154/97; PULSE 110
[2021-06-06 16:30] VITALS: BP 166/99; PULSE 10; PULSE 84; RESP 18; TEMP 37.4; O2SAT 98
[2021-06-06] MEDS: 0.9% Saline Lock 10 ML Syringe IV (16:30)
[2021-06-06] MEDS: hydrALAZINE 20 MG/ML Vial 10 MG IV (16:30)
--- NOTE | 2021-06-06 17:12 | CASEMGMT ---
Social Work Note SW received call from Yareli at [facility] stating [facility] is able to accept pt and will submit for pre-cert. TANGELA placed a call to pt's Vidhi and updated her acceptance to [facility] pending pre-cert. Vidhi states understanding. Plan: [facility] pending pre-cert Pamella Brennan METER SHOP SUPERINTENDENT, SADDLE STITCHING MACHINE OPERATOR
[2021-06-06] MEDS: Tamsulosin HCl 0.4 MG Capsule 0.8 MG PO (17:34)
[2021-06-06 20:17] VITALS: BP 156/96; PULSE 74; RESP 18; TEMP 36.9; O2SAT 98
[2021-06-07 02:39] VITALS: BP 146/89; PULSE 68; RESP 18; TEMP 37.1; O2SAT 98
[2021-06-07] MEDS: Phenobarbital 32.4 MG Tablet PO ×4 (05:53→17:52)
[2021-06-07 05:59] LABS: ALB/GLOB Ratio 0.7 RATIO (0.9-2.4); AST(SGOT) 40 U/L (15-37); Alanine Aminotransfer ALT/SGPT 44 U/L (16-61); Alkaline Phosphatase 71 U/L (45-117); Anion Gap 6 (5-15); BUN 9 mg/dL (7-18); Calcium,Total 8.9 mg/dL (8.5-10.1); Chloride 102 mmol/L (98-107); Creatinine, Serum 0.82 mg/dL (0.70-1.30); EST Glomerular Filtration Rate 100 mL/min (>60); Est Glom Filt Rate - Afr Amer 121 mL/min (>60); Estimated Creatinine Clearance 86.89 ml/min; Globulin 4.3 g/dL (2.2-4.2); Glucose 92 mg/dL (74-106); Magnesium 1.9 mg/dL (1.6-2.6); Potassium 3.6 mmol/L (3.5-5.1); Protein, Total 7.3 g/dL (6.4-8.2); Sodium Level 135 mmol/L (136-145)
[2021-06-07 08:08] VITALS: BP 155/89; PULSE 74; RESP 18; TEMP 37.2; O2SAT 98
[2021-06-07] MEDS: Acetaminophen 325 MG Tablet 650 MG PO (08:16)
[2021-06-07] MEDS: Folic Acid 1 MG Tablet PO (08:16)
[2021-06-07] MEDS: Magnesium Sulfate 1 GM in 0.9% Normal Saline 100 ML IV (09:40)
[2021-06-07] MEDS: Magnesium Chloride 64 MG Delay Rel.Tablet 128 MG PO (09:41)
[2021-06-07] MEDS: 0.9% Saline Lock 10 ML Syringe IV ×2 (09:41→11:51)
[2021-06-07] MEDS: Cyanocobalamin 500 MCG Tablet 1000 MCG PO (09:41)
[2021-06-07] MEDS: Pantoprazole Sodium 20 MG Tablet PO (09:41)
[2021-06-07] MEDS: Heparin Injection (Vial) 5,000 UNIT/ML VIAL 5000 UNIT SC ×2 (09:41→21:53)
[2021-06-07] MEDS: Cholecalciferol (VIT D3) 25 MCG TABLET (1,000 UNITS) 125 MCG PO (09:41)
[2021-06-07] MEDS: amLODIPine 10 MG Tablet PO (09:41)
[2021-06-07] MEDS: Aspirin E.C. 81 MG Tablet PO (09:41)
[2021-06-07] MEDS: Thiamine Hydrochloride 100 MG Tablet PO (09:41)
--- NOTE | 2021-06-07 09:44 | PN.HOSP_ITS ---
Subjective Subjective Patient was seen and examined. No acute events overnight. He is still a little shaky. Waiting on insurance precertification for discharge Objective Data Objective Data Vital Signs: Vital Signs Temp Pulse Resp BP Pulse Ox 99.0 F 74 18 155/89 H 98 06/07/21 08:08 06/07/21 08:08 06/07/21 08:08 06/07/21 08:08 06/07/21 08:08 Oxygen Delivery Method Room Air Weight: 85 kg Body Mass Index (BMI) 29.7 Intake & Output: Intake and Output for Last 24 Hours 06/05/21 06/06/21 06/07/21 23:59 23:59 23:59 Intake Total 900 / 900 474 / 474 Output Total 100 / 100 400 / 400 Balance 800 / 800 74 / 74 Lab / Micro Data Result Diagrams: 06/02/21 04:20 06/07/21 04:50 Labs: Laboratory Results - last 24 hr 06/06/21 06:30: Folate 33.70, TSH 3.14 06/06/21 09:45: Vitamin B12 1883 H 06/07/21 04:50: Sodium 135 L, Potassium 3.6, Chloride 102, Carbon Dioxide 27.0, Anion Gap 6, BUN 9, Creatinine 0.82, Estim Creat Clear Calc 86.89, Est GFR (M DRD) Af Amer 121, Est GFR (MDRD) Non-Af 100, BUN/Creatinine Ratio 11.0, Glucose 92, Calcium 8.9, Magnesium 1.9, Total Bilirubin 0.50, AST 40 H, ALT 44, Alkaline Phosphatase 71, Total Protein 7.3, Albumin 3.0 L, Globulin 4.3 H, Albumin/Globulin Ratio 0.7 L Micro: Microbiology 05/30/21 12:55 Mucosa - Nose SARS-CoV-2 Antigen (Rapid) - Final Physical Exam Narrative Physical exam: General: Alert, Oriented x3, Cooperative, No apparent distress, Well developed, slightly tremulous HEENT: Atraumatic Oral: Moist Mucosa Neck: Supple Lungs: Clear to auscultation Cardiovascular: HS I+II, regular, no murmurs Abdomen: Bowel Sounds Present, Soft, Non Tender Extremities: No edema, weakness in lower extremities Assessment & Plan Assessment/Plan (1) Alcohol withdrawal: QUALIFIERS: Complication of substance-induced condition: with delirium Qualified Code(s): F10.231 - Alcohol dependence with withdrawal delirium (2) Hypertension: QUALIFIERS: Hypertension type: primary hypertension Qualified Code(s): I10 - Essential (primary) hypertension (3) Benign prostatic hyperplasia: QUALIFIERS: Lower urinary tract symptom presence: symptoms absent Qualified Code(s): N40.0 - Benign prostatic hyperplasia without lower urinary tract symptoms (4) Chronic alcohol dependence, continuous: (5) Hypokalemia: (6) Hypomagnesemia: PLAN: 1. Acute severe alcohol withdrawal in a patient with chronic alcohol dependence, complicated by DTs requiring ICU stay and Precedex, improving, continue on the alcohol withdrawal protocol 2. Debility, acute on chronic, patient is a two-person assist Patient saw Dr. Valenzuela, neurologist on 05/26/21 and he extubated sensory loss in the right foot, slow ataxic wide-based gait. This was believed to be secondary to alcohol use. PT/OT consulted, discharge planning to senior care facility for ongoing. Needs to follow-up with neurology in the outpatient -TSH, folate levels are normal and vitamin B12 levels elevated, pending B1 levels pending 3. Dysphagia, noticed on 06/03, speech therapy following, and supervised feeding with small bites with water 4. Hypokalemia/hypomagnesemia, replaced, recheck in a.m. 5. Hypertension, remains fairly uncontrolled, will add lisinopril 20 mg daily to amlodipine pain 10 mg daily Continue to monitor blood pressure 6. Rest of chronic medical conditions including BPH, low testosterone state, remained stable On home meds reviewed Charges/Coding Visit Charges Inpatient E&M: 34021 Subs Hosp L2
[2021-06-07 09:45] VITALS: PULSE 76
--- NOTE | 2021-06-07 09:48 | PCM.TXEXTCAR ---
Diet 05/30/21 16:00 Diet: Regular - General Food consistency:: Easy to Chew Liquid Consistency:: Regular/Thin Diet Comments: Supervision at meals; Sips 1 at a time; Double swallow Routine Orders/Code Status Routine Lab Work: CBC (within 3 days) and BMP (within 3 days) Code Status: Full Code Wound(s) LANCE KNEES: Wound Type: Abrasion right knee: Wound Type: Abrasion left knee: Wound Type: Abrasion Therapies Weight Bearing: Weight bearing as tolerated Physical Therapy: Eval and Treat Occupational Therapy: Eval and Treat Speech Therapy: Eval and Treat Problem/Diagnosis (1) Alcohol withdrawal: Status: Acute (2) Hypertension: Status: Chronic (3) Benign prostatic hyperplasia: Status: Acute (4) Chronic alcohol dependence, continuous: Status: Chronic (5) Hypokalemia: Status: Acute (6) Hypomagnesemia: Status: Acute Allergies/Procedures Done in Hospital Allergies cefdinir Allergy (Unknown, Verified 05/30/21 12:27) Severe Fatigue doxycycline Allergy (Unknown, Verified 05/30/21 12:27) Severe Fatigue penicillin G Allergy (Unknown, Verified 05/30/21 12:27) Unknown sulfamethoxazole [From Bactrim] Allergy (Unknown, Verified 05/30/21 12:27) anemia trimethoprim [From Bactrim] Allergy (Unknown, Verified 05/30/21 12:27) anemia Penicillins Allergy (Verified 05/30/21 12:27) Unknown Procedures: None Type of Care/Length of Stay Estimated LOS: Convalescent Care Less Than 30 days Type of Care Needed: Skilled Rehab Potential: Good Prognosis: Good Additional Orders/Day of Discharge Day of Discharge: 06/08/21 Dietary and Speech Recommendations Dietitian Recommendations/Changes: Regular diet as ordered - consistency per LEARNING OFFICER Discharge Plan Admission Admit Date/Time: 05/30/21 15:45 Primary Reason for Your Visit: Acute alcohol withdrawal/Worsening debility Attending Provider: Cierra Gibson Primary Care Provider: Sundar Pierce Consulting Providers: Jermaine Gomez ; Miguel Delacruz ; Vesta Corbett CENTRAL SUPPLY NURSE Discharge Orders/Prescriptions Prescriptions: No Action omeprazole 20 mg capsule,delayed release(DR/EC) 20 mg PO DAILY RF: 0 alfuzosin 10 mg tablet extended release 24 hr 10 mg PO DAILY RF: 0 cyanocobalamin (vitamin B-12) 1,000 mcg capsule 1,000 mcg PO DAILY RF: 0 pseudoephedrine HCl 30 mg tablet 60 mg PO BID PRN (Reason: nasal congestion) RF: 0 Kisspeptin 10 200 mcg tablet 1 tab PO .3xWK RF: 0 thiamine mononitrate (vit B1) 100 mg tablet 100 mg PO DAILY Qty: 30 RF: 5 anastrozole 1 MG tablet 1 mg PO MOWE RF: 0 testosterone cypionate 200 MG/ML oil 0.6 ml IM DAILY RF: 0 multivitamin with minerals 1 EACH tablet 1 tab PO DAILY RF: 0 cholecalciferol (vitamin D3) 5,000 UNIT capsule 125 mcg PO DAILY RF: 0 amlodipine 5 mg tablet 5 mg PO DAILY RF: 0 Referrals / Follow Up: Sundar Pierce DO [Primary Care Provider] - Within 2 Weeks (within 2 weeks of discharge) Disposition Disposition (needs filled in before D/C Order can be placed): Penitentiary Facility
[2021-06-07] MEDS: Lisinopril 20 MG Tablet PO (11:13)
--- NOTE | 2021-06-07 12:46 | CASEMGMT ---
Addendum entered by Pamella Brennan 06/07/21 16:13: SW updated pt that pre-cert is still pending. Pt states understanding. Original Note: Social Work Note SW placed a call to Yareli at [facility], pre-cert is still pending. TANGELA informed Yareli pt is ready for discharge once pre-cert is obtained. Yareli states understanding. Plan: [facility] pending pre-cert Pamella Brennan SALES SUPPORT REPRESENTATIVE, CIRCULATION DIRECTOR
[2021-06-07 13:54] VITALS: BP 131/91; PULSE 79; RESP 18; TEMP 37.3; O2SAT 97
[2021-06-07] MEDS: Tamsulosin HCl 0.4 MG Capsule 0.8 MG PO (17:52)
[2021-06-07 20:31] VITALS: BP 146/94; PULSE 71; RESP 18; TEMP 37; O2SAT 99
[2021-06-08] MEDS: Phenobarbital 32.4 MG Tablet PO ×3 (00:03→11:55)
[2021-06-08 02:26] VITALS: BP 119/87; PULSE 67; RESP 18; TEMP 36.8; O2SAT 97
[2021-06-08 08:04] LABS: ALB/GLOB Ratio 0.7 RATIO (0.9-2.4); AST(SGOT) 34 U/L (15-37); Alanine Aminotransfer ALT/SGPT 41 U/L (16-61); Alkaline Phosphatase 75 U/L (45-117); Anion Gap 6 (5-15); BUN 12 mg/dL (7-18); BUN/Creat Ratio 13.2 RATIO (10-20); Calcium,Total 8.8 mg/dL (8.5-10.1); Chloride 103 mmol/L (98-107); Creatinine, Serum 0.91 mg/dL (0.70-1.30); EST Glomerular Filtration Rate 89 mL/min (>60); Est Glom Filt Rate - Afr Amer 108 mL/min (>60); Globulin 4.2 g/dL (2.2-4.2); Glucose 86 mg/dL (74-106); Potassium 3.8 mmol/L (3.5-5.1); Protein, Total 7.2 g/dL (6.4-8.2); Sodium Level 136 mmol/L (136-145)
[2021-06-08 08:20] VITALS: BP 136/92; PULSE 88; RESP 16; TEMP 37.4; O2SAT 98
--- NOTE | 2021-06-08 09:27 | PCM.PN.HOSP ---
Subjective Subjective Patient seen and examined. No acute events. Objective Data Objective Data Vital Signs: Vital Signs Temp Pulse Resp BP Pulse Ox 98.3 F 67 18 119/87 H 97 06/08/21 02:06/08/21 02:06/08/21 02:06/08/21 02:06/08/21 02:26 Oxygen Delivery Method Room Air Weight: 86 kg Body Mass Index (BMI) 29.7 Intake & Output: Intake and Output for Last 24 Hours 06/06/21 06/07/21 06/08/21 23:59 23:59 23:59 Intake Total 474 / 474 892 / 892 500 / 500 Output Total 400 / 400 Balance 74 / 74 892 / 892 500 / 500 Lab / Micro Data Result Diagrams: 06/02/21 04:20 06/08/21 05:50 Labs: Laboratory Results - last 24 hr 06/08/21 05:50: Sodium 136, Potassium 3.8, Chloride 103, Carbon Dioxide 27.0, Anion Gap 6, BUN 12, Creatinine 0.91, Estim Creat Clear Calc 78.30, Est GFR (MDRD) Af Amer 108, Est GFR (MDRD) Non-Af 89, BUN/Creatinine Ratio 13.2, Glucose 86, Calcium 8.8, Total Bilirubin 0.40, AST 34, ALT 41, Alkaline Phosphatase 75, Total Protein 7.2, Albumin 3.0 L, Globulin 4.2, Albumin/Globulin Ratio 0.7 L Micro: Microbiology 05/30/21 12:55 Mucosa - Nose SARS-CoV-2 Antigen (Rapid) - Final Physical Exam Narrative Physical exam: General: Alert, Oriented x3, Cooperative, No apparent distress, Well developed, slightly tremulous HEENT: Atraumatic Oral: Moist Mucosa Neck: Supple Lungs: Clear to auscultation Cardiovascular: HS I+II, regular, no murmurs Abdomen: Bowel Sounds Present, Soft, Non Tender Extremities: No edema, weakness in lower extremities Assessment & Plan Assessment/Plan (1) Alcohol withdrawal: QUALIFIERS: Complication of substance-induced condition: with delirium Qualified Code(s): F10.231 - Alcohol dependence with withdrawal delirium (2) Hypertension: QUALIFIERS: Hypertension type: primary hypertension Qualified Code(s): I10 - Essential (primary) hypertension (3) Benign prostatic hyperplasia: QUALIFIERS: Lower urinary tract symptom presence: symptoms absent Qualified Code(s): N40.0 - Benign prostatic hyperplasia without lower urinary tract symptoms (4) Chronic alcohol dependence, continuous: (5) Hypokalemia: (6) Hypomagnesemia: PLAN: 1. Acute severe alcohol withdrawal in a patient with chronic alcohol dependence, complicated by DTs requiring ICU stay and Precedex, improving, continue on the alcohol withdrawal protocol 2. Debility, acute on chronic, patient is a two-person assist Patient saw Dr. Valenzuela, neurologist on 05/26/21 and he extubated sensory loss in the right foot, slow ataxic wide-based gait. This was believed to be secondary to alcohol use. PT/OT consulted, discharge planning to retirement facility for ongoing. Needs to follow-up with neurology in the outpatient -TSH, folate levels are normal and vitamin B12 levels elevated, pending B1 levels pending 3. Dysphagia, noticed on 06/03, speech therapy following, and supervised feeding with small bites with water 4. Hypokalemia/hypomagnesemia, replaced, recheck in a.m. 5. Hypertension, remains fairly uncontrolled, will add lisinopril 20 mg daily to amlodipine pain 10 mg daily Continue to monitor blood pressure 6. Rest of chronic medical conditions including BPH, low testosterone state, remained stable On home meds reviewed Charges/Coding Visit Charges Inpatient E&M: 35819 Subs Hosp L2
[2021-06-08] MEDS: Folic Acid 1 MG Tablet PO (09:41)
[2021-06-08] MEDS: Magnesium Chloride 64 MG Delay Rel.Tablet 128 MG PO (09:41)
[2021-06-08] MEDS: Cholecalciferol (VIT D3) 25 MCG TABLET (1,000 UNITS) 125 MCG PO (09:41)
[2021-06-08] MEDS: Cyanocobalamin 500 MCG Tablet 1000 MCG PO (09:41)
[2021-06-08] MEDS: Thiamine Hydrochloride 100 MG Tablet PO (09:42)
[2021-06-08] MEDS: Lisinopril 20 MG Tablet PO (09:42)
[2021-06-08] MEDS: amLODIPine 10 MG Tablet PO (09:42)
[2021-06-08] MEDS: Pantoprazole Sodium 20 MG Tablet PO (09:42)
[2021-06-08] MEDS: Heparin Injection (Vial) 5,000 UNIT/ML VIAL 5000 UNIT SC (09:43)
[2021-06-08] MEDS: Aspirin E.C. 81 MG Tablet PO (09:43)
--- NOTE | 2021-06-08 10:40 | CASEMGMT ---
Social Work Note SW received call from Yareli at [facility] stating pre-cert is still pending, Iveth is requesting updated clinicals. TANGELA faxed updated clinicals to [facility]. Plan: [facility] pending pre-cert Pamella Brennan MINE WIRER, SHIPPING SERVICES SALES REPRESENTATIVE
--- NOTE | 2021-06-08 12:05 | CASEMGMT ---
Social Work Note TANGELA updated that pt did well with therapy, (walked 60ft contact guard), pt requesting to discharge home with outpatient therapy. TANGELA placed a call to pt's Vidhi and updated her. Vidhi agreeable to pt returning home with outpatient therapy. Vidhi asked for additional counseling/substance use resources as she was not impressed with [facility]. Vidhi also gives permission for outpatient therapy to be arranged with [facility]. TANGELA updated RN CM. SW in to speak with pt. Pt confirms he wishes to discharge home with outpatient therapy. Pt agreeable to going to [facility]. SW provided pt with counseling/substance abuse/use resources for both [place] and [facility]. TANGELA then received call from Yareli at [facility] stating pt was approved for SNF. TANGELA updated Yareli that this worker will let pt know, but pt is wanting to discharge home now. TANGELA updated pt on approval for SNF. Pt confirms he still wishes to discharge home with outpatient therapy. Physician updated. Plan: Home with outpatient therapy Pamella Brennan STORAGE WORKER, NEIGHBORHOOD SERVICE CENTER DIRECTOR
--- NOTE | 2021-06-08 12:43 | PCM.DC ---
Discharge Instructions Diet Discharge Diet: Low fat / Low cholesterol and 2000 mg Sodium Diet Activity Discharge Activity: Return to Normal Activity Weight Bearing Status: Weight bearing as tolerated Follow Up Care Test Results: Test results from this visit will be discussed in further detail at your follow-up appointment, if applicable. Discharge Plan Admission Admit Date/Time: 05/30/21 15:45 Primary Reason for Your Visit: Acute alcohol withdrawal/Worsening debility Attending Provider: Cierra Gibson Primary Care Provider: Sundar Pierce Consulting Providers: Jermaine Gomez ; Miguel Delacruz ; Vesta Corbett MATTRESS AND FOUNDATION SEWER Instructions Additional Instructions / Restrictions: You are strongly advised to avoid alcohol or use of any illicit drug. Avoid smoking. Follow-up with your outpatient rehab program as scheduled. Discharge Orders/Prescriptions Prescriptions: New lisinopril 20 mg Tablet 20 mg PO DAILY 30 Days Qty: 30 RF: 0 amlodipine 10 mg Tablet 10 mg PO DAILY 30 Days Qty: 30 RF: 0 folic acid 1 mg Tablet 1 mg PO DAILY@0800 30 Days Qty: 30 RF: 0 magnesium chloride [Mag 64] 64 mg Tablet,Delayed Release (Dr/Ec) 128 mg PO DAILY 7 Days Qty: 14 RF: 0 Continued omeprazole 20 mg capsule,delayed release(DR/EC) 20 mg PO DAILY RF: 0 alfuzosin 10 mg tablet extended release 24 hr 10 mg PO DAILY RF: 0 cyanocobalamin (vitamin B-12) 1,000 mcg capsule 1,000 mcg PO DAILY RF: 0 pseudoephedrine HCl 30 mg tablet 60 mg PO BID PRN (Reason: nasal congestion) RF: 0 Kisspeptin 10 200 mcg tablet 1 tab PO .3xWK RF: 0 thiamine mononitrate (vit B1) 100 mg tablet 100 mg PO DAILY Qty: 30 RF: 5 anastrozole 1 MG tablet 1 mg PO MOWE RF: 0 testosterone cypionate 200 MG/ML oil 0.6 ml IM DAILY RF: 0 multivitamin with minerals 1 EACH tablet 1 tab PO DAILY RF: 0 cholecalciferol (vitamin D3) 5,000 UNIT capsule 125 mcg PO DAILY RF: 0 Discontinued amlodipine 5 mg tablet 5 mg PO DAILY RF: 0 Referrals / Follow Up: Sundar Pierce DO [Primary Care Provider] - Within 2 Weeks (within 2 weeks of discharge) Craig Valenzuela MD [STAFF PHYSICIAN] - Within 2 Weeks (or as scheduled) Disposition Disposition (needs filled in before D/C Order can be placed): Home, Self Care
--- NOTE | 2021-06-08 12:45 | CASEMGMT ---
Addendum entered by Sophia Lindsey 06/08/21 14:15: KYLEIGH ROMERO in to pt room to make aware of all appts. Pt verbalized understanding and is aware the info will be on his dc plan. Addendum entered by Sophia Lindsey 06/08/21 12:56: Received order for ST as well. TC back to [facility], spoke with Noni, scheduled ST eval and put on dc plan. Pt called and made aware of dates and times. Original Note: KYLEIGH ROMERO made aware that pt would like to go home with outpt therapy through [facility] and pt requested appts be set up in late morning or afternoon. TC to [facility], spoke to Bettye, appts scheduled and put in dc plan.
--- NOTE | 2021-06-08 12:49 | PCM.DC.SUM ---
Providers Date of Admission: 05/30/21 Date of Discharge: 06/08/21 Primary Care Physician: Dr. Sundar Pierce, DO Consultations 06/01/21 12:03 Consult: Division Plant Engineer / Pulmonary Medicine Routine Consulting Provider: [facility] Reason for Consult: Delirium tremens EMERGENT Consult: No MD Notified: Yes Date Notified: 06/01/21 Time Notified: 11:18 Method of Notification: Verbal Reason For Visit: ALCOHOL WITHDRAWAL Diagnosis Discharge Diagnosis (1) Alcohol withdrawal: Status: Resolved Code(s): F10.239 - Alcohol dependence with withdrawal, unspecified Qualifiers: Complication of substance-induced condition: with delirium Qualified Code(s): F10.231 - Alcohol dependence with withdrawal delirium (2) Hypertension: Status: Chronic Code(s): I10 - Essential (primary) hypertension Qualifiers: Hypertension type: primary hypertension Qualified Code(s): I10 - Essential (primary) hypertension (3) Benign prostatic hyperplasia: Status: Chronic Code(s): N40.0 - Benign prostatic hyperplasia without lower urinary tract symptoms Qualifiers: Lower urinary tract symptom presence: symptoms absent Qualified Code(s): N40.0 - Benign prostatic hyperplasia without lower urinary tract symptoms (4) Chronic alcohol dependence, continuous: Status: Chronic Code(s): F10.20 - Alcohol dependence, uncomplicated (5) Hypokalemia: Status: Resolved Code(s): E87.6 - Hypokalemia (6) Hypomagnesemia: Status: Resolved Code(s): E83.42 - Hypomagnesemia Medications at Discharge Home Medications anastrozole 1 mg PO MOWE 08/27/19 cholecalciferol (vitamin D3) 125 mcg PO DAILY 08/27/19 multivitamin with minerals 1 tab PO DAILY 08/27/19 testosterone cypionate 0.6 ml IM DAILY 08/27/19 Kisspeptin 10 1 tab PO .3xWK 05/26/21 alfuzosin 10 mg tablet,extended release 24 hr 10 mg PO DAILY tab 05/26/21 cyanocobalamin (vitamin B-12) 1,000 mcg capsule 1,000 mcg PO DAILY 05/26/21 omeprazole 20 mg capsule,delayed release 20 mg PO DAILY cap 05/26/21 pseudoephedrine HCl 30 mg tablet 60 mg PO BID PRN tab 05/26/21 thiamine mononitrate (vit B1) 100 mg tablet 100 mg PO DAILY #30 tab 05/26/21 amlodipine 10 mg PO DAILY 30 Days #30 tab 06/08/21 folic acid 1 mg PO DAILY@0800 30 Days #30 tab 06/08/21 lisinopril 20 mg PO DAILY 30 Days #30 tab 06/08/21 magnesium chloride [Mag 64] 128 mg PO DAILY 7 Days #14 tab 06/08/21 Hospital Course Operations None Procedures None Summary of Care Provided Minutes Spent on Discharge: 45 Hospital Course: 65-year-old man with chronic alcohol use disorder who comes in requesting for medical stabilization from acute alcohol withdrawal. Patient drinks about a 1/5 of gin every day. He reported that his last alcohol consumption was during the morning. Patient was admitted to the [facility] floor. He was transferred to ICU for DTs. Patient was managed on Precedex drip with improvement. Transfer to [facility]. He was generally weak and was a two-person assist. Patient follows with Dr. Valenzuela in the outpatient. He last saw Dr. Valenzuela on 05/26/21. 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 Patient was managed on supplement?thiamine, folate. He had electrolyte imbalances that were replaced. Initially he was cleared for discharge to [facility] facility. Patient however improved in strength. He also initially was on a supervised feeding and speech therapy was following. He was approved to be on a regular texture diet at discharge. Patient was discharged to follow-up with home health and speech therapy Physical Exam Narrative Physical exam: General: Alert, Oriented x3, Cooperative, No apparent distress, Well developed, slightly tremulous HEENT: Atraumatic Oral: Moist Mucosa Neck: Supple Lungs: Clear to auscultation Cardiovascular: HS I+II, regular, no murmurs Abdomen: Bowel Sounds Present, Soft, Non Tender Extremities: No edema, weakness in lower extremities Weight / BMI Weight Weight: 86 kg Body Mass Index (BMI) 29.7 ABG / Lab / Microbiology Data Result Diagrams: 06/02/21 04:20 06/08/21 05:50 Laboratory: Laboratory Results - last 24 hr 06/08/21 05:50: Sodium 136, Potassium 3.8, Chloride 103, Carbon Dioxide 27.0, Anion Gap 6, BUN 12, Creatinine 0.91, Estim Creat Clear Calc 78.30, Est GFR (MDRD) Af Amer 108, Est GFR (MDRD) Non-Af 89, BUN/Creatinine Ratio 13.2, Glucose 86, Calcium 8.8, Total Bilirubin 0.40, AST 34, ALT 41, Alkaline Phosphatase 75, Total Protein 7.2, Albumin 3.0 L, Globulin 4.2, Albumin/Globulin Ratio 0.7 L Microbiology: Microbiology 05/30/21 12:55 Mucosa - Nose SARS-CoV-2 Antigen (Rapid) - Final D/C Instructions Discharge Diet: Low fat / Low cholesterol and 2000 mg Sodium Diet Weight Bearing Status: Weight bearing as tolerated Meaningful Use Info Meaningful Use Diagnoses (Choose all that apply): None applicable Discharge Plan Admission Admit Date/Time: 05/30/21 15:45 Primary Reason for Your Visit: Acute alcohol withdrawal/Worsening debility Attending Provider: Cierra Gibson Primary Care Provider: Sundar Pierce Consulting Providers: Jermaine Gomez ; Miguel Delacruz ; Vesta Corbett [employer]PARTMENT SUPERVISOR Instructions Additional Instructions / Restrictions: You are strongly advised to avoid alcohol or use of any illicit drug. Avoid smoking. Follow-up with your outpatient rehab program as scheduled. Discharge Orders/Prescriptions Prescriptions: New lisinopril 20 mg Tablet 20 mg PO DAILY 30 Days Qty: 30 RF: 0 amlodipine 10 mg Tablet 10 mg PO DAILY 30 Days Qty: 30 RF: 0 folic acid 1 mg Tablet 1 mg PO DAILY@0800 30 Days Qty: 30 RF: 0 magnesium chloride [Mag 64] 64 mg Tablet,Delayed Release (Dr/Ec) 128 mg PO DAILY 7 Days Qty: 14 RF: 0 Continued omeprazole 20 mg capsule,delayed release(DR/EC) 20 mg PO DAILY RF: 0 alfuzosin 10 mg tablet extended release 24 hr 10 mg PO DAILY RF: 0 cyanocobalamin (vitamin B-12) 1,000 mcg capsule 1,000 mcg PO DAILY RF: 0 pseudoephedrine HCl 30 mg tablet 60 mg PO BID PRN (Reason: nasal congestion) RF: 0 Kisspeptin 10 200 mcg tablet 1 tab PO .3xWK RF: 0 thiamine mononitrate (vit B1) 100 mg tablet 100 mg PO DAILY Qty: 30 RF: 5 anastrozole 1 MG tablet 1 mg PO MOWE RF: 0 testosterone cypionate 200 MG/ML oil 0.6 ml IM DAILY RF: 0 multivitamin with minerals 1 EACH tablet 1 tab PO DAILY RF: 0 cholecalciferol (vitamin D3) 5,000 UNIT capsule 125 mcg PO DAILY RF: 0 Discontinued amlodipine 5 mg tablet 5 mg PO DAILY RF: 0 Referrals / Follow Up: Snudar Pierce DO [Primary Care Provider] - Within 2 Weeks (within 2 weeks of discharge) Craig Valenzuela MD [STAFF PHYSICIAN] - Within 2 Weeks (or as scheduled) Disposition Disposition (needs filled in before D/C Order can be placed): Home, Self Care Charges/Coding Visit Charges Inpatient E&M: 95041 Disch Hosp
[2021-06-08 14:30] VITALS: BP 148/94; PULSE 67; RESP 16; TEMP 37; O2SAT 96
[2021-06-08] MEDS: Tamsulosin HCl 0.4 MG Capsule 0.8 MG PO (16:24)
[2021-06-08 18:15] VITALS: BP 124/91; PULSE 82; RESP 16; TEMP 37.4; O2SAT 98
[2021-06-08 20:51] LABS: Vitamin B1, Thiamine 127.2 nmol/L (66.5-200.0)
== END 2021-06-08 18:26 | disposition home health service (06) | DRG 897 ==
LOC: ED 14:48 → MS3 15:34 → ICU 06-01 12:53 → MS3 06-02 16:29
PROVIDERS: Internal Medicine; Internal Medicine Critical Care Medicine; Admitting Provider Internal Medicine; Emergency Provider Emergency Medicine; PCP Family Medicine; Visit Provider Internal Medicine
DX: F10.239 Alcohol dependence with withdrawal, unspecified (principal); N17.9 Acute kidney failure, unspecified; F10.231 Alcohol dependence with withdrawal delirium; R13.10 Dysphagia, unspecified; R05 Cough; F10.229 Alcohol dependence with intoxication, unspecified; I10 Essential (primary) hypertension; N40.0 Benign prostatic hyperplasia without lower urinary tract symptoms; E78.5 Hyperlipidemia, unspecified; Z87.891 Personal history of nicotine dependence; Y90.8 Blood alcohol level of 240 mg/100 ml or more; E87.6 Hypokalemia; K21.9 Gastro-esophageal reflux disease without esophagitis; E83.42 Hypomagnesemia; Z82.49 Family history of ischemic heart disease and other diseases of the circulatory system; Z88.0 Allergy status to penicillin; Z88.1 Allergy status to other antibiotic agents; Z88.2 Allergy status to sulfonamides; W19.XXXA Unspecified fall, initial encounter
CPT/HCPCS: 36415; 80048; 80053; 80307; 82077; 82607; 82746; 83735; 84100; 84425; 84443; 85025; 85027; 87426; 92526; 92610; 97110; 97162; 97166; 97530; 97535; 99284; J7050; A4216

== ENCOUNTER → 2021-06-18 06:58 | Outpatient (CLI) | payer MEDICARE, SELFPAY ==
[2021-06-18 07:38] LABS: Absolute Lymphocyte Count 1.39 X10^3/uL (0.83-4.51); Absolute Neutrophil Count 2.5 X10^3/uL (2.0-7.7); Basophil% 2.2 % (0-1); Eosinophils% 2.2 % (0-5); Hematocrit 45.5 % (40-54); Lymphocyte # 1.39 X10^3/ul (0.83-4.51); Lymphocyte % 30.4 % (19-41); Mean Corpuscular Hgb 31.7 pg (27.0-32.0); Mean Corpuscular Volume 96.2 fL (80-94); Mean Platelet Vol. 9.9 fl (6.2-12.0); Monocyte# 0.46 X10^3/uL; Monocyte% 10.1 % (0-10); NRBC Flagged by Analyzer 0 % (0-5); Neutrophil # 2.51 X10^3/uL (2.7-7.7); Neutrophil % 54.9 % (47-70); Platelet Count 361 K/mm3 (150-450); RBC Distribution Width CV 11.4 % (11.6-14.6); RBC Distribution Width SD 40.3 fl (35.1-43.9); Red Blood Count 4.73 M/mm3 (4.6-6.2); White Blood Count 4.6 K/mm3 (4.4-11.0)
[2021-06-18 08:02] LABS: ALB/GLOB Ratio 0.7 RATIO (0.9-2.4); AST(SGOT) 29 U/L (15-37); Alanine Aminotransfer ALT/SGPT 33 U/L (16-61); Albumin, Serum 3.3 g/dL (3.2-5.0); Alkaline Phosphatase 79 U/L (45-117); Anion Gap 5 (5-15); BUN 10 mg/dL (7-18); BUN/Creat Ratio 10.8 RATIO (10-20); Calcium,Total 9.1 mg/dL (8.5-10.1); Chloride 106 mmol/L (98-107); Cholesterol 183 mg/dL (200); Creatinine, Serum 0.93 mg/dL (0.70-1.30); EST Glomerular Filtration Rate 87 mL/min (>60); Est Glom Filt Rate - Afr Amer 105 mL/min (>60); Estradiol 69.4 pg/mL; Globulin 4.8 g/dL (2.2-4.2); Glucose 106 mg/dL (74-106); High Density Lipoprotein 42 mg/dL; Protein, Total 8.1 g/dL (6.4-8.2); Sodium Level 138 mmol/L (136-145); Triglycerides 110 mg/dL; Very Low Density Lipoprotein 22 mg/dL (5-40)
[2021-06-18 08:24] LABS: Hemoglobin A1c 5.2 % (3.8-5.6)
[2021-06-20 08:47] LABS: Vitamin B12 902 pg/mL (211-911); Vitamin D,25 Hydroxy 101.3 ng/mL
[2021-06-23 09:36] LABS: Testosterone, % Free 2.28 % (1.50-4.20)
[2021-06-23 15:54] LABS: DHEA Sulfate 93.3 ug/dL (30.9-295.6); Testosterone, Total 1000 ng/dL (264-916)
== END ==
PROVIDERS: PCP Family Medicine
DX: R53.83 Other fatigue (principal); R63.5 Abnormal weight gain; R68.83 Chills (without fever); Z79.890 Hormone replacement therapy
CPT/HCPCS: 36415; 80053; 80061; 82306; 82607; 82627; 82670; 83036; 84402; 84403; 85025; 82626

== ENCOUNTER → 2021-07-12 | Outpatient (CLI) | payer MEDICARE, SELFPAY | END | disposition home or self-care (01) | LOC: LABSPEC 12:23 | PROVIDERS: PCP Family Medicine; Visit Provider Family Medicine | DX: Z20.822 Contact with and (suspected) exposure to COVID-19 (principal) | CPT/HCPCS: 87635; 88304; U0005; U0003 ==

== ENCOUNTER → 2021-07-29 06:29 | Outpatient (CLI) | payer MEDICARE, SELFPAY ==
[2021-07-29 07:10] LABS: Ammonia < 10.0 umol/L (11-32)
[2021-07-29 07:47] LABS: Thyroid Stim Hormone (TSH) 4.03 uIU/mL (0.358-3.74)
[2021-08-01 16:08] LABS: Free Kappa Light Chains 31.8 mg/L (3.3-19.4); Free Lambda Light Chains 22.6 mg/L (5.7-26.3)
== END ==
PROVIDERS: PCP Family Medicine; Referring Provider Psychiatry & Neurology Neurology; Visit Provider Psychiatry & Neurology Neurology
DX: I10 Essential (primary) hypertension (principal); G62.9 Polyneuropathy, unspecified; F10.27 Alcohol dependence with alcohol-induced persisting dementia
CPT/HCPCS: 36415; 82140; 82746; 83883; 84443

== ENCOUNTER → 2021-08-31 06:28 | Outpatient (CLI) | payer MEDICARE, SELFPAY ==
--- NOTE | 2021-08-31 06:31 | MRI_ITS ---
STUDY: MRI RIGHT KNEE REASON FOR EXAM: Medial right knee pain for 3 months, right knee injury. TECHNIQUE: Standardized fat and water weighted pulse sequences were obtained in all 3 orthogonal planes. COMPARISON: Radiographs 07/07/2021. FINDINGS: There is a complex tear of the posterior horn and body of the medial meniscus (proton-density sagittal images 32-38; proton-density coronal images 13-17) with a displaced fragment superior to the root of the posterior horn of the medial meniscus (T2 sagittal image 16; T2 coronal image 13). Normal hyaline cartilage of the medial femorotibial compartment. Normal medial femoral condyle and tibial plateau. Normal medial collateral ligamentous complex (MCL). Normal distal semimembranosus, gracilis and semitendinosus tendons. There is a complex tear of the anterior and posterior horns and body of the lateral meniscus (proton-density coronal images 13-18; proton-density sagittal images 9-12). Normal hyaline cartilage of the lateral femorotibial compartment. Normal lateral femoral condyle and tibial plateau. Normal proximal tibiofibular articulation. Normal lateral collateral (fibular) ligament. Normal popliteus tendon. Normal biceps femoris tendon. Normal anterior cruciate ligament (ACL). Normal posterior cruciate ligament (PCL). Normal congruent patellofemoral articulation. Normal hyaline cartilage of the patellofemoral compartment. Normal medial and lateral patellar retinaculum. Normal visualized quadriceps tendon. Normal patellar tendon. Normal Hoffa''s fat pad. There is a small joint effusion. There is mild edema in the anterior subcutis adipose space. The otherwise visualized osseous structures are unremarkable. MRI/Lower Ext Joint Only (Routine) IMPRESSION: Medial meniscal tear. Lateral meniscal tear. Small joint effusion. Electronically Signed: Paul Cuenca MD at 8:57 EST Tel , Service support ,
--- NOTE | 2021-08-31 06:31 | MRI_ITS ---
STUDY: MRI RIGHT ANKLE WITHOUT CONTRAST REASON FOR EXAM: Right ankle pain for over 6 weeks, right ankle injury. TECHNIQUE: Standardized fat and water weighted pulse sequences were obtained in all 3 orthogonal planes. COMPARISON: Radiographs 07/07/2021. FINDINGS: There is edema in the subcutis adipose space. There is a very small volume of fluid in the distal posterior tibialis tendon sheath (T2 axial images 17, 18). The posterior tibialis tendon is morphologically normal. Normal flexor digitorum longus tendon. There is fluid in the flexor hallucis longus tendon sheath proximal and distal to the sustentaculum daniel (inversion recovery sagittal image 13). There is a small longitudinal split of the submalleolar peroneus brevis tendon (T2 axial images 17, 18). Normal peroneus longus tendon. Normal tibialis anterior tendon. Normal extensor hallucis longus tendon. Normal extensor digitorum longus tendons. Normal Achilles tendon and teno-osseous insertion. There is edema in Kager''s fat triangle (inversion recovery sagittal images 9-11). Normal plantar fascia. Normal plantar calcaneal tubercles. Normal intrinsic muscles of the rearfoot. Normal distal tibiofibular syndesmotic ligamentous complex. There is a sprain of the anterior talofibular ligament (T2 axial image 14). Normal calcaneofibular and posterior talofibular ligaments. There is a cyst in the sinus tarsi (inversion recovery sagittal image 8) measuring 1.3 cm in AP dimension. Normal deltoid ligamentous complexes. Normal plantar calcaneonavicular (spring) ligament. Normal tibiotalar articulation. Normal talar dome. There is a mild bone contusion of the posterior malleolus (inversion recovery sagittal images 10, 11). Normal subtalar articulations. There is an os trigonum. Normal talonavicular articulation. Normal calcaneocuboid articulation. Normal navicular-cuneiform articulations. MRI/Lower Ext Joint Only (Routine) IMPRESSION: Anterior talofibular ligament sprain. Small longitudinal split of the peroneus brevis tendon. Mild bone contusion of the posterior malleolus. Very mild posterior tibialis tenosynovitis. Fluid in the flexor hallucis longus tendon sheath. Cyst in the sinus tarsi. Electronically Signed: Paul Cuenca MD at 11:34 EST Tel , Service support ,
== END ==
PROVIDERS: PCP Family Medicine
DX: M25.571 Pain in right ankle and joints of right foot (principal); M23.91 Unspecified internal derangement of right knee; G89.29 Other chronic pain
CPT/HCPCS: 73721

== ENCOUNTER → 2021-09-13 07:54 | Outpatient (CLI) | payer MEDICARE, SELFPAY ==
[2021-09-13 09:08] LABS: Thyroid Stim Hormone (TSH) 5.12 uIU/mL (0.358-3.74)
[2021-09-15 16:09] LABS: Albumin 3.6 g/dL (2.9-4.4); Alpha-1-Globulins 0.2 g/dL (0.0-0.4); Alpha-2-Globulins 0.7 g/dL (0.4-1.0); Gamma Globulin 1.3 g/dL (0.4-1.8); Immunoglobulin A 365 mg/dL (61-437); Immunoglobulin G 1326 mg/dL (603-1613); Immunoglobulin M 105 mg/dL (20-172); PROEL- TOTAL PROTEIN 6.8 g/dL (6.0-8.5)
== END ==
PROVIDERS: PCP Family Medicine; Referring Provider Psychiatry & Neurology Neurology; Visit Provider Psychiatry & Neurology Neurology
DX: I10 Essential (primary) hypertension (principal); G62.9 Polyneuropathy, unspecified
CPT/HCPCS: 36415; 82784; 84165; 84443; 86334; 86335

== ENCOUNTER 2021-10-25 05:55 | Day surgery (SDC) | payer MEDICARE, SELFPAY ==
[2021-10-25 06:23] VITALS: BP 140/72; PULSE 67; RESP 18; TEMP 37.1; O2SAT 97; BMI 30.1
[2021-10-25] MEDS: Lactated Ringers 1,000 ML 15 ML IV (06:34)
[2021-10-25] MEDS: Cefazolin 2 GM in 0.9% Normal Saline 100 ML IV (07:19)
--- NOTE | 2021-10-25 07:26 | PCM.HP.BLA ---
History and Physical Date of Admission: 10/25/21 [id number]: KARIN MCLEODRep #:[id number] Provider: JOSE Eid/Sex: 65/M Location:[facility] [place].BOSStatus:Signed Intake Intake Visit Reasons: MRI followup Chief Complaint: F/U Vertigo, Polyneuropathy, Dementia Allergies cefdinir Allergy (Unknown, Verified 08/02/21 15:03) Severe Fatigue doxycycline Allergy (Unknown, Verified 08/02/21 15:03) Severe Fatigue penicillin G Allergy (Unknown, Verified 08/02/21 15:03) Unknown sulfamethoxazole [From Bactrim] Allergy (Unknown, Verified 08/02/21 15:03) anemia trimethoprim [From Bactrim] Allergy (Unknown, Verified 08/02/21 15:03) anemia Penicillins Allergy (Verified 08/02/21 15:03) Unknown [facility] Medical History (Updated 08/02/21 @ 18:[address] Craig Valenzuela MD) Benign prostatic hyperplasia Chronic alcohol dependence, continuous GI bleed HTN (hypertension) Hyperlipidemia Low 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 Recent shoulder injury Right ankle sprain Right knee pain Rotator cuff syndrome of right shoulder Strain of right Achilles tendon Surgical History H/O right knee surgery History of back surgery History of esophagogastroduodenoscopy (EGD) Family History Father Aortic aneurysm Mother Heart disease Social History Smoking Status: Former smoker Smokeless tobacco user: other how long ago did patient quit smokin alcohol intake: current alcohol intake frequency: 3 or more drinks per day Alcohol type: beer substance use type: marijuana HPI MRI followup Details: Parts of this documentation were recorded by a scribe, this documentation accurately reflects the service provided and the decisions made by me, JOSE Li 09/09/21 0809. KARIN MCLEOD is a 65 year old M here today for review of his right knee and right ankle MRI. His main complaint today is swelling in right ankle and bilateral legs. He states he has a lot of zingers which he states are like nerve pains that come and go, he gets more of these at the end of the day. Pain is mostly medial side of the knee. He has pain with walking, standing and going up stairs. He is unable to take NSAIDs d/t hx of bleeding stomach ulcer. He has only been taking Tylenol, which is unhelpful. He is taking tumeric curcumin 1950mg 3 times day per day which has helped with his arthritis pain, he has still muscle soreness. DOS: 06/06/1999 he had a right knee arthroscopy and lateral meniscectomy done by Dr. Jorge Luis Stephen. An operative report has been scanned into his chart. He denies any instability of the ankle or knee. Participated in more than 8 weeks of PT without any relief in pain/symptoms. He is still participating in PT for his ankle and knee. He has been sober since May 30, 2021. [facility]. ROS Const Denies chills and Denies fever(s) Card Denies dyspnea Resp Denies dyspnea GI Denies nausea and Denies vomiting Musc Reports arthralgias, Reports joint swelling, Reports limited range of motion, Reports numbness, Denies radiating pain into limb, Reports stiffness and Denies tingling Skin/Breast Denies erythema, Denies lesions, Denies pruritus, Denies rash and Denies skin swelling Neuro Yes numbness and No tingling Ortho Exam General General: Yes no acute distress Neurologic: Yes alert and Yes oriented x3 Psychologic: Yes reasonable and appropriate Right Knee Skin/Wound: No erythema, No ecchymosis and No swelling Homans Sign: No Knee ROM: Yes ROM-Extension -20 to 0 and Yes ROM-Flexion 0-140 Examination: No Med jt line tenderness, No Lat jt line tenderness, No TTP inf pole patella, No Crepitus, Yes Pain with flexion, Yes Pain with extention, Yes Dung's Test, No TTP Patellar tendon and Yes TTP Pes Anserine Stability: NML: Anterior Drawer, NML: Valgus 0 and NML: Varus 0 KNEE: Upon inspection of the right knee there is no evident ecchymosis, erythema, swelling or open wounds. No signs of infection. No joint effusion. Palpable pedal pulses. He has full AROM of the right knee, however he has pain with flexion and extension. No lateral or medial reproducible joint line pains today, he has had medial joint line pains previously. Slight TTP pes anserine. Positive medial Dung. Able to plantarflex, dorsiflex and wiggle toes. Soft compartments. Bilateral patellar tendon reflexes symmetrical. Right Foot/Ankle Skin/Wound: Yes Soft Tissue Swelling; No Ecchymosis or Erythema Exam: present TTP Lateral Malleolus, TTP ATFL, TTP Medial Malleolus, TTP Deltoid Ligament and TTP Peroneal; absent TTP distal 5th metatarsal, tender to palpate calcaneofibular ligament, peroneal snapping, eversion normal or inversion normal Compartments: Compartments: soft ROM: present pain with range of motion Tests: Parker Test: 1 and Squeeze Test: 1 Anterior Drawer: 0 Motor: Ankle Dorsiflextion: 5 and Ankle Plantar Flexion: 5 Pulses: Dorsalis Pedis: 2 ANKLE: Upon inspection of the ankle there is no evident erythema, ecchymosis or open wounds. No signs of infection. There is some generalized swelling throughout the right ankle. Palpable pedal pulses. He does have pes planus bilaterally. TTP lateral and medial malleolus. TTP medial side of his ankle today more than lateral. TTP from medial malleolus to about senior care up tibia. TTP ATFL, deltoid. States that his Achilles tendon is tender, but upon palpation it is not tender. Eversion of the ankle seems limited. Plantarflexion and dorsiflexion normal, minimal pains with these movements. Intact sensation to light touch. Coding Level of Care Code Off vis,est,level 3 Diagnoses Right knee pain M25.561 Assessment and Plan Assessment and Plan (1) Right knee pain: Status: Acute Plan: Patient is here today to review right ankle and right knee MRI. Discussed that the MRI of the right knee shows a complex tear of the posterior horn and body of the medial meniscus with a displaced fragment. It also possibly shows a tear of the lateral meniscus. Discussed with the patient that because of his previous right knee arthroscopy in 1998 it is hard to tell definitively if there is an issue with the lateral meniscus. Discussed conservative options for treatment and discussed surgery. Patient would like to proceed surgically. He will be tentatively scheduled for a right knee partial lateral and medial meniscectomy and surgery as indicated on 10/04/21. Discussed that he will need medical clearance before surgery. He also will need to stop taking baby aspirin 7 days before his surgery and he should stop taking the tumeric now. Reviewed the pre-operative plans with the patient and the expected post-operative course. Risks and benefits of the procedure were fully explained, including but not limited to infection, neurovascular injury, continued pain, arthritis, stiffness, need for further surgery, re-injury, DVT, PE, general risks of anesthesia, and loss of limb or life. The patient understands all the risks and does wish to proceed with written consent for a right knee arthroscopy. Also, discussed his right ankle MRI. He has a cam boot at home and will try to wear that over the next few weeks if tolerable. If not, he will wear a compression sock with an ankle brace. He will continue PT for his ankle. He cannot take NSAIDs due to a previous bleeding ulcer in his stomach. He can continue with Tylenol, ice, elevation and rest as needed. Follow up 2 weeks post op or sooner if pain, swelling, numbness or associated symptoms, or concerns develop. All questions answered. Patient in agreement of plan. 09/09/21 1528<Electronically signed by Megan GARCIA>Date Megan GARCIA Cosigner Signature:Date (if applicable) CC: ~I have re-examined the patient. There are no clinical changes since date of exam
[2021-10-25] MEDS: Lidocaine 1% /Epi 1:100 (50ml) 50 ML VIAL (07:42)
[2021-10-25] MEDS: Epinephrine (1 mg/ml) 1 MG/ML VIAL (07:52)
[2021-10-25] MEDS: Bupivacaine Mpf 0.5% 30 ML VIAL (08:10)
[2021-10-25] MEDS: MethylPREDNISolone Acetate 40 MG/ML Vial IM (08:10)
--- NOTE | 2021-10-25 08:17 | OP.PCM_ITS ---
Report of Operation Date of Procedure: 10/25/21 Description of Surgical Findings:: Preop diagnosis: Right knee complex tear medial meniscus anterior and posterior horn, recurrent tear lateral meniscus Postoperative diagnosis: Right knee complex tear posterior horn and body anterior horn , complex tear posterior horn lateral meniscus, loose bodies Procedure: Right knee arthroscopic partial medial partial lateral meniscectomy removal of loose bodies Anesthesia: General Estimated blood loss: 5 mL Tourniquet time: 34 minutes 300 mmHg Complications: none Indication for procedure: 65-year-old male who had history of prior right knee lateral meniscectomy many years ago with recurrent mechanical symptoms over the past year failed conservative treatment MRI evidence of recurrent lateral meniscus tear and medial meniscus tear wished to undergo an elective arthroscopic surgery to attempt to alleviate the symptoms. Risk benefits and alternatives of the procedure were reviewed including risk of bleeding infection nerve artery tissue damage need for further surgery continued pain and expected postoperative course. Procedure: The patient was met in the preoperative holding area. The operative extremity was identified by both patient and physician and family and marked. Patient was brought back to the operating room on a wheeled cart and transferred to the operating table in the supine position. Anesthesia was started. A well- padded tourniquet was placed on the operative extremity. A lower extremity leg cardenas was secured to the operative extremity. The contralateral extremity was well-padded and the end of the bed was flexed to 90 degrees. The patient was prepped and draped in the usual sterile fashion. A timeout was called to ensure the proper patient, procedure, and extremity were being contemplated. 0.5% Marcaine with epinephrine was injected into the planned incisional areas under the skin only. An Esmarch was used to exsanguinate the extremity and the tourniquet was inflated. An 11 blade scalpel was used to make a stab incision in the anterior lateral portal. The arthroscope was inserted into the intercondylar notch and inflow and outflow tubes were attached. Arthroscopic visualization began. The medial compartment was entered. An 18-gauge spinal needle was used to establish the placement for anterior medial portal. An 11 blade scalpel was used to make a stab incision. Blunt probe was inserted followed by a meniscal probe. There was a large radial flap of the anterior horn of the medial meniscus with use of oleg and biting instruments partial anterior horn medial meniscectomy was performed in addition there was complex tear of the posterior horn and body which was debrided with a shaver and there was a large flap that was flipped posteriorly of the posterior root however the root remained intact after meniscectomy the ACL was found to be intact. There was multiple loose bodies that were removed with a shaver and arthroscopic biting instruments the lateral compartment was entered complex tear of the posterior horn of the lateral meniscus and some tearing of the anterior horn with the use of a shaver and biting instruments partial lateral meniscectomy was performed The arthroscope was switched to the medial portal to complete the procedure. The medial and lateral gutters were inspected and were free of loose bodies. The patellofemoral joint was inspected and was free of cartilage pathology. There was good patellar tracking. The knee was thoroughly irrigated and drained. An intra-articular injection with 5 cc 0.5% Marcaine plain and 40 mg of Depo-Medrol was injected intra-articularly. The arthroscope was removed the portals were closed with 3-0 nylon arthroscopic stitches. Followed by Xeroform 4 x 4's ABDs web roll and an Kong wrap. The tourniquet was let down and the drapes were removed. All counts were correct. The patient was brought back to the PACU in stable condition.
--- NOTE | 2021-10-25 08:24 | EX.PCM.DISCH ---
Discharge Instructions Diet Discharge Diet: No restrictions Activity Keep extremity elevated above heart level: Operative Extremity Dressing / Incision Call your doctor if you observe: Shortness of breath and Chest pain Additional Dressing/Incision Instructions:: Ice and elevate next 72 hours .keep dressing on clean and dry for 48 hours then may remove begin showering daily but do not submerge in tub or pool. After shower may apply Band-Aids . Encourage knee range of motion weightbearing as tolerated, use crutches until confident in knee then may discontinue. No strenuous activity. When not ambulating keep iced and elevated next 72 hours. Take 1000 mg of Tylenol 4 times a day regularly and Celebrex to control pain do not take any additional NSAIDs , if pain not controlled call ,call with any questions or concerns. Follow Up Care Please Follow Up With: Geremias Mohamud DO Test Results: Test results from this visit will be discussed in further detail at your follow-up appointment, if applicable. Discharge Plan Admission Attending Provider: Geremias Mohamud Primary Care Provider: Sundar Pierce Discharge Orders/Prescriptions Prescriptions: New celecoxib [Celebrex] 200 mg capsule 200 mg PO BID PRN (Reason: pain) Qty: 30 RF: 1 No Action omeprazole 20 mg capsule,delayed release(DR/EC) 20 mg PO DAILY RF: 0 alfuzosin 10 mg tablet extended release 24 hr 10 mg PO DAILY RF: 0 cyanocobalamin (vitamin B-12) 1,000 mcg capsule 1,000 mcg PO DAILY RF: 0 Kisspeptin 10 300 MCG tablet 1 tab PO .3xWK RF: 0 thiamine mononitrate (vit B1) 100 mg tablet 100 mg PO DAILY Qty: 30 RF: 5 aspirin 81 mg tablet,delayed release (DR/EC) 81 mg PO DAILY RF: 0 anastrozole 1 MG tablet 0.25 mg PO TUTH RF: 0 testosterone cypionate 200 MG/ML oil 0.6 ml IM DAILY RF: 0 multivitamin with minerals 1 EACH tablet 1 tab PO DAILY RF: 0 amlodipine 10 mg tablet 5 mg PO BID RF: 0 Referrals / Follow Up: Sundar Pierce DO [Primary Care Provider] - Disposition Disposition (needs filled in before D/C Order can be placed): Home, Self Care
[2021-10-25 08:28] VITALS: BP 126/77; BP 140/72; PULSE 74; RESP 14; TEMP 36.7; O2SAT 90
[2021-10-25 08:30] VITALS: BP 121/82; BP 140/72; PULSE 85; RESP 14; O2SAT 94
[2021-10-25 08:45] VITALS: BP 128/86; BP 140/72; PULSE 80; RESP 16; O2SAT 95
[2021-10-25 09:00] VITALS: BP 116/88; BP 140/72; PULSE 74; RESP 16; TEMP 36.3; O2SAT 94
[2021-10-25 09:40] VITALS: BP 132/84; BP 140/72; PULSE 80; RESP 16; TEMP 36.3; O2SAT 94
== END 2021-10-25 23:59 | disposition home or self-care (01) ==
LOC: SDC 05:57 → AC 05:58
PROVIDERS: PCP Family Medicine; Referring Provider Orthopaedic Surgery; Visit Provider Orthopaedic Surgery
PROC: (CPT 29870; principal; 2021-10-25 07:10)
DX: S83.231A Complex tear of medial meniscus, current injury, right knee, initial encounter (principal); S83.241A Other tear of medial meniscus, current injury, right knee, initial encounter; M23.41 Loose body in knee, right knee; M17.11 Unilateral primary osteoarthritis, right knee; I10 Essential (primary) hypertension; E78.5 Hyperlipidemia, unspecified; G62.9 Polyneuropathy, unspecified; Z87.891 Personal history of nicotine dependence; K21.9 Gastro-esophageal reflux disease without esophagitis; N40.0 Benign prostatic hyperplasia without lower urinary tract symptoms; Z87.19 Personal history of other diseases of the digestive system; Z79.82 Long term (current) use of aspirin; Z79.899 Other long term (current) drug therapy
CPT/HCPCS: 29880; 01400; J7120; J2405

== ENCOUNTER 2021-12-29 09:30 | Outpatient (RCR) | payer MEDICARE, SELFPAY ==
--- NOTE | 2021-06-21 08:45 | HP.PTEVAL ---
Patient's Visit Information KARIN MCLEOD is a 65 year old M referred to Physical Therapy by Dr. Sundar Pierce DO with a diagnosis of Debility. Date of Evaluation: 06/21/21 Physical Therapist: Jeff Abdi DPT - Visit Plan Frequency: 2-3x /Week Duration: 6 Weeks Plan: Start with BLE strengthening, static progressing to dynamic balance, overall endurance. Progress walking program and HEP. - Subjective Pt. is here today for his initial evaluation with diagnosis of debility. Pt. reports recently getting out of hospital after falling at home. He had checked him self into detox at the hospital. Pt. reports this is his second stint of this. He reports having trouble with alcoholism and was falling several times a week, my legs would just not hold me at times. I would have to crawl. Pt. reports falling at the hospital landing on his R knee and heel, which both are still bothering him a bit. He denies N/T, history of lumbar surgery, but reports no back or radiating like pain. He is currently walking with cane and occasionally a walker when not feeling steady. He is getting back to most activities at home, but still does not feel steady He was previously independent with all mobility and functional activities, but is now getting help with driving. He is no longer using shower chair. He is going through [facility] x1 weekly in [place]. Pt. is hopeful to increase BLE strength, balance and to get back to walking without AD. - Pain R knee Pain Intensity (Out of 10): 1 Pain Intensity Range: 0, 4 R heel Pain Intensity (Out of 10): 2 Pain Intensity Range: 0, 4 - Objective POSTURE: Pt. has slight FH and rounded shoulder posture. Pt. is able to correct with VCing. Pt. does have wide NEVA in stance, with slight anterior/posterior postural sway without cane in hand. PALPATION: Pt. has mild tenderness at medial R knee joint line and along patella. No signs of fracture. No bruising noted. R heel no bruising, tender at medial aspect. No edema noted in either LE. NEURO: Pt. has normal sensation and normal DTR of BLEs. ROM: Pt. has good ROM of BLEs, normal HS length, normal hip flexor length. MMT: RLE: ankle 5-/5 throughout; knee: ext 4+/5, flexion 4/5; hip- flexion 4/5, abd 4/5, ext 4/5. LLE: ankle 5-/5 throughout; knee: ext 4+/5, flexion 4/5; hip- flexion 4/5, abd 4/5, ext 4/5. Core strength: poor. No pain with testing. Pt. is have cogwheel like muscle control during testing with ratcheting like control. GAIT: Pt. is able to ambulate without AD with SBA, x2 LOB with catching L foot on floor. Pt. able to correct, but did use railing to stabilize. Pt. has normal step length, but guarded posture noted with all gait. Pt. has increased stability with SPC with proper use. STAIRS: Pt. is able to complete with BHR with reciprocal pattern, but does have some functional weakness with descending. 6 MWT: Pt. ambulated without AD 993'. He reports fatigue with gait as well. TU.56sec - Balance/Special Test Scores Functional Gait Assessment Score: 18 % Disability: 40.0000 Lower Extremity Functional Score: 27 TUG Test Time Seconds: 15.56 6 Minute Walk Test: 993 feet without AD - Goals Goal 1:: LTG: Pt. to be I with HEP. Goal Time Frame: 4-6 Weeks Goal 2:: STG: Pt. to ambulate in home with safe pattern without AD without limitations. Goal Time Frame: 2-4 Weeks Goal 3:: LTG: pt. to complete 6 MWT without AD, walking with normal gait pattern for 1330'+ without issues. Goal Time Frame: 4-6 Weeks Goal 4:: LTG: pt. to complete 30sec sit to stand rep test to 15 reps indicating increased functional LE strength. Goal Time Frame: 4-6 Weeks Goal 5:: LTG: Pt. to have 5/5 strength throughout BLEs. Goal Time Frame: 4-6 Weeks Goal 6:: LTG: Pt. to complete TUG in under 8 sec. Goal Time Frame: 4-6 Weeks - Rehabilitation Potential Physical Therapy Diagnosis: Pt. has signs and symptoms consistent with general debility while recovers from detox from alcohol. Pt. shows marked BLE weakness, difficulty with gait and balance. He would benefit from PT to address the above limitations progress back to walking without AD, and back to all functional mobility without limitations. Rehabilitation Potential: Excellent - Anticipated Interventions Patient/Client Instruction: Educate patient on: Condition, Plan of Care, Risk Factors, Benefits of Fitness Program For the Purpose of:: To foster healthy habits, To improve decision making, To facilitate caregiver knowledge, To improve self management, To prevent re-injury, To improve ability to perform tasks related to life management Therapeutic Exercise to Include: Strength training, Power training, Endurance training, Balance training, Coordination, Postural training, Gait and locomotor training, Neuromotor development, Dynamic Lumbar Stabilization, Scapular Strength/Stabilization For the Purpose of:: To decrease pain, To increase ROM, To improve nutrient delivery to tissue, To increase oxygenation perfusion, To improve muscle performance and motor function, To improve gait and locomotor functions, To improve health of tissue, To decrease soft tissue restriction, To increase flexibility/ROM, To improve endurance Thank you for the opportunity to evaluate your patient. For Medicare and Medicare HMO plans, please review the plan of care and approve it. It will need to be FAXED BACK to us at [phone] for Medicare purposes. For Medicare only, by signing this I certify the plan of care. Please let me know if there are questions or concerns regarding this plan of care. Physician Signature: Date:
--- NOTE | 2021-06-22 15:57 | HP.OTEVAL ---
Patient's Visit Information KARIN MCLEOD is a 65 year old M, referred to Occupational Therapy by Dr. Sundar Pierce DO, with a diagnosis of debility. Date of Evaluation: 06/22/21 Occupational Therapist: TESHA Lux/Jillian, CHT - Subjective This 65 year old male was seen for OT eval with dx of debility. pt state he spent 10 days and the hospital. and currently has been home for about two weeks and pts strength is getting better. pt states he has not returned to mowing the grass or walking his bird dogs. pt and are members of [employer] but has not been attending due to summer activities- pt states his drinking did limit his mobility and home mtg. tasks. Currently he feels he is ready to return to mowing the grass. pt would like to get more of his leg strength and balance back. - ADLs Comments: pt lives in two story home with who is with pt today. pt states he did use a walker when he was d.c. from [facility] after detox. states he does not need the walker at this time. He is ambulating IND without a device. pt states he is currently standing in shower. pt and states he is ind. with bathing and dressing. - Strength Shoulder: right 5/5 left 4+/5 Elbow: right 5/5 left 4+/5 Skilled Nursing Facility Counselor: right 120# left 85# Lateral Pinch: right 16# left 14# Tripod Pinch: right 16# left 14# Tip-to-Tip Pinch: right 16# left 12# - Nine Hole Peg Right: 31.33 sec. Left: 24.31 sec. - Quick DASH-Disab of Arm,Shoulder& Hand Quick DASH Score: 15.9075 - Rehabilitation General Assessment: pt demo with a left UE weakness but is ind. with ADLs and IADLs- states he does have concerns with balance and ambulation so he would like to continue with Physical therapy. - Visit Plan TEXT: Thank you for the opportunity to evaluate your patient. For Medicare and Medicare HMO plans, please review the plan of care and approve it. It will need to be FAXED BACK to us at [phone] for Medicare purposes. Please let me know if there are questions or concerns regarding this plan of care. Physician Signature: Date:
--- NOTE | 2021-07-01 09:31 | HP.SP.AD_ITS ---
History - History Date of Eval: 06/22/21 Medical Diagnosis (from RX): Debility Previous speech therapy: Yes Results: Evaluation while inpatient. Other Relevant Medical History/Diagnoses/Surgery: Debility, Chronic alcohol dependence, continuous, hypertension. Patient was placed in detox unit at [facility]. Back issues reported also. Medications related to this diagnosis: Anastrozole, cholecalciferol (vitamin D3), multivitamin with minerals, testosterone cypionate, Kisspeptin, Alfuzosin, cyanocobalamin (vitamin B-12), omeprazole, thiamine mononitrate (vit B1), amlodipine, folic acid, magnesium chloride, lisinopril Smoking Status: Former smoker Hx Smoking: Yes - uses chewing tobacco Hx Smoking Cessation Date: 10/08/13 Hx Tobacco Use: No - chewing tobacco - Pain Is pain an issue with your current prescribed condition?: No - Personal Occupation: Retired Right Hearing Abillity: Normal Left Hearing Abillity: Normal Visual Assistive Devices: None Patients Living Arrangements: With Significant Other Patient Allergies - Allergies Allergies cefdinir Allergy (Unknown, Verified 05/30/21 12:27) Severe Fatigue doxycycline Allergy (Unknown, Verified 05/30/21 12:27) Severe Fatigue penicillin G Allergy (Unknown, Verified 05/30/21 12:27) Unknown sulfamethoxazole [From Bactrim] Allergy (Unknown, Verified 05/30/21 12:27) anemia trimethoprim [From Bactrim] Allergy (Unknown, Verified 05/30/21 12:27) anemia Penicillins Allergy (Verified 05/30/21 12:27) Unknown CLQT - CLQT CLQT Administered: Yes CLQT: Cognitive Linguistic Quick Test (CLQT) is a criterion - referenced assessment designed for adults between the ages of 18 and 89 with known or suspected neurological dysfuntions. The CLQT is to assess strength and weaknesses in five cognitive domains. Severity ratings are within normal limits, mild, moderate, severe deficits. The subtests are as follows: Date: 07/01/21 - Memory Memory: WNL - Executive Functions Executive Functions: WNL - Language Language: WNL - CLQT Comments Analysis Patient presented with within normal limits skills. He stated that since his hospital admit things are getting easier/better. He has no concerns and I have no concerns. He was able to verbally problem solve as well as demonstrate logic and safety awareness. Plan - Plan Plan: Speech therapy is not warranted at this time. - Recommendations Treatment Warranted: No Education - Patient has Indicated that the Following Identified Educational Needs: None The Patient has indicated that they have no educational or learning abilities that may effect their care.: Yes - Patient Instruction Patient Education: Diagnosis, Treatment Plan Person Taught: Patient Teaching Method: Discussion Response to teaching: Return demonstration
--- NOTE | 2021-07-15 09:50 | HP.PTREVAL_ITS ---
Dr. Sundar Pierce, DO, It has been my pleasure to treat KARIN MCLEOD over the last 8 visits for Debility. Please see the progress note below for an update on the physical therapy plan of care! Subjective: Pt. reports going to see physician about his ankle and knee. He reports they did not have a lot of instruction, but is planning to have MRI on both ankle and knee. He reports having 3/10 pain in his lateral and medial ankle R side today. Objective/Function: Pt. is tender at ATFL on R ankle as well at long post tibial tendon. He has R knee pain as well along medial joint line. He does not have a large amount of laxity in both ankle and knee, but did have pain with knee flexion and with anterior drawer testing of R ankle. He is overall doing better than at his evaluation. No falls. TU.8sec no AD. 6 MWT: 1205ft. 30sec sit<>stand rep test: 13sec. 4+/5 thorughout BLEs, except hip abd 4/5 bilat. Core strength: fair. Plan Plan: Cont. with current POC. Add in ankle stability exercises. Changes in POC pending MRI. Balance/Gait/Functional tests - Balance/Special Test Scores Functional Gait Assessment Score: 18 % Disability: 40.0000 Lower Extremity Functional Score: 37 TUG Test Time Seconds: 15.56 Tug Test: 20-30sec.=variable mobility 6 Minute Walk Test: 993 feet without AD Goals Goal 1:: LTG: Pt. to be I with HEP. Goal Time Frame: 4-6 Weeks Goal Progress: Progressing Goal 2:: STG: Pt. to ambulate in home with safe pattern without AD without limitations. Goal Time Frame: 2-4 Weeks Goal Progress: Goal Met Goal 3:: LTG: pt. to complete 6 MWT without AD, walking with normal gait pattern for 1330'+ without issues. Goal Time Frame: 4-6 Weeks Goal Progress: Progressing Goal 4:: LTG: pt. to complete 30sec sit to stand rep test to 15 reps indicating increased functional LE strength. Goal Time Frame: 4-6 Weeks Goal Progress: Progressing Goal 5:: LTG: Pt. to have 5/5 strength throughout BLEs. Goal Time Frame: 4-6 Weeks Goal Progress: Progressing Goal 6:: LTG: Pt. to complete TUG in under 8 sec. Goal Time Frame: 4-6 Weeks Goal Progress: Progressing Anticipated Interventions Patient/Client Instruction: Educate patient on: Condition, Plan of Care, Risk Factors, Benefits of Fitness Program For the Purpose of:: To foster healthy habits, To improve decision making, To facilitate caregiver knowledge, To improve self management, To prevent re- injury, To improve ability to perform tasks related to life management Therapeutic Exercise to Include: Strength training, Power training, Endurance training, Balance training, Coordination, Postural training, Gait and locomotor training, Neuromotor development, Dynamic Lumbar Stabilization, Scapular Strength/Stabilization For the Purpose of:: To decrease pain, To increase ROM, To improve nutrient delivery to tissue, To increase oxygenation perfusion, To improve muscle performance and motor function, To improve gait and locomotor functions, To improve health of tissue, To decrease soft tissue restriction, To increase flexibility/ROM, To improve endurance Please do not hesitate to contact me at [phone] by phone or if you have questions or concerns regarding this new plan of care! Sincerely, Jeff Abdi DPT
--- NOTE | 2021-08-01 10:01 | HP.PTREVAL_ITS ---
Dr. Sundar Pierce, DO, It has been my pleasure to treat KARIN MCLEOD over the last 13 visits for Debility. Please see the progress note below for an update on the physical therapy plan of care! Subjective: Pt. reports overall about the same. He reports having continued pain with walking and initial standing. He is still having some pain at medial and lateral ankle. Pt. reports stiffness in AM and have after getting up after prolonged sitting. Objective/Function: ROM: DF 10deg, PF 30deg, EVR 15deg , INV 20deg. MMT: 5/5, except INV 4+/5. Pt. had pain at ATFL and post tib/deltoid region. gait: pt. has reduced wt. shift to R side, decreased step length, early heel off on R side. He does appear to have slight increased pronation. He is wearing his new orthotics (were fit ~6 months ago). STAIRS: Pt. does okay with ascending, but painful with descending, early heel off during loaded R descending, increased pain. Symptoms did improve with stretching, but not drastically. Tolerated joint mobs, but not much change in symptoms in any direction. He did feel like he had some benefit with eccentric exercises of his achilles today. TU.9sec. 6 MWT 1221ft. Plan Plan: Cont. to progress eccentrics to Achilles and stretching. If not improving further assessment/imaging might be required. Balance/Gait/Functional tests - Balance/Special Test Scores Functional Gait Assessment Score: 18 % Disability: 40.0000 Lower Extremity Functional Score: 37 TUG Test Time Seconds: 15.56 Tug Test: 20-30sec.=variable mobility 6 Minute Walk Test: 993 feet without AD Goals Goal 1:: LTG: Pt. to be I with HEP. Goal Time Frame: 4-6 Weeks Goal Progress: Progressing Goal 2:: STG: Pt. to ambulate in home with safe pattern without AD without limitations. Goal Time Frame: 2-4 Weeks Goal Progress: Goal Met Goal 3:: LTG: pt. to complete 6 MWT without AD, walking with normal gait pattern for 1330'+ without issues. Goal Time Frame: 4-6 Weeks Goal Progress: Progressing Goal 4:: LTG: pt. to complete 30sec sit to stand rep test to 15 reps indicating increased functional LE strength. Goal Time Frame: 4-6 Weeks Goal Progress: Goal Met Goal 5:: LTG: Pt. to have 5/5 strength throughout BLEs. Goal Time Frame: 4-6 Weeks Goal Progress: Progressing Goal 6:: LTG: Pt. to complete TUG in under 8 sec. Goal Time Frame: 4-6 Weeks Goal Progress: Goal Met Anticipated Interventions Patient/Client Instruction: Educate patient on: Condition, Plan of Care, Risk Factors, Benefits of Fitness Program For the Purpose of:: To foster healthy habits, To improve decision making, To facilitate caregiver knowledge, To improve self management, To prevent re- injury, To improve ability to perform tasks related to life management Therapeutic Exercise to Include: Strength training, Power training, Endurance training, Balance training, Coordination, Postural training, Gait and locomotor training, Neuromotor development, Dynamic Lumbar Stabilization, Scapular Strength/Stabilization For the Purpose of:: To decrease pain, To increase ROM, To improve nutrient delivery to tissue, To increase oxygenation perfusion, To improve muscle performance and motor function, To improve gait and locomotor functions, To improve health of tissue, To decrease soft tissue restriction, To increase flexibility/ROM, To improve endurance Please do not hesitate to contact me at [phone] by phone or if you have questions or concerns regarding this new plan of care! Sincerely, Jeff Abdi DPT
--- NOTE | 2021-10-24 13:48 | HP.PTDCSUM ---
It has been my pleasure to treat KARIN MCLEOD referred by Dr. Sundar Pierce DO, with the diagnosis of Debility for a total of 32 visit(s). Discharge Date: 10/24/21 Please see the following information for a summary of their discharge status. Subjective: Pt. reports overall doing well. Pt. reports being able to do working out side, including chopping wood and working on his tractor without much issues. R knee Pain Intensity (Out of 10): 0 R heel Pain Intensity (Out of 10): 0 R ankle Pain Intensity (Out of 10): 0 % Improvement: 90 Objective/Function: Pt. is overall doing well. Pt. is to have surgery on his R knee tomorrow. He is having what appears to be a meniscectomy. His ankle is doing much better with less swelling. ROM improved to full ROM without issues. 5/5 strength. He does have increased pain with twisting his knee and with stair negotiation. I will DC him at this point in time as he is awaiting a new surgical intervention on his knee. Goal 1:: LTG: Pt. to be I with [facility]. Goal Progress: Goal Met Goal 2:: STG: Pt. to ambulate in home with safe pattern without AD without limitations. Goal Progress: Goal Met Goal 3:: LTG: pt. to complete 6 MWT without AD, walking with normal gait pattern for 1330'+ without issues. Goal Progress: Goal Met Goal 4:: LTG: pt. to complete 30sec sit to stand rep test to 15 reps indicating increased functional LE strength. Goal Progress: Goal Met Goal 5:: LTG: Pt. to have 5/5 strength throughout BLEs. Goal Progress: Goal Met Goal 6:: LTG: Pt. to complete TUG in under 8 sec. Goal Progress: Goal Met Plan: DC to [facility] and pending R knee surgery. Discharge Comments: Pt. will be DC from PT at this point in time. He ankle is doing much better. Pt. has overall decreased swelling in his ankle and is tolerating activities well. He is pending having a R knee surgery later this week. I will DC him at this point in time. He was treated with ROM, strengthening and generalized endurance. He progressed from initially using a walker to now doing much better. I will DC him to [facility] at this point in time. If there are questions or concerns regarding this patient's physical therapy, please feel free to call me at [phone]. Thank you for the referral of this patient. Sincerely, Jeff Abdi DPT Balance/Gait/Functional tests - Balance/Special Test Scores Functional Gait Assessment Score: 18 % Disability: 40.0000 Lower Extremity Functional Score: 49 TUG Test Time Seconds: 15.56 Tug Test: 20-30sec.=variable mobility 6 Minute Walk Test: 1362 ft
--- NOTE | 2021-11-23 06:37 | HP.PTREVAL_ITS ---
Dr. Sundar Pierce, DO, It has been my pleasure to treat KARIN MCLEOD over the last 36 visits for Debility. Please see the progress note below for an update on the physical therapy plan of care! Subjective: Pt. arrives today with reports of increased R knee pain. She reports that he did allow more over the weekend dealing with hi mother . He did go in to see his physician. Annie GARCIA saw him and gave him a new script for his R knee arthroplasty to work on ROM, and edema. He arrives limping with brace on his knee today. Objective/Function: R knee AROM: 0-8-85deg. PROM 0-2-90deg. MMT: flexion 4/5, flexion 4/5; hip: flexion 4/5, abd 4/5, ext 4/5. GAIT: is ambulating without AD, but has marked antalgic pattern during R stance phase. Pt. has marked edema at R knee 2 inch increase at mid patellat, 1.5 inch increase 4 in superior to patella. Plan Plan: With his increase in knee swelling and pain. I want him to work on edema control, look at getting a wrap/brace and working on slowly improving his ROM at this point in time. I talked to him about being caution with use of his knee, but to continue to work on his ROM. Ice, compression and elevation. In PT I want him working on ROM and edema control until improved. Balance/Gait/Functional tests - Balance/Special Test Scores Functional Gait Assessment Score: 18 % Disability: 40.0000 Lower Extremity Functional Score: 30 TUG Test Time Seconds: 15.56 Tug Test: 20-30sec.=variable mobility 6 Minute Walk Test: 1362 ft Goals Goal 1:: LTG: Pt. to be I with HEP. Goal Time Frame: 4-6 Weeks Goal Progress: Goal Met Goal 2:: STG: Pt. to report no pain in R knee at rest allowing for increased quality of life. Goal Time Frame: 2-4 Weeks Goal Progress: Progressing Goal 3:: NEW GOAL 11/14/21: Pt. to have increased R knee ROM to 0-0-120deg allowing increased tolerance to all functional mobility. Goal Time Frame: 4-6 Weeks Goal Progress: Progressing Goal 4:: NEW GOAL: Pt. to have normal gait pattern without increase in symptoms of R knee. Goal Time Frame: 4-6 Weeks Goal Progress: Progressing Goal 5:: LTG: Pt. to have 5/5 strength throughout BLEs. Goal Time Frame: 4-6 Weeks Goal Progress: Progressing Goal 6:: NEW Goal: 11/14/21: Pt. to have equal girth measurement between B knees. Goal Time Frame: 4-6 Weeks Goal Progress: Progressing Anticipated Interventions Patient/Client Instruction: Educate patient on: Condition, Plan of Care, Risk Factors, Benefits of Fitness Program For the Purpose of:: To foster healthy habits, To improve decision making, To facilitate caregiver knowledge, To improve self management, To prevent re- injury, To improve ability to perform tasks related to life management Therapeutic Exercise to Include: Strength training, Power training, Endurance training, Balance training, Coordination, Postural training, Gait and locomotor training, Neuromotor development, Dynamic Lumbar Stabilization, Scapular Strength/Stabilization For the Purpose of:: To decrease pain, To increase ROM, To improve nutrient delivery to tissue, To increase oxygenation perfusion, To improve muscle performance and motor function, To improve gait and locomotor functions, To improve health of tissue, To decrease soft tissue restriction, To increase flexibility/ROM, To improve endurance For the Purpose of:: To facilitate caregiver knowledge Please do not hesitate to contact me at [phone] by phone or if you have questions or concerns regarding this new plan of care! Sincerely, Jeff Abdi DPT
== END 2021-12-29 19:00 | disposition home or self-care (01) ==
LOC: PT 09:30
PROVIDERS: PCP Family Medicine; Referring Provider Family Medicine; Visit Provider Family Medicine
DX: R53.81 Other malaise (principal)
CPT/HCPCS: 92523; 97016; 97035; 97110; 97140; 97161; 97164; 97166; 97530

== ENCOUNTER → 2022-03-23 | Outpatient (CLI) | payer MEDICARE, SELFPAY ==
[2022-03-23 12:46] LABS: Anion Gap 6 (5-15); BUN 14 mg/dL (7-18); BUN/Creat Ratio 13.5 RATIO (10-20); Chloride 102 mmol/L (98-107); Creatinine, Serum 1.04 mg/dL (0.70-1.30); EST Glomerular Filtration Rate 76 mL/min (>60); Est Glom Filt Rate - Afr Amer 92 mL/min (>60); Glucose 101 mg/dL (74-106); Potassium 4.2 mmol/L (3.5-5.1); Sodium Level 135 mmol/L (136-145); T4 Free Direct 1.08 ng/dL (0.76-1.46); Thyroid Stim Hormone (TSH) 3.05 uIU/mL (0.358-3.74)
== END | disposition home or self-care (01) ==
LOC: MTLAB 09:52
PROVIDERS: PCP Family Medicine; Referring Provider Family Medicine; Visit Provider Family Medicine
DX: I10 Essential (primary) hypertension (principal); R79.89 Other specified abnormal findings of blood chemistry
CPT/HCPCS: 36415; 80048; 84439; 84443

== ENCOUNTER → 2022-09-20 | Outpatient (CLI) | payer MEDICARE, SELFPAY ==
[2022-09-20 12:04] LABS: Absolute Lymphocyte Count 1.76 X10^3/uL (0.83-4.51); Absolute Neutrophil Count 3.3 X10^3/uL (2.0-7.7); Basophil# 0.05 X10^3/uL; Basophil% 0.9 % (0-1); Eosinophil# 0.07 X10^3/uL; Eosinophils% 1.2 % (0-5); Hematocrit 46.5 % (40-54); Hemoglobin 15.5 g/dL (13.0-16.5); Lymphocyte # 1.76 X10^3/ul (0.83-4.51); Lymphocyte % 31.2 % (19-41); Mean Corp Hgb Conc 33.3 g/dL (32-36); Mean Corpuscular Hgb 29.6 pg (27.0-32.0); Mean Corpuscular Volume 88.9 fL (80-94); Mean Platelet Vol. 10.2 fl (6.2-12.0); Monocyte# 0.41 X10^3/uL; Monocyte% 7.3 % (0-10); NRBC Flagged by Analyzer 0 % (0-5); Neutrophil # 3.29 X10^3/uL (2.7-7.7); Neutrophil % 58.2 % (47-70); Platelet Count 249 K/mm3 (150-450); RBC Distribution Width CV 12.2 % (11.6-14.6); RBC Distribution Width SD 39.8 fl (35.1-43.9); Red Blood Count 5.23 M/mm3 (4.6-6.2); White Blood Count 5.7 K/mm3 (4.4-11.0)
[2022-09-20 12:41] LABS: AST(SGOT) 21 U/L (15-37); Alanine Aminotransfer ALT/SGPT 32 U/L (16-61); Albumin, Serum 3.7 g/dL (3.2-5.0); Alkaline Phosphatase 89 U/L (45-117); Anion Gap 6 (5-15); BUN 14 mg/dL (7-18); BUN/Creat Ratio 11.8 RATIO (10-20); Chloride 102 mmol/L (98-107); Cholesterol 145 mg/dL (200); Creatinine, Serum 1.19 mg/dL (0.70-1.30); EST Glomerular Filtration Rate 65 mL/min (>60); Est Glom Filt Rate - Afr Amer 79 mL/min (>60); Globulin 3.8 g/dL (2.2-4.2); Glucose 99 mg/dL (74-106); High Density Lipoprotein 31 mg/dL; PSA,Total - Annual Screen 2.13 ng/mL (0.00-4.00); Potassium 4.3 mmol/L (3.5-5.1); Protein, Total 7.5 g/dL (6.4-8.2); Sodium Level 136 mmol/L (136-145); Triglycerides 80 mg/dL; Very Low Density Lipoprotein 16 mg/dL (5-40)
== END | disposition home or self-care (01) ==
LOC: BFHLAB 09:55
PROVIDERS: PCP Family Medicine; Visit Provider Family Medicine
DX: I10 Essential (primary) hypertension (principal); K76.0 Fatty (change of) liver, not elsewhere classified; Z12.5 Encounter for screening for malignant neoplasm of prostate
CPT/HCPCS: 36415; 80053; 80061; 84153; 85025; G0103

== ENCOUNTER → 2023-07-17 | Outpatient (CLI) | payer MEDICARE, SELFPAY ==
[2023-07-17 12:17] LABS: Absolute Lymphocyte Count 1.41 X10^3/uL (0.83-4.51); Basophil# 0.05 X10^3/uL; Basophil% 0.8 % (0-1); Eosinophil# 0.06 X10^3/uL; Hematocrit 46.1 % (40-54); Hemoglobin 15.1 g/dL (13.0-16.5); Lymphocyte # 1.41 X10^3/ul (0.83-4.51); Lymphocyte % 23.6 % (19-41); Mean Corp Hgb Conc 32.8 g/dL (32-36); Mean Corpuscular Hgb 29.8 pg (27.0-32.0); Mean Corpuscular Volume 91.1 fL (80-94); Mean Platelet Vol. 10.4 fl (6.2-12.0); Monocyte# 0.43 X10^3/uL; Monocyte% 7.2 % (0-10); NRBC Flagged by Analyzer 0 % (0-5); Neutrophil # 4.01 X10^3/uL (2.7-7.7); Neutrophil % 67.2 % (47-70); Platelet Count 215 K/mm3 (150-450); RBC Distribution Width CV 12.8 % (11.6-14.6); RBC Distribution Width SD 42.6 fl (35.1-43.9); Red Blood Count 5.06 M/mm3 (4.6-6.2)
[2023-07-17 13:35] LABS: ALB/GLOB Ratio 0.9 RATIO (0.9-2.4); AST(SGOT) 25 U/L (15-37); Alanine Aminotransfer ALT/SGPT 34 U/L (16-61); Albumin, Serum 3.5 g/dL (3.2-5.0); Alkaline Phosphatase 87 U/L (45-117); Anion Gap 5 (5-15); BUN 12 mg/dL (7-18); BUN/Creat Ratio 11.4 RATIO (10-20); Calcium,Total 8.5 mg/dL (8.5-10.1); Chloride 105 mmol/L (98-107); Cholesterol 146 mg/dL (200); Creatinine, Serum 1.05 mg/dL (0.70-1.30); EST Glomerular Filtration Rate 75 mL/min (>60); Est Glom Filt Rate - Afr Amer 90 mL/min (>60); Glucose 95 mg/dL (74-106); High Density Lipoprotein 40 mg/dL; Potassium 4.3 mmol/L (3.5-5.1); Protein, Total 7.5 g/dL (6.4-8.2); Sodium Level 138 mmol/L (136-145); Thyroid Stim Hormone (TSH) 2.73 uIU/mL (0.358-3.74); Triglycerides 64 mg/dL; Very Low Density Lipoprotein 13 mg/dL (5-40)
== END | disposition home or self-care (01) ==
LOC: BFHLAB 10:35
PROVIDERS: PCP Family Medicine; Referring Provider Family Medicine; Visit Provider Family Medicine
DX: R79.89 Other specified abnormal findings of blood chemistry (principal); I10 Essential (primary) hypertension; K76.0 Fatty (change of) liver, not elsewhere classified
CPT/HCPCS: 36415; 80053; 80061; 84443; 85025

== ENCOUNTER → 2024-06-16 | Outpatient (CLI) | payer MEDICARE, SELFPAY ==
[2024-06-16 10:27] LABS: PSA,Total - Annual Screen 2.09 ng/mL (0.00-4.00)
== END | disposition home or self-care (01) ==
LOC: LAB 09:21
PROVIDERS: PCP Family Medicine; Referring Provider Nurse Practitioner; Visit Provider Nurse Practitioner
DX: Z12.5 Encounter for screening for malignant neoplasm of prostate (principal)
CPT/HCPCS: 36415; 84153; G0103

== ENCOUNTER 2024-07-03 08:24 | Day surgery (SDC) | payer MEDICARE, SELFPAY ==
[2024-07-03] VITALS (7 sets, daily range): BP systolic 90–109; BP diastolic 67–79; PULSE 65–82; RESP 14–16; TEMP 36.1–36.4; O2SAT 97–99; BMI 27.5
--- NOTE | 2024-07-03 | COLBX_PTH ---
PATIENT: KARIN MCLEOD LOC: EN U#:[id number] AGE/SX: 68/M ROOM: RE07/03/[address]: Dr. Lloyd Crandall MD : 1955 BED: DIS: 07/03/2024 SPEC #: [id number] RECD: 07/03/24 13:44 STATUS: AMBROSIO LYLE #: [id number] RUFUS: 07/03/24 00:[address]: Lloyd Crandall DEPT: SURGICAL PATHOLOGY RECD BY: Manjit Bolanos ENTERED: 07/03/24 13:44 SP TYPE: COLON BX OTHR DR: Dr. Sundar Pierce, DO Tissues: Rectum, NOS Procedures: Surgery Specimen Level IV HEADER OPERATION: Colonoscopy, polypectomy PRE-OP DIAGNOSIS: Personal history of colonic polyps TISSUE SUBMITTED: Rectal polyp MICROSCOPIC DIAGNOSIS Rectal polyp, polypectomy: Inflammatory polyp. Fragments of fecal material. See comment. 07/04/2024 COMMENT This specimen predominantly consists of fragments of fecal material. MICROSCOPIC DESCRIPTION Slides are reviewed. GROSS DESCRIPTION Received in fixative is one container labeled with the patient's name and designated Rectum polyp. The specimen consists of multiple irregular fragments of light fournier soft tissue that in aggregate measure 2.0 x 0.5 x 0.1 cm. The specimen is totally submitted in one cassette. 07/03/2024 TC:5 CPT:33183
--- NOTE | 2024-07-03 08:33 | PCM.PRE.AN2 ---
ASA Classification* ASA Classification ASA Classification: 3 Assessment & Plan Anesthesia* Anesthesia Assessment Anesthesia Assessment: Discussed sedation and/or anesthesia options, risks, benefits, and alternatives with patient/parents/legal guardian/POA. Questions invited. The patient/parents/legal guardian/POA seems to understand and agrees to proceed with anesthesia plan. Reviewed the physical assessment, medical history, allergy history and patient home medications list prior to surgery/procedure/anesthetic and documented any changes. Performed airway and anesthesia risk assessments. Anesthesia Type Anesthesia Type: MAC (see written pre anesthesia record for full assessment) Anesthesia Focused Assessment* Airway Assessment Mouth opens: >3 cm Mallampati Score: II Focused Labs Anesthesia Preop lab: CBC WBC 6.0 K/mm3 (4.4-11.0) 07/17/23 10:43 RBC 5.06 M/mm3 (4.6-6.2) 07/17/23 10:43 Hgb 15.1 g/dL (13.0-16.5) 07/17/23 10:43 Hct 46.1 % (40-54) 07/17/23 10:43 Plt Count 215 K/mm3 (150-450) 07/17/23 10:43 CHEMISTRY Potassium 4.3 mmol/L (3.5-5.1) 07/17/23 10:43 Sodium 138 mmol/L (136-145) 07/17/23 10:43 Magnesium 1.9 mg/dL (1.6-2.6) 06/07/21 04:50 Phosphorus 3.2 mg/dL (2.5-4.9) 06/06/21 05:50 BUN 12 mg/dL (7-18) 07/17/23 10:43 Creatinine 1.05 mg/dL (0.70-1.30) 07/17/23 10:43 Glucose 95 mg/dL (74-106) 07/17/23 10:43 POC Glucose 92 mg/dL (70-110) 11/09/19 06:35 TSH 2.73 uIU/mL (0.358-3.74) 07/17/23 10:43 COAG PT 14.1 SECONDS (11.7-14.9) 11/07/19 09:30 Pre-Assessment Diagnosis/Proposed Procedure Planned Operative Procedure(s): CSCOPE Anesthesia History 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 When Was Last Pacemaker Check QUESTION #4 FULL TEXT: You/Your Family Experience fever (hyperthermia) with Anesthesia Last Oral Intake Last Oral intake: Last Oral Intake NPO since Meds taken in AM with sips of water? 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 specialist Female No 07/02/24 15:58 HX of Motion Sickness No 07/02/24 15:58 HX of N/V After Surgery No 07/02/24 15:58 Non-Smoker Yes 07/02/24 15:58 Duration of Surgery greater No 07/02/24 15:58 than 60 minutes Number of Risk Factors 1 07/02/24 15:58 PONV Score Low Risk 07/02/24 15:58 Height & Weight Height & Weight: Anesthesia: Height & Weight Height 5 ft 8 in 05/22/24 11:40 Respiratory Assessment Respiratory Assessment - military logistics specialist: Respiratory Tract Infection Hx - military logistics specialist Hx Respiratory Tract Infection No 07/02/24 15:58 STOP Sleep Apnea STOP Sleep Apnea - military logistics specialist: STOP Sleep Apnea - military logistics specialist Hx Hypertension Yes: CONTROLLED WITH MED 07/02/24 15:58 Hx Sleep Apnea No 07/02/24 15:58 CPAP BIPAP Do you snore loudly (louder No 07/02/24 15:58 than talking or can be heard Do you often feel tired/ No 07/02/24 15:58 fatigued/ sleepy during daytime? Has anyone observed you stop No 07/02/24 15:58 breathing during sleep? STOP Results Negative 07/02/24 15:58 QUESTION #5 FULL TEXT : Do you snore loudly (louder than talking or can be heard through closed doors)? 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 Specify any problems Hx of Preganancy in last 3 N/A 07/02/24 15:58 Months Nurse Filling Out Transfusion NBUCHER 07/02/24 15:58 & Questions: Date: 07/02/24 07/02/24 15:58 Time: 16:00 07/02/24 15:58 Patient unable to answer at this time (ie. confused, unrespo /Reproduction History /Reproductive History - military logistics specialist: /Reproductive Hx- military logistics specialist Hx Now No 07/02/24 15:58 Gestational Age (in weeks): EDC: Hx Hx Para Hx Section SAB No 07/02/24 15:58 Active Medications Active Medications: Current Medications Generic Name Dose Route Start Last Admin Trade Name Freq PRN Reason Stop Dose Admin Lactated Ringer's 1,000 mls @ 15 mls/hr 07/03/24 08:30 IV .Q48H TRACI PFSH Medical History Personal history of colonic polyps Basal cell carcinoma Alcohol use Wears glasses Cancer Arthritis Prostate disease Back pain History of GI bleed History of ulceration Gastric reflux Former smoker History of pain when walking History of edema History of echocardiogram History of stress test Strain of right Achilles tendon Right ankle sprain Right knee pain Rotator cuff syndrome of right shoulder Recent shoulder injury Benign prostatic hyperplasia GI bleed Chronic alcohol dependence, continuous Hyperlipidemia Low 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 HTN (hypertension) Home Medications ?Medication ?Instructions ?Recorded ?Last Taken ?Type anastrozole 1 mg tablet 0.25 mg PO .3xweek hormone 08/27/19 10/25/21 05:15 History multivitamin with minerals 1 tab PO DAILY supplement 08/27/19 08/26/19 History testosterone cypionate 200 mg/mL 0.6 ml IM .2xmo hormone 08/27/19 08/24/19 History intramuscular oil alfuzosin 10 mg tablet,extended 10 mg PO DAILY urination 05/26/21 05/29/21 22:00 History release 24 hr omeprazole 20 mg capsule,delayed 20 mg PO DAILY STOMACH 05/26/21 10/25/21 05:15 History release aspirin 81 mg tablet,delayed 81 mg PO DAILY 07/13/21 10/18/21 History release celecoxib 200 mg capsule (Celebrex) 100 mg PO TID PRN pain 11/20/22 Unknown History amlodipine 10 mg tablet 10 mg PO DAILY 05/22/24 Unknown History finasteride 5 mg tablet 5 mg PO DAILY 07/02/24 Unknown History gonadorelin acetate peptide 250 mg PO DAILY 07/02/24 Unknown History omega 1-jjg-hlk-fish oil 1,200 mg 1 cap PO DAILY 07/02/24 Unknown History (144 mg-216 mg) capsule (Fish Oil) Allergy/AdvReac Type Severity Reaction Status Date / Time cefdinir Allergy Unknown Severe Verified 07/02/24 15:51 Fatigue doxycycline Allergy Unknown Severe Verified 07/02/24 15:51 Fatigue penicillin G Allergy Unknown Unknown Verified 07/02/24 15:51 sulfamethoxazole (From Allergy Unknown anemia Verified 07/02/24 15:51 Bactrim) trimethoprim (From Bactrim) Allergy Unknown anemia Verified 07/02/24 15:51 Penicillins Allergy Unknown Verified 07/02/24 15:51 Family History Father Aortic aneurysm Mother Heart disease Colon polyps Surgical History History of arthroplasty of right knee (~1998) Hx of colonoscopy H/O right knee surgery History of back surgery (~2019) History of esophagogastroduodenoscopy (EGD) Social History household members: spouse current occupational status: retired Smoking Status: Former smoker Smokeless tobacco user: other how long ago did patient quit smokin alcohol intake: former substance use type: marijuana Review of Systems (Anesthesia) ROS Narrative System reviewed and no additional complaints, except as documented.
[2024-07-03] MEDS: Lactated Ringers 1,000 ML 15 ML IV (08:52)
--- NOTE | 2024-07-03 09:44 | H&P.OPEN ---
HPI - General HPI Narrative KARIN MCLEOD, is a 68 M who presents for surveillance colonoscopy. He had a colonoscopy 5 years ago and a small polyp was removed. He denies abdominal pain or blood in the stool. [facility] Medical History (Updated 07/03/24 @ 09:[address] Lloyd Crandall MD) Personal history of colonic polyps Basal cell carcinoma Alcohol use Wears glasses Cancer Arthritis Prostate disease Back pain History of GI bleed History of ulceration Gastric reflux Former smoker History of pain when walking History of edema History of echocardiogram History of stress test Strain of right Achilles tendon Right ankle sprain Right knee pain Rotator cuff syndrome of right shoulder Recent shoulder injury Benign prostatic hyperplasia GI bleed Chronic alcohol dependence, continuous Hyperlipidemia Low 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 HTN (hypertension) Home Medications ?Medication ?Instructions ?Recorded ?Last Taken ?Type anastrozole 1 mg tablet 0.25 mg PO .3xweek hormone 08/27/19 10/25/21 05:15 History multivitamin with minerals 1 tab PO DAILY supplement 08/27/19 08/26/19 History testosterone cypionate 200 mg/mL 0.6 ml IM .2xmo hormone 08/27/19 08/24/19 History intramuscular oil alfuzosin 10 mg tablet,extended 10 mg PO DAILY urination 05/26/21 05/29/21 22:00 History release 24 hr omeprazole 20 mg capsule,delayed 20 mg PO DAILY STOMACH 05/26/21 07/03/24 History release aspirin 81 mg tablet,delayed 81 mg PO DAILY 07/13/21 06/28/24 History release celecoxib 200 mg capsule (Celebrex) 100 mg PO TID PRN pain 11/20/22 Unknown History amlodipine 10 mg tablet 10 mg PO DAILY 05/22/24 07/03/24 07:00 History finasteride 5 mg tablet 5 mg PO DAILY 07/02/24 Unknown History gonadorelin acetate peptide 250 mg PO DAILY 07/02/24 Unknown History omega 9-wcc-aca-fish oil 1,200 mg 1 cap PO DAILY 07/02/24 Unknown History (144 mg-216 mg) capsule (Fish Oil) Allergy/AdvReac Type Severity Reaction Status Date / Time cefdinir Allergy Unknown Severe Verified 07/03/24 08:42 Fatigue doxycycline Allergy Unknown Severe Verified 07/03/24 08:42 Fatigue penicillin G Allergy Unknown Unknown Verified 07/03/24 08:42 sulfamethoxazole (From Allergy Unknown anemia Verified 07/03/24 08:42 Bactrim) trimethoprim (From Bactrim) Allergy Unknown anemia Verified 07/03/24 08:42 Penicillins Allergy Unknown Verified 07/03/24 08:42 Family History Father Aortic aneurysm Mother Heart disease Colon polyps Surgical History History of arthroplasty of right knee (~1998) Hx of colonoscopy H/O right knee surgery History of back surgery (~2019) History of esophagogastroduodenoscopy (EGD) Social History household members: spouse current occupational status: retired Smoking Status: Former smoker Smokeless tobacco user: other how long ago did patient quit smokin alcohol intake: former substance use type: marijuana Past Medical/Surgical History Planned Operation Planned Operative Procedure(s): CSCOPE Previous Hospitalizations/Surgeries HX Hospitalizations: No Any Problems With Anesthesia: No You/Your Family Experience Fever (Hyperthermia) With Anes: No Cholinesterase deficiency: No Cardiovascular Hx Chest Pain within Last 2 months: Yes Hx of Irregular Heartbeat and/or Afib: No Hx Heart Attack: No Hx Hypertension: Yes (CONTROLLED WITH MED) Hx Internal Defibrillator: No Hx Pacemaker: No Hx Cardiac Surgery/Stents/Etc.: No Hx Pain in Legs when Walking/Leg Cramps: Yes Respiratory Hx Chronic Obstructive Pulmonary Disease (COPD): No Hx Asthma: Yes Hx Emphysema: No Hx Sleep Apnea: No Hx Respiratory Tract Infection/Cold (presently): No Do You Snore Loudly (louder than talking or can be heard): No Do You Often Feel Tired/ Fatigued/ Sleepy Dring Daytime?: No Has Anyone Observed You Stop Breathing During Sleep?: No Result (for STOP score): Negative Hx Smoking: Yes (uses chewing tobacco) Smoking Status: Former smoker Gastrointestinal Hx Gastrointestinal Bleed: No Hx Ulcer: No Difficulty Chewing/Swallowing: No Hx Unplanned Weight Loss of 20#: No Neurological Hx Seizures: No Hx Multiple Sclerosis: No Hx Parkinson's Disease: No Hx Back Injury/Pain: Yes (PAIN MANAGMENT) Does patient have nerve stimulator: No Blood Disorder Hx High Cholesterol: No Hx Hepatitis: No Hx Cirrhosis: No Hx Anemia: No Hx Blood Disorders: No Reproduction : No Genitourinary Hx Renal Disease: No Hx Dialysis: No Musculoskeletal Hx Arthritis: Yes (all over) Hx Rheumatoid Arthritis: No Endocrine Hx Diabetes: No Thyroid Disease: No Psycho/Social Hx Substance Use: No Hx Alcohol Use: Yes (8 gin and tonics daily) Hx Anxiety: No Hx Depression: No Hx Dementia: No Miscellaneous Hx Cancer: Yes (Skin cancer) Recent Exposure to Contagious Disease: No Allergies cefdinir Allergy (Unknown, Verified 07/03/24 08:42) Severe Fatigue doxycycline Allergy (Unknown, Verified 07/03/24 08:42) Severe Fatigue penicillin G Allergy (Unknown, Verified 07/03/24 08:42) Unknown Childhood sulfamethoxazole (From Bactrim) Allergy (Unknown, Verified 07/03/24 08:42) anemia trimethoprim (From Bactrim) Allergy (Unknown, Verified 07/03/24 08:42) anemia Penicillins Allergy (Verified 07/03/24 08:42) Unknown Childhood Maternal: Family History Father Aortic aneurysm Mother Heart disease Colon polyps Heart Disease (Live in ) and No pertinent history Paternal: Family History Father Aortic aneurysm Mother Heart disease Colon polyps - ( in 60s from aortic aneurysm) Discharge Is Pt Admitted From a Jail, or a Long-Term: No After D/C, Where Do you Plan to Go: Return Home From the [facility] History Number of Risk Factors: 4 Vital Signs Vital Signs Vital Signs: 07/03/24 08:44 Temperature 97.5 F L Temperature Source Temporal Pulse Rate 65 Respiratory Rate 16 Blood Pressure 109/79 Blood Pressure Mean 89 Blood Pressure Source Monitor Blood Pressure Position Semi-Fowlers Blood Pressure Location Left Arm Pulse Ox 99 Oxygen Delivery Method Room Air Weight Weight: 181 lb Body Mass Index (BMI) 27.5 Physical Exam Const alert and oriented x3 HEENT normocephalic Eyes PERRL Resp normal respiratory effort and normal air movement Cardio regular rate and regular rhythm GI soft to palpation, non-tender and non-distended Extremity normal to inspection Assessment & Plan Assessment/Plan (1) Personal history of colonic polyps: PLAN: I explained endoscopy in detail to the patient. I explained the risks including but not limited to stroke or heart attack with anesthesia, perforation of the GI tract, bleeding, infection. I explained that any of these could necessitate further emergency surgery. The patient understands and all questions were answered sufficiently. The patient wishes to proceed with procedure. Lloyd Crandall MD Pager: [facility] [address] [place] [address] [address] [place] [address] Office: Surgery Risks - Colonoscopy Risks Include but are not Limited To: Risks include but are not limited to: Bleeding, perforation requiring further surgery, inability to complete colonoscopy requiring barium enema.
--- NOTE | 2024-07-03 10:20 | OP.COLON_ITS ---
Patient Name: Khalif Quezada Procedure Date: 07/03/2024 9:49 AM Date of : 1955 Age: 68 Procedure: Colonoscopy Indications: High risk colon cancer surveillance: Personal history of colonic polyps Providers: Lloyd Crandall MD Medicines: Propofol per Anesthesia Patient Profile: This is a 68 year old male. Refer to note in patient chart for documentation of history and physical. Last Colonoscopy: 5 years ago. Complications: No immediate complications. Procedure: Pre-Anesthesia Assessment: - Prior to the procedure, a History and Physical was performed, and patient medications and allergies were reviewed. The patient's tolerance of previous anesthesia was also reviewed. The risks and benefits of the procedure and the sedation options and risks were discussed with the patient. All questions were answered, and informed consent was obtained. Prior Anticoagulants: The patient has taken no anticoagulant or antiplatelet agents. After reviewing the risks and benefits, the patient was deemed in satisfactory condition to undergo the procedure. After I obtained informed consent, the scope was passed under direct vision. Throughout the procedure, the patient's blood pressure, pulse, and oxygen saturations were monitored continuously. The Colonoscope was introduced through the anus and advanced to the cecum, identified by appendiceal orifice and ileocecal valve. The colonoscopy was performed without difficulty. The patient tolerated the procedure well. The quality of the bowel preparation was adequate to identify polyps greater than 5 mm in size. The ileocecal valve, appendiceal orifice, and rectum were photographed. Scope In: 9:59:37 AM Scope Withdrawal Time 0 hours 6 minutes 50 seconds Scope Out: 10:15:14 AM Total Procedure Duration Time 0 hours 15 minutes 37 seconds Findings: A small polyp was found in the rectum. The polyp was removed with a hot snare. Resection and retrieval were complete. The exam was otherwise without abnormality on direct and retroflexion views. Impression: - One small polyp in the rectum, removed with a hot snare. Resected and retrieved. - The examination was otherwise normal on direct and retroflexion views. Recommendation: - Discharge patient to home. - Resume previous diet. - Continue present medications. - Await pathology results. - Repeat colonoscopy in 5 years for surveillance. Procedure Code(s): --- Professional --- 30050, Colonoscopy, flexible; with removal of tumor(s), polyp(s), or other lesion(s) by snare technique Diagnosis Code(s): --- Professional --- Z86.010, Personal history of colonic polyps D12.8, Benign neoplasm of rectum CPT copyright 2021 [employer]. All rights reserved. The codes documented in this report are preliminary and upon scratch brusher review may be revised to meet current compliance requirements. Lloyd Crandall MD 07/03/2024 10:19:23 AM This report has been signed electronically. Number of Addenda: 0 Note Initiated On: 07/03/2024 9:49 AM
--- NOTE | 2024-07-03 10:20 | OP.CCLET_ITS ---
07/03/2024 Sundar Pierce [address] [place] [address] Re : Colonoscopy procedure for Khalif Quezada Dear Dr. Pierce This procedure was performed on June. My impressions and recommendations are as follows: Impressions : - One small polyp in the rectum, removed with a hot snare. Resected and retrieved. - The examination was otherwise normal on direct and retroflexion views. Recommendations : - Discharge patient to home. - Resume previous diet. - Continue present medications. - Await pathology results. - Repeat colonoscopy in 5 years for surveillance. My findings are described in the full procedure note, which is enclosed. If I can be of further assistance, please feel free to contact me at Doctor phone number(s): , Work: . Sincerely, Lloyd Crandall MD 07/03/2024 10:19:23 AM This report has been signed electronically.
--- NOTE | 2024-07-03 10:23 | PCM.POST.ANE ---
Anesthesia: Postop Eval I Current Vital Signs Temperature: 97 F Pulse Rate: 72 Blood Pressure: 98/67 Respiratory Rate: 14 Pulse Ox: 98 Oxygen Delivery Method: Room Air Assessment Airway patent: Yes Spontaneous unlabored respirations: Yes Mental status: Awake and Calm nausea: No Vomiting: No Anesthesia Complication: No Fluid Hydration Crystalloid volume administer (ml): 500 Total IV fluid infused: 500 Progress Note Anesthesia document: Postop Eval 1 completed: Yes
--- NOTE | 2024-07-03 10:45 | PCM.POSTANE2 ---
Anesthesia Postop Eval I Sum Postop Eval Completion status Anesthesia document: Postop Eval 1 completed: Yes Anesthesia Postop Eval I Summary Anesthesia Postop Eval I Summary: Anesthesia Postop Eval I: Assessment Summary Airway patent Yes 07/03/24 10:24 [email or web address] Spontaneous unlabored Yes 07/03/24 10:24 [email or web address] respirations Mental status Awake,Calm 07/03/24 10:24 [email or web address] nausea No 07/03/24 10:24 [email or web address] Vomiting No 07/03/24 10:24 [email or web address] Anesthesia Postop Eval I: Fluid Summary Crystalloid volume administer 500 07/03/24 10:24 [email or web address] (ml) Colloids volume administered ( ml) Blood Product volume administered (ml) Total IV fluid infused 500 07/03/24 10:24 [email or web address] Anesthesia Postop Eval I: Summary Notes Anesthesia Complication No 07/03/24 10:24 [email or web address] Anesthesia Complication Comment: Post-operative progress note Anesthesia: Postop Eval II Evaluation Mental status: Awake Pain Level: 0 nausea: No Vomiting: No Complications Anesthesia Complication: No
== END 2024-07-03 10:59 | disposition home or self-care (01) ==
LOC: EN 08:26 → AC 08:26
PROVIDERS: PCP Family Medicine; Referring Provider Family Medicine; Visit Provider Surgery
PROC: 0DJD8ZZ Inspection of Lower Intestinal Tract, Via Natural or Artificial Opening Endoscopic (ICD-10-PCS; CPT 45378; principal; 2024-07-03 09:25)
DX: Z12.11 Encounter for screening for malignant neoplasm of colon (principal); K62.1 Rectal polyp; Z86.010 Personal history of colon polyps; E78.5 Hyperlipidemia, unspecified; I10 Essential (primary) hypertension; Z87.891 Personal history of nicotine dependence; Z79.899 Other long term (current) drug therapy; Z79.82 Long term (current) use of aspirin
CPT/HCPCS: 45385; 88305; J7120; J2405

== ENCOUNTER → 2024-07-22 | Outpatient (CLI) | payer MEDICARE, SELFPAY ==
[2024-07-22 12:59] LABS: Absolute Lymphocyte Count 1.28 X10^3/uL (0.83-4.51); Basophil# 0.05 X10^3/uL; Basophil% 0.8 % (0-1); Eosinophil# 0.05 X10^3/uL; Eosinophils% 0.8 % (0-5); Hematocrit 42.4 % (40-54); Hemoglobin 13.9 g/dL (13.0-16.5); Lymphocyte # 1.28 X10^3/ul (0.83-4.51); Lymphocyte % 21.3 % (19-41); Mean Corp Hgb Conc 32.8 g/dL (32-36); Mean Corpuscular Hgb 29.8 pg (27.0-32.0); Mean Platelet Vol. 10.3 fl (6.2-12.0); Monocyte# 0.54 X10^3/uL; NRBC Flagged by Analyzer 0 % (0-5); Neutrophil # 4.04 X10^3/uL (2.7-7.7); Neutrophil % 67.4 % (47-70); Platelet Count 229 K/mm3 (150-450); RBC Distribution Width CV 12.4 % (11.6-14.6); Red Blood Count 4.66 M/mm3 (4.6-6.2)
[2024-07-22 13:05] LABS: AST(SGOT) 25 U/L (15-37); Alanine Aminotransfer ALT/SGPT 32 U/L (16-61); Alkaline Phosphatase 85 U/L (45-117); Anion Gap 6 (5-15); BUN 12 mg/dL (7-18); BUN/Creat Ratio 12.1 RATIO (10-20); Calcium,Total 9.3 mg/dL (8.5-10.1); Chloride 102 mmol/L (98-107); Cholesterol 194 mg/dL (200); Creatinine, Serum 0.99 mg/dL (0.70-1.30); EST Glomerular Filtration Rate 80 mL/min (>60); Est Glom Filt Rate - Afr Amer 97 mL/min (>60); Globulin 3.9 g/dL (2.2-4.2); Glucose 104 mg/dL (74-106); High Density Lipoprotein 58 mg/dL; Potassium 4.1 mmol/L (3.5-5.1); Protein, Total 7.9 g/dL (6.4-8.2); Sodium Level 134 mmol/L (136-145); Triglycerides 77 mg/dL; Very Low Density Lipoprotein 15 mg/dL (5-40)
== END | disposition home or self-care (01) ==
LOC: BFHLAB 10:55
PROVIDERS: PCP Family Medicine; Referring Provider Family Medicine; Visit Provider Family Medicine
DX: I10 Essential (primary) hypertension (principal); K76.0 Fatty (change of) liver, not elsewhere classified
CPT/HCPCS: 36415; 80053; 80061; 85025

== ENCOUNTER → 2024-10-15 | Outpatient (CLI) | payer MEDICARE, SELFPAY ==
--- NOTE | 2024-10-15 08:54 | AAVD_ITS ---
Reason For Study: Screening for AAA Aorta Measurements Aorta Doppler Measurements Proximal aorta measures1.74 x 1.73cm. in cross- Peak systolic flow velocities within the proximal sectional axis. aorta measure 81.4 cm/sec. Proximal aorta measures1.77cm. in longitudinal Peak systolic flow velocities within the mid aorta axis. measure 85 cm/sec. Mid aorta measures1.74 x 1.79cm. in cross- Peak systolic flow velocities within the distal sectional axis. aorta measure 110.4 cm/sec. Mid aorta measures1.61cm. in longitudinal axis. Distal aorta measures1.30 x 1.30cm. in cross- sectional axis. Distal aorta measures1.35cm. in longitudinal axis. Left Iliac Artery Left iliac artery measures 1.09 x 1.02 cm. in the cross-sectional axis. Left iliac artery measures 1.05 cm. in the longitudinal axis. Peak systolic velocity in the left iliac artery measures 77.7 cm/sec. Right Iliac Artery Right iliac artery measures 0.89 x 0.90 cm. in the cross-sectional axis. Right iliac artery measures 0.81 cm. in the longitudinal axis. Peak systolic velocity in the right iliac artery measures 99.5 cm/sec. Procedure Aorta IVC Iliac vasculature or bypass grafts [id number]. Exam performed in department. VL/Abd Aortic/IVC Duplex scan Interpretation Summary Aorta patent, normal caliber Bilateral iliac arteries patent, normal caliber. Ordering Physician: Sundar Pierce Referring Physician: Sundar Pierce Performed By: Pamella Noble RVT
== END | disposition home or self-care (01) ==
LOC: CVS 08:53
PROVIDERS: PCP Family Medicine; Referring Provider Family Medicine; Visit Provider Family Medicine
DX: Z13.6 Encounter for screening for cardiovascular disorders (principal); Z87.891 Personal history of nicotine dependence; I10 Essential (primary) hypertension
CPT/HCPCS: 93978

== ENCOUNTER 2024-12-10 14:59 | Observation (INO) | payer MEDICARE, SELFPAY ==
[2024-12-10] VITALS (10 sets, daily range): BP systolic 121–146; BP diastolic 72–94; PULSE 61–97; RESP 16–20; TEMP 36.5–37.1; O2SAT 94–98; BMI 30.2
--- NOTE | 2024-12-10 | PROS_PTH ---
PATIENT: KARIN MCLEOD LOC: MS3 U#:[id number] AGE/SX: 69/M ROOM: [facility] [place]12/10/[address]: Dr. Alfonso Chaney MD : 1955 BED: 1 DIS: 12/11/2024 SPEC #: [id number] RECD: 12/11/24 10:39 STATUS: AMBROSIO REKaryn #: [id number] RUFUS: 12/10/24 00:[address]: Alfonso Chaney DEPT: SURGICAL PATHOLOGY RECD BY: Anthony Trimble ENTERED: 12/11/24 10:39 SP TYPE: TURP OTHR DR: Dr. Sundar Pierce, DO Tissues: Prostate, NOS Procedures: Surgery Specimen Level IV HEADER OPERATION: Cysto, transurethral resection, prostate PRE-OP DIAGNOSIS: Benign prostatic hyperplasia with urinary retention TISSUE SUBMITTED: Resected prostate tissue MICROSCOPIC DIAGNOSIS Prostate, TURP: * Benign hyperplasia. MICROSCOPIC DESCRIPTION Slides are reviewed. GROSS DESCRIPTION Received in formalin labeled Karin Mcleod and designated resected prostate tissue is a 3.8 g, 3.5 x 3.5 x 1.0 cm aggregate of multiple pink-fournier to fournier-carrington, elongated, and irregular shaped rubbery tissue fragments. Totally submitted in 4 cassettes.JK. 12/11/2024 CPT:69456
--- NOTE | 2024-12-10 12:31 | PCM.PRE.AN2 ---
ASA Classification* ASA Classification ASA Classification: 3 Assessment & Plan Anesthesia* Anesthesia Assessment Anesthesia Assessment: Discussed sedation and/or anesthesia options, risks, benefits, and alternatives with patient/parents/legal guardian/POA. Questions invited. The patient/parents/legal guardian/POA seems to understand and agrees to proceed with anesthesia plan. Reviewed the physical assessment, medical history, allergy history and patient home medications list prior to surgery/procedure/anesthetic and documented any changes. Performed airway and anesthesia risk assessments. Anesthesia Type Anesthesia Type: General Anesthesia Focused Assessment* Airway Assessment Mouth opens: >3 cm Mallampati Score: II Focused Labs Anesthesia Preop lab: CBC WBC 6.0 K/mm3 (4.4-11.0) 07/22/24 10:55 07/22/24 RBC 4.66 M/mm3 (4.6-6.2) 07/22/24 10:55 07/22/24 Hgb 13.9 g/dL (13.0-16.5) 07/22/24 10:55 07/22/24 Hct 42.4 % (40-54) 07/22/24 10:55 07/22/24 Plt Count 229 K/mm3 (150-450) 07/22/24 10:55 07/22/24 CHEMISTRY Potassium 4.1 mmol/L (3.5-5.1) 07/22/24 10:55 07/22/24 Sodium 134 mmol/L (136-145) L 07/22/24 10:55 07/22/24 Magnesium 1.9 mg/dL (1.6-2.6) 06/07/21 04:50 06/07/21 Phosphorus 3.2 mg/dL (2.5-4.9) 06/06/21 05:50 06/06/21 BUN 12 mg/dL (7-18) 07/22/24 10:55 07/22/24 Creatinine 0.99 mg/dL (0.70-1.30) 07/22/24 10:55 07/22/24 Glucose 104 mg/dL (74-106) 07/22/24 10:55 07/22/24 POC Glucose 92 mg/dL (70-110) 11/09/19 06:35 11/09/19 TSH 2.73 uIU/mL (0.358-3.74) 07/17/23 10:43 07/17/23 COAG PT 14.1 SECONDS (11.7-14.9) 11/07/19 09:30 11/07/19 Pre-Assessment Diagnosis/Proposed Procedure Planned Operative Procedure(s): cysto turp olympus Anesthesia History 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 When Was Last Pacemaker Check QUESTION #4 FULL TEXT: You/Your Family Experience fever (hyperthermia) with Anesthesia Last Oral Intake Last Oral intake: Last Oral Intake NPO since Meds taken in AM with sips of water? 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 Female No 12/09/24 09:50 HX of Motion Sickness No 12/09/24 09:50 HX of N/V After Surgery No 12/09/24 09:50 Non-Smoker Yes 12/09/24 09:50 Duration of Surgery greater Yes 12/09/24 09:50 than 60 minutes Number of Risk Factors 2 12/09/24 09:50 PONV Score Moderate Risk 12/09/24 09:50 Height & Weight Height & Weight: Anesthesia: Height & Weight Height 5 ft 8 in 07/03/24 08:44 Respiratory Assessment Respiratory Assessment - preschool teacher: Respiratory Tract Infection Hx - preschool teacher Hx Respiratory Tract Infection No 12/09/24 09:50 STOP Sleep Apnea STOP Sleep Apnea - preschool teacher: STOP Sleep Apnea - preschool teacher Hx Hypertension Yes: CONTROLLED WITH MED 12/09/24 09:50 Hx Sleep Apnea No 12/09/24 09:50 CPAP BIPAP Do you snore loudly (louder No 12/09/24 09:50 than talking or can be heard Do you often feel tired/ No 12/09/24 09:50 fatigued/ sleepy during daytime? Has anyone observed you stop No 12/09/24 09:50 breathing during sleep? STOP Results Negative 12/09/24 09:50 QUESTION #5 FULL TEXT : Do you snore loudly (louder than talking or can be heard through closed doors)? 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 Specify any problems Hx of Preganancy in last 3 N/A 12/09/24 09:50 Months Nurse Filling Out Transfusion NBUCHER 12/09/24 09:50 & Questions: Date: 12/09/24 12/09/24 09:50 Time: 09:51 12/09/24 09:50 Patient unable to answer at this time (ie. confused, unrespo /Reproduction History /Reproductive History - preschool teacher: /Reproductive Hx- preschool teacher Hx Now Gestational Age (in weeks): EDC: Hx Hx Para Hx Section SAB No 12/09/24 09:50 Active Medications Active Medications: Current Medications Generic Name Dose Route Start Last Admin Trade Name Freq PRN Reason Stop Dose Admin Cefazolin Sodium 2 gm/ N/A 20 mls @ 400 mls/hr 12/10/24 14:30 IV 12/10/24 14:32 PREOP ONE PFSH Medical History Personal history of colonic polyps Basal cell carcinoma Alcohol use Wears glasses Cancer Arthritis Prostate disease Back pain History of GI bleed History of ulceration Gastric reflux Former smoker History of pain when walking History of edema History of echocardiogram History of stress test Strain of right Achilles tendon Right ankle sprain Right knee pain Rotator cuff syndrome of right shoulder Recent shoulder injury Benign prostatic hyperplasia GI bleed Chronic alcohol dependence, continuous Hyperlipidemia Low 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 HTN (hypertension) Home Medications ?Medication ?Instructions ?Recorded ?Last Taken ?Type anastrozole 1 mg tablet 0.25 mg PO .3xweek hormone 08/27/19 10/25/21 05:15 History multivitamin with minerals 1 tab PO DAILY supplement 08/27/19 08/26/19 History omeprazole 20 mg capsule,delayed 20 mg PO DAILY STOMACH 05/26/21 07/03/24 History release aspirin 81 mg tablet,delayed 81 mg PO DAILY 07/13/21 06/28/24 History release celecoxib 200 mg capsule (Celebrex) 100 mg PO BID pain 11/20/22 Unknown History amlodipine 10 mg tablet 10 mg PO DAILY 05/22/24 07/03/24 07:00 History Allergy/AdvReac Type Severity Reaction Status Date / Time cefdinir Allergy Unknown Severe Verified 12/09/24 09:44 Fatigue doxycycline Allergy Unknown Severe Verified 12/09/24 09:44 Fatigue penicillin G Allergy Unknown Unknown Verified 12/09/24 09:44 sulfamethoxazole (From Allergy Unknown anemia Verified 12/09/24 09:44 Bactrim) trimethoprim (From Bactrim) Allergy Unknown anemia Verified 12/09/24 09:44 Penicillins Allergy Unknown Verified 12/09/24 09:44 Family History Father Aortic aneurysm Mother Heart disease Colon polyps Surgical History History of arthroplasty of right knee (~1998) Hx of colonoscopy H/O right knee surgery History of back surgery (~2019) History of esophagogastroduodenoscopy (EGD) Social History household members: spouse current occupational status: retired Smoking Status: Former smoker Smokeless tobacco user: other how long ago did patient quit smokin alcohol intake: former substance use type: marijuana Review of Systems (Anesthesia) ROS Narrative System reviewed and no additional complaints, except as documented.
[2024-12-10] MEDS: 0.9% Normal Saline (1000mL) 1,000 ML 15 ML IV (13:24)
--- NOTE | 2024-12-10 14:59 | HP.PCM_ITS ---
HPI - General General Date of Service: 12/10/24 Chief Complaint: Urinary retention HPI Narrative KARIN MCLEOD, is a 69 M who presents for a transurethral resection of the prostate for urinary retention currently has a catheter in because he was retaining urine going to plan to proceed with a TURP hoping to relieve the obstruction so he can urinate normally the patient was discussed so is possible the surgery may fail and may have to learn self intermittent catheterization he was still may not be able to urinate afterwards there is a risk of bleeding and infection and the risk of anesthetic PFSH Medical History Personal history of colonic polyps Basal cell carcinoma Alcohol use Wears glasses Cancer Arthritis Prostate disease Back pain History of GI bleed History of ulceration Gastric reflux Former smoker History of pain when walking History of edema History of echocardiogram History of stress test Strain of right Achilles tendon Right ankle sprain Right knee pain Rotator cuff syndrome of right shoulder Recent shoulder injury Benign prostatic hyperplasia GI bleed Chronic alcohol dependence, continuous Hyperlipidemia Low 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 HTN (hypertension) Home Medications ?Medication ?Instructions ?Recorded ?Last Taken ?Type anastrozole 1 mg tablet 0.25 mg PO .3xweek hormone 1 10/27/18 10/25/21 05:15 History multivitamin with minerals 1 tab PO DAILY supplement 1 10/27/18 08/26/19 History omeprazole 20 mg capsule,delayed 20 mg PO DAILY STOMAC H 05/26/21 12/10/24 07:30 History release aspirin 81 mg tablet,delayed 81 mg PO DAILY 07/13/21 0 06/28/24 History release celecoxib 200 mg capsule (Celebrex) 100 mg PO BID pain 11/20/22 Unknown History amlodipine 10 mg tablet 10 mg PO DAILY 05/22/2403/01 07:30 History Allergy/AdvReac Type Severity Reaction Status Date / Time cefdinir Allergy Unknown Severe Verified 12/10/24 12:58 Fatigue doxycycline Allergy Unknown Severe Verified 12/10/24 12:58 Fatigue penicillin G Allergy Unknown Unknown Verified 12/10/24 12:58 sulfamethoxazole (From Allergy Unknown anemia Verified 12/10/24 12:58 Bactrim) trimethoprim (From Bactrim) Allergy Unknown anemia Verified 12/10/24 12:58 Penicillins Allergy Unknown Verified 12/10/24 12:58 Family History Father Aortic aneurysm Mother Heart disease Colon polyps Surgical History History of arthroplasty of right knee (~1998) Hx of colonoscopy H/O right knee surgery History of back surgery (~2019) History of esophagogastroduodenoscopy (EGD) Social History household members: spouse current occupational status: retired Smoking Status: Former smoker Smokeless tobacco user: other how long ago did patient quit smokin alcohol intake: former substance use type: marijuana Vital Signs Vital Signs Vital Signs: 12/10/24 13:25 12/10/24 13:25 Temperature 98.3 F Temperature Source Temporal Pulse Rate 65 Respiratory Rate 16 Respiratory Pattern Normal Blood Pressure 128/86 H Blood Pressure Mean 100 Blood Pressure Source Monitor Blood Pressure Position Semi-Fowlers Blood Pressure Location Left Arm Pulse Ox 98 Oxygen Delivery Method Room Air Weight Weight: 90 kg Body Mass Index (BMI) 30.2
--- NOTE | 2024-12-10 15:00 | DCINST_ITS ---
Discharge Instructions Diet Discharge Diet: No restrictions DC O2, CPAP, BIPAP needs Home O2 Discharge instructions: No Dressing / Incision Discharge Activity: Return to Normal Activity and May Not Drive (while taking narcotic pain medications.) Dressing / Incision Call your doctor if you observe: Fever of 101 or Higher Follow Up Care Please Follow Up With: Alfonso Chaney MD When: Call [phone] for an appointment Test Results: Test results from this visit will be discussed in further detail at your follow- up appointment, if applicable. Discharge Plan Admission Primary Reason for Your Visit: turp Attending Provider: Alfonso Chaney Primary Care Provider: Sundar Pierce Instructions Print Language: Occitan Discharge Orders/Prescriptions Prescriptions: Continued omeprazole 20 mg capsule,delayed release(DR/EC) 20 mg PO DAILY Patient Comments: TAKE 1 CAPSULE BY MOUTH EVERY DAY aspirin 81 mg tablet,delayed release (DR/EC) 81 mg PO DAILY celecoxib [Celebrex] 200 mg capsule 100 mg PO BID anastrozole 1 MG tablet 0.25 mg PO .3xweek Patient Comments: TAKES 2 PILLS ON SUNDAY AND 1 PILL ON SUNDAY multivitamin with minerals 1 EACH tablet 1 tab PO DAILY amlodipine 10 mg tablet 10 mg PO DAILY Referrals / Follow Up: Alfonso Chaney MD [Med Staff - Active Staff] - Sundar Pierce DO [Primary Care Provider] - Disposition Disposition (needs filled in before D/C Order can be placed): Home, Self Care
[2024-12-10] MEDS: Cefazolin 2 GM in Syringe IV (15:47)
--- NOTE | 2024-12-10 16:29 | PCM.OPRPT ---
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 operator for plastic: No Type of Anesthesia: General RN Documented Start/Stop Times: Operation Date: 12/10/24 14:30 Case Time Into Pre-Op 12/10/24 12:32 Out of Pre-Op 12/10/24 15:44 Anesthesia Start 12/10/24 15:47 Into Room 12/10/24 15:47 Procedure Start 12/10/24 16:01 Procedure End 12/10/24 16:27 Procedure Start Time: 16:01 Procedure Stop Time: 16:30 Select all DRAINS/GRAFTS/IMPLANTS that apply: Drains Drain details: 22 Slovak three-way Estimated Blood Loss: 0 Specimen collected: Yes Description of specimen(s) removed: Prostatic tissue Description of surgery: Patient was taken back to the operating room after smooth induction of anesthesia the Vo catheter was removed and then went to the bladder with a 26 Slovak continuous-flow Olympus bipolar resectoscope identified the room in tandem identified the prostatic channel it was a short channel but very stiff hard tissue in the channel I then put in the resectoscope and then I resected the floor the prostate right lobe of the prostate left lower the prostate carefully resected the apical tissue and came down to the sphincter and very carefully resected a couple of tissue to make sure there is no flapping or obstructive tissue we Ellik to all the chips out of the bladder I cauterized the proximal extensively to obtain hemostasis the tissue was sent off for specimen placed a three-way catheter into the bladder for continuous bladder irrigation is taken back to PACU in stable condition. Surgical Findings: Short bit obstructive heart tissue Complications Complications: No Admit VTE Documentation VTE Present on Admission: No VTE Mechan Device Prophylaxis: SCD's VTE Pharm Prophylaxis ordered?: No
--- NOTE | 2024-12-10 16:44 | PCM.POST.ANE ---
Anesthesia: Postop Eval I Current Vital Signs Temperature: 97.7 F Pulse Rate: 74 Blood Pressure: 146/87 Respiratory Rate: 20 Pulse Ox: 96 Oxygen Delivery Method: Room Air Assessment Airway patent: Yes Spontaneous unlabored respirations: Yes Mental status: Awake and Calm nausea: No Vomiting: No Anesthesia Complication: No Fluid Hydration Crystalloid volume administer (ml): 700 Total IV fluid infused: 700 Progress Note Anesthesia document: Postop Eval 1 completed: Yes
--- NOTE | 2024-12-10 17:55 | POSTOPAN2_ITS ---
Anesthesia Postop Eval I Sum Postop Eval Completion status Anesthesia document: Postop Eval 1 completed: Yes Anesthesia Postop Eval I Summary Anesthesia Postop Eval I Summary: Anesthesia Postop Eval I: Assessment Summary Airway patent Yes 12/10/24 16:45 SHELTER [email or web address] Spontaneous unlabored Yes 12/10/24 16:45 SHELTER [email or web address] respirations Mental status Awake,Calm 12/10/24 16:45 [email or web address] [email or web address] nausea No 12/10/24 16:45 SHELTER DIRECTOR.[email or web address] Vomiting No 12/10/24 16:45 SHELTER DIRECTOR.[email or web address] Anesthesia Postop Eval I: Fluid Summary Crystalloid volume administer 700 12/10/24 16:45 SHELTER [email or web address] (ml) Colloids volume administered ( ml) Blood Product volume administered (ml) Total IV fluid infused 700 12/10/24 16:45 SHELTER [email or web address] Anesthesia Postop Eval I: Summary Notes Anesthesia Complication No 12/10/24 16:45 SHELTER [email or web address] Anesthesia Complication Comment: Post-operative progress note Anesthesia: Postop Eval II Evaluation Mental status: Awake Pain Level: 0 nausea: No Vomiting: No
--- NOTE | 2024-12-10 17:55 | PCM.POSTANE2 ---
Anesthesia Postop Eval I Sum Postop Eval Completion status Anesthesia document: Postop Eval 1 completed: Yes Anesthesia Postop Eval I Summary Anesthesia Postop Eval I Summary: Anesthesia Postop Eval I: Assessment Summary Airway patent Yes 12/10/24 16:45 COVERSTITCH ELASTIC [email or web address] Spontaneous unlabored Yes 12/10/24 16:45 COVERSTITCH ELASTIC ATTACHER.[email or web address] respirations Mental status Awake,Calm 12/10/24 16:45 COVERSTITCH ELASTIC ATTACHER.[email or web address] nausea No 12/10/24 16:45 COVERSTITCH ELASTIC ATTACHER.[email or web address] Vomiting No 12/10/24 16:45 COVERSTITCH ELASTIC ATTACHER.[email or web address] Anesthesia Postop Eval I: Fluid Summary Crystalloid volume administer 700 12/10/24 16:45 COVERSTITCH ELASTIC ATTACHER.[email or web address] (ml) Colloids volume administered ( ml) Blood Product volume administered (ml) Total IV fluid infused 700 12/10/24 16:45 COVERSTITCH ELASTIC ATTACHER.[email or web address] Anesthesia Postop Eval I: Summary Notes Anesthesia Complication No 12/10/24 16:45 COVERSTITCH ELASTIC ATTACHER.[email or web address] Anesthesia Complication Comment: Post-operative progress note Anesthesia: Postop Eval II Evaluation Mental status: Awake Pain Level: 0 nausea: No Vomiting: No
[2024-12-10] MEDS: Docusate Sodium 100 MG Capsule 200 MG PO (21:44)
[2024-12-10] MEDS: Ciprofloxacin 400 MG/200 ML BAG 200 MG IV (21:45)
[2024-12-10] MEDS: 0.9% Normal Saline (1000mL) 1,000 ML 125 ML IV (23:42)
[2024-12-11 00:32] VITALS: BP 127/76; PULSE 75; RESP 16; TEMP 36.6; O2SAT 95
[2024-12-11 04:07] VITALS: BP 116/64; PULSE 63; RESP 16; TEMP 36.3; O2SAT 95
[2024-12-11 06:28] LABS: Absolute Lymphocyte Count 0.65 X10^3/uL (0.83-4.51); Basophil# 0.01 X10^3/uL; Basophil% 0.1 % (0-1); Eosinophil# 0.01 X10^3/uL; Eosinophils% 0.1 % (0-5); Hematocrit 37.1 % (40-54); Hemoglobin 12.7 g/dL (13.0-16.5); Lymphocyte # 0.65 X10^3/ul (0.83-4.51); Lymphocyte % 7.3 % (19-41); Mean Corp Hgb Conc 34.2 g/dL (32-36); Mean Corpuscular Hgb 30.2 pg (27.0-32.0); Mean Corpuscular Volume 88.3 fL (80-94); Mean Platelet Vol. 10.1 fl (6.2-12.0); Monocyte# 0.29 X10^3/uL; Monocyte% 3.2 % (0-10); NRBC Flagged by Analyzer 0 % (0-5); Neutrophil # 7.95 X10^3/uL (2.7-7.7); Neutrophil % 88.9 % (47-70); Platelet Count 219 K/mm3 (150-450); RBC Distribution Width CV 12.1 % (11.6-14.6)
[2024-12-11 07:47] LABS: Anion Gap 14 (5-15); BUN 12 mg/dL (4-19); BUN/Creat Ratio 13.1 RATIO (10-20); Calcium,Total 8.8 mg/dL (7.6-11.0); Carbon Dioxide 19.6 mmol/L (21.0-32.0); Chloride 102 mmol/L (98-108); Creatinine, Serum 0.89 mg/dL (0.70-1.20); EST Glomerular Filtration Rate 93 (>60); Estimated Creatinine Clearance 85.36 ml/min (50-250); Glucose 142 mg/dL (70-99); Potassium 4.3 mmol/L (3.3-5.1); Sodium Level 136 mmol/L (133-145)
--- NOTE | 2024-12-11 07:51 | PCM.PN.GU ---
Subjective Subjective doing well home amparo petersen follow up next week in office to jam petersen Objective Data Objective Data Vital Signs: Vital Signs Temp Pulse Resp BP Pulse Ox O2 Del Method 97.3 F L 63 16 116/64 95 Room Air 12/11/24 04:07 12/11/24 04:07 12/11/24 04:07 12/11/24 04:07 12/11/24 04:07 12/11/24 04:07 Oxygen Delivery Method Room Air Weight: 90 kg Body Mass Index (BMI) 30.2 Intake & Output: Intake and Output for Last 24 Hours 12/09/24 12/10/24 12/11/24 23:59 23:59 23:59 Intake Total 1237 / 1237 175.75 / 175.75 Output Total 4800 / 4800 57710 / 80894 Balance -3563 / -3563 -76919.25 / -38257.25 Lab / Micro Data 12/11/24 05:29 12/11/24 05:29 Labs: Laboratory Results - last 24 hr 12/11/24 05:29: WBC 9.0, RBC 4.20 L, Hgb 12.7 L, Hct 37.1 L, MCV 88.3, MCH 30.2, MCHC 34.2, RDW Std Deviation 39.0, RDW Coeff of [place] 12.1, Plt Count 219, MPV 10.1, Immature Gran % (Auto) 0.400, Neut % (Auto) 88.9 H, Lymph % (Auto) 7.3 L, [place] % (Auto) 3.2, Eos % (Auto) 0.1, Baso % (Auto) 0.1, Absolute Neuts (auto) 8.0 H, Absolute Lymphs (auto) 0.65 L, Nucleated RBC % 0, Sodium 136, Potassium 4.3, Chloride 102, Carbon Dioxide 19.6 L, Anion Gap 14, BUN 12, Creatinine 0.89, Estim Creat Clear Calc 85.36, Est GFR (MDRD) Non-Af 93, BUN/Creatinine Ratio 13.1, Glucose 142 H, Calcium 8.8
[2024-12-11 07:54] VITALS: BP 131/84; PULSE 78; RESP 16; TEMP 36.4; O2SAT 98
--- NOTE | 2024-12-11 09:27 | CASEMGMT ---
RN NICK MARKER ASSEMBLER NICK?to room to meet with patient for initial transition planning/care coordination assessment. RN NICK?introduced self and role at [facility]. Pt voices understanding and consents to assessment?at this time. Pt resting in bed in no distress at this time. Pt is A/O at this time and answers all questions appropriately. Care providers, pharmacy, and demographics verified/updated at this time. Strata:?1 PCP: Dr Pierce Specialists: Dr Chaney-urology, Dr Valenzuela-neuro, Dr Crandall-surgeon Preferred Pharmacy: [facility] Retail Insurance: Spontaneously Prescription Benefit: yes LNOK: , Vidhi. Son, Horacio Living Arrangements: Lives w/. Independent. Transportation:?Pt and both drive DME: Denies using any DME HHC/SNF: No hx. Has done OP therapy @ [facility] in the past. Pt wishes to return home and states has no concerns with going home at time of discharge. He has managed F/C this week @ home and feels comfortable w/continuing to do so. Davina ARIZMENDI, to educate on changing bag. Pt states Dr Chaney told him he would be discharging home on PO atb. No Rx noted on dc instructions. Davina ARIZMENDI, aware and will f/u with Dr Chaney re: same. PLAN: Home with F/C. Lazaro VICTOR RN, CM
== END 2024-12-11 10:16 | disposition home or self-care (01) ==
LOC: MS3 12-11 07:39 → SDC 12-11 07:42 → MS3 12-11 07:45
PROVIDERS: Admitting Provider Urology; PCP Family Medicine; Referring Provider Urology; Visit Provider Urology
PROC: (CPT 52601; principal; 2024-12-10 14:20)
DX: N40.1 Benign prostatic hyperplasia with lower urinary tract symptoms (principal); N13.8 Other obstructive and reflux uropathy; I10 Essential (primary) hypertension; E78.5 Hyperlipidemia, unspecified; K21.9 Gastro-esophageal reflux disease without esophagitis; R33.8 Other retention of urine; Z79.82 Long term (current) use of aspirin; Z79.899 Other long term (current) drug therapy; Z87.891 Personal history of nicotine dependence; R35.1 Nocturia; R32 Unspecified urinary incontinence; R39.14 Feeling of incomplete bladder emptying; R35.0 Frequency of micturition
CPT/HCPCS: 52601; 36415; 80048; 85025; 88305; 93005; 96365; 96366; 99221; G0378; J0744; J2405

== ENCOUNTER → 2025-07-15 | Outpatient (CLI) | payer MEDICARE, SELFPAY ==
[2025-07-15 10:37] LABS: Hematocrit 40.8 % (40-54); Hemoglobin 13.9 g/dL (13.0-16.5); Immature Granulocytes Count 0.050 X10^3/uL (0.0-0.0); Mean Corp Hgb Conc 34.1 g/dL (32-36); Mean Corpuscular Volume 89.9 fL (80-94); Mean Platelet Vol. 10.1 fl (6.2-12.0); NRBC Flagged by Analyzer 0 % (0-5); Platelet Count 235 K/mm3 (150-450); RBC Distribution Width CV 11.9 % (11.6-14.6); RBC Distribution Width SD 39.1 fl (35.1-43.9); Red Blood Count 4.54 M/mm3 (4.6-6.2); White Blood Count 5.9 K/mm3 (4.4-11.0)
[2025-07-15 12:23] LABS: AST(SGOT) 33 U/L (<=37); Alanine Aminotransfer ALT/SGPT 29 U/L (<=46); Albumin, Serum 4.4 g/dL (3.4-4.8); Alkaline Phosphatase 75 U/L (40-129); Anion Gap 13 (5-15); BUN 14 mg/dL (4-19); BUN/Creat Ratio 15.8 RATIO (10-20); Calcium,Total 9.3 mg/dL (7.6-11.0); Carbon Dioxide 21.6 mmol/L (21.0-32.0); Chloride 100 mmol/L (98-108); Cholesterol 207 mg/dL (<=200); Globulin 3.3 g/dL (2.2-4.2); Glucose 140 mg/dL (70-99); Low Density Lipoprotein Calc. 130 mg/dL; PSA,Total - Annual Screen 0.96 ng/mL (0.02-4.00); Potassium 4.6 mmol/L (3.3-5.1); Triglycerides 100 mg/dL; Very Low Density Lipoprotein 20 mg/dL (5-40); cholesterol:hdl ratio screen 3.60
== END | disposition home or self-care (01) ==
LOC: LAB 09:42
PROVIDERS: PCP Family Medicine; Referring Provider Family Medicine; Visit Provider Family Medicine
DX: I10 Essential (primary) hypertension (principal); R73.01 Impaired fasting glucose; K76.0 Fatty (change of) liver, not elsewhere classified; Z12.5 Encounter for screening for malignant neoplasm of prostate
CPT/HCPCS: 36415; 80053; 80061; 83036; 84153; 85025; G0103